=== PATIENT | female | born 1930 | race Two or more races ===

== ENCOUNTER 2018-04-18 01:31 | Inpatient (IN) | payer MEDICARE ==
[~2018-04-18] VITALS: Ht 152.4 cm; Wt 52.6 kg
[2018-04-18] VITALS (8 sets, daily range): BP systolic 113–204; BP diastolic 40–80
[2018-04-18] MEDS ORDERED: LEVETIRACE100 MG/1 M GT (01:45)
[2018-04-18] MEDS ORDERED: Ampicillin/Sulbactam Sod 3 GM in NS 110 ML IV SCH (01:45)
[2018-04-18] MEDS ORDERED: LEVAQUIN500 MG ORAL (01:45)
[2018-04-18] MEDS ORDERED: CATAPRES0.1 MG ORAL (01:45)
[2018-04-18] MEDS ORDERED: GABAPENTIN300 MG ORAL (01:45)
[2018-04-18] MEDS ORDERED: ASPIRIN81 MG ORAL (01:45)
[2018-04-18] MEDS ORDERED: METOPROLOL TART25 MG ORAL (01:45)
[2018-04-18 02:44] LABS: HEMATOCRIT 48.5 % (37.0-47.0); HEMOGLOBIN 14.7 G/DL (12.0-16.0); MEAN CORPUSCULAR VOLUME 87 FL (80-99); PLATELET COUNT 606 K/UL (150-450); RED BLOOD COUNT 5.58 M/UL (4.20-5.40); RED CELL DISTRIBUTION WIDTH 19.3 % (11.6-14.8); WHITE BLOOD COUNT 20.1 K/UL (4.8-10.8)
[2018-04-18 02:54] LABS: APPEARANCE,URINE CLEAR; BILIRUBIN, URINE NEGATIVE (NEGATIVE); COLOR,URINE PALE YELLOW; GLUCOSE, URINE (UA) NEGATIVE (NEGATIVE); KETONES,URINE NEGATIVE (NEGATIVE); LEUKOCYTE ESTERASE ,URINE NEGATIVE (NEGATIVE); NITRITE,URINE NEGATIVE (NEGATIVE); PH,URINE 6 (4.5-8.0); PROTEIN,URINE 3+ (NEGATIVE); UROBILINOGEN,URINE NORMAL MG/DL (0.0-1.0)
[2018-04-18 02:55] LABS: ANION GAP 8 mmol/L (5-15); BLOOD UREA NITROGEN 39 mg/dL (7-18); CALCIUM 9.2 MG/DL (8.5-10.1); CARBON DIOXIDE 27 MMOL/L (21-32); CHLORIDE 106 MMOL/L (98-107); CREATININE 1.3 MG/DL (0.55-1.30); POTASSIUM 4.4 MMOL/L (3.5-5.1); SODIUM 141 MMOL/L (136-145)
[2018-04-18 03:08] LABS: ALANINE AMINOTRANSFERASE 37 U/L (12-78); ALBUMIN 3.6 G/DL (3.4-5.0); ALBUMIN/GLOBULIN RATIO 0.8 (1.0-2.7); ALKALINE PHOSPHATASE 155 U/L (46-116); ASPARTATE AMINO TRANSFERASE 26 U/L (15-37); BILIRUBIN,TOTAL 0.2 MG/DL (0.2-1.0); CKMB 0.8 NG/ML (0.0-3.6); CREATINE KINASE 25 U/L (26-308); PHOSPHORUS 4.2 MG/DL (2.5-4.9)
--- NOTE | 2018-04-18 03:36 | Emergency Room Report ---
History of Present Illness General Chief Complaint: Abnormal Labs Source: Medical Record Present Illness HPI Patient is a 87-year-old female brought in by EMS for increased shortness of breath. Patient was noted to have a abnormal white blood count was noted to have increasing white blood cell counts on repeat testing. Patient noted have recent chest x-ray which showed evidence of pneumonia. She had some complaints of generalized shaking and chills. Patient had been sent in from alf. Patient was noted to be full code. Patient is followed by Dr. Johansen. Allergies: Coded Allergies: No Known Allergies (Unverified , 04/18/18) Patient History Past Medical History: see triage record Now: No Reviewed Nursing Documentation: PMH: Agreed; PSxH: Agreed Nursing Documentation-PMH Past Medical History: No History, Except For Hx Hypertension: Yes Hx Gastrointestinal Problems: Yes - Dysphagia Hx Seizures: Yes Review of Systems All Other Systems: limited - by mental status Physical Exam Vital Signs Date Time Temp Pulse Resp B/P (MAP) Pulse Ox O2 Delivery O2 Flow Rate FiO2 04/18/18 01:24 97.8 64 15 204/80 98 Room Air 97.9 Sp02 EP Interpretation: reviewed, normal General Appearance: normal inspection, well appearing, no apparent distress, alert, GCS 15, Chronically Ill Head: atraumatic ENT: normal ENT inspection, hearing grossly normal, normal voice Neck: normal inspection, full range of motion, supple, no bony tend Respiratory: normal inspection, no respiratory distress, no retraction, no wheezing, rhonchi Cardiovascular #1: regular rate, rhythm, no edema Gastrointestinal: normal inspection, normal bowel sounds, non tender, soft, no guarding, no hernia Genitourinary: no CVA tenderness Musculoskeletal: normal inspection, back normal, normal range of motion Neurologic: normal inspection, alert, responsive, speech normal Psychiatric: normal inspection, mood/affect normal, anxious Skin: normal inspection, normal color, no rash Medical Decision Making Diagnostic Impression: Primary Impression: Pneumonia Additional Impression: Leukocytosis ER Course The patient presented for elevate white blood count. Differential diagnosis included was not limited to pneumonia, pulmonary embolism, UTI, leukemia among others.Because of complexity of patient's case laboratory testing and imaging studies were ordered. I EKG interpreted by me showed normal sinus rhythm with a rate of 63 with right bundle branch block. The patient given IV antibiotics. Dr. Andrew Woodard was contacted for inpatient management due to covering physician. EKG Diagnostic Results Rate: normal Rhythm: NSR ST Segments: no acute changes Rhythm Strip Diag. Results EP Interpretation: yes Rhythm: NSR, no PVC's, no ectopy Last Vital Signs Date Time Temp Pulse Resp B/P (MAP) Pulse Ox O2 Delivery O2 Flow Rate FiO2 04/18/18 02:17 198/61 04/18/18 01:50 97.9 64 15 98 Room Air 97.9 Status: unchanged Disposition: ADMITTED INPATIENT Condition: Serious Referrals: Honorio Johansen MD (PCP) Vamshi Grissom MD Apr 18, 2018 03:36
[2018-04-18] MEDS ORDERED: Albuterol/Ipratropium 3ml neb HHN PRN (05:45)
[2018-04-18] MEDS ORDERED: Vancomycin 1gm in D5W 275ml IVPB SCH (08:00)
[2018-04-18] MEDS: Metoprolol 25mg tab ORAL SCH ×2 (08:37→22:08)
[2018-04-18] MEDS: Heparin 5000 units/ml inj SUBQ SCH ×2 (08:39→21:53)
[2018-04-18] MEDS: Aspirin Baby 81mg ORAL SCH (08:39)
[2018-04-18] MEDS: Zoysn 3.37gm in NS 100ML IVPB SCH ×2 (10:27→18:17)
--- NOTE | 2018-04-18 12:20 | Diagnostic Imaging Report ---
Indication: Shortness of breath Technique: One view of the chest Comparison: none Findings: Suboptimal inspiration. There is central bronchial wall thickening. Lungs pleural spaces are clear. The heart is enlarged. Aorta is calcified Impression: No acute process
--- NOTE | 2018-04-18 12:28 | Consultation ---
History of Present Illness General Date patient seen: Apr 18, 2018 Chief Complaint: Abnormal Labs Reason for Consultation: right clavicle trauma / abrasion Present Illness HPI 87 year old female was sent to ED for evaluation of SOB. Was doing well but has recently had some breathing difficulty. From report prior CXR demonstrated possible pneumonia. In ED found to have leukocytosis. Admitted for care and management. During admission noted to have right mid clavicle wound. Surgery called to evaluate given location of wound and appearance of wound. Patient states she has had it for a a few weeks now. Believes she had trauma to the area when she was getting out of a taxi. States she fell over as she was coming out of the taxi and hit her right mid clavicle and obtained wound that has since been slow to heal. patient seen, chart reviewed, patient examined. Allergies: Coded Allergies: No Known Allergies (Unverified , 04/18/18) Medication History Scheduled Aspirin* (Aspirin*), 81 MG ORAL DAILY, (Reported) Clonidine Hcl* (Catapres*), 0.1 MG ORAL EVERY 6 HOURS, (Reported) Gabapentin* (Gabapentin*), 300 MG ORAL BEDTIME, (Reported) Levetiracetam* (Levetiracetam*), 500 MG GT BID, (Reported) Levofloxacin* (Levaquin*), 500 MG ORAL DAILY, (Reported) Metoprolol Tartrate* (Metoprolol Tartrate*), 25 MG ORAL EVERY 12 HOURS, ( Reported) Patient History History Provided By: Patient, Medical Record, PMD Healthcare decision maker Resuscitation status Full Code Advanced Directive on File No Past Medical/Surgical History Past Medical/Surgical History: (1) Contusion of right clavicle (2) Leukocytosis (3) Pneumonia Review of Systems All Other Systems: negative except mentioned in HPI Physical Exam General Appearance: no apparent distress Lines, tubes and drains: peripheral HEENT: normocephalic, atraumatic Neck: normal inspection Respiratory/Chest: normal breath sounds, no respiratory distress, no accessory muscle use Cardiovascular/Chest: normal rate Abdomen: normal bowel sounds, non tender, soft, no organomegaly, no mass Extremities: non-tender, normal inspection Skin Exam: normal pigmentation, other - 3cm by 3cm right clavicle wound slow healing wound with fibrinous debris. stage II. clavicle tender on right Neurologic: alert, responsive Last 24 Hour Vital Signs Date Time Temp Pulse Resp B/P (MAP) Pulse Ox O2 Delivery O2 Flow Rate FiO2 04/18/18 11:30 64 20 Room Air 21 04/18/18 08:37 62 125/48 04/18/18 08:00 97.9 61 19 125/48 99 Room Air 97.9 04/18/18 08:00 61 04/18/18 05:30 57 04/18/18 04:45 97.2 53 20 141/57 96 Room Air 97.2 04/18/18 04:45 98.2 58 17 113/40 98 Room Air 98.2 04/18/18 04:37 98.2 58 17 113/40 98 Room Air 98.2 04/18/18 03:51 97.9 59 17 121/56 97 Room Air 97.9 04/18/18 02:17 198/61 04/18/18 01:50 97.9 64 15 204/80 98 Room Air 97.9 04/18/18 01:24 97.8 64 15 204/80 98 Room Air 97.9 Intake and Output 04/17/18 04/18/18 19:00 07:00 Intake Total 0 ml Balance 0 ml Intake Oral 0 ml # Voids 1 # Bowel Movements 1 Laboratory Tests Test 04/18/18 02:05 04/18/18 02:35 White Blood Count 20.1 K/UL (4.8-10.8) H Red Blood Count 5.58 M/UL (4.20-5.40) H Hemoglobin 14.7 G/DL (12.0-16.0) Hematocrit 48.5 % (37.0-47.0) H Mean Corpuscular Volume 87 FL (80-99) Mean Corpuscular Hemoglobin 26.3 PG (27.0-31.0) L Mean Corpuscular Hemoglobin Concent 30.3 G/DL (32.0-36.0) L Red Cell Distribution Width 19.3 % (11.6-14.8) H Platelet Count 606 K/UL (150-450) H Mean Platelet Volume 6.7 FL (6.5-10.1) Neutrophils (%) (Auto) % (45.0-75.0) Lymphocytes (%) (Auto) % (20.0-45.0) Monocytes (%) (Auto) % (1.0-10.0) Eosinophils (%) (Auto) % (0.0-3.0) Basophils (%) (Auto) % (0.0-2.0) Differential Total Cells Counted 100 Neutrophils % (Manual) 78 % (45-75) H Lymphocytes % (Manual) 13 % (20-45) L Monocytes % (Manual) 2 % (1-10) Eosinophils % (Manual) 5 % (0-3) H Basophils % (Manual) 0 % (0-2) Band Neutrophils 2 % (0-8) Platelet Estimate Increased H Platelet Morphology Normal Red Blood Cell Morphology Poikilocytosis 1+ Anisocytosis 1+ Sodium Level 141 MMOL/L (136-145) Potassium Level 4.4 MMOL/L (3.5-5.1) Chloride Level 106 MMOL/L (98-107) Carbon Dioxide Level 27 MMOL/L (21-32) Anion Gap 8 mmol/L (5-15) Blood Urea Nitrogen 39 mg/dL (7-18) H Creatinine 1.3 MG/DL (0.55-1.30) Estimat Glomerular Filtration Rate mL/min (>60) Glucose Level 101 MG/DL (74-106) Lactic Acid Level 1.80 mmol/L (0.4-2.0) Calcium Level 9.2 MG/DL (8.5-10.1) Phosphorus Level 4.2 MG/DL (2.5-4.9) Magnesium Level 2.3 MG/DL (1.8-2.4) Total Bilirubin 0.2 MG/DL (0.2-1.0) Aspartate Amino Transf (AST/SGOT) 26 U/L (15-37) Alanine Aminotransferase (ALT/SGPT) 37 U/L (12-78) Alkaline Phosphatase 155 U/L (46-116) H Total Creatine Kinase 25 U/L (26-308) L Creatine Kinase MB 0.8 NG/ML (0.0-3.6) Creatine Kinase MB Relative Index 3.2 Troponin I 0.000 ng/mL (0.000-0.056) Pro-B-Type Natriuretic Peptide 859 pg/mL (0-125) H Total Protein 8.3 G/DL (6.4-8.2) H Albumin 3.6 G/DL (3.4-5.0) Globulin 4.7 g/dL Albumin/Globulin Ratio 0.8 (1.0-2.7) L Urine Color Pale yellow Urine Appearance Clear Urine pH 6 (4.5-8.0) Urine Specific [place] 1.010 (1.005-1.035) Urine Protein 3+ (NEGATIVE) H Urine Glucose (UA) Negative (NEGATIVE) Urine Ketones Negative (NEGATIVE) Urine Occult Blood Negative (NEGATIVE) Urine Nitrite Negative (NEGATIVE) Urine Bilirubin Negative (NEGATIVE) Urine Urobilinogen Normal MG/DL (0.0-1.0) Urine Leukocyte Esterase Negative (NEGATIVE) Urine RBC 0-2 /HPF (0 - 2) Urine WBC 0-2 /HPF (0 - 2) Urine Squamous Epithelial Cells None /LPF (NONE/OCC) Urine Bacteria None /HPF (NONE) Height (Feet): 5 Height (Inches): 0.00 Weight (Pounds): 110 Medications Current Medications Medications (Trade) Dose Ordered Sig/Franco Route PRN Reason Start Time Stop Time Status Last Admin Dose Admin Albuterol/ Ipratropium (Albuterol/ Ipratropium) 3 ml Q4H PRN HHN Shortness of Breath 04/18/18 05:45 04/23/18 05:44 Aspirin (ASA) 81 mg DAILY ORAL 04/18/18 09:00 05/18/18 08:59 04/18/18 08:39 Clonidine HCl (Catapres Tab) 0.1 mg Q6H PRN ORAL For High Blood Pressure 04/18/18 06:00 05/18/18 05:59 Gabapentin (Neurontin) 300 mg BEDTIME ORAL 04/18/18 21:00 05/18/18 20:59 Heparin Sodium (Porcine) (Heparin 5000 units/ml) 5,000 units EVERY 12 HOURS SUBQ 04/18/18 09:00 05/18/18 08:59 04/18/18 08:39 Levetiracetam (Keppra) 500 mg BID ORAL 04/18/18 09:00 05/18/18 08:59 04/18/18 08:37 Levofloxacin (Levaquin) 250 mg DAILY ORAL 04/18/18 09:00 04/25/18 08:59 04/18/18 08:38 Metoprolol Tartrate (Lopressor) 25 mg EVERY 12 HOURS ORAL 04/18/18 09:00 05/18/18 08:59 04/18/18 08:37 Non-Formulary Medication (Non-Formulary Med) 1 ea DAILY ORAL 04/18/18 09:00 05/18/18 08:59 UNV Piperacillin Sod/ Tazobactam Sod 3.375 gm/Sodium Chloride 110 ml @ 27.5 mls/hr Q8H IVPB 04/18/18 10:00 04/25/18 09:59 04/18/18 10:27 Vancomycin HCl (Vanco rx to dose) 1 ea DAILY PRN MISC Per rx protocol 04/18/18 08:00 05/18/18 07:59 Assessment/Plan Problem List: (1) Contusion of right clavicle Assessment & Plan: right clavicle 3cm by 2cm wound slow healing. from report traumatic etiology after fall. no other wounds noted. wound not infected and shallow ulceration without penetration into subcutaneous tissues. no drainage. no odor CXR reviewed and no clavicle fracture noted. exam as above. -honey gel and foam dressing BID -will monitor while in hospital thank you for this consultation. will follow with recs. ICD Codes: S40.011A - Contusion of right shoulder, initial encounter SNOMED: 13069401 (2) Leukocytosis ICD Codes: D72.829 - Elevated white blood cell count, unspecified SNOMED: 378744118, [id number] Eder Rutherford Apr 18, 2018 12:28
--- NOTE | 2018-04-18 13:02 | Cardiology Report ---
APPROVED REPORT EKG Measurement Heart [id number] Normal sinus rhythm Right bundle branch block Abnormal ECG
--- NOTE | 2018-04-18 13:46 | Consultation ---
History of Present Illness General Date patient seen: Apr 18, 2018 Chief Complaint: Abnormal Labs Reason for Consultation: right clavicle trauma / abrasion Present Illness HPI 87 year old female was sent to ED for evaluation of SOB and breathing difficulty. The pt started yelling and getting agitated when then nurse tried to fix her IV line. the pt is anxious and has difficulty sleeping the pt was having panic like sxs. Allergies: Coded Allergies: No Known Allergies (Unverified , 04/18/18) Medication History Scheduled Aspirin* (Aspirin*), 81 MG ORAL DAILY, (Reported) Clonidine Hcl* (Catapres*), 0.1 MG ORAL EVERY 6 HOURS, (Reported) Gabapentin* (Gabapentin*), 300 MG ORAL BEDTIME, (Reported) Levetiracetam* (Levetiracetam*), 500 MG GT BID, (Reported) Levofloxacin* (Levaquin*), 500 MG ORAL DAILY, (Reported) Metoprolol Tartrate* (Metoprolol Tartrate*), 25 MG ORAL EVERY 12 HOURS, ( Reported) Patient History Limited by: medical condition History Provided By: Patient, Medical Record, PMD Healthcare decision maker Resuscitation status Full Code Advanced Directive on File No Past Medical/Surgical History Past Medical/Surgical History: (1) Leukocytosis (2) Pneumonia (3) Contusion of right clavicle Review of Systems Psychiatric: Reports: prior hx, anxiety, depressed feelings Physical Exam General Appearance: no apparent distress, alert Neurologic: oriented x 3, responsive, depressed affect Last 24 Hour Vital Signs Date Time Temp Pulse Resp B/P (MAP) Pulse Ox O2 Delivery O2 Flow Rate FiO2 04/18/18 11:30 64 20 Room Air 21 04/18/18 08:37 62 125/48 04/18/18 08:00 97.9 61 19 125/48 99 Room Air 97.9 04/18/18 08:00 61 04/18/18 05:30 57 04/18/18 04:45 97.2 53 20 141/57 96 Room Air 97.2 04/18/18 04:45 98.2 58 17 113/40 98 Room Air 98.2 04/18/18 04:37 98.2 58 17 113/40 98 Room Air 98.2 04/18/18 03:51 97.9 59 17 121/56 97 Room Air 97.9 04/18/18 02:17 198/61 04/18/18 01:50 97.9 64 15 80 98 Room Air 97.9 04/18/18 01:24 97.8 64 15 98 Room Air 97.9 Intake and Output 04/17/18 04/18/18 19:00 07:00 Intake Total 0 ml Balance 0 ml Intake Oral 0 ml # Voids 1 # Bowel Movements 1 Laboratory Tests Test 04/18/18 02:05 04/18/18 02:35 White Blood Count 20.1 K/UL (4.8-10.8) H Red Blood Count 5.58 M/UL (4.20-5.40) H Hemoglobin 14.7 G/DL (12.0-16.0) Hematocrit 48.5 % (37.0-47.0) H Mean Corpuscular Volume 87 FL (80-99) Mean Corpuscular Hemoglobin 26.3 PG (27.0-31.0) L Mean Corpuscular Hemoglobin Concent 30.3 G/DL (32.0-36.0) L Red Cell Distribution Width 19.3 % (11.6-14.8) H Platelet Count 606 K/UL (150-450) H Mean Platelet Volume 6.7 FL (6.5-10.1) Neutrophils (%) (Auto) % (45.0-75.0) Lymphocytes (%) (Auto) % (20.0-45.0) Monocytes (%) (Auto) % (1.0-10.0) Eosinophils (%) (Auto) % (0.0-3.0) Basophils (%) (Auto) % (0.0-2.0) Differential Total Cells Counted 100 Neutrophils % (Manual) 78 % (45-75) H Lymphocytes % (Manual) 13 % (20-45) L Monocytes % (Manual) 2 % (1-10) Eosinophils % (Manual) 5 % (0-3) H Basophils % (Manual) 0 % (0-2) Band Neutrophils 2 % (0-8) Platelet Estimate Increased H Platelet Morphology Normal Red Blood Cell Morphology Poikilocytosis 1+ Anisocytosis 1+ Sodium Level 141 MMOL/L (136-145) Potassium Level 4.4 MMOL/L (3.5-5.1) Chloride Level 106 MMOL/L (98-107) Carbon Dioxide Level 27 MMOL/L (21-32) Anion Gap 8 mmol/L (5-15) Blood Urea Nitrogen 39 mg/dL (7-18) H Creatinine 1.3 MG/DL (0.55-1.30) Estimat Glomerular Filtration Rate mL/min (>60) Glucose Level 101 MG/DL (74-106) Lactic Acid Level 1.80 mmol/L (0.4-2.0) Calcium Level 9.2 MG/DL (8.5-10.1) Phosphorus Level 4.2 MG/DL (2.5-4.9) Magnesium Level 2.3 MG/DL (1.8-2.4) Total Bilirubin 0.2 MG/DL (0.2-1.0) Aspartate Amino Transf (AST/SGOT) 26 U/L (15-37) Alanine Aminotransferase (ALT/SGPT) 37 U/L (12-78) Alkaline Phosphatase 155 U/L (46-116) H Total Creatine Kinase 25 U/L (26-308) L Creatine Kinase MB 0.8 NG/ML (0.0-3.6) Creatine Kinase MB Relative Index 3.2 Troponin I 0.000 ng/mL (0.000-0.056) Pro-B-Type Natriuretic Peptide 859 pg/mL (0-125) H Total Protein 8.3 G/DL (6.4-8.2) H Albumin 3.6 G/DL (3.4-5.0) Globulin 4.7 g/dL Albumin/Globulin Ratio 0.8 (1.0-2.7) L Urine Color Pale yellow Urine Appearance Clear Urine pH 6 (4.5-8.0) Urine Specific [place] 1.010 (1.005-1.035) Urine Protein 3+ (NEGATIVE) H Urine Glucose (UA) Negative (NEGATIVE) Urine Ketones Negative (NEGATIVE) Urine Occult Blood Negative (NEGATIVE) Urine Nitrite Negative (NEGATIVE) Urine Bilirubin Negative (NEGATIVE) Urine Urobilinogen Normal MG/DL (0.0-1.0) Urine Leukocyte Esterase Negative (NEGATIVE) Urine RBC 0-2 /HPF (0 - 2) Urine WBC 0-2 /HPF (0 - 2) Urine Squamous Epithelial Cells None /LPF (NONE/OCC) Urine Bacteria None /HPF (NONE) Height (Feet): 5 Height (Inches): 0.00 Weight (Pounds): 110 Medications Current Medications Medications (Trade) Dose Ordered Sig/Franco Route PRN Reason Start Time Stop Time Status Last Admin Dose Admin Albuterol/ Ipratropium (Albuterol/ Ipratropium) 3 ml Q4H PRN HHN Shortness of Breath 04/18/18 05:45 04/23/18 05:44 Aspirin (ASA) 81 mg DAILY ORAL 04/18/18 09:00 05/18/18 08:59 04/18/18 08:39 Clonidine HCl (Catapres Tab) 0.1 mg Q6H PRN ORAL For High Blood Pressure 04/18/18 06:00 05/18/18 05:59 Gabapentin (Neurontin) 300 mg BEDTIME ORAL 04/18/18 21:00 05/18/18 20:59 Heparin Sodium (Porcine) (Heparin 5000 units/ml) 5,000 units EVERY 12 HOURS SUBQ 04/18/18 09:00 05/18/18 08:59 04/18/18 08:39 Levetiracetam (Keppra) 500 mg BID ORAL 04/18/18 09:00 05/18/18 08:59 04/18/18 08:37 Levofloxacin (Levaquin) 250 mg DAILY ORAL 04/18/18 09:00 04/25/18 08:59 04/18/18 08:38 Metoprolol Tartrate (Lopressor) 25 mg EVERY 12 HOURS ORAL 04/18/18 09:00 05/18/18 08:59 04/18/18 08:37 Non-Formulary Medication (Non-Formulary Med) 1 ea DAILY ORAL 04/18/18 09:00 05/18/18 08:59 UNV Piperacillin Sod/ Tazobactam Sod 3.375 gm/Sodium Chloride 110 ml @ 27.5 mls/hr Q8H IVPB 04/18/18 10:00 04/25/18 09:59 04/18/18 10:27 Vancomycin HCl (Vanco rx to dose) 1 ea DAILY PRN MISC Per rx protocol 04/18/18 08:00 05/18/18 07:59 Vancomycin/Sodium Chloride 250 ml @ 166.667 mls/hr Q36H IVPB 04/19/18 20:00 04/24/18 19:59 Assessment/Plan Status: stable, progressing Assessment/Plan Anxiety d/o Cognitive impairment -Ativan 1mg q6hr/prn -Lexapro 10mg qam -Provided pamela/Severino Lopez M.D. Apr 18, 2018 13:46
--- NOTE | 2018-04-18 18:31 | History and Physical Report ---
DATE OF ADMISSION: 04/18/2018 CHIEF COMPLAINT: Pneumonia. HISTORY OF PRESENT ILLNESS: The patient is an 87-year-old female. She has a history of hypertension, seizure disorder, peripheral neuropathy, and gait instability. She was transferred from a retirement facility with complaints of cough, congestion, and fevers. On evaluation at the retirement facility, she apparently had an x-ray that showed bilateral pneumonia. Here in the emergency room, she had x-ray evidence of pneumonia on x-ray here. She had a white count of 20,000. The patient has been pancultured. Broad-spectrum antibiotics have been instituted and the patient is now admitted for further evaluation and care. She currently is without complaints. PAST MEDICAL HISTORY: As above. PAST SURGICAL HISTORY: Includes a history of hip replacement. CURRENT MEDICATIONS: Reconciled and reviewed. FAMILY HISTORY: None. SOCIAL HISTORY: Negative for tobacco, ethanol, or drugs. REVIEW OF SYSTEMS: GENERAL: Positive for fevers and chills. No night sweats. HEENT: No headaches. CARDIOPULMONARY: No chest pain. Positive shortness of breath, cough, and congestion. GASTROINTESTINAL: No nausea or vomiting. GENITOURINARY: No urgency or frequency. MUSCULOSKELETAL: No joint pain or swelling. NEUROLOGIC: No evidence of seizures. PHYSICAL EXAMINATION: VITAL SIGNS: Temperature 98.2, pulse 58, respirations 17, and blood pressure 125/48. GENERAL: The patient is a well-developed female, in no apparent distress. HEART: Regular rate and rhythm. LUNGS: Clear anteriorly. ABDOMEN: Soft, nontender, and nondistended. EXTREMITIES: Without clubbing, cyanosis, or edema. LABORATORY AND DIAGNOSTIC DATA: Chest x-ray showed bilateral infiltrates. White count was 20,000, hemoglobin 14, hematocrit 48, and platelets of 606,000. UA was clear. EKG showed left bundle-branch block. ASSESSMENT: This is a pleasant female, admitted with healthcare-associated pneumonia. 1. Pneumonia. 2. Hypertension. 3. Seizure disorder. 4. Toxic metabolic encephalopathy. PLAN: 1. IV antibiotics. 2. Continue seizure medications. 3. ID, Pulmonary, and Cardiology consultations to be obtained. 4. We will follow up pending cultures. 5. Check swallow evaluation. Andrew Woodard M.D. DR: TRUPTI JOB#: [id number] CC:
[2018-04-19] VITALS: BP 157/61
[2018-04-19] MEDS: Zoysn 3.37gm in NS 100ML IVPB SCH ×3 (01:31→18:32)
[2018-04-19 04:00] VITALS: BP 163/69
[2018-04-19 08:00] VITALS: BP 138/55
[2018-04-19 08:06] LABS: BASOPHILS % (AUTO) 2.1 % (0.0-2.0); EOSINOPHILS % (AUTO) 8.3 % (0.0-3.0); HEMATOCRIT 45.1 % (37.0-47.0); HEMOGLOBIN 14.5 G/DL (12.0-16.0); LYMPHOCYTES % (AUTO) 10.1 % (20.0-45.0); MEAN CORPUSCULAR VOLUME 87 FL (80-99); MONOCYTES % (AUTO) 3.8 % (1.0-10.0); NEUTROPHILS % (AUTO) 75.7 % (45.0-75.0); PLATELET COUNT 484 K/UL (150-450); RED BLOOD COUNT 5.19 M/UL (4.20-5.40); RED CELL DISTRIBUTION WIDTH 19.5 % (11.6-14.8); WHITE BLOOD COUNT 17.3 K/UL (4.8-10.8)
[2018-04-19 08:52] LABS: ALANINE AMINOTRANSFERASE 52 U/L (12-78); ALBUMIN 3.2 G/DL (3.4-5.0); ALBUMIN/GLOBULIN RATIO 0.7 (1.0-2.7); ALKALINE PHOSPHATASE 132 U/L (46-116); ANION GAP 9 mmol/L (5-15); ASPARTATE AMINO TRANSFERASE 38 U/L (15-37); BILIRUBIN,TOTAL 0.4 MG/DL (0.2-1.0); BLOOD UREA NITROGEN 27 mg/dL (7-18); CALCIUM 9.2 MG/DL (8.5-10.1); CARBON DIOXIDE 23 MMOL/L (21-32); CHLORIDE 109 MMOL/L (98-107); CREATININE 1.2 MG/DL (0.55-1.30); POTASSIUM 4.4 MMOL/L (3.5-5.1); SODIUM 141 MMOL/L (136-145)
[2018-04-19] MEDS: Aspirin Baby 81mg ORAL SCH (09:10)
[2018-04-19] MEDS: Metoprolol 25mg tab ORAL SCH ×2 (09:11→21:23)
[2018-04-19] MEDS: LORazepam 1mg tab ORAL PRN ×2 (09:11→21:23)
[2018-04-19] MEDS: Heparin 5000 units/ml inj SUBQ SCH ×2 (09:13→21:00)
[2018-04-19 12:00] VITALS: BP 141/72
--- NOTE | 2018-04-19 15:30 | General Surgery Progress Note ---
General Surgery-Progress Note Subjective Additional Comments no acute events. doing well. labs improving. no n/v/f/c. Objective Last 24 Hour Vital Signs Date Time Temp Pulse Resp B/P (MAP) Pulse Ox O2 Delivery O2 Flow Rate FiO2 04/19/18 12:00 59 04/19/18 12:00 97.3 61 20 141/72 99 Room Air 97.3 04/19/18 09:11 69 138/55 04/19/18 08:00 55 04/19/18 08:00 98.2 69 20 138/55 97 Room Air 98.2 04/19/18 07:46 78 18 Room Air 21 04/19/18 04:00 98.0 55 20 163/69 98 Room Air 98.0 04/19/18 04:00 64 04/19/18 00:00 60 04/19/18 00:00 97.8 58 20 157/61 98 Room Air 97.8 04/18/18 22:08 63 173/73 04/18/18 20:00 62 04/18/18 20:00 97.5 63 20 173/73 100 Room Air 97.5 04/18/18 19:30 60 20 Room Air 21 04/18/18 16:00 97.2 64 20 138/64 99 Room Air 97.2 04/18/18 16:00 63 I&O Intake and Output 04/18/18 04/19/18 19:00 07:00 Intake Total 619.7 ml 300.30 ml Balance 619.7 ml 300.30 ml Intake Oral 600 ml 100 ml IV Total 19.7 ml 200.30 ml # Voids 4 Wound: clean Drains: none Cardiovascular: RSR Respiratory: clear Abdomen: soft, flat Extremities: edema, tenderness Laboratory Tests Test 04/19/18 06:35 White Blood Count 17.3 K/UL (4.8-10.8) H Red Blood Count 5.19 M/UL (4.20-5.40) Hemoglobin 14.5 G/DL (12.0-16.0) Hematocrit 45.1 % (37.0-47.0) Mean Corpuscular Volume 87 FL (80-99) Mean Corpuscular Hemoglobin 27.9 PG (27.0-31.0) Mean Corpuscular Hemoglobin Concent 32.1 G/DL (32.0-36.0) Red Cell Distribution Width 19.5 % (11.6-14.8) H Platelet Count 484 K/UL (150-450) H Mean Platelet Volume 6.8 FL (6.5-10.1) Neutrophils (%) (Auto) 75.7 % (45.0-75.0) H Lymphocytes (%) (Auto) 10.1 % (20.0-45.0) L Monocytes (%) (Auto) 3.8 % (1.0-10.0) Eosinophils (%) (Auto) 8.3 % (0.0-3.0) H Basophils (%) (Auto) 2.1 % (0.0-2.0) H Sodium Level 141 MMOL/L (136-145) Potassium Level 4.4 MMOL/L (3.5-5.1) Chloride Level 109 MMOL/L (98-107) H Carbon Dioxide Level 23 MMOL/L (21-32) Anion Gap 9 mmol/L (5-15) Blood Urea Nitrogen 27 mg/dL (7-18) H Creatinine 1.2 MG/DL (0.55-1.30) Estimat Glomerular Filtration Rate mL/min (>60) Glucose Level 69 MG/DL (74-106) L Calcium Level 9.2 MG/DL (8.5-10.1) Total Bilirubin 0.4 MG/DL (0.2-1.0) Aspartate Amino Transf (AST/SGOT) 38 U/L (15-37) H Alanine Aminotransferase (ALT/SGPT) 52 U/L (12-78) Alkaline Phosphatase 132 U/L (46-116) H Total Protein 7.7 G/DL (6.4-8.2) Albumin 3.2 G/DL (3.4-5.0) L Globulin 4.5 g/dL Albumin/Globulin Ratio 0.7 (1.0-2.7) L Plan Problems: (1) Contusion of right clavicle Assessment & Plan: right clavicle 3cm by 2cm wound slow healing. from report traumatic etiology after fall. no other wounds noted. wound not infected and shallow ulceration without penetration into subcutaneous tissues. no drainage. no odor CXR reviewed and no clavicle fracture noted. exam as above. -honey gel and foam dressing BID -will monitor while in hospital thank you for this consultation. will follow with recs. (2) Leukocytosis Eder Rutherford Apr 19, 2018 15:30
[2018-04-19 16:00] VITALS: BP 151/62
[2018-04-19] MEDS ORDERED: Tubing IV Secondary IV ONE (17:56)
[2018-04-19] MEDS ORDERED: NS 275ml ONE (17:56)
--- NOTE | 2018-04-19 18:35 | General Progress Note ---
Assessment/Plan Problem List: (1) Leukocytosis ICD Codes: D72.829 - Elevated white blood cell count, unspecified SNOMED: 979594951, 006315945 (2) Pneumonia ICD Codes: J18.9 - Pneumonia, unspecified organism SNOMED: 075232033, 675774561 (3) Contusion of right clavicle ICD Codes: S40.011A - Contusion of right shoulder, initial encounter SNOMED: 27837655 Status: stable, progressing Assessment/Plan iv abx resp care o2 monitor cxr psych rx/anxiolytics wound care swallow eval Subjective ROS Limited/Unobtainable: No Constitutional: Reports: malaise, weakness HEENT: Reports: no symptoms Cardiovascular: Reports: no symptoms Respiratory: Reports: cough, shortness of breath Gastrointestinal/Abdominal: Reports: no symptoms Genitourinary: Reports: no symptoms Neurologic/Psychiatric: Reports: pre-existing deficit Endocrine: Reports: no symptoms Hematologic/Lymphatic: Reports: anemia Allergies: Coded Allergies: No Known Allergies (Unverified , 04/18/18) All Systems: reviewed and negative except above Subjective intermittently agitated. on o2. on iv abx. no sob. Objective Last 24 Hour Vital Signs Date Time Temp Pulse Resp B/P (MAP) Pulse Ox O2 Delivery O2 Flow Rate FiO2 04/19/18 16:00 62 04/19/18 16:00 98.8 65 21 151/62 98 Room Air 98.8 04/19/18 12:00 59 04/19/18 12:00 97.3 61 20 141/72 99 Room Air 97.3 04/19/18 09:11 69 138/55 04/19/18 08:00 55 04/19/18 08:00 98.2 69 20 138/55 97 Room Air 98.2 04/19/18 07:46 78 18 Room Air 21 04/19/18 04:00 98.0 55 20 163/69 98 Room Air 98.0 04/19/18 04:00 64 04/19/18 00:00 60 04/19/18 00:00 97.8 58 20 157/61 98 Room Air 97.8 04/18/18 22:08 63 173/73 04/18/18 20:00 62 04/18/18 20:00 97.5 63 20 173/73 100 Room Air 97.5 04/18/18 19:30 60 20 Room Air 21 Intake and Output 04/18/18 04/19/18 19:00 07:00 Intake Total 619.7 ml 300.30 ml Balance 619.7 ml 300.30 ml Intake Oral 600 ml 100 ml IV Total 19.7 ml 200.30 ml # Voids 4 Laboratory Tests 04/19/18 06:35: White Blood Count 17.3H, Red Blood Count 5.19, Hemoglobin 14.5, Hematocrit 45.1 , Mean Corpuscular Volume 87, Mean Corpuscular Hemoglobin 27.9, Mean Corpuscular Hemoglobin Concent 32.1, Red Cell Distribution Width 19.5H, Platelet Count 484H, Mean Platelet Volume 6.8, Neutrophils (%) (Auto) 75.7H, Lymphocytes (%) (Auto) 10.1L, Monocytes (%) (Auto) 3.8, Eosinophils (%) (Auto) 8.3H, Basophils (%) (Auto) 2.1H, Sodium Level 141, Potassium Level 4.4, Chloride Level 109H, Carbon Dioxide Level 23, Anion Gap 9, Blood Urea Nitrogen 27H, Creatinine 1.2, Estimat Glomerular Filtration Rate , Glucose Level 69L, Calcium Level 9.2, Total Bilirubin 0.4, Aspartate Amino Transf (AST/SGOT) 38H, Alanine Aminotransferase (ALT/SGPT) 52, Alkaline Phosphatase 132H, Total Protein 7.7, Albumin 3.2L, Globulin 4.5, Albumin/Globulin Ratio 0.7L Height (Feet): 5 Height (Inches): 0.00 Weight (Pounds): 110 General Appearance: WD/WN, confused Neck: supple Cardiovascular: regular rhythm Respiratory/Chest: rhonchi - bilaterally Abdomen: normal bowel sounds, non tender, soft, no organomegaly Edema: no edema noted Arm (L), no edema noted Arm (R), no edema noted Leg (L), no edema noted Leg (R), no edema noted Pedal (L), no edema noted Pedal (R), no edema noted Generalized Neurologic: alert, disoriented Andrew Woodard MD Apr 19, 2018 18:35
[2018-04-19] MEDS ORDERED: Vancomycin 750mg/NS 250ml IVPB SCH (20:00)
[2018-04-19] MEDS ORDERED: Haloperidol Decanoate 50mg Inj IM PRN (22:45)
[2018-04-19] MEDS ORDERED: Haloperidol 5mg/ml Inj IM PRN (23:15)
[2018-04-19] MEDS ORDERED: Lidocaine 1% MPF 10mg/ml 5ml INJ ONE (23:30)
[2018-04-20] MEDS: Zoysn 3.37gm in NS 100ML IVPB SCH ×3 (01:46→17:43)
[2018-04-20 04:00] VITALS: BP 182/62
[2018-04-20 07:34] LABS: BASOPHILS % (AUTO) 1.6 % (0.0-2.0); EOSINOPHILS % (AUTO) 7.5 % (0.0-3.0); HEMATOCRIT 40.6 % (37.0-47.0); HEMOGLOBIN 12.6 G/DL (12.0-16.0); LYMPHOCYTES % (AUTO) 8.2 % (20.0-45.0); MEAN CORPUSCULAR VOLUME 87 FL (80-99); MONOCYTES % (AUTO) 3.7 % (1.0-10.0); PLATELET COUNT 389 K/UL (150-450); RED BLOOD COUNT 4.66 M/UL (4.20-5.40); RED CELL DISTRIBUTION WIDTH 19.2 % (11.6-14.8); WHITE BLOOD COUNT 16.8 K/UL (4.8-10.8)
[2018-04-20 07:53] LABS: ALANINE AMINOTRANSFERASE 68 U/L (12-78); ALBUMIN 2.7 G/DL (3.4-5.0); ALBUMIN/GLOBULIN RATIO 0.7 (1.0-2.7); ALKALINE PHOSPHATASE 121 U/L (46-116); ANION GAP 8 mmol/L (5-15); ASPARTATE AMINO TRANSFERASE 45 U/L (15-37); BILIRUBIN,TOTAL 0.3 MG/DL (0.2-1.0); BLOOD UREA NITROGEN 24 mg/dL (7-18); CALCIUM 8.5 MG/DL (8.5-10.1); CARBON DIOXIDE 24 MMOL/L (21-32); CHLORIDE 109 MMOL/L (98-107); CREATININE 1.2 MG/DL (0.55-1.30); POTASSIUM 3.9 MMOL/L (3.5-5.1); SODIUM 140 MMOL/L (136-145)
[2018-04-20 08:00] VITALS: BP 135/60
[2018-04-20] MEDS ORDERED: Vancomycin 750mg/NS 250ml IVPB SCH (08:30)
[2018-04-20] MEDS: Aspirin Baby 81mg ORAL SCH (08:59)
[2018-04-20] MEDS: Metoprolol 25mg tab ORAL SCH ×2 (08:59→20:20)
[2018-04-20] MEDS: LORazepam 1mg tab ORAL PRN ×2 (08:59→15:38)
[2018-04-20] MEDS: Heparin 5000 units/ml inj SUBQ SCH ×2 (09:01→20:21)
--- NOTE | 2018-04-20 10:35 | General Progress Note ---
Assessment/Plan Problem List: (1) Leukocytosis ICD Codes: D72.829 - Elevated white blood cell count, unspecified SNOMED: 496092753, 890929982 (2) Pneumonia ICD Codes: J18.9 - Pneumonia, unspecified organism SNOMED: 096897367, 447539813 (3) Contusion of right clavicle ICD Codes: S40.011A - Contusion of right shoulder, initial encounter SNOMED: 79721451 Status: stable, progressing Assessment/Plan iv abx monitor labs resp care o2 monitor cxr psych rx/anxiolytics wound care swallow eval compliance stressed Subjective ROS Limited/Unobtainable: Yes Constitutional: Reports: malaise, weakness HEENT: Reports: no symptoms Cardiovascular: Reports: no symptoms Respiratory: Reports: cough Gastrointestinal/Abdominal: Reports: no symptoms Genitourinary: Reports: no symptoms Neurologic/Psychiatric: Reports: anxiety, pre-existing deficit Endocrine: Reports: no symptoms Hematologic/Lymphatic: Reports: anemia Allergies: Coded Allergies: No Known Allergies (Unverified , 04/18/18) All Systems: reviewed and negative except above Subjective intermittently agitated. on o2. on iv abx. no sob. noncompliant with rx. pulling out iv. refusing re-insertion Objective Last 24 Hour Vital Signs Date Time Temp Pulse Resp B/P (MAP) Pulse Ox O2 Delivery O2 Flow Rate FiO2 04/20/18 08:59 63 135/60 04/20/18 08:26 77 18 Room Air 21 04/20/18 04:28 182/68 04/20/18 04:00 97.3 55 20 182/62 98 Room Air 97.3 04/20/18 03:45 57 04/19/18 23:39 59 04/19/18 21:23 64 151/81 04/19/18 19:50 64 04/19/18 19:30 70 18 Room Air 21 04/19/18 16:00 62 04/19/18 16:00 98.8 65 21 151/62 98 Room Air 98.8 04/19/18 12:00 59 04/19/18 12:00 97.3 61 20 141/72 99 Room Air 97.3 Intake and Output 04/19/18 04/20/18 19:00 07:00 Intake Total 830.0 ml 50 ml Balance 830.0 ml 50 ml Intake Oral 720 ml 50 ml IV Total 110.0 ml # Voids 3 # Bowel Movements 1 Laboratory Tests 04/20/18 05:55: White Blood Count 16.8H, Red Blood Count 4.66, Hemoglobin 12.6, Hematocrit 40.6 , Mean Corpuscular Volume 87, Mean Corpuscular Hemoglobin 27.0, Mean Corpuscular Hemoglobin Concent 31.0L, Red Cell Distribution Width 19.2H, Platelet Count 389, Mean Platelet Volume 7.5, Neutrophils (%) (Auto) 79.0H, Lymphocytes (%) (Auto) 8.2L, Monocytes (%) (Auto) 3.7, Eosinophils (%) (Auto) 7.5H, Basophils (%) (Auto) 1.6, Sodium Level 140, Potassium Level 3.9, Chloride Level 109H, Carbon Dioxide Level 24, Anion Gap 8, Blood Urea Nitrogen 24H, Creatinine 1.2, Estimat Glomerular Filtration Rate , Glucose Level 80, Calcium Level 8.5, Total Bilirubin 0.3, Aspartate Amino Transf (AST/SGOT) 45H, Alanine Aminotransferase (ALT/SGPT) 68, Alkaline Phosphatase 121H, Total Protein 6.6, Albumin 2.7L, Globulin 3.9, Albumin/Globulin Ratio 0.7L Height (Feet): 5 Height (Inches): 0.00 Weight (Pounds): 110 General Appearance: WD/WN, confused, agitated EENT: PERRL/EOMI Neck: supple Cardiovascular: normal rate, regular rhythm Respiratory/Chest: chest wall non-tender, lungs clear, normal breath sounds Abdomen: normal bowel sounds, non tender, soft, no organomegaly Edema: no edema noted Arm (L), no edema noted Arm (R), no edema noted Leg (L), no edema noted Leg (R), no edema noted Pedal (L), no edema noted Pedal (R), no edema noted Generalized Andrew Woodard MD Apr 20, 2018 10:35
--- NOTE | 2018-04-20 10:41 | Diagnostic Imaging Report ---
EXAM: XR Chest, 1 View CLINICAL HISTORY: BACT TECHNIQUE: Frontal view of the chest. COMPARISON: No relevant prior studies available. FINDINGS: Lungs: Senescent changes with accentuation of pulmonary markings. No confluent consolidation. Pleural space: Unremarkable. No pneumothorax. Heart: Mild cardiomegaly. Mediastinum: Unremarkable. Bones/joints: No acute fracture. IMPRESSION: Senescent changes with accentuation of pulmonary markings. No confluent consolidation.
[2018-04-20 12:00] VITALS: BP 118/50
[2018-04-20] MEDS ORDERED: NS 500ML ONE (13:39)
[2018-04-20] MEDS ORDERED: Tubing IV Secondary IV ONE (13:39)
[2018-04-20 16:00] VITALS: BP 126/62
[2018-04-20 20:00] VITALS: BP 120/52
[2018-04-21] VITALS: BP 141/57
[2018-04-21] MEDS: Zoysn 3.37gm in NS 100ML IVPB SCH ×2 (01:39→10:25)
[2018-04-21] MEDS ORDERED: HydrALAZINE 25mg tab ORAL PRN (02:00)
--- NOTE | 2018-04-21 03:45 | Consultation ---
DATE OF CONSULTATION: 04/18/2018 CARDIOLOGY CONSULTATION CONSULTING PHYSICIAN: Enrique Cooper M.D. REQUESTING PHYSICIAN: Andrew Woodard M.D. REASON FOR CONSULTATION: Abnormal EKG and elevated natriuretic peptide essay in the setting of shortness of breath. HISTORY OF PRESENT ILLNESS: This is an 87-year-old female, who resides at a intermediate facility. She was sent to the emergency room for evaluation of respiratory distress. She was reported as having difficulty with breathing and in the emergency department, was noted to have an elevated natriuretic peptide essay with abnormal EKG, abnormal chest x-ray, and laboratory studies. I have been asked to assist with cardiovascular care. The patient also complains of pain over her right clavicle. She apparently has a wound that has developed there and she reports trauma to the area when getting out of a taxi in the past. PAST MEDICAL HISTORY: 1. Hypertension with hypertensive heart disease. 2. Seizure disorder. 3. Peripheral neuropathy. 4. Unsteady gait. 5. Osteoarthritis. 6. History of left hip replacement. 7. Anxiety disorder. MEDICATIONS: Prior to admission, reviewed and reconciled. ALLERGIES: The patient has no known drug allergies. SOCIAL HISTORY: Negative for smoking, alcohol, or substance abuse. REVIEW OF SYSTEMS: The patient denies any known history of heart attack or irregular heartbeats. No known history of rheumatic fever or endocarditis. PHYSICAL EXAMINATION: VITAL SIGNS: Blood pressure 138/64, pulse 64, respirations 20, and afebrile. HEENT: Conjunctivae pink. Oropharynx clear. NECK: Supple. No bruits. No jugular venous distention. LUNGS: Clear. CARDIAC: Regular rhythm and rate. Normal S1, S2. A 1/6 systolic murmur at the lower left sternal border. ABDOMEN: Soft and nontender. EXTREMITIES: No edema. There is a 3 x 2 cm wound over the right clavicle that appears clean and dry and have dressing in place. DIAGNOSTIC DATA: Chest x-ray, with no acute process. Sodium 141, potassium 4.4, bicarbonate 27, BUN 39, and creatinine 1.3. Pro-natriuretic peptide 859. Troponin 0. Albumin 3.6. Glucose 101. EKG, sinus rhythm, right bundle-branch block. Lactic acid 1.8. IMPRESSION: 1. Probable pneumonia. 2. Hypertensive heart disease. 3. Chronic diastolic congestive heart failure. No signs of acute congestive heart failure. 4. Seizure disorder. 5. Toxic and metabolic encephalopathies. 6. Right clavicular wound. 7. Right bundle-branch block of no hemodynamic significance. PLAN: 1. Antimicrobials. 2. Respiratory hygiene. 3. Bronchodilators as needed. 4. Continue antiseizure therapy. 5. Trend natriuretic peptide assay. 6. Supplemental oxygen as needed. 7. Follow up chest x-ray once hydrated. 8. Aspiration precautions. 9. Check echocardiogram. Enrique Cooper M.D. DR: DEAN JOB#: [id number] CC:
[2018-04-21 04:00] VITALS: BP 148/65
--- NOTE | 2018-04-21 04:00 | Progress Note ---
DATE: 04/20/2018 CARDIOLOGY PROGRESS NOTE SUBJECTIVE: The patient has intermittent episodes of agitation. She remains on angiolytics. She has been pulling off oxygen and IV access. OBJECTIVE: VITAL SIGNS: Blood pressure up to 182/62 at times, heart rate 55, and respiratory rate 20. Monitored sinus rhythm and sinus bradycardia. Oxygen saturation on room air is 98%. LUNGS: Coarse rhonchi. HEART: Regular rhythm and rate. Normal S1, S2 with a fourth heart sound. ABDOMEN: Soft and nontender. EXTREMITIES: With no edema. LABORATORY DATA: White count 16.8 and hemoglobin 12.6. Urinalysis with 0 to 2 white cells and 0 to 2 red cells. Sodium 140, potassium 3.9, bicarbonate 24, BUN 24, and creatinine 1.2. Albumin 2.7. IMPRESSION: 1. Pneumonia. 2. Aspiration risk. 3. Moderate protein-calorie malnutrition. 4. Hypertensive heart disease. 5. Accelerated hypertension likely due to mood and agitation. 6. Chronic diastolic congestive heart failure. 7. Conduction system disease with right bundle-branch block of no clinical significance. 8. Metabolic and toxic encephalopathy. 9. Sepsis likely due to acute pulmonary infection. PLAN: 1. Recheck chest x-ray today. 2. Continue antimicrobials. 3. Intravenous access as able. 4. Maintain beta-martinez. 5. Await echocardiogram. 6. DVT prophylaxis. 7. P.r.n. antihypertensives for blood pressure spikes. Enrique Cooper M.D. DR: DEAN JOB#: [id number] CC:
--- NOTE | 2018-04-21 04:00 | Progress Note ---
DATE: 04/20/2018 SUBJECTIVE: The patient has episodes of agitation and anxiety. Psychiatric consultation noted. Oxygen saturation now on room air is 98%. OBJECTIVE: VITAL SIGNS: Blood pressure 141/72 to 163/69, heart rate 55 to 78, respiratory rate 18 to 20, and afebrile. HEENT: Normocephalic and atraumatic. Conjunctivae pink. Oropharynx clear. NECK: Supple. No accessory muscle use. LUNGS: With few rhonchi. CARDIAC: Regular rhythm and rate. Normal S1, S2. No new murmur. ABDOMEN: Soft and nontender. EXTREMITIES: No edema. Good distal pulses. LABORATORY DATA: Sodium 141, potassium 4.4, BUN 27, and creatinine 1.2. Albumin 3.2. White count 17.3 and hemoglobin 14.5. IMPRESSION: 1. Sepsis with probable pneumonia. 2. Hypertensive heart disease with labile blood pressure due to mood. 3. Chronic diastolic congestive heart failure. PLAN: 1. Respiratory hygiene. 2. Aspiration precautions. 3. Empiric antibiotics. 4. Monitor volume status and cardiorenal parameters. 5. Trend natriuretic peptide assay. 6. Obtain echocardiogram. 7. DVT prophylaxis. Enrique Cooper M.D. DR: DEAN JOB#: [id number] CC:
[2018-04-21 08:00] VITALS: BP 193/73
[2018-04-21] MEDS: Aspirin Baby 81mg ORAL SCH (08:47)
[2018-04-21] MEDS: Metoprolol 25mg tab ORAL SCH ×2 (08:48→21:26)
[2018-04-21] MEDS: Heparin 5000 units/ml inj SUBQ SCH ×2 (08:51→21:00)
[2018-04-21 09:45] LABS: BASOPHILS % (AUTO) 1.8 % (0.0-2.0); EOSINOPHILS % (AUTO) 8.6 % (0.0-3.0); HEMATOCRIT 43.9 % (37.0-47.0); HEMOGLOBIN 13.4 G/DL (12.0-16.0); MEAN CORPUSCULAR VOLUME 86 FL (80-99); MONOCYTES % (AUTO) 3.1 % (1.0-10.0); NEUTROPHILS % (AUTO) 77.5 % (45.0-75.0); PLATELET COUNT 431 K/UL (150-450); RED BLOOD COUNT 5.08 M/UL (4.20-5.40); WHITE BLOOD COUNT 15.9 K/UL (4.8-10.8)
[2018-04-21 10:07] LABS: ALANINE AMINOTRANSFERASE 87 U/L (12-78); ALBUMIN/GLOBULIN RATIO 0.7 (1.0-2.7); ALKALINE PHOSPHATASE 139 U/L (46-116); ANION GAP 11 mmol/L (5-15); ASPARTATE AMINO TRANSFERASE 57 U/L (15-37); BILIRUBIN,TOTAL 0.4 MG/DL (0.2-1.0); BLOOD UREA NITROGEN 26 mg/dL (7-18); CALCIUM 8.6 MG/DL (8.5-10.1); CARBON DIOXIDE 23 MMOL/L (21-32); CHLORIDE 107 MMOL/L (98-107); CREATININE 1.4 MG/DL (0.55-1.30); SODIUM 140 MMOL/L (136-145)
[2018-04-21] MEDS ORDERED: Loperamide 2mg cap ORAL PRN (11:15)
--- NOTE | 2018-04-21 11:48 | General Surgery Progress Note ---
General Surgery-Progress Note Subjective Additional Comments no acute events. leukocytosis resolving. wound stable. Objective Last 24 Hour Vital Signs Date Time Temp Pulse Resp B/P (MAP) Pulse Ox O2 Delivery O2 Flow Rate FiO2 04/21/18 08:48 69 193/73 04/21/18 08:25 67 18 Room Air 21 04/21/18 08:00 65 04/21/18 08:00 97.4 69 19 193/73 98 Room Air 97.4 04/21/18 04:00 97.0 55 20 148/65 98 Room Air 97.0 04/21/18 04:00 55 04/21/18 00:00 60 04/21/18 00:00 97.4 64 21 141/57 98 Room Air 97.4 04/20/18 20:20 72 126/62 04/20/18 20:00 97.7 61 21 120/52 99 Room Air 97.7 04/20/18 20:00 69 04/20/18 19:39 72 18 Room Air 21 04/20/18 16:00 97.7 60 18 126/62 96 Room Air 97.7 04/20/18 16:00 58 04/20/18 12:00 56 04/20/18 12:00 97.7 58 18 118/50 96 Room Air 97.7 I&O Intake and Output 04/20/18 04/21/18 19:00 07:00 Intake Total 823.334 ml 60 ml Balance 823.334 ml 60 ml Intake Oral 380 ml 60 ml IV Total 443.334 ml # Voids 2 7 Wound: clean Drains: none Cardiovascular: RSR Respiratory: clear Abdomen: soft, non-tender, present bowel sounds Extremities: no cyanosis Laboratory Tests Test 04/21/18 08:35 White Blood Count 15.9 K/UL (4.8-10.8) H Red Blood Count 5.08 M/UL (4.20-5.40) Hemoglobin 13.4 G/DL (12.0-16.0) Hematocrit 43.9 % (37.0-47.0) Mean Corpuscular Volume 86 FL (80-99) Mean Corpuscular Hemoglobin 26.4 PG (27.0-31.0) L Mean Corpuscular Hemoglobin Concent 30.6 G/DL (32.0-36.0) L Red Cell Distribution Width 19.0 % (11.6-14.8) H Platelet Count 431 K/UL (150-450) Mean Platelet Volume 7.3 FL (6.5-10.1) Neutrophils (%) (Auto) 77.5 % (45.0-75.0) H Lymphocytes (%) (Auto) 9.0 % (20.0-45.0) L Monocytes (%) (Auto) 3.1 % (1.0-10.0) Eosinophils (%) (Auto) 8.6 % (0.0-3.0) H Basophils (%) (Auto) 1.8 % (0.0-2.0) Sodium Level 140 MMOL/L (136-145) Potassium Level 4.0 MMOL/L (3.5-5.1) Chloride Level 107 MMOL/L (98-107) Carbon Dioxide Level 23 MMOL/L (21-32) Anion Gap 11 mmol/L (5-15) Blood Urea Nitrogen 26 mg/dL (7-18) H Creatinine 1.4 MG/DL (0.55-1.30) H Estimat Glomerular Filtration Rate mL/min (>60) Glucose Level 91 MG/DL (74-106) Calcium Level 8.6 MG/DL (8.5-10.1) Magnesium Level 2.0 MG/DL (1.8-2.4) Total Bilirubin 0.4 MG/DL (0.2-1.0) Aspartate Amino Transf (AST/SGOT) 57 U/L (15-37) H Alanine Aminotransferase (ALT/SGPT) 87 U/L (12-78) H Alkaline Phosphatase 139 U/L (46-116) H Pro-B-Type Natriuretic Peptide 1002 pg/mL (0-125) H Total Protein 7.3 G/DL (6.4-8.2) Albumin 3.0 G/DL (3.4-5.0) L Globulin 4.3 g/dL Albumin/Globulin Ratio 0.7 (1.0-2.7) L Plan Problems: (1) Contusion of right clavicle Assessment & Plan: right clavicle 3cm by 2cm wound slow healing. from report traumatic etiology after fall. no other wounds noted. wound not infected and shallow ulceration without penetration into subcutaneous tissues. no drainage. no odor CXR reviewed and no clavicle fracture noted. exam as above. -honey gel and foam dressing BID -will monitor while in hospital thank you for this consultation. will follow with recs. (2) Leukocytosis Eder Rutherford Apr 21, 2018 11:48
[2018-04-21 12:00] VITALS: BP 118/64
[2018-04-21] MEDS: Loperamide 2mg cap ORAL PRN (15:58)
[2018-04-21 16:00] VITALS: BP 126/53
[2018-04-21] MEDS ORDERED: Haloperidol 5mg/ml Inj IM PRN (17:00)
[2018-04-21] MEDS: Piperacillin/Tazobactam 3.375 GM in NS 110 ML IVPB SCH (17:19)
--- NOTE | 2018-04-21 17:43 | General Progress Note ---
Assessment/Plan Status: stable Assessment/Plan Anxiety d/o Cognitive impairment -Ativan 1mg q6hr/prn -Lexapro 10mg qam -Provided ro/st Subjective Date patient seen: Apr 21, 2018 Neurologic/Psychiatric: Reports: anxiety, depressed, emotional problems Allergies: Coded Allergies: No Known Allergies (Unverified , 04/18/18) Subjective she refused her heparin and was agitated this am Objective Last 24 Hour Vital Signs Date Time Temp Pulse Resp B/P (MAP) Pulse Ox O2 Delivery O2 Flow Rate FiO2 04/21/18 16:00 98.1 58 20 126/53 98 98.1 04/21/18 12:00 98.0 70 20 118/64 98 Room Air 98.0 04/21/18 08:48 69 193/73 04/21/18 08:25 67 18 Room Air 21 04/21/18 08:00 65 04/21/18 08:00 97.4 69 19 193/73 98 Room Air 97.4 04/21/18 04:00 97.0 55 20 148/65 98 Room Air 97.0 04/21/18 04:00 55 04/21/18 00:00 60 04/21/18 00:00 97.4 64 21 141/57 98 Room Air 97.4 04/20/18 20:20 72 126/62 04/20/18 20:00 97.7 61 21 120/52 99 Room Air 97.7 04/20/18 20:00 69 04/20/18 19:39 72 18 Room Air 21 Intake and Output 04/20/18 04/21/18 19:00 07:00 Intake Total 823.334 ml 60 ml Balance 823.334 ml 60 ml Intake Oral 380 ml 60 ml IV Total 443.334 ml # Voids 2 7 Laboratory Tests 04/21/18 08:35: White Blood Count 15.9H, Red Blood Count 5.08, Hemoglobin 13.4, Hematocrit 43.9 , Mean Corpuscular Volume 86, Mean Corpuscular Hemoglobin 26.4L, Mean Corpuscular Hemoglobin Concent 30.6L, Red Cell Distribution Width 19.0H, Platelet Count 431, Mean Platelet Volume 7.3, Neutrophils (%) (Auto) 77.5H, Lymphocytes (%) (Auto) 9.0L, Monocytes (%) (Auto) 3.1, Eosinophils (%) (Auto) 8.6H, Basophils (%) (Auto) 1.8, Sodium Level 140, Potassium Level 4.0, Chloride Level 107, Carbon Dioxide Level 23, Anion Gap 11, Blood Urea Nitrogen 26H, Creatinine 1.4H, Estimat Glomerular Filtration Rate , Glucose Level 91, Calcium Level 8.6, Magnesium Level 2.0, Total Bilirubin 0.4, Aspartate Amino Transf (AST /SGOT) 57H, Alanine Aminotransferase (ALT/SGPT) 87H, Alkaline Phosphatase 139H, Pro-B-Type Natriuretic Peptide 1002H, Total Protein 7.3, Albumin 3.0L, Globulin 4.3, Albumin/Globulin Ratio 0.7L Height (Feet): 5 Height (Inches): 0.00 Weight (Pounds): 110 General Appearance: no apparent distress, alert Neurologic: oriented x 3, responsive, depressed affect Severino Vences MD Apr 21, 2018 17:43
[2018-04-21] MEDS ORDERED: Albuterol/Ipratropium 3ml neb HHN PRN (17:45)
--- NOTE | 2018-04-21 18:05 | General Progress Note ---
Assessment/Plan Problem List: (1) Leukocytosis ICD Codes: D72.829 - Elevated white blood cell count, unspecified SNOMED: 086925595, 299827519 (2) Pneumonia ICD Codes: J18.9 - Pneumonia, unspecified organism SNOMED: 258151616, 620174281 (3) Contusion of right clavicle ICD Codes: S40.011A - Contusion of right shoulder, initial encounter SNOMED: 06784561 Status: stable, progressing Assessment/Plan iv abx id eval pending ct neck ordered monitor labs resp care o2 monitor cxr psych rx/anxiolytics wound care swallow eval compliance stressed Subjective ROS Limited/Unobtainable: No Constitutional: Reports: malaise, weakness HEENT: Reports: no symptoms Cardiovascular: Reports: no symptoms Respiratory: Reports: no symptoms Gastrointestinal/Abdominal: Reports: no symptoms Genitourinary: Reports: no symptoms Neurologic/Psychiatric: Reports: anxiety, emotional problems Endocrine: Reports: no symptoms Hematologic/Lymphatic: Reports: no symptoms Allergies: Coded Allergies: No Known Allergies (Unverified , 04/18/18) All Systems: reviewed and negative except above Subjective intermittently agitated. on o2. on iv abx. no sob. wbc remains elevated. trending down, cxr and urine clear. Objective Last 24 Hour Vital Signs Date Time Temp Pulse Resp B/P (MAP) Pulse Ox O2 Delivery O2 Flow Rate FiO2 04/21/18 16:00 98.1 58 20 126/53 98 98.1 04/21/18 12:00 98.0 70 20 118/64 98 Room Air 98.0 04/21/18 08:48 69 193/73 04/21/18 08:25 67 18 Room Air 21 04/21/18 08:00 65 04/21/18 08:00 97.4 69 19 193/73 98 Room Air 97.4 04/21/18 04:00 97.0 55 20 148/65 98 Room Air 97.0 04/21/18 04:00 55 04/21/18 00:00 60 04/21/18 00:00 97.4 64 21 141/57 98 Room Air 97.4 04/20/18 20:20 72 126/62 04/20/18 20:00 97.7 61 21 120/52 99 Room Air 97.7 04/20/18 20:00 69 04/20/18 19:39 72 18 Room Air 21 Intake and Output 04/20/18 04/21/18 19:00 07:00 Intake Total 823.334 ml 60 ml Balance 823.334 ml 60 ml Intake Oral 380 ml 60 ml IV Total 443.334 ml # Voids 2 7 Laboratory Tests 04/21/18 08:35: White Blood Count 15.9H, Red Blood Count 5.08, Hemoglobin 13.4, Hematocrit 43.9 , Mean Corpuscular Volume 86, Mean Corpuscular Hemoglobin 26.4L, Mean Corpuscular Hemoglobin Concent 30.6L, Red Cell Distribution Width 19.0H, Platelet Count 431, Mean Platelet Volume 7.3, Neutrophils (%) (Auto) 77.5H, Lymphocytes (%) (Auto) 9.0L, Monocytes (%) (Auto) 3.1, Eosinophils (%) (Auto) 8.6H, Basophils (%) (Auto) 1.8, Sodium Level 140, Potassium Level 4.0, Chloride Level 107, Carbon Dioxide Level 23, Anion Gap 11, Blood Urea Nitrogen 26H, Creatinine 1.4H, Estimat Glomerular Filtration Rate , Glucose Level 91, Calcium Level 8.6, Magnesium Level 2.0, Total Bilirubin 0.4, Aspartate Amino Transf (AST /SGOT) 57H, Alanine Aminotransferase (ALT/SGPT) 87H, Alkaline Phosphatase 139H, Pro-B-Type Natriuretic Peptide 1002H, Total Protein 7.3, Albumin 3.0L, Globulin 4.3, Albumin/Globulin Ratio 0.7L Height (Feet): 5 Height (Inches): 0.00 Weight (Pounds): 110 Objective General Appearance: WD/WN, confused, agitated EENT: PERRL/EOMI Neck: supple Cardiovascular: normal rate, regular rhythm Respiratory/Chest: chest wall non-tender, lungs clear, normal breath sounds Abdomen: normal bowel sounds, non tender, soft, no organomegaly Edema: no edema noted Arm (L), no edema noted Arm (R), no edema noted Leg (L), no edema noted Leg (R), no edema noted Pedal (L), no edema noted Pedal (R), no edema noted Generalized Andrew Woodard MD Apr 21, 2018 18:05
[2018-04-21 20:00] VITALS: BP 180/75
[2018-04-21] MEDS: Vancomycin 750mg/NS 250ml 250 ML IVPB SCH (21:22)
[2018-04-21] MEDS: LORazepam 1mg tab ORAL PRN (21:26)
--- NOTE | 2018-04-21 23:15 | Progress Note ---
DATE: 04/21/2018 CARDIOLOGY PROGRESS NOTE SUBJECTIVE: The patient has intermittent agitation. Blood pressure is labile. OBJECTIVE: VITAL SIGNS: Blood pressure 126/53 to 193/73, heart rate 58 to 70, respiratory rate 18 to 20, and afebrile. LUNGS: Coarse breath sounds. Scattered rhonchi. HEART: Regular rhythm and rate. Normal S1, S2. ABDOMEN: Soft. EXTREMITIES: No edema. LABORATORY AND DIAGNOSTIC DATA: Noted. Chest x-ray yesterday revealed accentuating pulmonary markings. IMPRESSION: 1. Aspiration pneumonia. 2. Protein-calorie malnutrition. 3. Hypertensive heart disease. 4. Accelerated hypertension due to mood and agitation. 5. Chronic diastolic congestive heart failure. 6. Conduction system disease of no hemodynamic or clinical significance with right bundle-branch block. 7. Sepsis due to acute pulmonary infection. 8. Metabolic and toxic encephalopathy. PLAN: 1. Antimicrobials. 2. Respiratory hygiene. 3. Continue current cardiovascular regimen. 4. P.r.n. hydralazine for blood pressure spikes. 5. Trend natriuretic peptide assay. Enrique Cooper M.D. DR: DEAN JOB#: [id number] CC:
[2018-04-22] VITALS: BP 131/53
[2018-04-22] MEDS: Piperacillin/Tazobactam 3.375 GM in NS 110 ML IVPB SCH ×3 (02:08→17:30)
[2018-04-22 04:00] VITALS: BP 149/80
[2018-04-22 07:49] LABS: BASOPHILS % (AUTO) 1.5 % (0.0-2.0); EOSINOPHILS % (AUTO) 7.6 % (0.0-3.0); HEMATOCRIT 40.8 % (37.0-47.0); HEMOGLOBIN 13.2 G/DL (12.0-16.0); LYMPHOCYTES % (AUTO) 8.6 % (20.0-45.0); MEAN CORPUSCULAR VOLUME 87 FL (80-99); MONOCYTES % (AUTO) 3.1 % (1.0-10.0); NEUTROPHILS % (AUTO) 79.3 % (45.0-75.0); PLATELET COUNT 332 K/UL (150-450); RED BLOOD COUNT 4.71 M/UL (4.20-5.40); RED CELL DISTRIBUTION WIDTH 19.2 % (11.6-14.8); WHITE BLOOD COUNT 14.3 K/UL (4.8-10.8)
[2018-04-22 08:00] VITALS: BP 134/56
[2018-04-22 08:07] LABS: ALANINE AMINOTRANSFERASE 80 U/L (12-78); ALBUMIN 2.8 G/DL (3.4-5.0); ALBUMIN/GLOBULIN RATIO 0.7 (1.0-2.7); ALKALINE PHOSPHATASE 139 U/L (46-116); ANION GAP 8 mmol/L (5-15); ASPARTATE AMINO TRANSFERASE 49 U/L (15-37); BILIRUBIN,TOTAL 0.5 MG/DL (0.2-1.0); BLOOD UREA NITROGEN 22 mg/dL (7-18); CALCIUM 8.9 MG/DL (8.5-10.1); CARBON DIOXIDE 23 MMOL/L (21-32); CHLORIDE 111 MMOL/L (98-107); CREATININE 1.2 MG/DL (0.55-1.30); POTASSIUM 3.9 MMOL/L (3.5-5.1); SODIUM 142 MMOL/L (136-145)
--- NOTE | 2018-04-22 08:20 | General Progress Note ---
Assessment/Plan Problem List: (1) Leukocytosis ICD Codes: D72.829 - Elevated white blood cell count, unspecified SNOMED: 457825563, 676446708 (2) Pneumonia ICD Codes: J18.9 - Pneumonia, unspecified organism SNOMED: 074110039, 626839583 (3) Contusion of right clavicle ICD Codes: S40.011A - Contusion of right shoulder, initial encounter SNOMED: 24729827 Status: stable, progressing Assessment/Plan iv abx id eval pending ct neck ordered monitor labs resp care o2 sz meds switched to iv monitor cxr psych rx/anxiolytics wound care swallow eval compliance stressed Subjective ROS Limited/Unobtainable: Yes Constitutional: Reports: malaise, weakness HEENT: Reports: no symptoms Cardiovascular: Reports: no symptoms Respiratory: Reports: no symptoms Gastrointestinal/Abdominal: Reports: no symptoms Genitourinary: Reports: no symptoms Neurologic/Psychiatric: Reports: pre-existing deficit, seizure Endocrine: Reports: no symptoms Hematologic/Lymphatic: Reports: no symptoms Allergies: Coded Allergies: No Known Allergies (Unverified , 04/18/18) All Systems: reviewed and negative except above Subjective no events. refusing oral sz meds. wbc still still. ct neck ordered to r/o abscess/osteo Objective Last 24 Hour Vital Signs Date Time Temp Pulse Resp B/P (MAP) Pulse Ox O2 Delivery O2 Flow Rate FiO2 04/22/18 04:00 97.6 62 18 149/80 100 97.6 04/22/18 00:00 97.2 56 18 131/53 100 97.2 04/21/18 21:26 64 180/84 04/21/18 21:26 180/84 04/21/18 20:25 66 18 Room Air 21 04/21/18 20:00 97.2 64 19 180/75 100 97.2 04/21/18 16:00 98.1 58 20 126/53 98 98.1 04/21/18 12:00 98.0 70 20 118/64 98 Room Air 98.0 04/21/18 08:48 69 193/73 04/21/18 08:25 67 18 Room Air 21 Intake and Output 04/21/18 04/22/18 19:00 07:00 Intake Total 263.5 ml 485.0 ml Balance 263.5 ml 485.0 ml Intake Oral 236 ml IV Total 27.5 ml 485.0 ml # Voids 2 2 Laboratory Tests 04/21/18 08:35: White Blood Count 15.9H, Red Blood Count 5.08, Hemoglobin 13.4, Hematocrit 43.9 , Mean Corpuscular Volume 86, Mean Corpuscular Hemoglobin 26.4L, Mean Corpuscular Hemoglobin Concent 30.6L, Red Cell Distribution Width 19.0H, Platelet Count 431, Mean Platelet Volume 7.3, Neutrophils (%) (Auto) 77.5H, Lymphocytes (%) (Auto) 9.0L, Monocytes (%) (Auto) 3.1, Eosinophils (%) (Auto) 8.6H, Basophils (%) (Auto) 1.8, Sodium Level 140, Potassium Level 4.0, Chloride Level 107, Carbon Dioxide Level 23, Anion Gap 11, Blood Urea Nitrogen 26H, Creatinine 1.4H, Estimat Glomerular Filtration Rate , Glucose Level 91, Calcium Level 8.6, Magnesium Level 2.0, Total Bilirubin 0.4, Aspartate Amino Transf (AST /SGOT) 57H, Alanine Aminotransferase (ALT/SGPT) 87H, Alkaline Phosphatase 139H, Pro-B-Type Natriuretic Peptide 1002H, Total Protein 7.3, Albumin 3.0L, Globulin 4.3, Albumin/Globulin Ratio 0.7L 04/22/18 06:40: White Blood Count 14.3H, Red Blood Count 4.71, Hemoglobin 13.2, Hematocrit 40.8 , Mean Corpuscular Volume 87, Mean Corpuscular Hemoglobin 28.0, Mean Corpuscular Hemoglobin Concent 32.3, Red Cell Distribution Width 19.2H, Platelet Count 332, Mean Platelet Volume 7.0, Neutrophils (%) (Auto) 79.3H, Lymphocytes (%) (Auto) 8.6L, Monocytes (%) (Auto) 3.1, Eosinophils (%) (Auto) 7.6H, Basophils (%) (Auto) 1.5, Sodium Level 142, Potassium Level 3.9, Chloride Level 111H, Carbon Dioxide Level 23, Anion Gap 8, Blood Urea Nitrogen 22H, Creatinine 1.2, Estimat Glomerular Filtration Rate , Glucose Level 71L, Calcium Level 8.9, Magnesium Level [Pending], Total Bilirubin 0.5, Aspartate Amino Transf (AST/SGOT) 49H, Alanine Aminotransferase (ALT/SGPT) 80H, Alkaline Phosphatase 139H, Pro-B-Type Natriuretic Peptide [Pending], Total Protein 6.9, Albumin 2.8L, Globulin 4.1, Albumin/Globulin Ratio 0.7L Height (Feet): 5 Height (Inches): 0.00 Weight (Pounds): 110 Objective General Appearance: WD/WN, confused, agitated EENT: PERRL/EOMI Neck: supple Cardiovascular: normal rate, regular rhythm Respiratory/Chest: chest wall non-tender, lungs clear, normal breath sounds Abdomen: normal bowel sounds, non tender, soft, no organomegaly Edema: no edema noted Arm (L), no edema noted Arm (R), no edema noted Leg (L), no edema noted Leg (R), no edema noted Pedal (L), no edema noted Pedal (R), no edema noted Generalized Andrew Woodard MD Apr 22, 2018 08:20
[2018-04-22] MEDS: Heparin 5000 units/ml inj SUBQ SCH ×2 (08:43→20:32)
[2018-04-22] MEDS ORDERED: levETIRAcetam 500mg/NS100ml 100 ML IVPB ONE (09:00)
[2018-04-22] MEDS: Metoprolol 25mg tab ORAL SCH ×2 (09:27→20:31)
[2018-04-22] MEDS: Aspirin Baby 81mg ORAL SCH (09:27)
[2018-04-22] MEDS: Loperamide 2mg cap ORAL PRN (09:27)
--- NOTE | 2018-04-22 10:19 | Diagnostic Imaging Report ---
Indication: Neck pain. Technique: Continuous helical imaging of the neck was obtained transaxially from the skull base to the upper thoracic spine. 2-D coronal and sagittal reformatted images were obtained. Total Dose length Product (DLP): 304.[address] Dose Index Volume (CTDIvol): 14.71 mGy Comparison: None Findings: There is no mass identified or adenopathy. Arterial calcifications are present. The epiglottis and aryepiglottic folds, larynx and subglottic airway appear clear. The glands are grossly unremarkable. Skull base is normal. Degenerative changes of the cervical spine noted. The lung apices are clear. IMPRESSION: No abscess identified. Negative noncontrast CT of the neck. Incidental findings as discussed above The CT scanner at [facility] is accredited by the [employer] and the scans are performed using dose optimization techniques as appropriate to a performed exam including Automatic Exposure control.
[2018-04-22 12:00] VITALS: BP 152/61
--- NOTE | 2018-04-22 15:08 | General Surgery Progress Note ---
General Surgery-Progress Note Subjective Additional Comments no acute events. wound stable. labs improving. Objective Last 24 Hour Vital Signs Date Time Temp Pulse Resp B/P (MAP) Pulse Ox O2 Delivery O2 Flow Rate FiO2 04/22/18 12:00 97.6 93 20 152/61 97 Room Air 97.6 04/22/18 09:27 60 134/56 04/22/18 08:00 97.4 60 18 134/56 99 Room Air 97.4 04/22/18 07:49 62 18 Room Air 21 04/22/18 04:00 97.6 62 18 149/80 100 97.6 04/22/18 00:00 97.2 56 18 131/53 100 97.2 04/21/18 21:26 64 180/84 04/21/18 21:26 180/84 04/21/18 20:25 66 18 Room Air 21 04/21/18 20:00 97.2 64 19 180/75 100 97.2 04/21/18 16:00 98.1 58 20 126/53 98 98.1 I&O Intake and Output 04/21/18 04/22/18 19:00 07:00 Intake Total 263.5 ml 485.0 ml Balance 263.5 ml 485.0 ml Intake Oral 236 ml IV Total 27.5 ml 485.0 ml # Voids 2 2 Wound: clean Drains: none Cardiovascular: RSR Respiratory: clear Abdomen: soft, flat, non-tender, present bowel sounds Extremities: no cyanosis Laboratory Tests Test 04/22/18 06:40 White Blood Count 14.3 K/UL (4.8-10.8) H Red Blood Count 4.71 M/UL (4.20-5.40) Hemoglobin 13.2 G/DL (12.0-16.0) Hematocrit 40.8 % (37.0-47.0) Mean Corpuscular Volume 87 FL (80-99) Mean Corpuscular Hemoglobin 28.0 PG (27.0-31.0) Mean Corpuscular Hemoglobin Concent 32.3 G/DL (32.0-36.0) Red Cell Distribution Width 19.2 % (11.6-14.8) H Platelet Count 332 K/UL (150-450) Mean Platelet Volume 7.0 FL (6.5-10.1) Neutrophils (%) (Auto) 79.3 % (45.0-75.0) H Lymphocytes (%) (Auto) 8.6 % (20.0-45.0) L Monocytes (%) (Auto) 3.1 % (1.0-10.0) Eosinophils (%) (Auto) 7.6 % (0.0-3.0) H Basophils (%) (Auto) 1.5 % (0.0-2.0) Sodium Level 142 MMOL/L (136-145) Potassium Level 3.9 MMOL/L (3.5-5.1) Chloride Level 111 MMOL/L (98-107) H Carbon Dioxide Level 23 MMOL/L (21-32) Anion Gap 8 mmol/L (5-15) Blood Urea Nitrogen 22 mg/dL (7-18) H Creatinine 1.2 MG/DL (0.55-1.30) Estimat Glomerular Filtration Rate mL/min (>60) Glucose Level 71 MG/DL (74-106) L Calcium Level 8.9 MG/DL (8.5-10.1) Magnesium Level 2.0 MG/DL (1.8-2.4) Total Bilirubin 0.5 MG/DL (0.2-1.0) Aspartate Amino Transf (AST/SGOT) 49 U/L (15-37) H Alanine Aminotransferase (ALT/SGPT) 80 U/L (12-78) H Alkaline Phosphatase 139 U/L (46-116) H Pro-B-Type Natriuretic Peptide 1629 pg/mL (0-125) H Total Protein 6.9 G/DL (6.4-8.2) Albumin 2.8 G/DL (3.4-5.0) L Globulin 4.1 g/dL Albumin/Globulin Ratio 0.7 (1.0-2.7) L Plan Problems: (1) Contusion of right clavicle Assessment & Plan: right clavicle 3cm by 2cm wound slow healing. from report traumatic etiology after fall. no other wounds noted. wound not infected and shallow ulceration without penetration into subcutaneous tissues. no drainage. no odor CXR reviewed and no clavicle fracture noted. exam as above. -honey gel and foam dressing BID -will monitor while in hospital thank you for this consultation. will follow with recs. (2) Leukocytosis Eder Rutherford Apr 22, 2018 15:08
--- NOTE | 2018-04-22 15:50 | General Progress Note ---
Assessment/Plan Status: stable, progressing Assessment/Plan Anxiety d/o Cognitive impairment -Ativan 1mg q6hr/prn -Lexapro 10mg qam -Provided ro/st Subjective Date patient seen: Apr 22, 2018 Neurologic/Psychiatric: Reports: anxiety, depressed, emotional problems Allergies: Coded Allergies: No Known Allergies (Unverified , 04/18/18) Subjective the pt is doing better today calmer pleasant Objective Last 24 Hour Vital Signs Date Time Temp Pulse Resp B/P (MAP) Pulse Ox O2 Delivery O2 Flow Rate FiO2 04/22/18 12:00 97.6 93 20 152/61 97 Room Air 97.6 04/22/18 09:27 60 134/56 04/22/18 08:00 97.4 60 18 134/56 99 Room Air 97.4 04/22/18 07:49 62 18 Room Air 21 04/22/18 04:00 97.6 62 18 149/80 100 97.6 04/22/18 00:00 97.2 56 18 131/53 100 97.2 04/21/18 21:26 64 180/84 04/21/18 21:26 180/84 04/21/18 20:25 66 18 Room Air 21 04/21/18 20:00 97.2 64 19 180/75 100 97.2 04/21/18 16:00 98.1 58 20 126/53 98 98.1 Intake and Output 04/21/18 04/22/18 19:00 07:00 Intake Total 263.5 ml 485.0 ml Balance 263.5 ml 485.0 ml Intake Oral 236 ml IV Total 27.5 ml 485.0 ml # Voids 2 2 Laboratory Tests 04/22/18 06:40: White Blood Count 14.3H, Red Blood Count 4.71, Hemoglobin 13.2, Hematocrit 40.8 , Mean Corpuscular Volume 87, Mean Corpuscular Hemoglobin 28.0, Mean Corpuscular Hemoglobin Concent 32.3, Red Cell Distribution Width 19.2H, Platelet Count 332, Mean Platelet Volume 7.0, Neutrophils (%) (Auto) 79.3H, Lymphocytes (%) (Auto) 8.6L, Monocytes (%) (Auto) 3.1, Eosinophils (%) (Auto) 7.6H, Basophils (%) (Auto) 1.5, Sodium Level 142, Potassium Level 3.9, Chloride Level 111H, Carbon Dioxide Level 23, Anion Gap 8, Blood Urea Nitrogen 22H, Creatinine 1.2, Estimat Glomerular Filtration Rate , Glucose Level 71L, Calcium Level 8.9, Magnesium Level 2.0, Total Bilirubin 0.5, Aspartate Amino Transf (AST /SGOT) 49H, Alanine Aminotransferase (ALT/SGPT) 80H, Alkaline Phosphatase 139H, Pro-B-Type Natriuretic Peptide 1629H, Total Protein 6.9, Albumin 2.8L, Globulin 4.1, Albumin/Globulin Ratio 0.7L Height (Feet): 5 Height (Inches): 0.00 Weight (Pounds): 110 General Appearance: no apparent distress, alert Neurologic: oriented x 3, responsive, depressed affect Severino Vences MD Apr 22, 2018 15:50
[2018-04-22 16:00] VITALS: BP 184/70
--- NOTE | 2018-04-22 16:15 | Consultation ---
DATE OF CONSULTATION: 04/22/2018 PULMONARY CONSULTATION CONSULTING PHYSICIAN: Honorio Johansen M.D. REFERRING PHYSICIAN: Andrew Woodard M.D. REASON FOR CONSULTATION: Pneumonia. HISTORY OF PRESENT ILLNESS: This is an 87-year-old female who is fairly frail, who presents with increasing congestion, consolidation, and shortness of breath. The patient was seen, evaluated, and appears to be overall improved. I was called to assist to evaluate and assist with discharge planning. The patient is a poor historian. She was [facility] from a correction facility with complaints of cough, congestion, and fevers. The patient's white count was elevated. Broad-spectrum antibiotics have been given. The patient appears to have improved. White count has improved as well. The patient's care discussed. The patient's findings discussed. The patient does have protein-calorie malnutrition as well. Appetite has been reduced. Findings overall reviewed. I was asked to evaluate and assist with discharge planning. PAST MEDICAL HISTORY: Notable for hypertension, seizure disorder, peripheral neuropathy, unstable gait, dementia, history of hip replacement. MEDICATIONS: Reviewed. ALLERGIES: Reviewed. SOCIAL HISTORY: Nonsmoker and nondrinker. The patient is a long term patient. REVIEW OF SYSTEMS: Somewhat difficult to obtain. The patient is a poor historian. PHYSICAL EXAMINATION: GENERAL: A well-developed female, comfortable at present, appears her stated age. VITAL SIGNS: Blood pressure 149/80, temperature 97 degrees, pulse 62, respiratory rate 18, and saturations are 100% currently on room air. Temperature is normal. HEENT: Negative. Extraocular movements are grossly intact. NECK: Supple. No jugular venous distention. LUNGS: Moderate breath sounds. Minimal rhonchi present, appears to be improved. CARDIAC: Normal S1 and S2. Regular rate and rhythm. Positive S4. No murmurs or rubs. ABDOMEN: Soft, nontender. No distention. EXTREMITIES: No cyanosis or clubbing. No significant edema. NEUROLOGICAL: Overall confused. Baseline dementia appears to be without change. LABORATORY DATA: Reviewed. Liver enzymes are elevated. BUN 22, creatinine 1.2. White cell count 14.3, hematocrit 40, platelets of 332,000. Chest x-ray noted and reviewed, appears to be overall clear. IMPRESSION: 1. Likely upper respiratory tract infection, doubt acute pneumonia at present. 2. Mild leukocytosis of unclear etiology. Cultures are negative to date. 3. Transaminitis. 4. Dementia. 5. Confusion. 6. Advanced age. 7. Contusion to right clavicle. RECOMMENDATIONS: Supportive care. Antibiotics noted and reviewed. Respiratory care, not of any significance. Nebulized therapy as needed. For now, oxygen therapy as needed. DVT prophylaxis. Monitor white cell count and monitor imaging as needed, but for now, the patient appears to be overall improving clinically and we will follow for further changes. Honorio Johansen M.D. DR: Unique JOB#: [id number] CC: MAI
[2018-04-22 20:01] VITALS: BP 179/77
[2018-04-22] MEDS: LORazepam 1mg tab ORAL PRN (20:29)
[2018-04-23 00:35] VITALS: BP 150/65
[2018-04-23] MEDS: Piperacillin/Tazobactam 3.375 GM in NS 110 ML IVPB SCH ×3 (01:40→18:11)
--- NOTE | 2018-04-23 03:30 | Progress Note ---
DATE: 04/22/2018 CARDIOLOGY PROGRESS NOTE SUBJECTIVE: The patient is refusing all seizure therapy. IV therapy has been reinstituted. OBJECTIVE: VITAL SIGNS: Afebrile. Blood pressure 149/80, pulse 62, and respiratory rate 18. NECK: Supple. LUNGS: Clear. CARDIAC: Regular. Normal S1, S2. ABDOMEN: Soft. EXTREMITIES: Trace edema. LABORATORY DATA: White count 14.3, hemoglobin 13.2. Potassium 3.9, magnesium 2. BUN 22, creatinine 1.2. Pro-natriuretic peptide increased to 1600. Albumin 2.8. IMPRESSION: 1. Aspiration pneumonia. 2. Seizure disorder. 3. Acute on chronic diastolic congestive heart failure. 4. Hypertensive heart disease with episodes of accelerated blood pressure. 5. 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 6. Metabolic and toxic encephalopathy. PLAN: 1. Antimicrobials. 2. Respiratory hygiene. 3. Discontinue IV fluids. 4. DVT prophylaxis. 5. Continue beta-martinez. 6. Add angiotensin-converting enzyme inhibitor. Enrique Cooper M.D. DR: KAVITA JOB#: [id number] CC:
[2018-04-23 04:11] VITALS: BP 178/65
[2018-04-23 08:00] VITALS: BP 118/53
[2018-04-23] MEDS: Heparin 5000 units/ml inj SUBQ SCH ×3 (09:00→20:29)
[2018-04-23] MEDS: Aspirin Baby 81mg ORAL SCH (09:16)
[2018-04-23] MEDS: Metoprolol 25mg tab ORAL SCH ×2 (09:17→20:33)
[2018-04-23] MEDS: Vancomycin 750mg/NS 250ml 250 ML IVPB SCH (09:17)
[2018-04-23] MEDS: Lisinopril 20mg tab ORAL SCH (09:17)
--- NOTE | 2018-04-23 11:12 | Pulmonology Progress Note ---
Assessment/Plan Assessment/Plan IMPRESSION: 1. upper respiratory tract infection, doubt acute pneumonia at present. 2. Mild leukocytosis of unclear etiology. Cultures are negative to date. 3. Transaminitis. 4. Dementia. 5. Confusion. 6. Advanced age. 7. Contusion to right clavicle. PLAN care as is respiratory care monitor for change cultures and labs reviewed orders as is impression, plan, and exam edited and reviewed in detail care discussed with RN Subjective Allergies: Coded Allergies: No Known Allergies (Unverified , 04/18/18) Subjective stable no cp or sob Objective Last 24 Hour Vital Signs Date Time Temp Pulse Resp B/P (MAP) Pulse Ox O2 Delivery O2 Flow Rate FiO2 04/23/18 09:17 118/53 04/23/18 09:17 56 118/53 04/23/18 08:00 97.5 56 20 118/53 97 Room Air 97.5 04/23/18 04:17 178/65 04/23/18 04:11 97.3 63 20 178/65 97 Room Air 97.3 04/23/18 00:35 97.3 56 20 150/65 98 Room Air 97.3 04/22/18 20:31 58 179/77 04/22/18 20:23 76 16 Room Air 21 04/22/18 20:01 96.8 58 20 179/77 95 Room Air 96.8 04/22/18 17:30 184/70 04/22/18 16:00 97.4 62 21 184/70 97 Room Air 97.4 04/22/18 12:00 97.6 93 20 152/61 97 Room Air 97.6 Intake and Output 04/22/18 04/23/18 19:00 07:00 Intake Total 960 ml 400 ml Balance 960 ml 400 ml Intake Oral 960 ml 400 ml # Voids 3 5 # Bowel Movements 1 Objective GENERAL: A well-developed female, comfortable at present, NAD HEENT: Negative. Extraocular movements are grossly intact. NECK: Supple. No jugular venous distention. LUNGS: Moderate breath sounds. Minimal rhonchi present, appears to be improved. CARDIAC: Normal S1 and S2. Regular rate and rhythm. Positive S4. No murmurs or rubs. ABDOMEN: Soft, nontender. No distention. EXTREMITIES: No cyanosis or clubbing. No significant edema. NEUROLOGICAL: Overall confused. Baseline dementia appears to be without change. Current Medications Medications (Trade) Dose Ordered Sig/Franco Route PRN Reason Start Time Stop Time Status Last Admin Dose Admin Aspirin (ASA) 81 mg DAILY ORAL 04/22/18 09:00 05/18/18 08:59 04/23/18 09:16 Clonidine HCl (Catapres Tab) 0.1 mg Q6H PRN ORAL For High Blood Pressure>160 04/21/18 18:00 05/18/18 05:59 04/23/18 04:17 Fluoxetine HCl (PROzac) 20 mg DAILY ORAL 04/22/18 09:00 05/19/18 08:59 04/23/18 09:16 Gabapentin (Neurontin) 300 mg BEDTIME ORAL 04/21/18 21:00 05/18/18 20:59 04/22/18 20:29 Haloperidol Lactate (Haldol) 1 mg Q4HR PRN IM Agitation 04/21/18 17:00 05/19/18 23:14 Heparin Sodium (Porcine) (Heparin 5000 units/ml) 5,000 units EVERY 12 HOURS SUBQ 04/21/18 21:00 05/18/18 08:59 Hydralazine HCl (Apresoline) 25 mg Q6HR PRN ORAL SBP above 160 04/21/18 18:00 05/21/18 01:59 Lisinopril (Prinivil) 20 mg DAILY ORAL 04/23/18 09:00 05/23/18 08:59 04/23/18 09:17 Loperamide HCl (Imodium) 2 mg Q4H PRN ORAL Diarrhea 04/21/18 15:15 05/21/18 11:14 04/22/18 09:27 Lorazepam (Ativan) 1 mg Q6H PRN ORAL ANXIETY 04/21/18 15:30 04/25/18 15:29 04/22/18 20:29 Metoprolol Tartrate (Lopressor) 25 mg EVERY 12 HOURS ORAL 04/21/18 21:00 05/18/18 08:59 04/23/18 09:17 Piperacillin Sod/ Tazobactam Sod 3.375 gm/Sodium Chloride 110 ml @ 27.5 mls/hr Q8H IVPB 04/21/18 18:00 04/25/18 09:59 04/23/18 09:17 Vancomycin HCl (Vanco rx to dose) 1 ea DAILY PRN MISC Per rx protocol 04/22/18 09:00 05/18/18 07:59 Vancomycin/Sodium Chloride 250 ml @ 166.667 mls/hr Q36H IVPB 04/21/18 20:30 04/25/18 08:29 04/23/18 09:17 Honorio Johansen MD Apr 23, 2018 11:12
[2018-04-23 12:00] VITALS: BP 152/65
--- NOTE | 2018-04-23 12:06 | General Progress Note ---
Assessment/Plan Problem List: (1) Leukocytosis ICD Codes: D72.829 - Elevated white blood cell count, unspecified SNOMED: 717627839, 684959677 (2) Pneumonia ICD Codes: J18.9 - Pneumonia, unspecified organism SNOMED: 235108879, 076387126 (3) Contusion of right clavicle ICD Codes: S40.011A - Contusion of right shoulder, initial encounter SNOMED: 70593607 Status: stable Assessment/Plan iv abx id eval pending wound care monitor labs resp care o2 sz meds switched to iv monitor cxr psych rx/anxiolytics wound care swallow eval compliance stressed Subjective ROS Limited/Unobtainable: No Constitutional: Reports: malaise, weakness HEENT: Reports: no symptoms Cardiovascular: Reports: no symptoms Respiratory: Reports: no symptoms Gastrointestinal/Abdominal: Reports: no symptoms Genitourinary: Reports: no symptoms Neurologic/Psychiatric: Reports: anxiety, emotional problems, pre-existing deficit Endocrine: Reports: no symptoms Hematologic/Lymphatic: Reports: no symptoms Allergies: Coded Allergies: No Known Allergies (Unverified , 04/18/18) All Systems: reviewed and negative except above Subjective no events. refusing oral sz meds. wbc still still. ct neck negative. wound culture not back, refusing labs. Objective Last 24 Hour Vital Signs Date Time Temp Pulse Resp B/P (MAP) Pulse Ox O2 Delivery O2 Flow Rate FiO2 04/23/18 09:17 118/53 04/23/18 09:17 56 118/53 04/23/18 08:00 97.5 56 20 118/53 97 Room Air 97.5 04/23/18 07:04 59 16 Room Air 21 04/23/18 04:17 178/65 04/23/18 04:11 97.3 63 20 178/65 97 Room Air 97.3 04/23/18 00:35 97.3 56 20 150/65 98 Room Air 97.3 04/22/18 20:31 58 179/77 04/22/18 20:23 76 16 Room Air 21 04/22/18 20:01 96.8 58 20 179/77 95 Room Air 96.8 04/22/18 17:30 184/70 04/22/18 16:00 97.4 62 21 184/70 97 Room Air 97.4 Intake and Output 04/22/18 04/23/18 19:00 07:00 Intake Total 960 ml 400 ml Balance 960 ml 400 ml Intake Oral 960 ml 400 ml # Voids 3 5 # Bowel Movements 1 Height (Feet): 5 Height (Inches): 0.00 Weight (Pounds): 123 Objective General Appearance: WD/WN, confused, agitated EENT: PERRL/EOMI Neck: supple Cardiovascular: normal rate, regular rhythm Respiratory/Chest: chest wall non-tender, lungs clear, normal breath sounds Abdomen: normal bowel sounds, non tender, soft, no organomegaly Edema: no edema noted Arm (L), no edema noted Arm (R), no edema noted Leg (L), no edema noted Leg (R), no edema noted Pedal (L), no edema noted Pedal (R), no edema noted Generalized Andrew Woodard MD Apr 23, 2018 12:06
--- NOTE | 2018-04-23 12:52 | General Surgery Progress Note ---
General Surgery-Progress Note Subjective Additional Comments doing well. pending labs. overall improved. Objective Last 24 Hour Vital Signs Date Time Temp Pulse Resp B/P (MAP) Pulse Ox O2 Delivery O2 Flow Rate FiO2 04/23/18 12:00 96.8 60 20 152/65 97 Room Air 96.8 04/23/18 09:17 118/53 04/23/18 09:17 56 118/53 04/23/18 08:00 97.5 56 20 118/53 97 Room Air 97.5 04/23/18 07:04 59 16 Room Air 21 04/23/18 04:17 178/65 04/23/18 04:11 97.3 63 20 178/65 97 Room Air 97.3 04/23/18 00:35 97.3 56 20 150/65 98 Room Air 97.3 04/22/18 20:31 58 179/77 04/22/18 20:23 76 16 Room Air 21 04/22/18 20:01 96.8 58 20 179/77 95 Room Air 96.8 04/22/18 17:30 184/70 04/22/18 16:00 97.4 62 21 184/70 97 Room Air 97.4 I&O Intake and Output 04/22/18 04/23/18 19:00 07:00 Intake Total 960 ml 400 ml Balance 960 ml 400 ml Intake Oral 960 ml 400 ml # Voids 3 5 # Bowel Movements 1 Dressing: dry Wound: clean Drains: none Cardiovascular: RSR Respiratory: clear Abdomen: soft, non-tender, present bowel sounds Extremities: no cyanosis Plan Problems: (1) Contusion of right clavicle Assessment & Plan: right clavicle 3cm by 2cm wound slow healing. from report traumatic etiology after fall. no other wounds noted. wound not infected and shallow ulceration without penetration into subcutaneous tissues. no drainage. no odor CXR reviewed and no clavicle fracture noted. exam as above. -honey gel and foam dressing BID -will monitor while in hospital thank you for this consultation. will follow with recs. (2) Leukocytosis Eder Rutherford Apr 23, 2018 12:52
[2018-04-23 16:00] VITALS: BP 177/79
--- NOTE | 2018-04-23 16:00 | Consultation ---
DATE OF CONSULTATION: 04/23/2018 INFECTIOUS DISEASES CONSULTATION CONSULTING PHYSICIAN: Maci Bae M.D. REFERRING PHYSICIAN: Andrew Woodard M.D. REASON FOR CONSULTATION: Right neck wound infection. HISTORY OF PRESENTING ILLNESS: This is an 87-year-old lady with history of hypertension, seizure disorder, peripheral neuropathy, who came in from a [facility] facility with fevers, cough, and congestion. Chest x-ray showed pneumonia. She was also found to have a leukocytosis and an neck wound infection. An Infectious Diseases consultation has been obtained for antibiotics. PAST MEDICAL HISTORY: 1. History of hypertension. 2. Seizure disorder. 3. Peripheral neuropathy. 4. Hip placement. MEDICATIONS: As an inpatient, she is on lisinopril, aspirin, Prozac, Levaquin, vancomycin, gabapentin, subcutaneous heparin, metoprolol, Zosyn, hydralazine, haloperidol, Ativan, and Imodium. ALLERGIES: No known drug allergies. SOCIAL HISTORY: No history of smoking, alcohol, or drug use. FAMILY HISTORY: Unknown. REVIEW OF SYSTEMS: Unable to obtain currently. PHYSICAL EXAMINATION: VITAL SIGNS: Temperature of 97.5, T-max of 97.6, pulse of 56, respiratory rate 20, blood pressure 118/53, O2 saturation of 97%. HEENT: Pupils equally reactive to light and accommodation. Mouth appears clean without thrush. NECK: Wound noted with some drainage. No adenopathy. No JVD. CARDIOVASCULAR: Regular rate and rhythm. No murmurs. LUNGS: Clear to auscultation bilaterally. No crackles. No wheezes. ABDOMEN: Soft and nontender. No organomegaly. EXTREMITIES: No cyanosis, no clubbing, no edema. LABORATORY AND DIAGNOSTIC DATA: White count was 20 on 04/18/2019 now it is down to 14.3, hemoglobin 13.2, hematocrit 40.8, MCV 87, platelet count of 332, with neutrophils of 79%. Sodium 142, potassium 3.9, chloride 111, bicarb 23, BUN 22, creatinine 1.2, glucose 71, calcium 8.9. Total bilirubin 0.5, AST 49, ALT alkaline phosphatase 139, total protein 6.9, albumin 2.8. UA is showing 0 to 2 white cells. Blood cultures are negative from 04/18/2018. CT of the neck on 04/22/2018 showing no abscess. Chest x-ray on 04/20/2018 showed old no consolidation. ASSESSMENT: 1. This is an 87-year-old lady with history of hypertension and seizure disorder who comes in with a leukocytosis and is found to have a neck wound infection. There is no abscess on CT. 2. Leukocytosis is improving. 3. Hypertension. 4. Seizure disorder. PLAN: 1. Continue IV vancomycin and Zosyn. 2. We will follow up on neck wound cultures. 3. Discontinue Levaquin. I would like to thank, Dr. Woodard for this consultation. Maci Bae M.D. DR: Aneesh JOB#: [id number] CC: Andrew Woodard M.D.
[2018-04-23] MEDS: LORazepam 1mg tab ORAL PRN (18:25)
[2018-04-23 20:00] VITALS: BP 173/71
--- NOTE | 2018-04-23 23:50 | General Progress Note ---
Assessment/Plan Assessment/Plan Anxiety d/o Cognitive impairment -Ativan 1mg q6hr/prn -Lexapro 10mg qam -Provided ro/st Subjective Neurologic/Psychiatric: Reports: anxiety, depressed, emotional problems Allergies: Coded Allergies: No Known Allergies (Unverified , 04/18/18) Subjective the pt is doing better today calmer pleasant Objective Last 24 Hour Vital Signs Date Time Temp Pulse Resp B/P (MAP) Pulse Ox O2 Delivery O2 Flow Rate FiO2 04/23/18 20:33 58 173/71 04/23/18 20:20 78 18 Room Air 21 04/23/18 20:00 98.2 58 18 173/71 99 Room Air 98.2 04/23/18 16:24 177/79 04/23/18 16:00 97.2 66 20 177/79 99 Room Air 97.2 04/23/18 12:00 96.8 60 20 152/65 97 Room Air 96.8 04/23/18 09:17 118/53 04/23/18 09:17 56 118/53 04/23/18 08:00 97.5 56 20 118/53 97 Room Air 97.5 04/23/18 07:04 59 16 Room Air 21 04/23/18 04:17 178/65 04/23/18 04:11 97.3 63 20 178/65 97 Room Air 97.3 04/23/18 00:35 97.3 56 20 150/65 98 Room Air 97.3 Intake and Output 04/22/18 04/23/18 19:00 07:00 Intake Total 960 ml 400 ml Balance 960 ml 400 ml Intake Oral 960 ml 400 ml # Voids 3 5 # Bowel Movements 1 Height (Feet): 5 Height (Inches): 0.00 Weight (Pounds): 123 General Appearance: no apparent distress, alert Neurologic: oriented x 3, responsive, depressed affect Severino Vences MD Apr 23, 2018 23:50
[2018-04-24] VITALS: BP 170/71
[2018-04-24] MEDS: Piperacillin/Tazobactam 3.375 GM in NS 110 ML IVPB SCH ×3 (01:59→17:29)
[2018-04-24 04:37] LABS: HEMATOCRIT 40.1 % (37.0-47.0); MEAN CORPUSCULAR VOLUME 86 FL (80-99); PLATELET COUNT 363 K/UL (150-450); RED BLOOD COUNT 4.67 M/UL (4.20-5.40); RED CELL DISTRIBUTION WIDTH 18.8 % (11.6-14.8); WHITE BLOOD COUNT 19.5 K/UL (4.8-10.8)
[2018-04-24 04:58] LABS: ALANINE AMINOTRANSFERASE 85 U/L (12-78); ALBUMIN 2.9 G/DL (3.4-5.0); ALBUMIN/GLOBULIN RATIO 0.6 (1.0-2.7); ALKALINE PHOSPHATASE 180 U/L (46-116); ANION GAP 14 mmol/L (5-15); ASPARTATE AMINO TRANSFERASE 44 U/L (15-37); BILIRUBIN,TOTAL 0.6 MG/DL (0.2-1.0); BLOOD UREA NITROGEN 16 mg/dL (7-18); CALCIUM 8.3 MG/DL (8.5-10.1); CARBON DIOXIDE 21 MMOL/L (21-32); CHLORIDE 107 MMOL/L (98-107); CREATININE 1.1 MG/DL (0.55-1.30); POTASSIUM 3.4 MMOL/L (3.5-5.1); SODIUM 142 MMOL/L (136-145)
--- NOTE | 2018-04-24 05:15 | Progress Note ---
DATE: 04/23/2018 CARDIOLOGY PROGRESS NOTE SUBJECTIVE: The patient has refused blood work drawn. She has agitation and episodes of combativeness, shaking. She refuses medications. OBJECTIVE: VITAL SIGNS: Blood pressure 118/53, pulse 56, respiratory rate 20. Monitored rhythm, sinus bradycardia and sinus rhythm. HEENT: Oropharynx clear. LUNGS: Good breath sounds. No wheezing. NECK: Supple. CARDIAC: Regular rhythm and rate. Normal S1, S2. Episodes of slow heart rate. ABDOMEN: Soft. EXTREMITIES: No edema. IMPRESSION: 1. Pneumonia. 2. Contusion of the clavicle on the right with no signs of fracture. 3. Dementia with agitation. 4. Sinus bradycardia, asymptomatic. 5. Seizure disorder. 6. Acute on chronic diastolic congestive heart failure. 7. Toxic and metabolic encephalopathy. PLAN: 1. Antimicrobials. 2. Respiratory hygiene. 3. Encourage compliant. 4. Nutritional support. 5. DVT prophylaxis. 6. Titrate beta-martinez and angiotensin-converting enzyme inhibitor for optimal hemodynamic parameters and blood pressure control. Enrique Cooper M.D. DR: MARIANO JOB#: [id number] CC:
[2018-04-24] MEDS ORDERED: Vancomycin 500mg in D5W 275ml IVPB SCH ×2 (06:00→08:00)
[2018-04-24] MEDS: HydrALAZINE 25mg tab ORAL PRN (06:22)
[2018-04-24 08:00] VITALS: BP 173/72
[2018-04-24] MEDS: Heparin 5000 units/ml inj SUBQ SCH ×2 (08:00→21:12)
[2018-04-24] MEDS: Lisinopril 20mg tab ORAL SCH (08:14)
[2018-04-24] MEDS: Aspirin Baby 81mg ORAL SCH (08:14)
[2018-04-24] MEDS: Metoprolol 25mg tab ORAL SCH ×2 (08:15→21:06)
--- NOTE | 2018-04-24 08:34 | Pulmonology Progress Note ---
Assessment/Plan Assessment/Plan IMPRESSION: 1. upper respiratory tract infection, doubt acute pneumonia at present. 2. Mild leukocytosis of unclear etiology. Cultures are negative to date. 3. Transaminitis. 4. Dementia. 5. Confusion. 6. Advanced age. 7. Contusion to right clavicle. PLAN care as is from pulm standpoint infectious clearance wbc elevated; no clear etiology respiratory care without change no steroids needed monitor for change cultures and labs reviewed orders as is impression, plan, and exam edited and reviewed in detail care discussed with RN Subjective Allergies: Coded Allergies: No Known Allergies (Unverified , 04/18/18) Subjective stable no cp or sob wbc elevated Objective Last 24 Hour Vital Signs Date Time Temp Pulse Resp B/P (MAP) Pulse Ox O2 Delivery O2 Flow Rate FiO2 04/24/18 08:15 107 173/72 04/24/18 08:14 173/72 04/24/18 08:00 97.3 98 20 173/72 94 Room Air 97.3 04/24/18 06:22 181/76 04/24/18 04:00 98.0 63 18 99 Room Air 98.0 04/24/18 00:35 170/71 04/24/18 00:00 97.2 69 20 170/71 94 Room Air 97.2 04/23/18 20:33 58 173/71 04/23/18 20:20 78 18 Room Air 21 04/23/18 20:00 98.2 58 18 173/71 99 Room Air 98.2 04/23/18 16:24 177/79 04/23/18 16:00 97.2 66 20 177/79 99 Room Air 97.2 04/23/18 12:00 96.8 60 20 152/65 97 Room Air 96.8 04/23/18 09:17 118/53 04/23/18 09:17 56 118/53 Intake and Output 04/23/18 04/24/18 19:00 07:00 Intake Total 300 ml 322.5 ml Balance 300 ml 322.5 ml Intake Oral 300 ml 240 ml IV Total 82.5 ml # Voids 3 6 # Bowel Movements 1 Objective GENERAL: A well-developed female, comfortable at present, NAD HEENT: Negative. Extraocular movements are grossly intact. NECK: Supple. No jugular venous distention. LUNGS: Moderate breath sounds. no significant rhonchi present, appears stable CARDIAC: Normal S1 and S2. Regular rate and rhythm. Positive S4. No murmurs or rubs. ABDOMEN: Soft, nontender. No distention. EXTREMITIES: No cyanosis or clubbing. No significant edema. NEUROLOGICAL: Overall confused. Baseline dementia appears to be without change. Laboratory Tests 04/24/18 03:54: White Blood Count 19.5H, Red Blood Count 4.67, Hemoglobin 13.0, Hematocrit 40.1 , Mean Corpuscular Volume 86, Mean Corpuscular Hemoglobin 27.9, Mean Corpuscular Hemoglobin Concent 32.4, Red Cell Distribution Width 18.8H, Platelet Count 363, Mean Platelet Volume 7.0, Neutrophils (%) (Auto) , Lymphocytes (%) (Auto) , Monocytes (%) (Auto) , Eosinophils (%) (Auto) , Basophils (%) (Auto) , Differential Total Cells Counted 100, Neutrophils % ( Manual) 82H, Lymphocytes % (Manual) 9L, Monocytes % (Manual) 1, Eosinophils % ( Manual) 4H, Basophils % (Manual) 4H, Band Neutrophils 0, Platelet Estimate Adequate, Platelet Morphology Normal, Anisocytosis 2+, Sodium Level 142, Potassium Level 3.4L, Chloride Level 107, Carbon Dioxide Level 21, Anion Gap 14 , Blood Urea Nitrogen 16, Creatinine 1.1, Estimat Glomerular Filtration Rate , Glucose Level 83, Calcium Level 8.3L, Total Bilirubin 0.6, Aspartate Amino Transf (AST/SGOT) 44H, Alanine Aminotransferase (ALT/SGPT) 85H, Alkaline Phosphatase 180H, Total Protein 7.4, Albumin 2.9L, Globulin 4.5, Albumin/ Globulin Ratio 0.6L, Random Vancomycin Level 11.3 Current Medications Medications (Trade) Dose Ordered Sig/Franco Route PRN Reason Start Time Stop Time Status Last Admin Dose Admin Aspirin (ASA) 81 mg DAILY ORAL 04/22/18 09:00 05/18/18 08:59 04/24/18 08:14 Clonidine HCl (Catapres Tab) 0.1 mg Q6H PRN ORAL For High Blood Pressure>160 04/21/18 18:00 05/18/18 05:59 04/24/18 00:35 Fluoxetine HCl (PROzac) 20 mg DAILY ORAL 04/22/18 09:00 05/19/18 08:59 04/24/18 08:14 Gabapentin (Neurontin) 300 mg BEDTIME ORAL 04/21/18 21:00 05/18/18 20:59 04/23/18 20:33 Haloperidol Lactate (Haldol) 1 mg Q4HR PRN IM Agitation 04/21/18 17:00 05/19/18 23:14 Heparin Sodium (Porcine) (Heparin 5000 units/ml) 5,000 units EVERY 12 HOURS SUBQ 04/21/18 21:00 05/18/18 08:59 Hydralazine HCl (Apresoline) 25 mg Q6HR PRN ORAL SBP above 160 04/21/18 18:00 05/21/18 01:59 04/24/18 06:22 Lisinopril (Prinivil) 20 mg DAILY ORAL 04/23/18 09:00 05/23/18 08:59 04/24/18 08:14 Loperamide HCl (Imodium) 2 mg Q4H PRN ORAL Diarrhea 04/21/18 15:15 05/21/18 11:14 04/22/18 09:27 Lorazepam (Ativan) 1 mg Q6H PRN ORAL ANXIETY 04/21/18 15:30 04/25/18 15:29 04/23/18 18:25 Metoprolol Tartrate (Lopressor) 25 mg EVERY 12 HOURS ORAL 04/21/18 21:00 05/18/18 08:59 04/24/18 08:15 Piperacillin Sod/ Tazobactam Sod 3.375 gm/Sodium Chloride 110 ml @ 27.5 mls/hr Q8H IVPB 04/21/18 18:00 04/25/18 09:59 04/24/18 01:59 Vancomycin HCl (Vanco rx to dose) 1 ea DAILY PRN MISC Per rx protocol 04/22/18 09:00 05/18/18 07:59 Vancomycin HCl 500 mg/Dextrose 275 ml @ 275 mls/hr Q12H IVPB 04/24/18 08:00 04/29/18 07:59 04/24/18 08:14 Honorio Johansen MD Apr 24, 2018 08:34
--- NOTE | 2018-04-24 09:05 | General Progress Note ---
Assessment/Plan Problem List: (1) Leukocytosis ICD Codes: D72.829 - Elevated white blood cell count, unspecified SNOMED: 270583755, 293953353 (2) Pneumonia ICD Codes: J18.9 - Pneumonia, unspecified organism SNOMED: 225900540, 216296421 (3) Contusion of right clavicle ICD Codes: S40.011A - Contusion of right shoulder, initial encounter SNOMED: 31853853 Status: stable Assessment/Plan iv abx wound care monitor labs follow up cultures resp care o2 sz meds psych rx/anxiolytics compliance stressed replace k not stable for dc with worsening leukocytosis Subjective ROS Limited/Unobtainable: No Constitutional: Reports: malaise, weakness HEENT: Reports: no symptoms Cardiovascular: Reports: no symptoms Respiratory: Reports: no symptoms Gastrointestinal/Abdominal: Reports: no symptoms Genitourinary: Reports: no symptoms Neurologic/Psychiatric: Reports: no symptoms Endocrine: Reports: no symptoms Hematologic/Lymphatic: Reports: no symptoms Allergies: Coded Allergies: No Known Allergies (Unverified , 04/18/18) All Systems: reviewed and negative except above Subjective no events. wbc higher today. no complaints. no fever or chills. ID noted. Objective Last 24 Hour Vital Signs Date Time Temp Pulse Resp B/P (MAP) Pulse Ox O2 Delivery O2 Flow Rate FiO2 04/24/18 08:15 107 173/72 04/24/18 08:14 173/72 04/24/18 08:00 97.3 98 20 173/72 94 Room Air 97.3 04/24/18 06:22 181/76 04/24/18 04:00 98.0 63 18 99 Room Air 98.0 04/24/18 00:35 170/71 04/24/18 00:00 97.2 69 20 170/71 94 Room Air 97.2 04/23/18 20:33 58 173/71 04/23/18 20:20 78 18 Room Air 21 04/23/18 20:00 98.2 58 18 173/71 99 Room Air 98.2 04/23/18 16:24 177/79 04/23/18 16:00 97.2 66 20 177/79 99 Room Air 97.2 04/23/18 12:00 96.8 60 20 152/65 97 Room Air 96.8 04/23/18 09:17 118/53 04/23/18 09:17 56 118/53 Intake and Output 04/23/18 04/24/18 19:00 07:00 Intake Total 300 ml 322.5 ml Balance 300 ml 322.5 ml Intake Oral 300 ml 240 ml IV Total 82.5 ml # Voids 3 6 # Bowel Movements 1 Laboratory Tests 04/24/18 03:54: White Blood Count 19.5H, Red Blood Count 4.67, Hemoglobin 13.0, Hematocrit 40.1 , Mean Corpuscular Volume 86, Mean Corpuscular Hemoglobin 27.9, Mean Corpuscular Hemoglobin Concent 32.4, Red Cell Distribution Width 18.8H, Platelet Count 363, Mean Platelet Volume 7.0, Neutrophils (%) (Auto) , Lymphocytes (%) (Auto) , Monocytes (%) (Auto) , Eosinophils (%) (Auto) , Basophils (%) (Auto) , Differential Total Cells Counted 100, Neutrophils % ( Manual) 82H, Lymphocytes % (Manual) 9L, Monocytes % (Manual) 1, Eosinophils % ( Manual) 4H, Basophils % (Manual) 4H, Band Neutrophils 0, Platelet Estimate Adequate, Platelet Morphology Normal, Anisocytosis 2+, Sodium Level 142, Potassium Level 3.4L, Chloride Level 107, Carbon Dioxide Level 21, Anion Gap 14 , Blood Urea Nitrogen 16, Creatinine 1.1, Estimat Glomerular Filtration Rate , Glucose Level 83, Calcium Level 8.3L, Total Bilirubin 0.6, Aspartate Amino Transf (AST/SGOT) 44H, Alanine Aminotransferase (ALT/SGPT) 85H, Alkaline Phosphatase 180H, Total Protein 7.4, Albumin 2.9L, Globulin 4.5, Albumin/ Globulin Ratio 0.6L, Random Vancomycin Level 11.3 Height (Feet): 5 Height (Inches): 0.00 Weight (Pounds): 123 Objective General Appearance: WD/WN, confused, agitated EENT: PERRL/EOMI Neck: supple Cardiovascular: normal rate, regular rhythm Respiratory/Chest: chest wall non-tender, lungs clear, normal breath sounds Abdomen: normal bowel sounds, non tender, soft, no organomegaly Edema: no edema noted Arm (L), no edema noted Arm (R), no edema noted Leg (L), no edema noted Leg (R), no edema noted Pedal (L), no edema noted Pedal (R), no edema noted Generalized Andrew Woodard MD Apr 24, 2018 09:05
[2018-04-24 12:00] VITALS: BP 160/69
--- NOTE | 2018-04-24 12:36 | Infectious Diseases Prog Note ---
Assessment/Plan Assessment/Plan A; R shoulder cellulitis Contusion of R shoulder Leukocytosis HPN P; Continue Vancomycin & Zosyn Subjective Respiratory: Reports: no symptoms Cardiovascular: Reports: no symptoms Gastrointestinal/Abdominal: Reports: no symptoms Genitourinary: Reports: no symptoms Musculoskeletal: Reports: no symptoms Allergies: Coded Allergies: No Known Allergies (Unverified , 04/18/18) Objective Vital Signs Last 24 Hour Vital Signs Date Time Temp Pulse Resp B/P (MAP) Pulse Ox O2 Delivery O2 Flow Rate FiO2 04/24/18 08:15 107 173/72 04/24/18 08:14 173/72 04/24/18 08:00 97.3 98 20 173/72 94 Room Air 97.3 04/24/18 07:50 68 17 Room Air 21 04/24/18 06:22 181/76 04/24/18 04:00 98.0 63 18 99 Room Air 98.0 04/24/18 00:35 170/71 04/24/18 00:00 97.2 69 20 170/71 94 Room Air 97.2 04/23/18 20:33 58 173/71 04/23/18 20:20 78 18 Room Air 21 04/23/18 20:00 98.2 58 18 173/71 99 Room Air 98.2 04/23/18 16:24 177/79 04/23/18 16:00 97.2 66 20 177/79 99 Room Air 97.2 Height (Feet): 5 Height (Inches): 0.00 Weight (Pounds): 123 HEENT: mucous membranes moist Respiratory/Chest: lungs clear Cardiovascular: normal rate Abdomen: soft, non tender Extremities: no edema Skin: other - R clavicular laceration & erythema Neurologic/Psychiatric: alert, responsive Laboratory Tests Test 04/24/18 03:54 White Blood Count 19.5 K/UL (4.8-10.8) H Red Blood Count 4.67 M/UL (4.20-5.40) Hemoglobin 13.0 G/DL (12.0-16.0) Hematocrit 40.1 % (37.0-47.0) Mean Corpuscular Volume 86 FL (80-99) Mean Corpuscular Hemoglobin 27.9 PG (27.0-31.0) Mean Corpuscular Hemoglobin Concent 32.4 G/DL (32.0-36.0) Red Cell Distribution Width 18.8 % (11.6-14.8) H Platelet Count 363 K/UL (150-450) Mean Platelet Volume 7.0 FL (6.5-10.1) Neutrophils (%) (Auto) % (45.0-75.0) Lymphocytes (%) (Auto) % (20.0-45.0) Monocytes (%) (Auto) % (1.0-10.0) Eosinophils (%) (Auto) % (0.0-3.0) Basophils (%) (Auto) % (0.0-2.0) Differential Total Cells Counted 100 Neutrophils % (Manual) 82 % (45-75) H Lymphocytes % (Manual) 9 % (20-45) L Monocytes % (Manual) 1 % (1-10) Eosinophils % (Manual) 4 % (0-3) H Basophils % (Manual) 4 % (0-2) H Band Neutrophils 0 % (0-8) Platelet Estimate Adequate Platelet Morphology Normal Anisocytosis 2+ Sodium Level 142 MMOL/L (136-145) Potassium Level 3.4 MMOL/L (3.5-5.1) L Chloride Level 107 MMOL/L (98-107) Carbon Dioxide Level 21 MMOL/L (21-32) Anion Gap 14 mmol/L (5-15) Blood Urea Nitrogen 16 mg/dL (7-18) Creatinine 1.1 MG/DL (0.55-1.30) Estimat Glomerular Filtration Rate mL/min (>60) Glucose Level 83 MG/DL (74-106) Calcium Level 8.3 MG/DL (8.5-10.1) L Total Bilirubin 0.6 MG/DL (0.2-1.0) Aspartate Amino Transf (AST/SGOT) 44 U/L (15-37) H Alanine Aminotransferase (ALT/SGPT) 85 U/L (12-78) H Alkaline Phosphatase 180 U/L (46-116) H Total Protein 7.4 G/DL (6.4-8.2) Albumin 2.9 G/DL (3.4-5.0) L Globulin 4.5 g/dL Albumin/Globulin Ratio 0.6 (1.0-2.7) L Random Vancomycin Level 11.3 ug/mL Current Medications Medications (Trade) Dose Ordered Sig/Franco Route PRN Reason Start Time Stop Time Status Last Admin Dose Admin Aspirin (ASA) 81 mg DAILY ORAL 04/22/18 09:00 05/18/18 08:59 04/24/18 08:14 Clonidine HCl (Catapres Tab) 0.1 mg Q6H PRN ORAL For High Blood Pressure>160 04/21/18 18:00 05/18/18 05:59 04/24/18 00:35 Fluoxetine HCl (PROzac) 20 mg DAILY ORAL 04/22/18 09:00 05/19/18 08:59 04/24/18 08:14 Gabapentin (Neurontin) 300 mg BEDTIME ORAL 04/21/18 21:00 05/18/18 20:59 04/23/18 20:33 Haloperidol Lactate (Haldol) 1 mg Q4HR PRN IM Agitation 04/21/18 17:00 05/19/18 23:14 Heparin Sodium (Porcine) (Heparin 5000 units/ml) 5,000 units EVERY 12 HOURS SUBQ 04/21/18 21:00 05/18/18 08:59 Hydralazine HCl (Apresoline) 25 mg Q6HR PRN ORAL SBP above 160 04/21/18 18:00 05/21/18 01:59 04/24/18 06:22 Lisinopril (Prinivil) 20 mg DAILY ORAL 04/23/18 09:00 05/23/18 08:59 04/24/18 08:14 Loperamide HCl (Imodium) 2 mg Q4H PRN ORAL Diarrhea 04/21/18 15:15 05/21/18 11:14 04/22/18 09:27 Lorazepam (Ativan) 1 mg Q6H PRN ORAL ANXIETY 04/21/18 15:30 04/25/18 15:29 04/23/18 18:25 Metoprolol Tartrate (Lopressor) 25 mg EVERY 12 HOURS ORAL 04/21/18 21:00 05/18/18 08:59 04/24/18 08:15 Piperacillin Sod/ Tazobactam Sod 3.375 gm/Sodium Chloride 110 ml @ 27.5 mls/hr Q8H IVPB 04/21/18 18:00 04/25/18 09:59 04/24/18 09:45 Vancomycin HCl (Vanco rx to dose) 1 ea DAILY PRN MISC Per rx protocol 04/22/18 09:00 05/18/18 07:59 Vancomycin HCl 500 mg/Dextrose 275 ml @ 275 mls/hr Q12H IVPB 04/24/18 08:00 04/29/18 07:59 04/24/18 08:14 Александр Adams MD Apr 24, 2018 12:36
--- NOTE | 2018-04-24 12:46 | General Surgery Progress Note ---
General Surgery-Progress Note Subjective Additional Comments worsening leukocytosis. patient looks very well and is talkative. wounds healing without signs of active infection. improved clinically. Objective Last 24 Hour Vital Signs Date Time Temp Pulse Resp B/P (MAP) Pulse Ox O2 Delivery O2 Flow Rate FiO2 04/24/18 08:15 107 173/72 04/24/18 08:14 173/72 04/24/18 08:00 97.3 98 20 173/72 94 Room Air 97.3 04/24/18 07:50 68 17 Room Air 21 04/24/18 06:22 181/76 04/24/18 04:00 98.0 63 18 99 Room Air 98.0 04/24/18 00:35 170/71 04/24/18 00:00 97.2 69 20 170/71 94 Room Air 97.2 04/23/18 20:33 58 173/71 04/23/18 20:20 78 18 Room Air 21 04/23/18 20:00 98.2 58 18 173/71 99 Room Air 98.2 04/23/18 16:24 177/79 04/23/18 16:00 97.2 66 20 177/79 99 Room Air 97.2 I&O Intake and Output 04/23/18 04/24/18 19:00 07:00 Intake Total 300 ml 322.5 ml Balance 300 ml 322.5 ml Intake Oral 300 ml 240 ml IV Total 82.5 ml # Voids 3 6 # Bowel Movements 1 Dressing: dry Wound: clean Drains: none Cardiovascular: RSR Respiratory: clear Abdomen: soft, flat, non-tender, present bowel sounds Extremities: no cyanosis Laboratory Tests Test 04/24/18 03:54 White Blood Count 19.5 K/UL (4.8-10.8) H Red Blood Count 4.67 M/UL (4.20-5.40) Hemoglobin 13.0 G/DL (12.0-16.0) Hematocrit 40.1 % (37.0-47.0) Mean Corpuscular Volume 86 FL (80-99) Mean Corpuscular Hemoglobin 27.9 PG (27.0-31.0) Mean Corpuscular Hemoglobin Concent 32.4 G/DL (32.0-36.0) Red Cell Distribution Width 18.8 % (11.6-14.8) H Platelet Count 363 K/UL (150-450) Mean Platelet Volume 7.0 FL (6.5-10.1) Neutrophils (%) (Auto) % (45.0-75.0) Lymphocytes (%) (Auto) % (20.0-45.0) Monocytes (%) (Auto) % (1.0-10.0) Eosinophils (%) (Auto) % (0.0-3.0) Basophils (%) (Auto) % (0.0-2.0) Differential Total Cells Counted 100 Neutrophils % (Manual) 82 % (45-75) H Lymphocytes % (Manual) 9 % (20-45) L Monocytes % (Manual) 1 % (1-10) Eosinophils % (Manual) 4 % (0-3) H Basophils % (Manual) 4 % (0-2) H Band Neutrophils 0 % (0-8) Platelet Estimate Adequate Platelet Morphology Normal Anisocytosis 2+ Sodium Level 142 MMOL/L (136-145) Potassium Level 3.4 MMOL/L (3.5-5.1) L Chloride Level 107 MMOL/L (98-107) Carbon Dioxide Level 21 MMOL/L (21-32) Anion Gap 14 mmol/L (5-15) Blood Urea Nitrogen 16 mg/dL (7-18) Creatinine 1.1 MG/DL (0.55-1.30) Estimat Glomerular Filtration Rate mL/min (>60) Glucose Level 83 MG/DL (74-106) Calcium Level 8.3 MG/DL (8.5-10.1) L Total Bilirubin 0.6 MG/DL (0.2-1.0) Aspartate Amino Transf (AST/SGOT) 44 U/L (15-37) H Alanine Aminotransferase (ALT/SGPT) 85 U/L (12-78) H Alkaline Phosphatase 180 U/L (46-116) H Total Protein 7.4 G/DL (6.4-8.2) Albumin 2.9 G/DL (3.4-5.0) L Globulin 4.5 g/dL Albumin/Globulin Ratio 0.6 (1.0-2.7) L Random Vancomycin Level 11.3 ug/mL Plan Problems: (1) Contusion of right clavicle Assessment & Plan: right clavicle 3cm by 2cm wound slow healing. from report traumatic etiology after fall. no other wounds noted. wound not infected and shallow ulceration without penetration into subcutaneous tissues. no drainage. no odor CXR reviewed and no clavicle fracture noted. exam as above. leukocytosis. exam benign. otherwise improving. -honey gel and foam dressing BID -will monitor while in hospital thank you for this consultation. will follow with recs. (2) Leukocytosis Eder Rutherford Apr 24, 2018 12:46
[2018-04-24 16:00] VITALS: BP 117/59
--- NOTE | 2018-04-24 16:24 | Diagnostic Imaging Report ---
Indication: Trauma pain. Abnormal LFTs Technique: US ABD Complete Comparison: None Findings: Imaged portion of the pancreatic head is unremarkable. The body and tail are not well seen. Imaged portions of the abdominal aorta are normal in caliber. Liver is normal in size and contour. Echogenicity is homogeneous. No focal hepatic mass lesion is appreciated sonographically. Main portal vein is patent. Gallbladder measures 8 mm in diameter, within normal limits for patient's age. No intrahepatic biliary ductal dilatation. Calcified gallstones are noted in the gallbladder neck. There is no associated gallbladder wall thickening or pericholecystic fluid. Kidneys are symmetric in size and demonstrate normal echogenicity. No definite hydronephrosis or sonographically appreciable renal stones. Spleen is normal in size. A 4 mm calcification is noted within the spleen. No ascites. IMPRESSION: Cholelithiasis. No sonographic evidence to suggest acute cholecystitis. No evidence of choledocholithiasis. CBD 8 mm, within normal limits for patient's age. No intrahepatic biliary ductal dilatation. Punctate calcification noted within the spleen.
[2018-04-24] MEDS: LORazepam 1mg tab ORAL PRN (19:50)
[2018-04-24 20:00] VITALS: BP 168/70
[2018-04-25] VITALS: BP 151/63
--- NOTE | 2018-04-25 01:45 | Progress Note ---
DATE: 04/24/2018 CARDIOLOGY PROGRESS NOTE SUBJECTIVE: The patient has worsening leukocytosis. No fever or chills. No nausea or vomiting. No chest pain or shortness of breath. OBJECTIVE: VITAL SIGNS: Blood pressure is labile up to 173/72, heart rate 107, respiratory rate 20, and afebrile. Room air oxygen saturation is 94% to 99%. LUNGS: Clear. CARDIAC: Regular rhythm and rate. Normal S1, S2. There is a fourth heart sound. ABDOMEN: Soft and nontender. EXTREMITIES: Without edema. There is redness over the right shoulder area and this laceration site is red. IMPRESSION: 1. Cellulitis. 2. Leukocytosis. 3. Hypertensive heart disease with labile blood pressure. 4. Dementia with agitation. 5. Secondary sinus tachycardia. PLAN: 1. Antimicrobials. 2. Skin care. 3. Pain control as needed. 4. Additional antihypertensives p.r.n. 5. Advance maintenance blood pressure regimen for tighter control. Enrique Cooper M.D. DR: DEAN JOB#: [id number] CC:
[2018-04-25 04:00] VITALS: BP 155/79
[2018-04-25 07:31] LABS: BASOPHILS % (AUTO) 1.6 % (0.0-2.0); EOSINOPHILS % (AUTO) 2.7 % (0.0-3.0); HEMOGLOBIN 12.2 G/DL (12.0-16.0); LYMPHOCYTES % (AUTO) 7.5 % (20.0-45.0); MEAN CORPUSCULAR VOLUME 86 FL (80-99); MONOCYTES % (AUTO) 5.4 % (1.0-10.0); NEUTROPHILS % (AUTO) 82.8 % (45.0-75.0); PLATELET COUNT 308 K/UL (150-450); RED BLOOD COUNT 4.42 M/UL (4.20-5.40); RED CELL DISTRIBUTION WIDTH 18.8 % (11.6-14.8); WHITE BLOOD COUNT 17.6 K/UL (4.8-10.8)
[2018-04-25 07:40] LABS: ALANINE AMINOTRANSFERASE 88 U/L (12-78); ALBUMIN 2.7 G/DL (3.4-5.0); ALBUMIN/GLOBULIN RATIO 0.6 (1.0-2.7); ALKALINE PHOSPHATASE 219 U/L (46-116); ANION GAP 5 mmol/L (5-15); ASPARTATE AMINO TRANSFERASE 47 U/L (15-37); BILIRUBIN,TOTAL 0.7 MG/DL (0.2-1.0); BLOOD UREA NITROGEN 17 mg/dL (7-18); CALCIUM 8.7 MG/DL (8.5-10.1); CARBON DIOXIDE 23 MMOL/L (21-32); CHLORIDE 109 MMOL/L (98-107); POTASSIUM 4.1 MMOL/L (3.5-5.1); SODIUM 137 MMOL/L (136-145)
[2018-04-25] MEDS: Aspirin Baby 81mg ORAL SCH (07:59)
[2018-04-25 08:00] VITALS: BP 116/57
[2018-04-25] MEDS: Heparin 5000 units/ml inj SUBQ SCH ×2 (08:04→20:50)
--- NOTE | 2018-04-25 08:34 | Pulmonology Progress Note ---
Assessment/Plan Assessment/Plan IMPRESSION: 1. upper respiratory tract infection, doubt acute pneumonia at present. 2. Mild leukocytosis of unclear etiology. Cultures are negative to date. 3. Transaminitis. 4. Dementia. 5. Confusion. 6. Advanced age. 7. Contusion to right clavicle. PLAN care as is from pulm standpoint infectious clearance wbc elevated; no clear etiology respiratory care without change no steroids needed monitor for change cultures and labs reviewed orders as is for now no clear change for now impression, plan, and exam edited and reviewed in detail care discussed with RN Subjective Allergies: Coded Allergies: No Known Allergies (Unverified , 04/18/18) Subjective stable no cp or sob wbc still elevated Objective Last 24 Hour Vital Signs Date Time Temp Pulse Resp B/P (MAP) Pulse Ox O2 Delivery O2 Flow Rate FiO2 04/25/18 04:00 99.8 65 20 155/79 94 Room Air 99.8 04/25/18 00:00 98.0 70 18 151/63 98 Room Air 98.0 04/24/18 21:06 79 168/70 04/24/18 20:00 98.4 79 19 168/70 97 Room Air 98.4 04/24/18 19:50 173/104 04/24/18 16:00 98.0 81 20 117/59 94 Room Air 98.0 04/24/18 12:00 97.7 69 20 160/69 94 Room Air 97.7 Intake and Output 04/24/18 04/25/18 19:00 07:00 Intake Total 240 ml Balance 240 ml Intake Oral 240 ml # Voids 6 3 Objective GENERAL: A well-developed female, comfortable at present, NAD HEENT: Negative. Extraocular movements are grossly intact. NECK: Supple. No jugular venous distention. LUNGS: Moderate breath sounds. no significant rhonchi present, appears stable CARDIAC: Normal S1 and S2. Regular rate and rhythm. Positive S4. No murmurs or rubs. ABDOMEN: Soft, nontender. No distention. EXTREMITIES: No cyanosis or clubbing. No significant edema. NEUROLOGICAL: Overall confused. Baseline dementia appears to be without change. Microbiology Date/Time Source Procedure Growth Status 04/23/18 09:30 Wound Gram Stain - Final Resulted 04/23/18 09:30 Wound Wound Culture - Preliminary NO GROWTH AFTER 48 HOURS Resulted Laboratory Tests 04/25/18 06:00: White Blood Count 17.6H, Red Blood Count 4.42, Hemoglobin 12.2, Hematocrit 38.0 , Mean Corpuscular Volume 86, Mean Corpuscular Hemoglobin 27.5, Mean Corpuscular Hemoglobin Concent 32.0, Red Cell Distribution Width 18.8H, Platelet Count 308, Mean Platelet Volume 7.8, Neutrophils (%) (Auto) 82.8H, Lymphocytes (%) (Auto) 7.5L, Monocytes (%) (Auto) 5.4, Eosinophils (%) (Auto) 2.7, Basophils (%) (Auto) 1.6, Sodium Level 137, Potassium Level 4.1, Chloride Level 109H, Carbon Dioxide Level 23, Anion Gap 5, Blood Urea Nitrogen 17, Creatinine 1.0, Estimat Glomerular Filtration Rate , Glucose Level 81, Calcium Level 8.7, Magnesium Level 1.7L, Total Bilirubin 0.7, Aspartate Amino Transf ( AST/SGOT) 47H, Alanine Aminotransferase (ALT/SGPT) 88H, Alkaline Phosphatase 219H, Pro-B-Type Natriuretic Peptide 5997H, Total Protein 7.0, Albumin 2.7L, Globulin 4.3, Albumin/Globulin Ratio 0.6L Current Medications Medications (Trade) Dose Ordered Sig/Franco Route PRN Reason Start Time Stop Time Status Last Admin Dose Admin Aspirin (ASA) 81 mg DAILY ORAL 04/22/18 09:00 05/18/18 08:59 04/25/18 07:59 Doxycycline Monohydrate (Vibramycin) 100 mg EVERY 12 HOURS ORAL 04/24/18 21:00 05/01/18 20:59 04/25/18 07:59 Fluoxetine HCl (PROzac) 20 mg DAILY ORAL 04/22/18 09:00 05/19/18 08:59 04/25/18 07:59 Gabapentin (Neurontin) 300 mg BEDTIME ORAL 04/21/18 21:00 05/18/18 20:59 04/24/18 21:07 Haloperidol Lactate (Haldol) 1 mg Q4HR PRN IM Agitation 04/21/18 17:00 05/19/18 23:14 Heparin Sodium (Porcine) (Heparin 5000 units/ml) 5,000 units EVERY 12 HOURS SUBQ 04/21/18 21:00 05/18/18 08:59 04/24/18 21:12 Hydralazine HCl (Apresoline) 25 mg Q6HR PRN ORAL SBP above 160 04/21/18 18:00 05/21/18 01:59 04/24/18 06:22 Lisinopril (Prinivil) 40 mg DAILY ORAL 04/25/18 09:00 05/25/18 08:59 Loperamide HCl (Imodium) 2 mg Q4H PRN ORAL Diarrhea 04/21/18 15:15 05/21/18 11:14 04/22/18 09:27 Lorazepam (Ativan) 1 mg Q6H PRN ORAL ANXIETY 04/21/18 15:30 04/25/18 15:29 04/24/18 19:50 Metoprolol Tartrate (Lopressor) 50 mg Q12HR ORAL 04/25/18 09:00 05/25/18 08:59 Honorio Johansen MD Apr 25, 2018 08:34
[2018-04-25] MEDS: Metoprolol Tartrate 50mg tab ORAL SCH ×2 (09:00→20:50)
[2018-04-25] MEDS: LORazepam 1mg tab ORAL PRN (10:01)
[2018-04-25] MEDS: Lisinopril 20mg tab ORAL SCH (10:01)
--- NOTE | 2018-04-25 10:44 | Infectious Diseases Prog Note ---
Assessment/Plan Assessment/Plan antibiotics : doxycycline A 1. right neck wound infection 2. leucocytosis improving 3. hypertension 4. seizures P 1. continue po doxycycline 6 more days, patient is refusing iv antibiotics 2. will follow up cultures Subjective Constitutional: Denies: fever, chills Respiratory: Denies: shortness of breath, dry cough Gastrointestinal/Abdominal: Denies: nausea, vomiting, diarrhea Musculoskeletal: Denies: pain Allergies: Coded Allergies: No Known Allergies (Unverified , 04/18/18) Objective Vital Signs Last 24 Hour Vital Signs Date Time Temp Pulse Resp B/P (MAP) Pulse Ox O2 Delivery O2 Flow Rate FiO2 04/25/18 10:01 128/57 04/25/18 09:00 65 116/57 04/25/18 08:00 97.7 65 19 116/57 94 Room Air 97.7 04/25/18 04:00 99.8 65 20 155/79 94 Room Air 99.8 04/25/18 00:00 98.0 70 18 151/63 98 Room Air 98.0 04/24/18 21:06 79 168/70 04/24/18 20:00 98.4 79 19 168/70 97 Room Air 98.4 04/24/18 19:50 173/104 04/24/18 16:00 98.0 81 20 117/59 94 Room Air 98.0 04/24/18 12:00 97.7 69 20 160/69 94 Room Air 97.7 Height (Feet): 5 Height (Inches): 0.00 Weight (Pounds): 123 HEENT: other - neck wound on right Respiratory/Chest: lungs clear Cardiovascular: normal rate, regular rhythm, no gallop/murmur Abdomen: soft, non tender Extremities: no edema Microbiology Date/Time Source Procedure Growth Status 04/23/18 09:30 Wound Gram Stain - Final Resulted 04/23/18 09:30 Wound Wound Culture - Preliminary NO GROWTH AFTER 48 HOURS Resulted Laboratory Tests Test 04/25/18 06:00 White Blood Count 17.6 K/UL (4.8-10.8) H Red Blood Count 4.42 M/UL (4.20-5.40) Hemoglobin 12.2 G/DL (12.0-16.0) Hematocrit 38.0 % (37.0-47.0) Mean Corpuscular Volume 86 FL (80-99) Mean Corpuscular Hemoglobin 27.5 PG (27.0-31.0) Mean Corpuscular Hemoglobin Concent 32.0 G/DL (32.0-36.0) Red Cell Distribution Width 18.8 % (11.6-14.8) H Platelet Count 308 K/UL (150-450) Mean Platelet Volume 7.8 FL (6.5-10.1) Neutrophils (%) (Auto) 82.8 % (45.0-75.0) H Lymphocytes (%) (Auto) 7.5 % (20.0-45.0) L Monocytes (%) (Auto) 5.4 % (1.0-10.0) Eosinophils (%) (Auto) 2.7 % (0.0-3.0) Basophils (%) (Auto) 1.6 % (0.0-2.0) Sodium Level 137 MMOL/L (136-145) Potassium Level 4.1 MMOL/L (3.5-5.1) Chloride Level 109 MMOL/L (98-107) H Carbon Dioxide Level 23 MMOL/L (21-32) Anion Gap 5 mmol/L (5-15) Blood Urea Nitrogen 17 mg/dL (7-18) Creatinine 1.0 MG/DL (0.55-1.30) Estimat Glomerular Filtration Rate mL/min (>60) Glucose Level 81 MG/DL (74-106) Calcium Level 8.7 MG/DL (8.5-10.1) Magnesium Level 1.7 MG/DL (1.8-2.4) L Total Bilirubin 0.7 MG/DL (0.2-1.0) Aspartate Amino Transf (AST/SGOT) 47 U/L (15-37) H Alanine Aminotransferase (ALT/SGPT) 88 U/L (12-78) H Alkaline Phosphatase 219 U/L (46-116) H Pro-B-Type Natriuretic Peptide 5997 pg/mL (0-125) H Total Protein 7.0 G/DL (6.4-8.2) Albumin 2.7 G/DL (3.4-5.0) L Globulin 4.3 g/dL Albumin/Globulin Ratio 0.6 (1.0-2.7) L Current Medications Medications (Trade) Dose Ordered Sig/Franco Route PRN Reason Start Time Stop Time Status Last Admin Dose Admin Aspirin (ASA) 81 mg DAILY ORAL 04/22/18 09:00 05/18/18 08:59 04/25/18 07:59 Doxycycline Monohydrate (Vibramycin) 100 mg EVERY 12 HOURS ORAL 04/24/18 21:00 05/01/18 20:59 04/25/18 07:59 Fluoxetine HCl (PROzac) 20 mg DAILY ORAL 04/22/18 09:00 05/19/18 08:59 04/25/18 07:59 Gabapentin (Neurontin) 300 mg BEDTIME ORAL 04/21/18 21:00 05/18/18 20:59 04/24/18 21:07 Haloperidol Lactate (Haldol) 1 mg Q4HR PRN IM Agitation 04/21/18 17:00 05/19/18 23:14 Heparin Sodium (Porcine) (Heparin 5000 units/ml) 5,000 units EVERY 12 HOURS SUBQ 04/21/18 21:00 05/18/18 08:59 04/24/18 21:12 Hydralazine HCl (Apresoline) 25 mg Q6HR PRN ORAL SBP above 160 04/21/18 18:00 05/21/18 01:59 04/24/18 06:22 Lisinopril (Prinivil) 40 mg DAILY ORAL 04/25/18 09:00 05/25/18 08:59 04/25/18 10:01 Loperamide HCl (Imodium) 2 mg Q4H PRN ORAL Diarrhea 04/21/18 15:15 05/21/18 11:14 04/22/18 09:27 Lorazepam (Ativan) 1 mg Q6H PRN ORAL ANXIETY 04/21/18 15:30 04/25/18 15:29 04/25/18 10:01 Metoprolol Tartrate (Lopressor) 50 mg Q12HR ORAL 04/25/18 09:00 05/25/18 08:59 KORY FIGUEROA Apr 25, 2018 10:44
[2018-04-25 12:00] VITALS: BP 132/62
--- NOTE | 2018-04-25 13:23 | General Progress Note ---
Assessment/Plan Assessment/Plan Anxiety d/o Cognitive impairment -Ativan 1mg q6hr/prn -Lexapro 10mg qam -Provided ro/st Subjective Date patient seen: Apr 25, 2018 Neurologic/Psychiatric: Reports: anxiety, depressed, emotional problems Allergies: Coded Allergies: No Known Allergies (Unverified , 04/18/18) Subjective the pt has episodes of anxiety and is forgetful Objective Last 24 Hour Vital Signs Date Time Temp Pulse Resp B/P (MAP) Pulse Ox O2 Delivery O2 Flow Rate FiO2 04/25/18 10:01 128/57 04/25/18 09:00 65 116/57 04/25/18 08:00 97.7 65 19 116/57 94 Room Air 97.7 04/25/18 04:00 99.8 65 20 155/79 94 Room Air 99.8 04/25/18 00:00 98.0 70 18 151/63 98 Room Air 98.0 04/24/18 21:06 79 168/70 04/24/18 20:00 98.4 79 19 168/70 97 Room Air 98.4 04/24/18 19:50 173/104 04/24/18 16:00 98.0 81 20 117/59 94 Room Air 98.0 Intake and Output 04/24/18 04/25/18 19:00 07:00 Intake Total 240 ml Balance 240 ml Intake Oral 240 ml # Voids 6 3 Laboratory Tests 04/25/18 06:00: White Blood Count 17.6H, Red Blood Count 4.42, Hemoglobin 12.2, Hematocrit 38.0 , Mean Corpuscular Volume 86, Mean Corpuscular Hemoglobin 27.5, Mean Corpuscular Hemoglobin Concent 32.0, Red Cell Distribution Width 18.8H, Platelet Count 308, Mean Platelet Volume 7.8, Neutrophils (%) (Auto) 82.8H, Lymphocytes (%) (Auto) 7.5L, Monocytes (%) (Auto) 5.4, Eosinophils (%) (Auto) 2.7, Basophils (%) (Auto) 1.6, Sodium Level 137, Potassium Level 4.1, Chloride Level 109H, Carbon Dioxide Level 23, Anion Gap 5, Blood Urea Nitrogen 17, Creatinine 1.0, Estimat Glomerular Filtration Rate , Glucose Level 81, Calcium Level 8.7, Magnesium Level 1.7L, Total Bilirubin 0.7, Aspartate Amino Transf ( AST/SGOT) 47H, Alanine Aminotransferase (ALT/SGPT) 88H, Alkaline Phosphatase 219H, Pro-B-Type Natriuretic Peptide 5997H, Total Protein 7.0, Albumin 2.7L, Globulin 4.3, Albumin/Globulin Ratio 0.6L Height (Feet): 5 Height (Inches): 0.00 Weight (Pounds): 123 General Appearance: no apparent distress, alert Neurologic: oriented x 3, responsive, depressed affect Severino Vences MD Apr 25, 2018 13:23
--- NOTE | 2018-04-25 13:49 | General Surgery Progress Note ---
General Surgery-Progress Note Subjective Symptoms: improved Additional Comments no acute events. leukocytosis trending down. ultrasound reviewed. alk phos up. Objective Last 24 Hour Vital Signs Date Time Temp Pulse Resp B/P (MAP) Pulse Ox O2 Delivery O2 Flow Rate FiO2 04/25/18 10:01 128/57 04/25/18 09:00 65 116/57 04/25/18 08:00 97.7 65 19 116/57 94 Room Air 97.7 04/25/18 04:00 99.8 65 20 155/79 94 Room Air 99.8 04/25/18 00:00 98.0 70 18 151/63 98 Room Air 98.0 04/24/18 21:06 79 168/70 04/24/18 20:00 98.4 79 19 168/70 97 Room Air 98.4 04/24/18 19:50 173/104 04/24/18 16:00 98.0 81 20 117/59 94 Room Air 98.0 I&O Intake and Output 04/24/18 04/25/18 19:00 07:00 Intake Total 240 ml Balance 240 ml Intake Oral 240 ml # Voids 6 3 Dressing: dry Wound: clean Drains: none Cardiovascular: RSR Respiratory: clear Abdomen: soft, non-tender, present bowel sounds Extremities: no tenderness, no cyanosis Laboratory Tests Test 04/25/18 06:00 White Blood Count 17.6 K/UL (4.8-10.8) H Red Blood Count 4.42 M/UL (4.20-5.40) Hemoglobin 12.2 G/DL (12.0-16.0) Hematocrit 38.0 % (37.0-47.0) Mean Corpuscular Volume 86 FL (80-99) Mean Corpuscular Hemoglobin 27.5 PG (27.0-31.0) Mean Corpuscular Hemoglobin Concent 32.0 G/DL (32.0-36.0) Red Cell Distribution Width 18.8 % (11.6-14.8) H Platelet Count 308 K/UL (150-450) Mean Platelet Volume 7.8 FL (6.5-10.1) Neutrophils (%) (Auto) 82.8 % (45.0-75.0) H Lymphocytes (%) (Auto) 7.5 % (20.0-45.0) L Monocytes (%) (Auto) 5.4 % (1.0-10.0) Eosinophils (%) (Auto) 2.7 % (0.0-3.0) Basophils (%) (Auto) 1.6 % (0.0-2.0) Sodium Level 137 MMOL/L (136-145) Potassium Level 4.1 MMOL/L (3.5-5.1) Chloride Level 109 MMOL/L (98-107) H Carbon Dioxide Level 23 MMOL/L (21-32) Anion Gap 5 mmol/L (5-15) Blood Urea Nitrogen 17 mg/dL (7-18) Creatinine 1.0 MG/DL (0.55-1.30) Estimat Glomerular Filtration Rate mL/min (>60) Glucose Level 81 MG/DL (74-106) Calcium Level 8.7 MG/DL (8.5-10.1) Magnesium Level 1.7 MG/DL (1.8-2.4) L Total Bilirubin 0.7 MG/DL (0.2-1.0) Aspartate Amino Transf (AST/SGOT) 47 U/L (15-37) H Alanine Aminotransferase (ALT/SGPT) 88 U/L (12-78) H Alkaline Phosphatase 219 U/L (46-116) H Pro-B-Type Natriuretic Peptide 5997 pg/mL (0-125) H Total Protein 7.0 G/DL (6.4-8.2) Albumin 2.7 G/DL (3.4-5.0) L Globulin 4.3 g/dL Albumin/Globulin Ratio 0.6 (1.0-2.7) L Plan Problems: (1) Contusion of right clavicle Assessment & Plan: right clavicle 3cm by 2cm wound slow healing. from report traumatic etiology after fall. no other wounds noted. wound not infected and shallow ulceration without penetration into subcutaneous tissues. no drainage. no odor CXR reviewed and no clavicle fracture noted. exam as above. leukocytosis. exam benign. otherwise improving. ultrasound reviewed and okay. -hepatitis panel -honey gel and foam dressing BID -will monitor while in hospital thank you for this consultation. will follow with recs. (2) Leukocytosis Eder Rutherford Apr 25, 2018 13:49
[2018-04-25 16:00] VITALS: BP 144/58
--- NOTE | 2018-04-25 16:55 | General Progress Note ---
Assessment/Plan Problem List: (1) Leukocytosis ICD Codes: D72.829 - Elevated white blood cell count, unspecified SNOMED: 885555802, 760388828 (2) Pneumonia ICD Codes: J18.9 - Pneumonia, unspecified organism SNOMED: 011567961, 026893941 (3) Contusion of right clavicle ICD Codes: S40.011A - Contusion of right shoulder, initial encounter SNOMED: 43458946 Status: stable, progressing Assessment/Plan iv abx wound care monitor labs follow up cultures resp care o2 sz meds psych rx/anxiolytics compliance stressed gi eval not stable for dc with worsening leukocytosis Subjective Allergies: Coded Allergies: No Known Allergies (Unverified , 04/18/18) Subjective no events. wbc remains elevated. no complaints. no fever or chills. ID noted. d/w surgery.will call GI. Objective Last 24 Hour Vital Signs Date Time Temp Pulse Resp B/P (MAP) Pulse Ox O2 Delivery O2 Flow Rate FiO2 04/25/18 16:00 98.2 71 18 144/58 (86) 98 98.2 04/25/18 12:00 98.2 68 18 132/62 (85) 98 98.2 04/25/18 10:01 128/57 04/25/18 09:00 65 116/57 04/25/18 08:00 97.7 65 19 116/57 94 Room Air 97.7 04/25/18 04:00 99.8 65 20 155/79 94 Room Air 99.8 04/25/18 00:00 98.0 70 18 151/63 98 Room Air 98.0 04/24/18 21:06 79 168/70 04/24/18 20:00 98.4 79 19 168/70 97 Room Air 98.4 04/24/18 19:50 173/104 Intake and Output 04/24/18 04/25/18 19:00 07:00 Intake Total 240 ml Balance 240 ml Intake Oral 240 ml # Voids 6 3 Laboratory Tests 04/25/18 06:00: White Blood Count 17.6H, Red Blood Count 4.42, Hemoglobin 12.2, Hematocrit 38.0 , Mean Corpuscular Volume 86, Mean Corpuscular Hemoglobin 27.5, Mean Corpuscular Hemoglobin Concent 32.0, Red Cell Distribution Width 18.8H, Platelet Count 308, Mean Platelet Volume 7.8, Neutrophils (%) (Auto) 82.8H, Lymphocytes (%) (Auto) 7.5L, Monocytes (%) (Auto) 5.4, Eosinophils (%) (Auto) 2.7, Basophils (%) (Auto) 1.6, Sodium Level 137, Potassium Level 4.1, Chloride Level 109H, Carbon Dioxide Level 23, Anion Gap 5, Blood Urea Nitrogen 17, Creatinine 1.0, Estimat Glomerular Filtration Rate , Glucose Level 81, Calcium Level 8.7, Magnesium Level 1.7L, Total Bilirubin 0.7, Aspartate Amino Transf ( AST/SGOT) 47H, Alanine Aminotransferase (ALT/SGPT) 88H, Alkaline Phosphatase 219H, Pro-B-Type Natriuretic Peptide 5997H, Total Protein 7.0, Albumin 2.7L, Globulin 4.3, Albumin/Globulin Ratio 0.6L 04/25/18 07:30: Hepatitis A IgM Antibody [Pending], Hepatitis B Surface Antigen [Pending], Hepatitis B Core IgM Antibody [Pending], Hepatitis C Antibody [Pending] Height (Feet): 5 Height (Inches): 0.00 Weight (Pounds): 123 Objective General Appearance: WD/WN, confused, agitated EENT: PERRL/EOMI Neck: supple Cardiovascular: normal rate, regular rhythm Respiratory/Chest: chest wall non-tender, lungs clear, normal breath sounds Abdomen: normal bowel sounds, non tender, soft, no organomegaly Edema: no edema noted Arm (L), no edema noted Arm (R), no edema noted Leg (L), no edema noted Leg (R), no edema noted Pedal (L), no edema noted Pedal (R), no edema noted Generalized Andrew Woodard MD Apr 25, 2018 16:55
[2018-04-25 20:00] VITALS: BP 149/75
[2018-04-26] VITALS (7 sets, daily range): BP systolic 141–190; BP diastolic 59–90
[2018-04-26 08:50] LABS: BASOPHILS % (AUTO) 2.2 % (0.0-2.0); HEMATOCRIT 41.1 % (37.0-47.0); LYMPHOCYTES % (AUTO) 10.8 % (20.0-45.0); MEAN CORPUSCULAR VOLUME 86 FL (80-99); MONOCYTES % (AUTO) 4.8 % (1.0-10.0); NEUTROPHILS % (AUTO) 77.3 % (45.0-75.0); PLATELET COUNT 411 K/UL (150-450); RED CELL DISTRIBUTION WIDTH 19.2 % (11.6-14.8)
[2018-04-26] MEDS: Lisinopril 20mg tab ORAL SCH (08:55)
[2018-04-26] MEDS: Aspirin Baby 81mg ORAL SCH (08:55)
[2018-04-26] MEDS: Metoprolol Tartrate 50mg tab ORAL SCH ×2 (08:55→23:06)
[2018-04-26] MEDS: Heparin 5000 units/ml inj SUBQ SCH ×2 (08:57→20:44)
[2018-04-26 09:22] LABS: ALANINE AMINOTRANSFERASE 92 U/L (12-78); ALBUMIN 3.2 G/DL (3.4-5.0); ALBUMIN/GLOBULIN RATIO 0.7 (1.0-2.7); ALKALINE PHOSPHATASE 266 U/L (46-116); ANION GAP 13 mmol/L (5-15); ASPARTATE AMINO TRANSFERASE 44 U/L (15-37); BILIRUBIN,TOTAL 0.6 MG/DL (0.2-1.0); BLOOD UREA NITROGEN 27 mg/dL (7-18); CALCIUM 9.6 MG/DL (8.5-10.1); CARBON DIOXIDE 20 MMOL/L (21-32); CHLORIDE 107 MMOL/L (98-107); CREATININE 1.1 MG/DL (0.55-1.30); POTASSIUM 4.1 MMOL/L (3.5-5.1); SODIUM 140 MMOL/L (136-145)
--- NOTE | 2018-04-26 11:14 | General Progress Note ---
Assessment/Plan Problem List: (1) Leukocytosis ICD Codes: D72.829 - Elevated white blood cell count, unspecified SNOMED: 054834586, 971932221 (2) Pneumonia ICD Codes: J18.9 - Pneumonia, unspecified organism SNOMED: 826208940, 176163016 (3) Contusion of right clavicle ICD Codes: S40.011A - Contusion of right shoulder, initial encounter SNOMED: 72129049 Status: stable, progressing Assessment/Plan iv abx wound care monitor labs follow up cultures resp care o2 sz meds psych rx/anxiolytics compliance stressed gi eval called ct abd not stable for dc with worsening leukocytosis Subjective ROS Limited/Unobtainable: No Constitutional: Reports: malaise, weakness HEENT: Reports: no symptoms Cardiovascular: Reports: no symptoms Respiratory: Reports: no symptoms Gastrointestinal/Abdominal: Reports: no symptoms Genitourinary: Reports: no symptoms Neurologic/Psychiatric: Reports: no symptoms Endocrine: Reports: no symptoms Hematologic/Lymphatic: Reports: no symptoms Allergies: Coded Allergies: No Known Allergies (Unverified , 04/18/18) All Systems: reviewed and negative except above Subjective no events. wbc remains elevated. no complaints. no fever or chills. ID noted. d/w surgery.will call GI. monitor lfts and wbc Objective Last 24 Hour Vital Signs Date Time Temp Pulse Resp B/P (MAP) Pulse Ox O2 Delivery O2 Flow Rate FiO2 04/26/18 08:55 76 141/82 04/26/18 08:55 141/82 04/26/18 08:45 Room Air 04/26/18 08:00 98.1 76 20 141/82 (101) 97 98.1 04/26/18 04:00 97.9 66 18 152/65 (94) 97 97.9 04/26/18 00:00 98.4 64 18 156/85 (108) 99 98.4 04/25/18 21:00 Room Air 04/25/18 20:50 73 149/75 04/25/18 20:00 98.5 73 19 149/75 (99) 98 98.5 04/25/18 16:00 98.2 71 18 144/58 (86) 98 98.2 04/25/18 12:00 98.2 68 18 132/62 (85) 98 98.2 Intake and Output 04/25/18 04/26/18 19:00 07:00 Intake Total 480 ml 120 ml Balance 480 ml 120 ml Intake Oral 480 ml 120 ml # Voids 4 4 # Bowel Movements 1 Laboratory Tests 04/26/18 05:55: White Blood Count 17.0H, Red Blood Count 4.80, Hemoglobin 13.0, Hematocrit 41.1 , Mean Corpuscular Volume 86, Mean Corpuscular Hemoglobin 27.0, Mean Corpuscular Hemoglobin Concent 31.5L, Red Cell Distribution Width 19.2H, Platelet Count 411, Mean Platelet Volume 7.2, Neutrophils (%) (Auto) 77.3H, Lymphocytes (%) (Auto) 10.8L, Monocytes (%) (Auto) 4.8, Eosinophils (%) (Auto) 5.0H, Basophils (%) (Auto) 2.2H, Sodium Level 140, Potassium Level 4.1, Chloride Level 107, Carbon Dioxide Level 20L, Anion Gap 13, Blood Urea Nitrogen 27H, Creatinine 1.1, Estimat Glomerular Filtration Rate , Glucose Level 55L, Calcium Level 9.6, Total Bilirubin 0.6, Aspartate Amino Transf (AST/SGOT) 44H, Alanine Aminotransferase (ALT/SGPT) 92H, Alkaline Phosphatase 266H, Total Protein 8.1, Albumin 3.2L, Globulin 4.9, Albumin/Globulin Ratio 0.7L Height (Feet): 5 Height (Inches): 0.00 Weight (Pounds): 123 Objective General Appearance: WD/WN, confused, agitated EENT: PERRL/EOMI Neck: supple Cardiovascular: normal rate, regular rhythm Respiratory/Chest: chest wall non-tender, lungs clear, normal breath sounds Abdomen: normal bowel sounds, non tender, soft, no organomegaly Edema: no edema noted Arm (L), no edema noted Arm (R), no edema noted Leg (L), no edema noted Leg (R), no edema noted Pedal (L), no edema noted Pedal (R), no edema noted Generalized Andrew Woodard MD Apr 26, 2018 11:14
[2018-04-26] MEDS ORDERED: Gastrograffin 30ml ORAL PRN (11:15)
[2018-04-26] MEDS ORDERED: Gastrograffin 30ml RECTAL PRN (11:15)
--- NOTE | 2018-04-26 11:15 | Pulmonology Progress Note ---
Assessment/Plan Assessment/Plan IMPRESSION: 1. upper respiratory tract infection, doubt acute pneumonia at present. 2. Mild leukocytosis of unclear etiology. Cultures are negative to date. 3. Transaminitis. 4. Dementia. 5. Confusion. 6. Advanced age. 7. Contusion to right clavicle. PLAN care as is from pulm standpoint wbc elevated; no clear etiology respiratory care without change no change noted monitor for change cultures and labs reviewed orders as is for now impression, plan, and exam edited and reviewed in detail care discussed with RN Subjective Allergies: Coded Allergies: No Known Allergies (Unverified , 04/18/18) Subjective stable no cp or sob wbc still elevated Objective Last 24 Hour Vital Signs Date Time Temp Pulse Resp B/P (MAP) Pulse Ox O2 Delivery O2 Flow Rate FiO2 04/26/18 08:55 76 141/82 04/26/18 08:55 141/82 04/26/18 08:45 Room Air 04/26/18 08:00 98.1 76 20 141/82 (101) 97 98.1 04/26/18 04:00 97.9 66 18 152/65 (94) 97 97.9 04/26/18 00:00 98.4 64 18 156/85 (108) 99 98.4 04/25/18 21:00 Room Air 04/25/18 20:50 73 149/75 04/25/18 20:00 98.5 73 19 149/75 (99) 98 98.5 04/25/18 16:00 98.2 71 18 144/58 (86) 98 98.2 04/25/18 12:00 98.2 68 18 132/62 (85) 98 98.2 Intake and Output 04/25/18 04/26/18 19:00 07:00 Intake Total 480 ml 120 ml Balance 480 ml 120 ml Intake Oral 480 ml 120 ml # Voids 4 4 # Bowel Movements 1 Objective GENERAL: A well-developed female, comfortable at present, NAD HEENT: Negative. Extraocular movements are grossly intact. NECK: Supple. No jugular venous distention. LUNGS: Moderate breath sounds. no significant rhonchi present, appears stable CARDIAC: Normal S1 and S2. Regular rate and rhythm. Positive S4. No murmurs or rubs. ABDOMEN: Soft, nontender. No distention. EXTREMITIES: No cyanosis or clubbing. No significant edema. NEUROLOGICAL: Overall confused. Baseline dementia appears to be without change. Laboratory Tests 04/26/18 05:55: White Blood Count 17.0H, Red Blood Count 4.80, Hemoglobin 13.0, Hematocrit 41.1 , Mean Corpuscular Volume 86, Mean Corpuscular Hemoglobin 27.0, Mean Corpuscular Hemoglobin Concent 31.5L, Red Cell Distribution Width 19.2H, Platelet Count 411, Mean Platelet Volume 7.2, Neutrophils (%) (Auto) 77.3H, Lymphocytes (%) (Auto) 10.8L, Monocytes (%) (Auto) 4.8, Eosinophils (%) (Auto) 5.0H, Basophils (%) (Auto) 2.2H, Sodium Level 140, Potassium Level 4.1, Chloride Level 107, Carbon Dioxide Level 20L, Anion Gap 13, Blood Urea Nitrogen 27H, Creatinine 1.1, Estimat Glomerular Filtration Rate , Glucose Level 55L, Calcium Level 9.6, Total Bilirubin 0.6, Aspartate Amino Transf (AST/SGOT) 44H, Alanine Aminotransferase (ALT/SGPT) 92H, Alkaline Phosphatase 266H, Total Protein 8.1, Albumin 3.2L, Globulin 4.9, Albumin/Globulin Ratio 0.7L Current Medications Medications (Trade) Dose Ordered Sig/Franco Route PRN Reason Start Time Stop Time Status Last Admin Dose Admin Aspirin (ASA) 81 mg DAILY ORAL 04/22/18 09:00 05/18/18 08:59 04/26/18 08:55 Barium Sulfate (Readi-Cat 2) 450 ea NOW PRN ORAL Radiology Procedure 04/26/18 11:15 04/28/18 11:09 UNV Diatrizoate Meglum/ Diatrizoate Sod (Gastrografin) 30 ml NOW PRN ORAL Radiology Procedure 04/26/18 11:15 04/28/18 11:09 UNV Diatrizoate Meglum/ Diatrizoate Sod (Gastrografin) 60 ml NOW PRN RECTAL Radiology Procedure 04/26/18 11:15 04/28/18 11:09 UNV Doxycycline Monohydrate (Vibramycin) 100 mg EVERY 12 HOURS ORAL 04/24/18 21:00 05/01/18 20:59 04/26/18 08:55 Fluoxetine HCl (PROzac) 20 mg DAILY ORAL 04/22/18 09:00 05/19/18 08:59 04/26/18 08:55 Gabapentin (Neurontin) 300 mg BEDTIME ORAL 04/21/18 21:00 05/18/18 20:59 04/25/18 20:49 Haloperidol Lactate (Haldol) 1 mg Q4HR PRN IM Agitation 04/21/18 17:00 05/19/18 23:14 Heparin Sodium (Porcine) (Heparin 5000 units/ml) 5,000 units EVERY 12 HOURS SUBQ 04/21/18 21:00 05/18/18 08:59 04/26/18 08:57 Hydralazine HCl (Apresoline) 25 mg Q6HR PRN ORAL SBP above 160 04/21/18 18:00 05/21/18 01:59 04/24/18 06:22 Lisinopril (Prinivil) 40 mg DAILY ORAL 04/25/18 09:00 05/25/18 08:59 04/26/18 08:55 Loperamide HCl (Imodium) 2 mg Q4H PRN ORAL Diarrhea 04/21/18 15:15 05/21/18 11:14 04/22/18 09:27 Metoprolol Tartrate (Lopressor) 50 mg Q12HR ORAL 04/25/18 09:00 05/25/18 08:59 04/26/18 08:55 Honorio Johansen MD Apr 26, 2018 11:14
[2018-04-26] MEDS: HydrALAZINE 25mg tab ORAL PRN (15:53)
--- NOTE | 2018-04-26 17:15 | Consultation ---
DATE OF CONSULTATION: 04/26/2018 CONSULTING PHYSICIAN: Francisco J Kamara M.D. CHIEF COMPLAINT: Abnormal liver function tests. HISTORY OF PRESENT ILLNESS: This is a very pleasant 87-year-old female admitted to the hospital with shortness of breath, abnormal EKG, elevated liver function tests and GI consult is requested for further evaluation. At this time, the patient denies any abdominal pain. No nausea. No vomiting. No dysphagia. No odynophagia. No melena. No hematochezia. PAST MEDICAL HISTORY: 1. Hypertension. 2. Seizure disorder. 3. Peripheral neuropathy. 4. Osteoarthritis. 5. History of left hip replacement. 6. Anxiety. 7. Gallstones. PAST SURGICAL HISTORY: As above. ALLERGIES: No known allergies. MEDICATIONS: Please see medication reconciliation list. SOCIAL HISTORY: The patient has no history of tobacco, alcohol, or illicit drug abuse. REVIEW OF SYSTEMS: A 10-point review of systems was performed and pertinent positives are as in HPI. PHYSICAL EXAMINATION: VITAL SIGNS: Temperature 98.8, pulse 60, respirations 21, blood pressure is 167/77. HEENT: Normocephalic and atraumatic. Sclerae anicteric. NECK: Supple. No evidence of obvious lymphadenopathy. CARDIOVASCULAR: Regular rate and rhythm. Plus S1, S2. No obvious murmur. LUNGS: Decreased breath sounds bilaterally based on the supine exam. ABDOMEN: Soft and nontender. No rebound. No guarding. No peritoneal sign. EXTREMITIES: No cyanosis, no clubbing, no edema. LABORATORY DATA: Sodium 140, potassium 4.1, BUN is 27, creatinine 1.1, bilirubin 0.6, AST of 44, ALT of 92, alkaline phosphatase 266. ASSESSMENT AND PLAN: This is an 87-year-old female admitted to the hospital with shortness of breath, abnormal EKG, abnormal liver function tests. Liver enzymes are relatively stable. At this time, there is no obvious cause for abnormal liver function tests. Possibility would be medication related versus common bile duct stone although the patient has no evidence of any dilated common bile duct based on ultrasound. Our plan will be to follow hepatitis panel and follow liver function tests. If the alkaline phosphatase continues to rise, we will consider doing an MRCP to rule out common bile duct stones. Meanwhile, we will follow her laboratories on daily basis and make further recommendation. Francisco J Kamara M.D. DR: Sha JOB#: [id number] CC:
--- NOTE | 2018-04-26 18:41 | General Surgery Progress Note ---
General Surgery-Progress Note Subjective Additional Comments no acute events. doing well. stable Objective Last 24 Hour Vital Signs Date Time Temp Pulse Resp B/P (MAP) Pulse Ox O2 Delivery O2 Flow Rate FiO2 04/26/18 18:10 184/78 (113) 04/26/18 16:00 98.1 77 18 190/90 (123) 97 98.1 04/26/18 15:53 190/90 04/26/18 12:00 98.8 60 21 167/77 (107) 99 98.8 04/26/18 08:55 76 141/82 04/26/18 08:55 141/82 04/26/18 08:45 Room Air 04/26/18 08:00 98.1 76 20 141/82 (101) 97 98.1 04/26/18 04:00 97.9 66 18 152/65 (94) 97 97.9 04/26/18 00:00 98.4 64 18 156/85 (108) 99 98.4 04/25/18 21:00 Room Air 04/25/18 20:50 73 149/75 04/25/18 20:00 98.5 73 19 149/75 (99) 98 98.5 I&O Intake and Output 04/25/18 04/26/18 19:00 07:00 Intake Total 480 ml 120 ml Balance 480 ml 120 ml Intake Oral 480 ml 120 ml # Voids 4 4 # Bowel Movements 1 Wound: clean, dry Drains: none Cardiovascular: RSR Respiratory: clear Abdomen: soft, flat, non-tender, present bowel sounds Extremities: no cyanosis Laboratory Tests Test 04/26/18 05:55 White Blood Count 17.0 K/UL (4.8-10.8) H Red Blood Count 4.80 M/UL (4.20-5.40) Hemoglobin 13.0 G/DL (12.0-16.0) Hematocrit 41.1 % (37.0-47.0) Mean Corpuscular Volume 86 FL (80-99) Mean Corpuscular Hemoglobin 27.0 PG (27.0-31.0) Mean Corpuscular Hemoglobin Concent 31.5 G/DL (32.0-36.0) L Red Cell Distribution Width 19.2 % (11.6-14.8) H Platelet Count 411 K/UL (150-450) Mean Platelet Volume 7.2 FL (6.5-10.1) Neutrophils (%) (Auto) 77.3 % (45.0-75.0) H Lymphocytes (%) (Auto) 10.8 % (20.0-45.0) L Monocytes (%) (Auto) 4.8 % (1.0-10.0) Eosinophils (%) (Auto) 5.0 % (0.0-3.0) H Basophils (%) (Auto) 2.2 % (0.0-2.0) H Sodium Level 140 MMOL/L (136-145) Potassium Level 4.1 MMOL/L (3.5-5.1) Chloride Level 107 MMOL/L (98-107) Carbon Dioxide Level 20 MMOL/L (21-32) L Anion Gap 13 mmol/L (5-15) Blood Urea Nitrogen 27 mg/dL (7-18) H Creatinine 1.1 MG/DL (0.55-1.30) Estimat Glomerular Filtration Rate mL/min (>60) Glucose Level 55 MG/DL (74-106) L Calcium Level 9.6 MG/DL (8.5-10.1) Total Bilirubin 0.6 MG/DL (0.2-1.0) Aspartate Amino Transf (AST/SGOT) 44 U/L (15-37) H Alanine Aminotransferase (ALT/SGPT) 92 U/L (12-78) H Alkaline Phosphatase 266 U/L (46-116) H Total Protein 8.1 G/DL (6.4-8.2) Albumin 3.2 G/DL (3.4-5.0) L Globulin 4.9 g/dL Albumin/Globulin Ratio 0.7 (1.0-2.7) L Plan Problems: (1) Contusion of right clavicle Assessment & Plan: right clavicle 3cm by 2cm wound slow healing. from report traumatic etiology after fall. no other wounds noted. wound not infected and shallow ulceration without penetration into subcutaneous tissues. no drainage. no odor CXR reviewed and no clavicle fracture noted. exam as above. leukocytosis improving. exam benign. otherwise improving. ultrasound reviewed and okay. appreciate GI input -hepatitis panel -honey gel and foam dressing BID -will monitor while in hospital thank you for this consultation. will follow with recs. (2) Leukocytosis Eder Rutherford Apr 26, 2018 18:41
[2018-04-26] MEDS ORDERED: cloNIDine 0.2mg Tab ORAL SCH (19:00)
--- NOTE | 2018-04-26 23:15 | General Progress Note ---
Assessment/Plan Assessment/Plan Anxiety d/o Cognitive impairment -Ativan 1mg q6hr/prn -Lexapro 10mg qam -Provided ro/st Subjective Allergies: Coded Allergies: No Known Allergies (Unverified , 04/18/18) Subjective the pt has episodes of anxiety and is forgetful Objective Last 24 Hour Vital Signs Date Time Temp Pulse Resp B/P (MAP) Pulse Ox O2 Delivery O2 Flow Rate FiO2 04/26/18 23:06 67 144/56 04/26/18 21:00 Room Air 04/26/18 20:00 98.0 68 141/59 (86) 98.0 04/26/18 19:00 183/77 04/26/18 18:10 184/78 (113) 04/26/18 16:00 98.1 77 18 190/90 (123) 97 98.1 04/26/18 15:53 190/90 04/26/18 12:00 98.8 60 21 167/77 (107) 99 98.8 04/26/18 08:55 76 141/82 04/26/18 08:55 141/82 04/26/18 08:45 Room Air 04/26/18 08:00 98.1 76 20 141/82 (101) 97 98.1 04/26/18 04:00 97.9 66 18 152/65 (94) 97 97.9 04/26/18 00:00 98.4 64 18 156/85 (108) 99 98.4 Intake and Output 04/25/18 04/26/18 19:00 07:00 Intake Total 480 ml 120 ml Balance 480 ml 120 ml Intake Oral 480 ml 120 ml # Voids 4 4 # Bowel Movements 1 Laboratory Tests 04/26/18 05:55: White Blood Count 17.0H, Red Blood Count 4.80, Hemoglobin 13.0, Hematocrit 41.1 , Mean Corpuscular Volume 86, Mean Corpuscular Hemoglobin 27.0, Mean Corpuscular Hemoglobin Concent 31.5L, Red Cell Distribution Width 19.2H, Platelet Count 411, Mean Platelet Volume 7.2, Neutrophils (%) (Auto) 77.3H, Lymphocytes (%) (Auto) 10.8L, Monocytes (%) (Auto) 4.8, Eosinophils (%) (Auto) 5.0H, Basophils (%) (Auto) 2.2H, Sodium Level 140, Potassium Level 4.1, Chloride Level 107, Carbon Dioxide Level 20L, Anion Gap 13, Blood Urea Nitrogen 27H, Creatinine 1.1, Estimat Glomerular Filtration Rate , Glucose Level 55L, Calcium Level 9.6, Total Bilirubin 0.6, Aspartate Amino Transf (AST/SGOT) 44H, Alanine Aminotransferase (ALT/SGPT) 92H, Alkaline Phosphatase 266H, Total Protein 8.1, Albumin 3.2L, Globulin 4.9, Albumin/Globulin Ratio 0.7L Height (Feet): 5 Height (Inches): 0.00 Weight (Pounds): 123 Severino Vences MD Apr 26, 2018 23:15
[2018-04-27] VITALS: BP 144/56
[2018-04-27 04:00] VITALS: BP 144/55
--- NOTE | 2018-04-27 06:21 | General Progress Note ---
Assessment/Plan Problem List: (1) Elevated LFTs ICD Codes: R94.5 - Abnormal results of liver function studies SNOMED: 378936867, 390425478 (2) Cholelithiasis ICD Codes: K80.20 - Calculus of gallbladder without cholecystitis without obstruction SNOMED: 920192503 (3) Contusion of right clavicle ICD Codes: S40.011A - Contusion of right shoulder, initial encounter SNOMED: 23115878 (4) Leukocytosis ICD Codes: D72.829 - Elevated white blood cell count, unspecified SNOMED: 012147667, 985419115 Assessment/Plan fu MRCP FU lfts fu hepatitis panel Subjective ROS Limited/Unobtainable: Yes Allergies: Coded Allergies: No Known Allergies (Unverified , 04/18/18) Objective Last 24 Hour Vital Signs Date Time Temp Pulse Resp B/P (MAP) Pulse Ox O2 Delivery O2 Flow Rate FiO2 04/27/18 04:00 98.2 57 144/55 (84) 98.2 04/27/18 00:00 98.5 67 144/56 (85) 98.5 04/26/18 23:06 67 144/56 04/26/18 21:00 Room Air 04/26/18 20:00 98.0 68 141/59 (86) 98.0 04/26/18 19:00 183/77 04/26/18 18:10 184/78 (113) 04/26/18 16:00 98.1 77 18 190/90 (123) 97 98.1 04/26/18 15:53 190/90 04/26/18 12:00 98.8 60 21 167/77 (107) 99 98.8 04/26/18 08:55 76 141/82 04/26/18 08:55 141/82 04/26/18 08:45 Room Air 04/26/18 08:00 98.1 76 20 141/82 (101) 97 98.1 Intake and Output 04/26/18 04/27/18 19:00 07:00 Intake Total 650 ml Balance 650 ml Other 650 ml # Voids 3 Height (Feet): 5 Height (Inches): 0.00 Weight (Pounds): 123 General Appearance: alert EENT: normal ENT inspection Neck: normal alignment Cardiovascular: normal rate Respiratory/Chest: decreased breath sounds Abdomen: normal bowel sounds, non tender, soft Extremities: non-tender Francisco J Kamara MD Apr 27, 2018 06:21
[2018-04-27 08:00] VITALS: BP 133/73
--- NOTE | 2018-04-27 09:57 | General Progress Note ---
Assessment/Plan Problem List: (1) Leukocytosis ICD Codes: D72.829 - Elevated white blood cell count, unspecified SNOMED: 707102629, 446098492 (2) Pneumonia ICD Codes: J18.9 - Pneumonia, unspecified organism SNOMED: 595697125, 371685390 (3) Contusion of right clavicle ICD Codes: S40.011A - Contusion of right shoulder, initial encounter SNOMED: 58064062 Status: stable, progressing Assessment/Plan wound care abx per id follow am labs- still pending MRCP per GI hope to dc tomorrow if stable Subjective ROS Limited/Unobtainable: No Constitutional: Reports: malaise, weakness HEENT: Reports: no symptoms Cardiovascular: Reports: no symptoms Respiratory: Reports: cough Gastrointestinal/Abdominal: Reports: no symptoms Genitourinary: Reports: no symptoms Neurologic/Psychiatric: Reports: no symptoms Endocrine: Reports: no symptoms Hematologic/Lymphatic: Reports: no symptoms Allergies: Coded Allergies: No Known Allergies (Unverified , 04/18/18) All Systems: reviewed and negative except above Subjective no events. wbc remains elevated. no complaints. no fever or chills. ID noted. d/w surgery. gi appreciated Objective Last 24 Hour Vital Signs Date Time Temp Pulse Resp B/P (MAP) Pulse Ox O2 Delivery O2 Flow Rate FiO2 04/27/18 08:00 97.7 57 22 133/73 (93) 97 97.7 04/27/18 04:00 98.2 57 144/55 (84) 98.2 04/27/18 00:00 98.5 67 144/56 (85) 98.5 04/26/18 23:06 67 144/56 04/26/18 21:00 Room Air 04/26/18 20:00 98.0 68 141/59 (86) 98.0 04/26/18 19:00 183/77 04/26/18 18:10 184/78 (113) 04/26/18 16:00 98.1 77 18 190/90 (123) 97 98.1 04/26/18 15:53 190/90 04/26/18 12:00 98.8 60 21 167/77 (107) 99 98.8 Intake and Output 04/26/18 04/27/18 19:00 07:00 Intake Total 650 ml 250 ml Balance 650 ml 250 ml Intake Oral 250 ml Other 650 ml # Voids 3 4 Laboratory Tests 04/27/18 09:00: Sodium Level [Pending], Potassium Level [Pending], Chloride Level [Pending], Carbon Dioxide Level [Pending], Blood Urea Nitrogen [Pending], Creatinine [ Pending], Estimat Glomerular Filtration Rate [Pending], Glucose Level [Pending] , Calcium Level [Pending], Total Bilirubin [Pending], Aspartate Amino Transf ( AST/SGOT) [Pending], Alanine Aminotransferase (ALT/SGPT) [Pending], Alkaline Phosphatase [Pending], Total Protein [Pending], Albumin [Pending], Globulin [ Pending] Height (Feet): 5 Height (Inches): 0.00 Weight (Pounds): 123 Objective General Appearance: WD/WN, confused, agitated EENT: PERRL/EOMI Neck: supple Cardiovascular: normal rate, regular rhythm Respiratory/Chest: chest wall non-tender, lungs clear, normal breath sounds Abdomen: normal bowel sounds, non tender, soft, no organomegaly Edema: no edema noted Arm (L), no edema noted Arm (R), no edema noted Leg (L), no edema noted Leg (R), no edema noted Pedal (L), no edema noted Pedal (R), no edema noted Generalized Andrew Woodard MD Apr 27, 2018 09:57
[2018-04-27 10:22] LABS: ALANINE AMINOTRANSFERASE 77 U/L (12-78); ALBUMIN 3.3 G/DL (3.4-5.0); ALBUMIN/GLOBULIN RATIO 0.7 (1.0-2.7); ALKALINE PHOSPHATASE 252 U/L (46-116); ANION GAP 8 mmol/L (5-15); ASPARTATE AMINO TRANSFERASE 28 U/L (15-37); BILIRUBIN,TOTAL 0.5 MG/DL (0.2-1.0); BLOOD UREA NITROGEN 26 mg/dL (7-18); CALCIUM 9.9 MG/DL (8.5-10.1); CARBON DIOXIDE 22 MMOL/L (21-32); CHLORIDE 107 MMOL/L (98-107); CREATININE 1.1 MG/DL (0.55-1.30); POTASSIUM 4.2 MMOL/L (3.5-5.1); SODIUM 137 MMOL/L (136-145)
--- NOTE | 2018-04-27 11:09 | Pulmonology Progress Note ---
Assessment/Plan Assessment/Plan IMPRESSION: 1. upper respiratory tract infection, doubt acute pneumonia at present. 2. Mild leukocytosis 3. Transaminitis. 4. Dementia. 5. Confusion. 6. Advanced age. 7. Contusion to right clavicle. PLAN care as is from pulm standpoint dc planning respiratory care without change no change noted monitor for change and recommend cultures and labs reviewed orders as is for now impression, plan, and exam edited and reviewed in detail care discussed with RN Subjective Allergies: Coded Allergies: No Known Allergies (Unverified , 04/18/18) Subjective stable no cp or sob Objective Last 24 Hour Vital Signs Date Time Temp Pulse Resp B/P (MAP) Pulse Ox O2 Delivery O2 Flow Rate FiO2 04/27/18 08:00 97.7 57 22 133/73 (93) 97 97.7 04/27/18 04:00 98.2 57 144/55 (84) 98.2 04/27/18 00:00 98.5 67 144/56 (85) 98.5 04/26/18 23:06 67 144/56 04/26/18 21:00 Room Air 04/26/18 20:00 98.0 68 141/59 (86) 98.0 04/26/18 19:00 183/77 04/26/18 18:10 184/78 (113) 04/26/18 16:00 98.1 77 18 190/90 (123) 97 98.1 04/26/18 15:53 190/90 04/26/18 12:00 98.8 60 21 167/77 (107) 99 98.8 Intake and Output 04/26/18 04/27/18 19:00 07:00 Intake Total 650 ml 250 ml Balance 650 ml 250 ml Intake Oral 250 ml Other 650 ml # Voids 3 4 Objective GENERAL: A well-developed female, comfortable at present, NAD HEENT: Negative. Extraocular movements are grossly intact. NECK: Supple. No jugular venous distention. LUNGS: Moderate breath sounds. no significant rhonchi present, appears stable CARDIAC: Normal S1 and S2. Regular rate and rhythm. Positive S4. No murmurs or rubs. ABDOMEN: Soft, nontender. No distention. EXTREMITIES: No cyanosis or clubbing. No significant edema. NEUROLOGICAL: Overall confused. Baseline dementia appears to be without change. Laboratory Tests 04/27/18 09:00: Sodium Level 137, Potassium Level 4.2, Chloride Level 107, Carbon Dioxide Level 22, Anion Gap 8, Blood Urea Nitrogen 26H, Creatinine 1.1, Estimat Glomerular Filtration Rate , Glucose Level 93, Calcium Level 9.9, Total Bilirubin 0.5, Aspartate Amino Transf (AST/SGOT) 28, Alanine Aminotransferase (ALT/SGPT) 77, Alkaline Phosphatase 252H, Total Protein 8.2, Albumin 3.3L, Globulin 4.9, Albumin/Globulin Ratio 0.7L Current Medications Medications (Trade) Dose Ordered Sig/Franco Route PRN Reason Start Time Stop Time Status Last Admin Dose Admin Aspirin (ASA) 81 mg DAILY ORAL 04/22/18 09:00 05/18/18 08:59 04/26/18 08:55 Barium Sulfate (Readi-Cat 2) 450 ea NOW PRN ORAL Radiology Procedure 04/26/18 11:15 04/28/18 11:09 Diatrizoate Meglum/ Diatrizoate Sod (Gastrografin) 30 ml NOW PRN ORAL Radiology Procedure 04/26/18 11:15 04/28/18 11:09 Diatrizoate Meglum/ Diatrizoate Sod (Gastrografin) 60 ml NOW PRN RECTAL Radiology Procedure 04/26/18 11:15 04/28/18 11:09 Doxycycline Monohydrate (Vibramycin) 100 mg EVERY 12 HOURS ORAL 04/24/18 21:00 05/01/18 20:59 04/26/18 20:38 Fluoxetine HCl (PROzac) 20 mg DAILY ORAL 04/22/18 09:00 05/19/18 08:59 04/26/18 08:55 Gabapentin (Neurontin) 300 mg BEDTIME ORAL 04/21/18 21:00 05/18/18 20:59 04/26/18 20:38 Haloperidol Lactate (Haldol) 1 mg Q4HR PRN IM Agitation 04/21/18 17:00 05/19/18 23:14 Heparin Sodium (Porcine) (Heparin 5000 units/ml) 5,000 units EVERY 12 HOURS SUBQ 04/21/18 21:00 05/18/18 08:59 04/26/18 20:44 Hydralazine HCl (Apresoline) 25 mg Q6HR PRN ORAL SBP above 160 04/21/18 18:00 05/21/18 01:59 04/26/18 15:53 Lisinopril (Prinivil) 40 mg DAILY ORAL 04/25/18 09:00 05/25/18 08:59 04/26/18 08:55 Loperamide HCl (Imodium) 2 mg Q4H PRN ORAL Diarrhea 04/21/18 15:15 05/21/18 11:14 04/22/18 09:27 Metoprolol Tartrate (Lopressor) 50 mg Q12HR ORAL 04/25/18 09:00 05/25/18 08:59 04/26/18 23:06 Honorio Johansen MD Apr 27, 2018 11:09
[2018-04-27 12:00] VITALS: BP 142/66
[2018-04-27] MEDS: Aspirin Baby 81mg ORAL SCH (12:32)
[2018-04-27] MEDS: Metoprolol Tartrate 50mg tab ORAL SCH ×2 (12:32→20:59)
[2018-04-27] MEDS: Lisinopril 20mg tab ORAL SCH (12:32)
[2018-04-27] MEDS: Heparin 5000 units/ml inj SUBQ SCH ×2 (12:34→21:00)
--- NOTE | 2018-04-27 12:46 | General Surgery Progress Note ---
General Surgery-Progress Note Subjective Symptoms: improved, pain absent, tolerating diet, passing flatus, BM Additional Comments no acute events. labs improving Objective Last 24 Hour Vital Signs Date Time Temp Pulse Resp B/P (MAP) Pulse Ox O2 Delivery O2 Flow Rate FiO2 04/27/18 12:32 57 133/73 04/27/18 12:32 133/73 04/27/18 09:00 Room Air 04/27/18 08:00 97.7 57 22 133/73 (93) 97 97.7 04/27/18 04:00 98.2 57 144/55 (84) 98.2 04/27/18 00:00 98.5 67 144/56 (85) 98.5 04/26/18 23:06 67 144/56 04/26/18 21:00 Room Air 04/26/18 20:00 98.0 68 141/59 (86) 98.0 04/26/18 19:00 183/77 04/26/18 18:10 184/78 (113) 04/26/18 16:00 98.1 77 18 190/90 (123) 97 98.1 04/26/18 15:53 190/90 I&O Intake and Output 04/26/18 04/27/18 19:00 07:00 Intake Total 650 ml 250 ml Balance 650 ml 250 ml Intake Oral 250 ml Other 650 ml # Voids 3 4 Wound: clean Drains: none Cardiovascular: RSR Respiratory: clear Abdomen: soft, flat, non-tender, present bowel sounds Extremities: no cyanosis Laboratory Tests Test 04/27/18 09:00 Sodium Level 137 MMOL/L (136-145) Potassium Level 4.2 MMOL/L (3.5-5.1) Chloride Level 107 MMOL/L (98-107) Carbon Dioxide Level 22 MMOL/L (21-32) Anion Gap 8 mmol/L (5-15) Blood Urea Nitrogen 26 mg/dL (7-18) H Creatinine 1.1 MG/DL (0.55-1.30) Estimat Glomerular Filtration Rate mL/min (>60) Glucose Level 93 MG/DL (74-106) Calcium Level 9.9 MG/DL (8.5-10.1) Total Bilirubin 0.5 MG/DL (0.2-1.0) Aspartate Amino Transf (AST/SGOT) 28 U/L (15-37) Alanine Aminotransferase (ALT/SGPT) 77 U/L (12-78) Alkaline Phosphatase 252 U/L (46-116) H Total Protein 8.2 G/DL (6.4-8.2) Albumin 3.3 G/DL (3.4-5.0) L Globulin 4.9 g/dL Albumin/Globulin Ratio 0.7 (1.0-2.7) L Plan Problems: (1) Contusion of right clavicle Assessment & Plan: right clavicle 3cm by 2cm wound slow healing. from report traumatic etiology after fall. no other wounds noted. wound not infected and shallow ulceration without penetration into subcutaneous tissues. no drainage. no odor CXR reviewed and no clavicle fracture noted. exam as above. leukocytosis improving. exam benign. otherwise improving. ultrasound reviewed and okay. labs improving. LFT's trending down. okay to d/c from surgical standpoint appreciate GI input -hepatitis panel -honey gel and foam dressing BID -will monitor while in hospital thank you for this consultation. will follow with recs. (2) Leukocytosis Eder Rutherford Apr 27, 2018 12:46
--- NOTE | 2018-04-27 13:42 | Infectious Diseases Prog Note ---
Assessment/Plan Assessment/Plan A; R shoulder cellulitis Contusion of R shoulder Leukocytosis HPN Cholelithiasis P; Continue Doxycycline X 4 days will f/u MRCP Subjective ROS Limited/Unobtainable: Yes Respiratory: Reports: no symptoms Cardiovascular: Reports: no symptoms Gastrointestinal/Abdominal: Reports: no symptoms Genitourinary: Reports: no symptoms Allergies: Coded Allergies: No Known Allergies (Unverified , 04/18/18) Objective Vital Signs Last 24 Hour Vital Signs Date Time Temp Pulse Resp B/P (MAP) Pulse Ox O2 Delivery O2 Flow Rate FiO2 04/27/18 12:32 57 133/73 04/27/18 12:32 133/73 04/27/18 09:00 Room Air 04/27/18 08:00 97.7 57 22 133/73 (93) 97 97.7 04/27/18 04:00 98.2 57 144/55 (84) 98.2 04/27/18 00:00 98.5 67 144/56 (85) 98.5 04/26/18 23:06 67 144/56 04/26/18 21:00 Room Air 04/26/18 20:00 98.0 68 141/59 (86) 98.0 04/26/18 19:00 183/77 04/26/18 18:10 184/78 (113) 04/26/18 16:00 98.1 77 18 190/90 (123) 97 98.1 04/26/18 15:53 190/90 Height (Feet): 5 Height (Inches): 0.00 Weight (Pounds): 123 General Appearance: no acute distress HEENT: mucous membranes moist Respiratory/Chest: lungs clear Cardiovascular: normal rate Abdomen: soft, non tender Extremities: no edema Skin: other - ulcer over right clavicle healing Laboratory Tests Test 04/27/18 09:00 Sodium Level 137 MMOL/L (136-145) Potassium Level 4.2 MMOL/L (3.5-5.1) Chloride Level 107 MMOL/L (98-107) Carbon Dioxide Level 22 MMOL/L (21-32) Anion Gap 8 mmol/L (5-15) Blood Urea Nitrogen 26 mg/dL (7-18) H Creatinine 1.1 MG/DL (0.55-1.30) Estimat Glomerular Filtration Rate mL/min (>60) Glucose Level 93 MG/DL (74-106) Calcium Level 9.9 MG/DL (8.5-10.1) Total Bilirubin 0.5 MG/DL (0.2-1.0) Aspartate Amino Transf (AST/SGOT) 28 U/L (15-37) Alanine Aminotransferase (ALT/SGPT) 77 U/L (12-78) Alkaline Phosphatase 252 U/L (46-116) H Total Protein 8.2 G/DL (6.4-8.2) Albumin 3.3 G/DL (3.4-5.0) L Globulin 4.9 g/dL Albumin/Globulin Ratio 0.7 (1.0-2.7) L Current Medications Medications (Trade) Dose Ordered Sig/Franco Route PRN Reason Start Time Stop Time Status Last Admin Dose Admin Aspirin (ASA) 81 mg DAILY ORAL 04/22/18 09:00 05/18/18 08:59 04/27/18 12:32 Barium Sulfate (Readi-Cat 2) 450 ea NOW PRN ORAL Radiology Procedure 04/26/18 11:15 04/28/18 11:09 Diatrizoate Meglum/ Diatrizoate Sod (Gastrografin) 30 ml NOW PRN ORAL Radiology Procedure 04/26/18 11:15 04/28/18 11:09 Diatrizoate Meglum/ Diatrizoate Sod (Gastrografin) 60 ml NOW PRN RECTAL Radiology Procedure 04/26/18 11:15 04/28/18 11:09 Doxycycline Monohydrate (Vibramycin) 100 mg EVERY 12 HOURS ORAL 04/24/18 21:00 05/01/18 20:59 04/27/18 12:32 Fluoxetine HCl (PROzac) 20 mg DAILY ORAL 04/22/18 09:00 05/19/18 08:59 04/27/18 12:32 Gabapentin (Neurontin) 300 mg BEDTIME ORAL 04/21/18 21:00 05/18/18 20:59 04/26/18 20:38 Haloperidol Lactate (Haldol) 1 mg Q4HR PRN IM Agitation 04/21/18 17:00 05/19/18 23:14 Heparin Sodium (Porcine) (Heparin 5000 units/ml) 5,000 units EVERY 12 HOURS SUBQ 04/21/18 21:00 05/18/18 08:59 04/26/18 20:44 Hydralazine HCl (Apresoline) 25 mg Q6HR PRN ORAL SBP above 160 04/21/18 18:00 05/21/18 01:59 04/26/18 15:53 Lisinopril (Prinivil) 40 mg DAILY ORAL 04/25/18 09:00 05/25/18 08:59 04/27/18 12:32 Loperamide HCl (Imodium) 2 mg Q4H PRN ORAL Diarrhea 04/21/18 15:15 05/21/18 11:14 04/22/18 09:27 Metoprolol Tartrate (Lopressor) 50 mg Q12HR ORAL 04/25/18 09:00 05/25/18 08:59 04/27/18 12:32 Александр Adams MD Apr 27, 2018 13:42
--- NOTE | 2018-04-27 14:45 | Diagnostic Imaging Report ---
EXAM: CT Abdomen and Pelvis Without Intravenous Contrast CLINICAL HISTORY: ABSCESS TECHNIQUE: Axial computed tomography images of the abdomen and pelvis without intravenous contrast. CTDI is 10.93 mGy and DLP is 479 mGy-cm. One or more of the following dose reduction techniques were used: automated exposure control, adjustment of the mA and/or kV according to patient size, use of iterative reconstruction technique. COMPARISON: Abdominal ultrasound dated 04/24/18 FINDINGS: Lung bases: There are atelectasis in the right middle lobe. Pleural space: Trace right pleural effusion. ABDOMEN: Liver: Unremarkable. Gallbladder and bile ducts: Contracted gallbladder with cholelithiasis. No renny-cholecystic fluid. No ductal dilatation. Pancreas: Unremarkable. No ductal dilation. Spleen: Unremarkable. No splenomegaly. Adrenals: Unremarkable. No mass. Kidneys and ureters: Unremarkable. No obstructing stones. No hydronephrosis. Stomach and bowel: Mild wall thickening of the descending and sigmoid colon is most likely related to underdistended loops. No abnormally distended loops of small bowel. GE junction and stomach appear unremarkable. PELVIS: Appendix: The appendix appears normal. Bladder: Unremarkable. No stones. Reproductive: Unremarkable as visualized. ABDOMEN and PELVIS: Intraperitoneal space: Unremarkable. No free air. No significant fluid collection. Bones/joints: Status post left hip replacement with intact appearance of the hardware. Multilevel degenerative changes throughout the visualized spine with disc space loss and endplate osteophytes. No acute fracture. No dislocation. Soft tissues: Unremarkable. Vasculature: Atherosclerotic calcifications throughout the abdominal aorta and its proximal branches. No aneurysmal dilatation. Lymph nodes: Unremarkable. No enlarged lymph nodes. IMPRESSION: 1. Contracted gallbladder with cholelithiasis. No renny-cholecystic fluid. No ductal dilatation. 2. Mild wall thickening of the descending and sigmoid colon is most likely related to underdistended loops. Cannot exclude a mild infectious or inflammatory colitis. No adjacent inflammatory changes, free air, or fluid collections. 3. Trace right pleural effusion.
[2018-04-27 16:00] VITALS: BP 166/88
[2018-04-27] MEDS: HydrALAZINE 25mg tab ORAL PRN (17:05)
[2018-04-27 20:00] VITALS: BP 136/68
[2018-04-28] VITALS: BP 114/61
[2018-04-28 04:00] VITALS: BP 150/62
[2018-04-28 08:00] VITALS: BP 153/79
--- NOTE | 2018-04-28 08:36 | Pulmonology Progress Note ---
Assessment/Plan Assessment/Plan IMPRESSION: 1. upper respiratory tract infection, doubt acute pneumonia at present. 2. Mild leukocytosis 3. Transaminitis. 4. Dementia. 5. Confusion. 6. Advanced age. 7. Contusion to right clavicle. PLAN care as is from pulm standpoint dc planning once cleared by GI respiratory care as is orders as is for now impression, plan, and exam edited and reviewed in detail care discussed with RN Subjective Allergies: Coded Allergies: No Known Allergies (Unverified , 04/18/18) Subjective stable no cp or sob MRCP today Objective Last 24 Hour Vital Signs Date Time Temp Pulse Resp B/P (MAP) Pulse Ox O2 Delivery O2 Flow Rate FiO2 04/28/18 04:00 98.2 53 19 150/62 (91) 98 98.2 04/28/18 00:00 98.2 59 18 114/61 (78) 98 98.2 04/27/18 21:00 Room Air 04/27/18 20:59 60 136/68 04/27/18 20:00 98.0 60 18 136/68 (90) 97 98.0 04/27/18 17:05 166/88 04/27/18 16:00 97.9 63 20 166/88 (114) 99 97.9 04/27/18 12:32 57 133/73 04/27/18 12:32 133/73 04/27/18 12:00 97.7 75 21 142/66 (91) 99 97.7 04/27/18 09:00 Room Air Intake and Output 04/27/18 04/28/18 19:00 07:00 Intake Total 720 ml Balance 720 ml Intake Oral 720 ml # Voids 5 2 # Bowel Movements 3 Objective GENERAL: A well-developed female, comfortable at present, NAD HEENT: Negative. Extraocular movements are grossly intact. NECK: Supple. No jugular venous distention. LUNGS: Moderate breath sounds. no significant rhonchi present, appears stable CARDIAC: Normal S1 and S2. Regular rate and rhythm. Positive S4. No murmurs or rubs. ABDOMEN: Soft, nontender. No distention. EXTREMITIES: No cyanosis or clubbing. No significant edema. NEUROLOGICAL: Overall confused. Baseline dementia appears to be without change. Laboratory Tests 04/27/18 09:00: Sodium Level 137, Potassium Level 4.2, Chloride Level 107, Carbon Dioxide Level 22, Anion Gap 8, Blood Urea Nitrogen 26H, Creatinine 1.1, Estimat Glomerular Filtration Rate , Glucose Level 93, Calcium Level 9.9, Total Bilirubin 0.5, Aspartate Amino Transf (AST/SGOT) 28, Alanine Aminotransferase (ALT/SGPT) 77, Alkaline Phosphatase 252H, Total Protein 8.2, Albumin 3.3L, Globulin 4.9, Albumin/Globulin Ratio 0.7L Current Medications Medications (Trade) Dose Ordered Sig/Franco Route PRN Reason Start Time Stop Time Status Last Admin Dose Admin Aspirin (ASA) 81 mg DAILY ORAL 04/22/18 09:00 05/18/18 08:59 04/27/18 12:32 Barium Sulfate (Readi-Cat 2) 450 ea NOW PRN ORAL Radiology Procedure 04/26/18 11:15 04/28/18 11:09 Diatrizoate Meglum/ Diatrizoate Sod (Gastrografin) 30 ml NOW PRN ORAL Radiology Procedure 04/26/18 11:15 04/28/18 11:09 Diatrizoate Meglum/ Diatrizoate Sod (Gastrografin) 60 ml NOW PRN RECTAL Radiology Procedure 04/26/18 11:15 04/28/18 11:09 Doxycycline Monohydrate (Vibramycin) 100 mg EVERY 12 HOURS ORAL 04/24/18 21:00 05/01/18 20:59 04/27/18 20:59 Fluoxetine HCl (PROzac) 20 mg DAILY ORAL 04/22/18 09:00 05/19/18 08:59 04/27/18 12:32 Gabapentin (Neurontin) 300 mg BEDTIME ORAL 04/21/18 21:00 05/18/18 20:59 04/27/18 20:59 Haloperidol Lactate (Haldol) 1 mg Q4HR PRN IM Agitation 04/21/18 17:00 05/19/18 23:14 Heparin Sodium (Porcine) (Heparin 5000 units/ml) 5,000 units EVERY 12 HOURS SUBQ 04/21/18 21:00 05/18/18 08:59 04/26/18 20:44 Hydralazine HCl (Apresoline) 25 mg Q6HR PRN ORAL SBP above 160 04/21/18 18:00 05/21/18 01:59 04/27/18 17:05 Lisinopril (Prinivil) 40 mg DAILY ORAL 04/25/18 09:00 05/25/18 08:59 04/27/18 12:32 Loperamide HCl (Imodium) 2 mg Q4H PRN ORAL Diarrhea 04/21/18 15:15 05/21/18 11:14 04/22/18 09:27 Metoprolol Tartrate (Lopressor) 50 mg Q12HR ORAL 04/25/18 09:00 05/25/18 08:59 04/27/18 20:59 Honorio Johansen MD Apr 28, 2018 08:36
--- NOTE | 2018-04-28 08:43 | General Progress Note ---
Assessment/Plan Problem List: (1) Leukocytosis ICD Codes: D72.829 - Elevated white blood cell count, unspecified SNOMED: 614986602, 347703852 (2) Pneumonia ICD Codes: J18.9 - Pneumonia, unspecified organism SNOMED: 952949374, 179471149 (3) Contusion of right clavicle ICD Codes: S40.011A - Contusion of right shoulder, initial encounter SNOMED: 24010772 Status: stable, progressing Assessment/Plan wound care abx per id follow am labs- still pending MRCP per GI hope to dc today if mri and labs ok Subjective ROS Limited/Unobtainable: No Constitutional: Reports: malaise, weakness HEENT: Reports: no symptoms Cardiovascular: Reports: no symptoms Respiratory: Reports: no symptoms Gastrointestinal/Abdominal: Reports: no symptoms Genitourinary: Reports: no symptoms Neurologic/Psychiatric: Reports: no symptoms Endocrine: Reports: no symptoms Hematologic/Lymphatic: Reports: no symptoms Allergies: Coded Allergies: No Known Allergies (Unverified , 04/18/18) All Systems: reviewed and negative except above Subjective no events. wbc remains elevated. no complaints. no fever or chills. ID noted. d/w surgery. gi appreciated Objective Last 24 Hour Vital Signs Date Time Temp Pulse Resp B/P (MAP) Pulse Ox O2 Delivery O2 Flow Rate FiO2 04/28/18 08:00 97.3 67 20 153/79 (103) 98 97.3 04/28/18 04:00 98.2 53 19 150/62 (91) 98 98.2 04/28/18 00:00 98.2 59 18 114/61 (78) 98 98.2 04/27/18 21:00 Room Air 04/27/18 20:59 60 136/68 04/27/18 20:00 98.0 60 18 136/68 (90) 97 98.0 04/27/18 17:05 166/88 04/27/18 16:00 97.9 63 20 166/88 (114) 99 97.9 04/27/18 12:32 57 133/73 04/27/18 12:32 133/73 04/27/18 12:00 97.7 75 21 142/66 (91) 99 97.7 04/27/18 09:00 Room Air Intake and Output 04/27/18 04/28/18 19:00 07:00 Intake Total 720 ml Balance 720 ml Intake Oral 720 ml # Voids 5 2 # Bowel Movements 3 Laboratory Tests 04/27/18 09:00: Sodium Level 137, Potassium Level 4.2, Chloride Level 107, Carbon Dioxide Level 22, Anion Gap 8, Blood Urea Nitrogen 26H, Creatinine 1.1, Estimat Glomerular Filtration Rate , Glucose Level 93, Calcium Level 9.9, Total Bilirubin 0.5, Aspartate Amino Transf (AST/SGOT) 28, Alanine Aminotransferase (ALT/SGPT) 77, Alkaline Phosphatase 252H, Total Protein 8.2, Albumin 3.3L, Globulin 4.9, Albumin/Globulin Ratio 0.7L Height (Feet): 5 Height (Inches): 0.00 Weight (Pounds): 123 Objective General Appearance: WD/WN, confused, agitated EENT: PERRL/EOMI Neck: supple Cardiovascular: normal rate, regular rhythm Respiratory/Chest: chest wall non-tender, lungs clear, normal breath sounds Abdomen: normal bowel sounds, non tender, soft, no organomegaly Edema: no edema noted Arm (L), no edema noted Arm (R), no edema noted Leg (L), no edema noted Leg (R), no edema noted Pedal (L), no edema noted Pedal (R), no edema noted Generalized Andrew Woodard MD Apr 28, 2018 08:43
[2018-04-28] MEDS: Lisinopril 20mg tab ORAL SCH (09:12)
[2018-04-28] MEDS: Metoprolol Tartrate 50mg tab ORAL SCH ×2 (09:12→20:21)
[2018-04-28 09:24] LABS: HEMOGLOBIN 12.7 G/DL (12.0-16.0); MEAN CORPUSCULAR VOLUME 85 FL (80-99); PLATELET COUNT 553 K/UL (150-450); RED CELL DISTRIBUTION WIDTH 18.8 % (11.6-14.8); WHITE BLOOD COUNT 19.3 K/UL (4.8-10.8)
[2018-04-28 09:53] LABS: ALANINE AMINOTRANSFERASE 58 U/L (12-78); ALBUMIN 3.2 G/DL (3.4-5.0); ALBUMIN/GLOBULIN RATIO 0.7 (1.0-2.7); ALKALINE PHOSPHATASE 218 U/L (46-116); ANION GAP 9 mmol/L (5-15); ASPARTATE AMINO TRANSFERASE 19 U/L (15-37); BILIRUBIN,TOTAL 0.5 MG/DL (0.2-1.0); BLOOD UREA NITROGEN 27 mg/dL (7-18); CALCIUM 9.7 MG/DL (8.5-10.1); CARBON DIOXIDE 21 MMOL/L (21-32); CHLORIDE 108 MMOL/L (98-107); CREATININE 1.2 MG/DL (0.55-1.30); POTASSIUM 4.1 MMOL/L (3.5-5.1); SODIUM 138 MMOL/L (136-145)
[2018-04-28] MEDS: Aspirin Baby 81mg ORAL SCH (11:37)
[2018-04-28] MEDS: Heparin 5000 units/ml inj SUBQ SCH ×2 (11:40→20:21)
[2018-04-28 12:00] VITALS: BP 144/64
--- NOTE | 2018-04-28 14:03 | General Surgery Progress Note ---
General Surgery-Progress Note Subjective Additional Comments worsening leukocytosis. exam benign and stable. Refused MRI. CT reviewed. Objective Last 24 Hour Vital Signs Date Time Temp Pulse Resp B/P (MAP) Pulse Ox O2 Delivery O2 Flow Rate FiO2 04/28/18 09:12 67 153/79 04/28/18 09:12 153/79 04/28/18 09:00 Room Air 04/28/18 08:00 97.3 67 20 153/79 (103) 98 97.3 04/28/18 04:00 98.2 53 19 150/62 (91) 98 98.2 04/28/18 00:00 98.2 59 18 114/61 (78) 98 98.2 04/27/18 21:00 Room Air 04/27/18 20:59 60 136/68 04/27/18 20:00 98.0 60 18 136/68 (90) 97 98.0 04/27/18 17:05 166/88 04/27/18 16:00 97.9 63 20 166/88 (114) 99 97.9 I&O Intake and Output 04/27/18 04/28/18 19:00 07:00 Intake Total 720 ml Balance 720 ml Intake Oral 720 ml # Voids 5 2 # Bowel Movements 3 Wound: clean Cardiovascular: RSR Respiratory: clear Abdomen: soft, non-tender, present bowel sounds Extremities: no cyanosis Laboratory Tests Test 04/28/18 09:00 White Blood Count 19.3 K/UL (4.8-10.8) H Red Blood Count 4.80 M/UL (4.20-5.40) Hemoglobin 12.7 G/DL (12.0-16.0) Hematocrit 41.0 % (37.0-47.0) Mean Corpuscular Volume 85 FL (80-99) Mean Corpuscular Hemoglobin 26.5 PG (27.0-31.0) L Mean Corpuscular Hemoglobin Concent 31.1 G/DL (32.0-36.0) L Red Cell Distribution Width 18.8 % (11.6-14.8) H Platelet Count 553 K/UL (150-450) H Mean Platelet Volume 7.2 FL (6.5-10.1) Neutrophils (%) (Auto) % (45.0-75.0) Lymphocytes (%) (Auto) % (20.0-45.0) Monocytes (%) (Auto) % (1.0-10.0) Eosinophils (%) (Auto) % (0.0-3.0) Basophils (%) (Auto) % (0.0-2.0) Differential Total Cells Counted 100 Neutrophils % (Manual) 82 % (45-75) H Lymphocytes % (Manual) 9 % (20-45) L Monocytes % (Manual) 3 % (1-10) Eosinophils % (Manual) 4 % (0-3) H Basophils % (Manual) 2 % (0-2) Band Neutrophils 0 % (0-8) Platelet Estimate Increased H Platelet Morphology Normal Anisocytosis 1+ Ovalocytes 1+ Schistocytes 1+ Sodium Level 138 MMOL/L (136-145) Potassium Level 4.1 MMOL/L (3.5-5.1) Chloride Level 108 MMOL/L (98-107) H Carbon Dioxide Level 21 MMOL/L (21-32) Anion Gap 9 mmol/L (5-15) Blood Urea Nitrogen 27 mg/dL (7-18) H Creatinine 1.2 MG/DL (0.55-1.30) Estimat Glomerular Filtration Rate mL/min (>60) Glucose Level 98 MG/DL (74-106) Calcium Level 9.7 MG/DL (8.5-10.1) Total Bilirubin 0.5 MG/DL (0.2-1.0) Aspartate Amino Transf (AST/SGOT) 19 U/L (15-37) Alanine Aminotransferase (ALT/SGPT) 58 U/L (12-78) Alkaline Phosphatase 218 U/L (46-116) H Total Protein 7.9 G/DL (6.4-8.2) Albumin 3.2 G/DL (3.4-5.0) L Globulin 4.7 g/dL Albumin/Globulin Ratio 0.7 (1.0-2.7) L Plan Problems: (1) Contusion of right clavicle Assessment & Plan: right clavicle 3cm by 2cm wound slow healing. from report traumatic etiology after fall. no other wounds noted. wound not infected and shallow ulceration without penetration into subcutaneous tissues. no drainage. no odor CXR reviewed and no clavicle fracture noted. exam as above. leukocytosis improving. exam benign. otherwise improving. ultrasound reviewed and okay. leukocytosis. LFT's trending down. appreciate GI input unfortunately cannot obtain MRI because patient refused. CT without significant finding. Will order HIDA -honey gel and foam dressing BID -will monitor while in hospital thank you for this consultation. will follow with recs. (2) Leukocytosis Eder Rutherford Apr 28, 2018 14:03
[2018-04-28 16:23] VITALS: BP 167/78
[2018-04-28] MEDS: HydrALAZINE 25mg tab ORAL PRN (16:24)
[2018-04-28 20:00] VITALS: BP 176/70
--- NOTE | 2018-04-28 23:17 | General Progress Note ---
Assessment/Plan Assessment/Plan Assessment - Resolving LFT changes - cholelithiasis - OBS - Clavicle contusion - thickened colon on CT - suspect under distention Recommendations - follow LFT - po diet OK - If recurrent LFT elevation -> ERCP - OOB Subjective Allergies: Coded Allergies: No Known Allergies (Unverified , 04/18/18) Subjective Feels OK anxious about test results refused MRI CT --> gallstones, o/w normal GB, thickened decending colon Alk phos lower today Objective Last 24 Hour Vital Signs Date Time Temp Pulse Resp B/P (MAP) Pulse Ox O2 Delivery O2 Flow Rate FiO2 04/28/18 21:00 Room Air 04/28/18 20:21 69 176/70 04/28/18 20:00 96.3 69 19 176/70 (105) 97 96.3 04/28/18 16:24 167/78 04/28/18 16:23 75 167/78 (107) 04/28/18 12:00 97.3 61 20 144/64 (90) 96 97.3 04/28/18 09:12 67 153/79 04/28/18 09:12 153/79 04/28/18 09:00 Room Air 04/28/18 08:00 97.3 67 20 153/79 (103) 98 97.3 04/28/18 04:00 98.2 53 19 150/62 (91) 98 98.2 04/28/18 00:00 98.2 59 18 114/61 (78) 98 98.2 Intake and Output 04/27/18 04/28/18 19:00 07:00 Intake Total 720 ml Balance 720 ml Intake Oral 720 ml # Voids 5 2 # Bowel Movements 3 Laboratory Tests 04/28/18 09:00: White Blood Count 19.3H, Red Blood Count 4.80, Hemoglobin 12.7, Hematocrit 41.0 , Mean Corpuscular Volume 85, Mean Corpuscular Hemoglobin 26.5L, Mean Corpuscular Hemoglobin Concent 31.1L, Red Cell Distribution Width 18.8H, Platelet Count 553H, Mean Platelet Volume 7.2, Neutrophils (%) (Auto) , Lymphocytes (%) (Auto) , Monocytes (%) (Auto) , Eosinophils (%) (Auto) , Basophils (%) (Auto) , Differential Total Cells Counted 100, Neutrophils % ( Manual) 82H, Lymphocytes % (Manual) 9L, Monocytes % (Manual) 3, Eosinophils % ( Manual) 4H, Basophils % (Manual) 2, Band Neutrophils 0, Platelet Estimate IncreasedH, Platelet Morphology Normal, Anisocytosis 1+, Ovalocytes 1+, Schistocytes 1+, Sodium Level 138, Potassium Level 4.1, Chloride Level 108H, Carbon Dioxide Level 21, Anion Gap 9, Blood Urea Nitrogen 27H, Creatinine 1.2, Estimat Glomerular Filtration Rate , Glucose Level 98, Calcium Level 9.7, Total Bilirubin 0.5, Aspartate Amino Transf (AST/SGOT) 19, Alanine Aminotransferase ( ALT/SGPT) 58, Alkaline Phosphatase 218H, Total Protein 7.9, Albumin 3.2L, Globulin 4.7, Albumin/Globulin Ratio 0.7L Height (Feet): 5 Height (Inches): 0.00 Weight (Pounds): 123 Objective Thin elderly woman NCAT supple CTA RRR soft ND NT no edema Lyle De MD Apr 28, 2018 23:17
[2018-04-29] VITALS: BP 155/62
[2018-04-29 04:00] VITALS: BP 172/82
[2018-04-29] MEDS: HydrALAZINE 25mg tab ORAL PRN ×2 (05:01→20:10)
[2018-04-29 06:03] LABS: ALANINE AMINOTRANSFERASE 41 U/L (12-78); ALBUMIN 3.2 G/DL (3.4-5.0); ALBUMIN/GLOBULIN RATIO 0.7 (1.0-2.7); ALKALINE PHOSPHATASE 190 U/L (46-116); ANION GAP 13 mmol/L (5-15); ASPARTATE AMINO TRANSFERASE 16 U/L (15-37); BILIRUBIN,TOTAL 0.6 MG/DL (0.2-1.0); BLOOD UREA NITROGEN 28 mg/dL (7-18); CALCIUM 9.1 MG/DL (8.5-10.1); CARBON DIOXIDE 21 MMOL/L (21-32); CHLORIDE 104 MMOL/L (98-107); CREATININE 1.1 MG/DL (0.55-1.30); POTASSIUM 4.1 MMOL/L (3.5-5.1); SODIUM 138 MMOL/L (136-145)
[2018-04-29] MEDS ORDERED: Morphine Sulfate 2mg/ml Inj IVP PRN (07:00)
[2018-04-29 08:00] VITALS: BP 152/55
--- NOTE | 2018-04-29 08:35 | Pulmonology Progress Note ---
Assessment/Plan Assessment/Plan IMPRESSION: 1. upper respiratory tract infection, doubt acute pneumonia at present. 2. Mild leukocytosis 3. Transaminitis. 4. Dementia. 5. Confusion. 6. Advanced age. 7. Contusion to right clavicle. PLAN maintain same care for now meds and orders noted respiratory care as is orders as is for now impression, plan, and exam edited and reviewed in detail care discussed with RN Subjective Allergies: Coded Allergies: No Known Allergies (Unverified , 04/18/18) Subjective stable no cp or sob Objective Last 24 Hour Vital Signs Date Time Temp Pulse Resp B/P (MAP) Pulse Ox O2 Delivery O2 Flow Rate FiO2 04/29/18 08:00 97.7 67 20 152/55 (87) 97 97.7 04/29/18 05:01 172/82 04/29/18 04:00 96.3 68 19 172/82 (112) 97 96.3 04/29/18 00:00 97.9 62 18 155/62 (93) 97 97.9 04/28/18 21:00 Room Air 04/28/18 20:21 69 176/70 04/28/18 20:00 96.3 69 19 176/70 (105) 97 96.3 04/28/18 16:24 167/78 04/28/18 16:23 75 167/78 (107) 04/28/18 12:00 97.3 61 20 144/64 (90) 96 97.3 04/28/18 09:12 67 153/79 04/28/18 09:12 153/79 04/28/18 09:00 Room Air Intake and Output 04/28/18 04/29/18 19:00 07:00 Intake Total 220 ml 240 ml Output Total 4 ml Balance 220 ml 236 ml Intake Oral 220 ml 240 ml Output Urine Total 4 ml # Voids 4 Objective GENERAL: A well-developed female, comfortable at present, NAD HEENT: Negative. Extraocular movements are grossly intact. NECK: Supple. No jugular venous distention. LUNGS: Moderate breath sounds. no significant rhonchi present, appears stable CARDIAC: Normal S1 and S2. Regular rate and rhythm. Positive S4. No murmurs or rubs. ABDOMEN: Soft, nontender. No distention. EXTREMITIES: No cyanosis or clubbing. No significant edema. NEUROLOGICAL: Overall confused. Baseline dementia appears to be without change. Laboratory Tests 04/28/18 09:00: White Blood Count 19.3H, Red Blood Count 4.80, Hemoglobin 12.7, Hematocrit 41.0 , Mean Corpuscular Volume 85, Mean Corpuscular Hemoglobin 26.5L, Mean Corpuscular Hemoglobin Concent 31.1L, Red Cell Distribution Width 18.8H, Platelet Count 553H, Mean Platelet Volume 7.2, Neutrophils (%) (Auto) , Lymphocytes (%) (Auto) , Monocytes (%) (Auto) , Eosinophils (%) (Auto) , Basophils (%) (Auto) , Differential Total Cells Counted 100, Neutrophils % ( Manual) 82H, Lymphocytes % (Manual) 9L, Monocytes % (Manual) 3, Eosinophils % ( Manual) 4H, Basophils % (Manual) 2, Band Neutrophils 0, Platelet Estimate IncreasedH, Platelet Morphology Normal, Anisocytosis 1+, Ovalocytes 1+, Schistocytes 1+, Sodium Level 138, Potassium Level 4.1, Chloride Level 108H, Carbon Dioxide Level 21, Anion Gap 9, Blood Urea Nitrogen 27H, Creatinine 1.2, Estimat Glomerular Filtration Rate , Glucose Level 98, Calcium Level 9.7, Total Bilirubin 0.5, Aspartate Amino Transf (AST/SGOT) 19, Alanine Aminotransferase ( ALT/SGPT) 58, Alkaline Phosphatase 218H, Total Protein 7.9, Albumin 3.2L, Globulin 4.7, Albumin/Globulin Ratio 0.7L 04/29/18 05:12: Sodium Level 138, Potassium Level 4.1, Chloride Level 104, Carbon Dioxide Level 21, Anion Gap 13, Blood Urea Nitrogen 28H, Creatinine 1.1, Estimat Glomerular Filtration Rate , Glucose Level 89, Calcium Level 9.1, Total Bilirubin 0.6, Aspartate Amino Transf (AST/SGOT) 16, Alanine Aminotransferase (ALT/SGPT) 41, Alkaline Phosphatase 190H, Total Protein 7.6, Albumin 3.2L, Globulin 4.4, Albumin/Globulin Ratio 0.7L Current Medications Medications (Trade) Dose Ordered Sig/Franco Route PRN Reason Start Time Stop Time Status Last Admin Dose Admin Aspirin (ASA) 81 mg DAILY ORAL 04/22/18 09:00 05/18/18 08:59 04/28/18 11:37 Doxycycline Monohydrate (Vibramycin) 100 mg EVERY 12 HOURS ORAL 04/24/18 21:00 05/01/18 20:59 04/28/18 20:20 Fluoxetine HCl (PROzac) 20 mg DAILY ORAL 04/22/18 09:00 05/19/18 08:59 04/28/18 11:38 Gabapentin (Neurontin) 300 mg BEDTIME ORAL 04/21/18 21:00 05/18/18 20:59 04/28/18 20:20 Haloperidol Lactate (Haldol) 1 mg Q4HR PRN IM Agitation 04/21/18 17:00 05/19/18 23:14 Heparin Sodium (Porcine) (Heparin 5000 units/ml) 5,000 units EVERY 12 HOURS SUBQ 04/21/18 21:00 05/18/18 08:59 04/28/18 11:40 Hydralazine HCl (Apresoline) 25 mg Q6HR PRN ORAL SBP above 160 04/21/18 18:00 05/21/18 01:59 04/29/18 05:01 Lisinopril (Prinivil) 40 mg DAILY ORAL 04/25/18 09:00 05/25/18 08:59 04/28/18 09:12 Loperamide HCl (Imodium) 2 mg Q4H PRN ORAL Diarrhea 04/21/18 15:15 05/21/18 11:14 04/22/18 09:27 Metoprolol Tartrate (Lopressor) 50 mg Q12HR ORAL 04/25/18 09:00 05/25/18 08:59 04/28/18 20:21 Morphine Sulfate (Morphine Sulfate) 2 mg ONCE PRN IVP HIDA SCAN 04/29/18 07:00 04/29/18 18:00 Honorio Johansen MD Apr 29, 2018 08:35
--- NOTE | 2018-04-29 08:59 | General Progress Note ---
Assessment/Plan Problem List: (1) Leukocytosis ICD Codes: D72.829 - Elevated white blood cell count, unspecified SNOMED: 529978630, 558298307 (2) Pneumonia ICD Codes: J18.9 - Pneumonia, unspecified organism SNOMED: 314374221, 761828036 (3) Contusion of right clavicle ICD Codes: S40.011A - Contusion of right shoulder, initial encounter SNOMED: 20177795 Status: stable Assessment/Plan wound care abx per id follow am labs- still pending HIDA scan trend labs- cbc lfts Subjective ROS Limited/Unobtainable: No Constitutional: Reports: malaise, weakness HEENT: Reports: no symptoms Cardiovascular: Reports: no symptoms Respiratory: Reports: no symptoms Gastrointestinal/Abdominal: Reports: no symptoms Genitourinary: Reports: no symptoms Neurologic/Psychiatric: Reports: no symptoms Endocrine: Reports: no symptoms Hematologic/Lymphatic: Reports: no symptoms Allergies: Coded Allergies: No Known Allergies (Unverified , 04/18/18) All Systems: reviewed and negative except above Subjective no events. wbc remains elevated. no complaints. no fever or chills. ID noted. d/w surgery. gi appreciated. HIDa scan ordered by [facility] Objective Last 24 Hour Vital Signs Date Time Temp Pulse Resp B/P (MAP) Pulse Ox O2 Delivery O2 Flow Rate FiO2 04/29/18 08:00 97.7 67 20 152/55 (87) 97 97.7 04/29/18 05:01 172/82 04/29/18 04:00 96.3 68 19 172/82 (112) 97 96.3 04/29/18 00:00 97.9 62 18 155/62 (93) 97 97.9 04/28/18 21:00 Room Air 04/28/18 20:21 69 176/70 04/28/18 20:00 96.3 69 19 176/70 (105) 97 96.3 04/28/18 16:24 167/78 04/28/18 16:23 75 167/78 (107) 04/28/18 12:00 97.3 61 20 144/64 (90) 96 97.3 04/28/18 09:12 67 153/79 04/28/18 09:12 153/79 04/28/18 09:00 Room Air Intake and Output 04/28/18 04/29/18 19:00 07:00 Intake Total 220 ml 240 ml Output Total 4 ml Balance 220 ml 236 ml Intake Oral 220 ml 240 ml Output Urine Total 4 ml # Voids 4 Laboratory Tests 04/28/18 09:00: White Blood Count 19.3H, Red Blood Count 4.80, Hemoglobin 12.7, Hematocrit 41.0 , Mean Corpuscular Volume 85, Mean Corpuscular Hemoglobin 26.5L, Mean Corpuscular Hemoglobin Concent 31.1L, Red Cell Distribution Width 18.8H, Platelet Count 553H, Mean Platelet Volume 7.2, Neutrophils (%) (Auto) , Lymphocytes (%) (Auto) , Monocytes (%) (Auto) , Eosinophils (%) (Auto) , Basophils (%) (Auto) , Differential Total Cells Counted 100, Neutrophils % ( Manual) 82H, Lymphocytes % (Manual) 9L, Monocytes % (Manual) 3, Eosinophils % ( Manual) 4H, Basophils % (Manual) 2, Band Neutrophils 0, Platelet Estimate IncreasedH, Platelet Morphology Normal, Anisocytosis 1+, Ovalocytes 1+, Schistocytes 1+, Sodium Level 138, Potassium Level 4.1, Chloride Level 108H, Carbon Dioxide Level 21, Anion Gap 9, Blood Urea Nitrogen 27H, Creatinine 1.2, Estimat Glomerular Filtration Rate , Glucose Level 98, Calcium Level 9.7, Total Bilirubin 0.5, Aspartate Amino Transf (AST/SGOT) 19, Alanine Aminotransferase ( ALT/SGPT) 58, Alkaline Phosphatase 218H, Total Protein 7.9, Albumin 3.2L, Globulin 4.7, Albumin/Globulin Ratio 0.7L 04/29/18 05:12: Sodium Level 138, Potassium Level 4.1, Chloride Level 104, Carbon Dioxide Level 21, Anion Gap 13, Blood Urea Nitrogen 28H, Creatinine 1.1, Estimat Glomerular Filtration Rate , Glucose Level 89, Calcium Level 9.1, Total Bilirubin 0.6, Aspartate Amino Transf (AST/SGOT) 16, Alanine Aminotransferase (ALT/SGPT) 41, Alkaline Phosphatase 190H, Total Protein 7.6, Albumin 3.2L, Globulin 4.4, Albumin/Globulin Ratio 0.7L Height (Feet): 5 Height (Inches): 0.00 Weight (Pounds): 123 Objective General Appearance: WD/WN, confused, agitated EENT: PERRL/EOMI Neck: supple Cardiovascular: normal rate, regular rhythm Respiratory/Chest: chest wall non-tender, lungs clear, normal breath sounds Abdomen: normal bowel sounds, non tender, soft, no organomegaly Edema: no edema noted Arm (L), no edema noted Arm (R), no edema noted Leg (L), no edema noted Leg (R), no edema noted Pedal (L), no edema noted Pedal (R), no edema noted Generalized Andrew Woodard MD Apr 29, 2018 08:59
[2018-04-29] MEDS: Heparin 5000 units/ml inj SUBQ SCH ×2 (09:00→20:11)
[2018-04-29] MEDS: Lisinopril 20mg tab ORAL SCH (10:09)
[2018-04-29] MEDS: Aspirin Baby 81mg ORAL SCH (10:09)
[2018-04-29] MEDS: Metoprolol Tartrate 50mg tab ORAL SCH ×2 (10:09→20:08)
[2018-04-29 10:25] LABS: HEMATOCRIT 40.6 % (37.0-47.0); MEAN CORPUSCULAR VOLUME 85 FL (80-99); PLATELET COUNT 545 K/UL (150-450); RED BLOOD COUNT 4.78 M/UL (4.20-5.40)
--- NOTE | 2018-04-29 10:40 | Infectious Diseases Prog Note ---
Assessment/Plan Assessment/Plan antibiotics : doxycycline A 1. right neck wound infection 2. leucocytosis 3. hypertension 4. seizures P 1. continue po doxycycline 2 more days, patient is refusing iv antibiotics 2. will follow up cultures 3. will follow up HIDA scan Subjective Constitutional: Denies: fever, chills Respiratory: Denies: shortness of breath, dry cough Gastrointestinal/Abdominal: Denies: nausea, vomiting, diarrhea Musculoskeletal: Denies: pain Allergies: Coded Allergies: No Known Allergies (Unverified , 04/18/18) Objective Vital Signs Last 24 Hour Vital Signs Date Time Temp Pulse Resp B/P (MAP) Pulse Ox O2 Delivery O2 Flow Rate FiO2 04/29/18 10:09 79 153/69 04/29/18 10:09 153/69 04/29/18 08:20 Room Air 04/29/18 08:00 97.7 67 20 152/55 (87) 97 97.7 04/29/18 05:01 172/82 04/29/18 04:00 96.3 68 19 172/82 (112) 97 96.3 04/29/18 00:00 97.9 62 18 155/62 (93) 97 97.9 04/28/18 21:00 Room Air 04/28/18 20:21 69 176/70 04/28/18 20:00 96.3 69 19 176/70 (105) 97 96.3 04/28/18 16:24 167/78 04/28/18 16:23 75 167/78 (107) 04/28/18 12:00 97.3 61 20 144/64 (90) 96 97.3 Height (Feet): 5 Height (Inches): 0.00 Weight (Pounds): 123 Respiratory/Chest: lungs clear Cardiovascular: normal rate, regular rhythm, no gallop/murmur Abdomen: soft, non tender Extremities: no edema Laboratory Tests Test 04/29/18 05:12 04/29/18 09:50 Sodium Level 138 MMOL/L (136-145) Pending Potassium Level 4.1 MMOL/L (3.5-5.1) Pending Chloride Level 104 MMOL/L (98-107) Pending Carbon Dioxide Level 21 MMOL/L (21-32) Pending Anion Gap 13 mmol/L (5-15) Blood Urea Nitrogen 28 mg/dL (7-18) H Pending Creatinine 1.1 MG/DL (0.55-1.30) Pending Estimat Glomerular Filtration Rate mL/min (>60) Pending Glucose Level 89 MG/DL (74-106) Pending Calcium Level 9.1 MG/DL (8.5-10.1) Pending Total Bilirubin 0.6 MG/DL (0.2-1.0) Pending Aspartate Amino Transf (AST/SGOT) 16 U/L (15-37) Pending Alanine Aminotransferase (ALT/SGPT) 41 U/L (12-78) Pending Alkaline Phosphatase 190 U/L (46-116) H Pending Total Protein 7.6 G/DL (6.4-8.2) Pending Albumin 3.2 G/DL (3.4-5.0) L Pending Globulin 4.4 g/dL Pending Albumin/Globulin Ratio 0.7 (1.0-2.7) L White Blood Count 20.0 K/UL (4.8-10.8) H Red Blood Count 4.78 M/UL (4.20-5.40) Hemoglobin 13.0 G/DL (12.0-16.0) Hematocrit 40.6 % (37.0-47.0) Mean Corpuscular Volume 85 FL (80-99) Mean Corpuscular Hemoglobin 27.1 PG (27.0-31.0) Mean Corpuscular Hemoglobin Concent 32.0 G/DL (32.0-36.0) Red Cell Distribution Width 19.0 % (11.6-14.8) H Platelet Count 545 K/UL (150-450) H Mean Platelet Volume 6.9 FL (6.5-10.1) Neutrophils (%) (Auto) % (45.0-75.0) Lymphocytes (%) (Auto) % (20.0-45.0) Monocytes (%) (Auto) % (1.0-10.0) Eosinophils (%) (Auto) % (0.0-3.0) Basophils (%) (Auto) % (0.0-2.0) Neutrophils % (Manual) Pending Lymphocytes % (Manual) Pending Platelet Estimate Pending Platelet Morphology Pending Current Medications Medications (Trade) Dose Ordered Sig/Franco Route PRN Reason Start Time Stop Time Status Last Admin Dose Admin Aspirin (ASA) 81 mg DAILY ORAL 04/22/18 09:00 05/18/18 08:59 04/29/18 10:09 Doxycycline Monohydrate (Vibramycin) 100 mg EVERY 12 HOURS ORAL 04/24/18 21:00 05/01/18 20:59 04/29/18 10:09 Fluoxetine HCl (PROzac) 20 mg DAILY ORAL 04/22/18 09:00 05/19/18 08:59 04/29/18 10:09 Gabapentin (Neurontin) 300 mg BEDTIME ORAL 04/21/18 21:00 05/18/18 20:59 04/28/18 20:20 Haloperidol Lactate (Haldol) 1 mg Q4HR PRN IM Agitation 04/21/18 17:00 05/19/18 23:14 Heparin Sodium (Porcine) (Heparin 5000 units/ml) 5,000 units EVERY 12 HOURS SUBQ 04/21/18 21:00 05/18/18 08:59 04/28/18 11:40 Hydralazine HCl (Apresoline) 25 mg Q6HR PRN ORAL SBP above 160 04/21/18 18:00 05/21/18 01:59 04/29/18 05:01 Lisinopril (Prinivil) 40 mg DAILY ORAL 04/25/18 09:00 05/25/18 08:59 04/29/18 10:09 Loperamide HCl (Imodium) 2 mg Q4H PRN ORAL Diarrhea 04/21/18 15:15 05/21/18 11:14 04/22/18 09:27 Metoprolol Tartrate (Lopressor) 50 mg Q12HR ORAL 04/25/18 09:00 05/25/18 08:59 04/29/18 10:09 Morphine Sulfate (Morphine Sulfate) 2 mg ONCE PRN IVP HIDA SCAN 04/29/18 07:00 04/29/18 18:00 KORY FIGUEROA Apr 29, 2018 10:40
[2018-04-29 10:43] LABS: ALANINE AMINOTRANSFERASE 41 U/L (12-78); ALBUMIN 3.3 G/DL (3.4-5.0); ALBUMIN/GLOBULIN RATIO 0.7 (1.0-2.7); ALKALINE PHOSPHATASE 201 U/L (46-116); ANION GAP 11 mmol/L (5-15); ASPARTATE AMINO TRANSFERASE 15 U/L (15-37); BILIRUBIN,TOTAL 0.5 MG/DL (0.2-1.0); BLOOD UREA NITROGEN 28 mg/dL (7-18); CALCIUM 9.6 MG/DL (8.5-10.1); CARBON DIOXIDE 21 MMOL/L (21-32); CHLORIDE 106 MMOL/L (98-107); CREATININE 1.1 MG/DL (0.55-1.30); POTASSIUM 4.1 MMOL/L (3.5-5.1); SODIUM 137 MMOL/L (136-145)
--- NOTE | 2018-04-29 10:47 | General Surgery Progress Note ---
General Surgery-Progress Note Subjective Additional Comments doing well. pending HIDA scan Objective Last 24 Hour Vital Signs Date Time Temp Pulse Resp B/P (MAP) Pulse Ox O2 Delivery O2 Flow Rate FiO2 04/29/18 10:09 79 153/69 04/29/18 10:09 153/69 04/29/18 08:20 Room Air 04/29/18 08:00 97.7 67 20 152/55 (87) 97 97.7 04/29/18 05:01 172/82 04/29/18 04:00 96.3 68 19 172/82 (112) 97 96.3 04/29/18 00:00 97.9 62 18 155/62 (93) 97 97.9 04/28/18 21:00 Room Air 04/28/18 20:21 69 176/70 04/28/18 20:00 96.3 69 19 176/70 (105) 97 96.3 04/28/18 16:24 167/78 04/28/18 16:23 75 167/78 (107) 04/28/18 12:00 97.3 61 20 144/64 (90) 96 97.3 I&O Intake and Output 04/28/18 04/29/18 19:00 07:00 Intake Total 220 ml 240 ml Output Total 4 ml Balance 220 ml 236 ml Intake Oral 220 ml 240 ml Output Urine Total 4 ml # Voids 4 Wound: clean, dry Drains: none Cardiovascular: RSR Respiratory: clear Abdomen: soft, flat, present bowel sounds Extremities: no cyanosis Laboratory Tests Test 04/29/18 05:12 04/29/18 09:50 Sodium Level 138 MMOL/L (136-145) Pending Potassium Level 4.1 MMOL/L (3.5-5.1) Pending Chloride Level 104 MMOL/L (98-107) Pending Carbon Dioxide Level 21 MMOL/L (21-32) Pending Anion Gap 13 mmol/L (5-15) Blood Urea Nitrogen 28 mg/dL (7-18) H Pending Creatinine 1.1 MG/DL (0.55-1.30) Pending Estimat Glomerular Filtration Rate mL/min (>60) Pending Glucose Level 89 MG/DL (74-106) Pending Calcium Level 9.1 MG/DL (8.5-10.1) Pending Total Bilirubin 0.6 MG/DL (0.2-1.0) Pending Aspartate Amino Transf (AST/SGOT) 16 U/L (15-37) Pending Alanine Aminotransferase (ALT/SGPT) 41 U/L (12-78) Pending Alkaline Phosphatase 190 U/L (46-116) H Pending Total Protein 7.6 G/DL (6.4-8.2) Pending Albumin 3.2 G/DL (3.4-5.0) L Pending Globulin 4.4 g/dL Pending Albumin/Globulin Ratio 0.7 (1.0-2.7) L White Blood Count 20.0 K/UL (4.8-10.8) H Red Blood Count 4.78 M/UL (4.20-5.40) Hemoglobin 13.0 G/DL (12.0-16.0) Hematocrit 40.6 % (37.0-47.0) Mean Corpuscular Volume 85 FL (80-99) Mean Corpuscular Hemoglobin 27.1 PG (27.0-31.0) Mean Corpuscular Hemoglobin Concent 32.0 G/DL (32.0-36.0) Red Cell Distribution Width 19.0 % (11.6-14.8) H Platelet Count 545 K/UL (150-450) H Mean Platelet Volume 6.9 FL (6.5-10.1) Neutrophils (%) (Auto) % (45.0-75.0) Lymphocytes (%) (Auto) % (20.0-45.0) Monocytes (%) (Auto) % (1.0-10.0) Eosinophils (%) (Auto) % (0.0-3.0) Basophils (%) (Auto) % (0.0-2.0) Neutrophils % (Manual) Pending Lymphocytes % (Manual) Pending Platelet Estimate Pending Platelet Morphology Pending Plan Problems: (1) Contusion of right clavicle Assessment & Plan: right clavicle 3cm by 2cm wound slow healing. from report traumatic etiology after fall. no other wounds noted. wound not infected and shallow ulceration without penetration into subcutaneous tissues. no drainage. no odor CXR reviewed and no clavicle fracture noted. exam as above. leukocytosis improving. exam benign. otherwise improving. ultrasound reviewed and okay. leukocytosis. LFT's trending down. appreciate GI input unfortunately cannot obtain MRI because patient refused. CT without significant finding. PENDING HIDA -honey gel and foam dressing BID -will monitor while in hospital thank you for this consultation. will follow with recs. (2) Leukocytosis Eder Rutherford Apr 29, 2018 10:47
--- NOTE | 2018-04-29 11:21 | Diagnostic Imaging Report ---
Indication: Abdominal Pain Technique: 5.5 mCi of technetium 99 m-Choletec was injected intravenously. Planar imaging of the abdomen was then performed. Oblique views were also obtained. Findings: There is uptake within the liver with expected washout of radiotracer from the liver on subsequent imaging. There is excretion into the biliary ducts. Gallbladder activity is present indicating patency of the cystic duct. Radiotracer is noted to pass into the small bowel, indicating patency of the common bile duct. IMPRESSION: No evidence of acute cholecystitis. Gallbladder activity is identified indicating patency of the cystic duct. Radiotracer activity noted within the small bowel indicating patency of the common bile duct.
--- NOTE | 2018-04-29 12:22 | General Progress Note ---
Assessment/Plan Assessment/Plan Anxiety d/o Cognitive impairment -Ativan 1mg q6hr/prn -Lexapro 10mg qam -Provided ro/st Subjective Date patient seen: Apr 29, 2018 Neurologic/Psychiatric: Reports: anxiety, depressed, emotional problems Allergies: Coded Allergies: No Known Allergies (Unverified , 04/18/18) Subjective the pt has episodes of anxiety and is forgetful. calmer today Objective Last 24 Hour Vital Signs Date Time Temp Pulse Resp B/P (MAP) Pulse Ox O2 Delivery O2 Flow Rate FiO2 04/29/18 10:09 79 153/69 04/29/18 10:09 153/69 04/29/18 08:20 Room Air 04/29/18 08:00 97.7 67 20 152/55 (87) 97 97.7 04/29/18 05:01 172/82 04/29/18 04:00 96.3 68 19 172/82 (112) 97 96.3 04/29/18 00:00 97.9 62 18 155/62 (93) 97 97.9 04/28/18 21:00 Room Air 04/28/18 20:21 69 176/70 04/28/18 20:00 96.3 69 19 176/70 (105) 97 96.3 04/28/18 16:24 167/78 04/28/18 16:23 75 167/78 (107) Intake and Output 04/28/18 04/29/18 19:00 07:00 Intake Total 220 ml 240 ml Output Total 4 ml Balance 220 ml 236 ml Intake Oral 220 ml 240 ml Output Urine Total 4 ml # Voids 4 Laboratory Tests 04/29/18 05:12: Sodium Level 138, Potassium Level 4.1, Chloride Level 104, Carbon Dioxide Level 21, Anion Gap 13, Blood Urea Nitrogen 28H, Creatinine 1.1, Estimat Glomerular Filtration Rate , Glucose Level 89, Calcium Level 9.1, Total Bilirubin 0.6, Aspartate Amino Transf (AST/SGOT) 16, Alanine Aminotransferase (ALT/SGPT) 41, Alkaline Phosphatase 190H, Total Protein 7.6, Albumin 3.2L, Globulin 4.4, Albumin/Globulin Ratio 0.7L 04/29/18 09:50: Sodium Level 137, Potassium Level 4.1, Chloride Level 106, Carbon Dioxide Level 21, Anion Gap 11, Blood Urea Nitrogen 28H, Creatinine 1.1, Estimat Glomerular Filtration Rate , Glucose Level 88, Calcium Level 9.6, Total Bilirubin 0.5, Aspartate Amino Transf (AST/SGOT) 15, Alanine Aminotransferase (ALT/SGPT) 41, Alkaline Phosphatase 201H, Total Protein 8.0, Albumin 3.3L, Globulin 4.7, Albumin/Globulin Ratio 0.7L, White Blood Count 20.0H, Red Blood Count 4.78, Hemoglobin 13.0, Hematocrit 40.6, Mean Corpuscular Volume 85, Mean Corpuscular Hemoglobin 27.1, Mean Corpuscular Hemoglobin Concent 32.0, Red Cell Distribution Width 19.0H, Platelet Count 545H, Mean Platelet Volume 6.9, Neutrophils (%) (Auto) , Lymphocytes (%) (Auto) , Monocytes (%) (Auto) , Eosinophils (%) (Auto) , Basophils (%) (Auto) , Differential Total Cells Counted 100, Neutrophils % (Manual) 83H, Lymphocytes % (Manual) 9L, Monocytes % (Manual) 6, Eosinophils % (Manual) 1, Basophils % (Manual) 1, Band Neutrophils 0 , Platelet Estimate Adequate, Platelet Morphology Normal, Red Blood Cell Morphology , Anisocytosis 2+ Height (Feet): 5 Height (Inches): 0.00 Weight (Pounds): 123 Severino Vences MD Apr 29, 2018 12:22
[2018-04-29 12:57] VITALS: BP 136/60
[2018-04-29 16:00] VITALS: BP 148/59
--- NOTE | 2018-04-29 19:32 | General Progress Note ---
Assessment/Plan Assessment/Plan Assessment - Resolving LFT changes - cholelithiasis - negative HIDA - OBS - Clavicle contusion - thickened colon on CT - suspect under distention Recommendations - follow LFT - po diet OK - If recurrent LFT elevation -> ERCP - OOB Subjective Allergies: Coded Allergies: No Known Allergies (Unverified , 04/18/18) Subjective Feels OK No new complaints HIDA negative Objective Last 24 Hour Vital Signs Date Time Temp Pulse Resp B/P (MAP) Pulse Ox O2 Delivery O2 Flow Rate FiO2 04/29/18 16:00 97.7 65 19 148/59 (88) 96 97.7 04/29/18 12:57 98.0 62 20 136/60 (85) 97 98.0 04/29/18 10:09 79 153/69 04/29/18 10:09 153/69 04/29/18 08:20 Room Air 04/29/18 08:00 97.7 67 20 152/55 (87) 97 97.7 04/29/18 05:01 172/82 04/29/18 04:00 96.3 68 19 172/82 (112) 97 96.3 04/29/18 00:00 97.9 62 18 155/62 (93) 97 97.9 04/28/18 21:00 Room Air 04/28/18 20:21 69 176/70 04/28/18 20:00 96.3 69 19 176/70 (105) 97 96.3 Intake and Output 04/28/18 04/29/18 19:00 07:00 Intake Total 220 ml 240 ml Output Total 4 ml Balance 220 ml 236 ml Intake Oral 220 ml 240 ml Output Urine Total 4 ml # Voids 4 Laboratory Tests 04/29/18 05:12: Sodium Level 138, Potassium Level 4.1, Chloride Level 104, Carbon Dioxide Level 21, Anion Gap 13, Blood Urea Nitrogen 28H, Creatinine 1.1, Estimat Glomerular Filtration Rate , Glucose Level 89, Calcium Level 9.1, Total Bilirubin 0.6, Aspartate Amino Transf (AST/SGOT) 16, Alanine Aminotransferase (ALT/SGPT) 41, Alkaline Phosphatase 190H, Total Protein 7.6, Albumin 3.2L, Globulin 4.4, Albumin/Globulin Ratio 0.7L 04/29/18 09:50: Sodium Level 137, Potassium Level 4.1, Chloride Level 106, Carbon Dioxide Level 21, Anion Gap 11, Blood Urea Nitrogen 28H, Creatinine 1.1, Estimat Glomerular Filtration Rate , Glucose Level 88, Calcium Level 9.6, Total Bilirubin 0.5, Aspartate Amino Transf (AST/SGOT) 15, Alanine Aminotransferase (ALT/SGPT) 41, Alkaline Phosphatase 201H, Total Protein 8.0, Albumin 3.3L, Globulin 4.7, Albumin/Globulin Ratio 0.7L, White Blood Count 20.0H, Red Blood Count 4.78, Hemoglobin 13.0, Hematocrit 40.6, Mean Corpuscular Volume 85, Mean Corpuscular Hemoglobin 27.1, Mean Corpuscular Hemoglobin Concent 32.0, Red Cell Distribution Width 19.0H, Platelet Count 545H, Mean Platelet Volume 6.9, Neutrophils (%) (Auto) , Lymphocytes (%) (Auto) , Monocytes (%) (Auto) , Eosinophils (%) (Auto) , Basophils (%) (Auto) , Differential Total Cells Counted 100, Neutrophils % (Manual) 83H, Lymphocytes % (Manual) 9L, Monocytes % (Manual) 6, Eosinophils % (Manual) 1, Basophils % (Manual) 1, Band Neutrophils 0 , Platelet Estimate Adequate, Platelet Morphology Normal, Red Blood Cell Morphology , Anisocytosis 2+ Height (Feet): 5 Height (Inches): 0.00 Weight (Pounds): 123 Objective Thin elderly woman NCAT supple CTA RRR soft ND NT no edema Lyle De MD Apr 29, 2018 19:32
[2018-04-29 20:00] VITALS: BP 179/74
[2018-04-30] VITALS: BP 152/81
[2018-04-30 04:00] VITALS: BP 188/84
[2018-04-30] MEDS: HydrALAZINE 25mg tab ORAL PRN ×3 (04:56→19:11)
[2018-04-30 08:00] VITALS: BP 141/94
[2018-04-30] MEDS: Metoprolol Tartrate 50mg tab ORAL SCH ×3 (08:33→20:45)
[2018-04-30] MEDS: Aspirin Baby 81mg ORAL SCH (08:33)
[2018-04-30] MEDS: Heparin 5000 units/ml inj SUBQ SCH ×2 (08:36→20:46)
[2018-04-30] MEDS: Lisinopril 20mg tab ORAL SCH ×2 (08:57→13:56)
[2018-04-30] MEDS ORDERED: LISINOPRIL20 MG ORAL (09:35)
--- NOTE | 2018-04-30 10:01 | Cardiology Report ---
APPROVED REPORT EXAM: Two-dimensional and M-mode echocardiogram with Doppler and color Doppler. INDICATION Bundle branch block M-Mode DIMENSIONS IVSd1.1 (0.7-1.1cm)Left Atrium (MM)4.0 (1.6-4.0cm) LVDd4.7 (3.5-5.6cm)Aortic Root2.6 (2.0-3.7cm) PWd1.0 (0.7-1.1cm)Aortic Cusp Exc.1.5 (1.5-2.0cm) LVDs2.5 (2.5-4.0cm) PWs1.7 cm Normal left ventricular chamber size, systolic function and wall motion. Left ventricular ejection fraction estimated to be 65 %. Borderline left ventricular hypertrophy. Possible large pleural effusion. All other cardiac chamber sizes are within normal limits. Mild focal aortic valve sclerosis with adequate cusp excursion. Mildly thickened mitral valve leaflets with normal excursion. Mild mitral annulus and aortic root calcification. Normal pulmonic valve structure. Normal tricuspid valve structure. IVC is normal in size with physiological collapse. A color flow and spectral Doppler study was performed and revealed: No aortic insufficiency. Mild to moderate mitral regurgitation. Mitral diastolic velocities suggest mild left ventricular diastolic dysfunction (Grade I). Trace tricuspid regurgitation. Tricuspid systolic velocities suggests peak right ventricular systolic pressure of 24 mmHg. Mild pulmonic regurgitation present.
--- NOTE | 2018-04-30 11:04 | Pulmonology Progress Note ---
Assessment/Plan Assessment/Plan IMPRESSION: 1. upper respiratory tract infection, doubt acute pneumonia at present. 2. persistent leukocytosis 3. Transaminitis. 4. Dementia. 5. Confusion. 6. Advanced age. 7. Contusion to right clavicle. PLAN negative work up dc to snf monitor wbc after dc respiratory care as is orders as is for now impression, plan, and exam edited and reviewed in detail care discussed with RN Subjective Allergies: Coded Allergies: No Known Allergies (Unverified , 04/18/18) Subjective stable no cp or sob wbc elevated Objective Last 24 Hour Vital Signs Date Time Temp Pulse Resp B/P (MAP) Pulse Ox O2 Delivery O2 Flow Rate FiO2 04/30/18 08:57 141/94 04/30/18 08:33 69 141/94 04/30/18 08:00 98.2 69 19 141/94 (110) 94 98.2 04/30/18 04:56 188/84 04/30/18 04:00 98.4 70 18 188/84 (118) 97 98.4 04/30/18 00:00 97.7 71 18 152/81 (104) 96 97.7 04/29/18 21:00 Room Air 04/29/18 20:10 179/74 04/29/18 20:08 70 179/74 04/29/18 20:00 98.5 70 18 179/74 (109) 98 98.5 04/29/18 16:00 97.7 65 19 148/59 (88) 96 97.7 04/29/18 12:57 98.0 62 20 136/60 (85) 97 98.0 Intake and Output 04/29/18 04/30/18 19:00 07:00 Intake Total 700 ml Balance 700 ml Intake Oral 700 ml # Voids 9 3 Objective GENERAL: A well-developed female, comfortable at present, NAD HEENT: Negative. Extraocular movements are grossly intact. NECK: Supple. No jugular venous distention. LUNGS: Moderate breath sounds. no significant rhonchi present, appears stable CARDIAC: Normal S1 and S2. Regular rate and rhythm. Positive S4. No murmurs or rubs. ABDOMEN: Soft, nontender. No distention. EXTREMITIES: No cyanosis or clubbing. No significant edema. NEUROLOGICAL: Overall confused. Baseline dementia appears to be without change. Current Medications Medications (Trade) Dose Ordered Sig/Franco Route PRN Reason Start Time Stop Time Status Last Admin Dose Admin Aspirin (ASA) 81 mg DAILY ORAL 04/22/18 09:00 05/18/18 08:59 04/30/18 08:33 Doxycycline Monohydrate (Vibramycin) 100 mg EVERY 12 HOURS ORAL 04/24/18 21:00 05/01/18 20:59 04/30/18 08:33 Fluoxetine HCl (PROzac) 20 mg DAILY ORAL 04/22/18 09:00 05/19/18 08:59 04/30/18 08:33 Gabapentin (Neurontin) 300 mg BEDTIME ORAL 04/21/18 21:00 05/18/18 20:59 04/29/18 20:08 Haloperidol Lactate (Haldol) 1 mg Q4HR PRN IM Agitation 04/21/18 17:00 05/19/18 23:14 Heparin Sodium (Porcine) (Heparin 5000 units/ml) 5,000 units EVERY 12 HOURS SUBQ 04/21/18 21:00 05/18/18 08:59 04/29/18 20:11 Hydralazine HCl (Apresoline) 25 mg Q6HR PRN ORAL SBP above 160 04/21/18 18:00 05/21/18 01:59 04/30/18 04:56 Lisinopril (Prinivil) 40 mg DAILY ORAL 04/25/18 09:00 05/25/18 08:59 04/29/18 10:09 Loperamide HCl (Imodium) 2 mg Q4H PRN ORAL Diarrhea 04/21/18 15:15 05/21/18 11:14 04/22/18 09:27 Metoprolol Tartrate (Lopressor) 50 mg Q12HR ORAL 04/25/18 09:00 05/25/18 08:59 04/30/18 08:33 Honorio Johansen MD Apr 30, 2018 11:04
[2018-04-30 12:00] VITALS: BP 168/72
[2018-04-30] MEDS: LORazepam 1mg tab ORAL PRN (15:04)
[2018-04-30 16:10] VITALS: BP 151/75
[2018-04-30] MEDS ORDERED: cloNIDine 0.2mg Tab ORAL SCH (17:30)
--- NOTE | 2018-04-30 17:40 | General Surgery Progress Note ---
General Surgery-Progress Note Subjective Additional Comments leucocytosis. no acute events Objective Last 24 Hour Vital Signs Date Time Temp Pulse Resp B/P (MAP) Pulse Ox O2 Delivery O2 Flow Rate FiO2 04/30/18 16:10 97.9 18 151/75 (100) 97 97.9 04/30/18 13:56 170/72 04/30/18 12:00 98.0 73 19 168/72 (104) 94 98.0 04/30/18 11:34 168/72 04/30/18 09:00 Room Air 04/30/18 08:57 141/94 04/30/18 08:00 98.2 69 19 141/94 (110) 94 98.2 04/30/18 04:56 188/84 04/30/18 04:00 98.4 70 18 188/84 (118) 97 98.4 04/30/18 00:00 97.7 71 18 152/81 (104) 96 97.7 04/29/18 21:00 Room Air 04/29/18 20:10 179/74 04/29/18 20:08 70 179/74 04/29/18 20:00 98.5 70 18 179/74 (109) 98 98.5 I&O Intake and Output 04/29/18 04/30/18 19:00 07:00 Intake Total 700 ml Balance 700 ml Intake Oral 700 ml # Voids 9 3 Wound: clean Drains: none Cardiovascular: RSR Respiratory: clear Abdomen: soft, non-tender, present bowel sounds Extremities: no cyanosis Plan Problems: (1) Contusion of right clavicle Assessment & Plan: right clavicle 3cm by 2cm wound slow healing. from report traumatic etiology after fall. no other wounds noted. wound not infected and shallow ulceration without penetration into subcutaneous tissues. no drainage. no odor CXR reviewed and no clavicle fracture noted. exam as above. leukocytosis improving. exam benign. otherwise improving. ultrasound reviewed and okay. leukocytosis. HIDA negative. -no acute surgical intervention planned. -honey gel and foam dressing BID -abx as per ID -will monitor while in hospital thank you for this consultation. will follow with recs. (2) Leukocytosis Eder Rutherford Apr 30, 2018 17:40
[2018-04-30 20:00] VITALS: BP 126/42
--- NOTE | 2018-04-30 22:24 | General Progress Note ---
Assessment/Plan Assessment/Plan Assessment - acute hepatitis A - Peak LFT 04/26 - cholelithiasis - negative HIDA - OBS - Clavicle contusion - thickened colon on CT - suspect under distention Recommendations - follow LFT - po diet OK - contact isolation - OOB Subjective Allergies: Coded Allergies: No Known Allergies (Unverified , 04/18/18) Subjective Feels OK no new symptoms alerted by RN today re HAV IgM (+) Objective Last 24 Hour Vital Signs Date Time Temp Pulse Resp B/P (MAP) Pulse Ox O2 Delivery O2 Flow Rate FiO2 04/30/18 20:45 81 126/42 04/30/18 20:00 98.6 81 20 126/42 (70) 96 98.6 04/30/18 19:11 175/82 04/30/18 17:30 175/82 04/30/18 16:10 97.9 18 151/75 (100) 97 97.9 04/30/18 13:56 170/72 04/30/18 12:00 98.0 73 19 168/72 (104) 94 98.0 04/30/18 11:34 168/72 04/30/18 09:00 Room Air 04/30/18 08:57 141/94 04/30/18 08:00 98.2 69 19 141/94 (110) 94 98.2 04/30/18 04:56 188/84 04/30/18 04:00 98.4 70 18 188/84 (118) 97 98.4 04/30/18 00:00 97.7 71 18 152/81 (104) 96 97.7 Intake and Output 04/29/18 04/30/18 19:00 07:00 Intake Total 700 ml Balance 700 ml Intake Oral 700 ml # Voids 9 3 Height (Feet): 5 Height (Inches): 0.00 Weight (Pounds): 121 Objective Thin elderly woman NCAT supple CTA RRR soft ND NT no edema Lyle De MD Apr 30, 2018 22:24
[2018-05-01] VITALS (7 sets, daily range): BP systolic 127–191; BP diastolic 52–85
--- NOTE | 2018-05-01 | Discharge Summary ---
DATE OF ADMISSION: 04/18/2018 DATE OF DISCHARGE: 04/30/2018 CHIEF COMPLAINT: Possible pneumonia. HOSPITAL COURSE: The patient is a pleasant 87-year-old female with a history of hypertension, seizure disorder, neuropathy, gait instability, and dementia. She was transferred with concern for pneumonia. She was initially treated with broad-spectrum IV antibiotics. ID consultation was obtained. Her x-ray improved. She continued to have persistent leukocytosis. She had an extensive workup including multiple cultures and x-rays. She had a CT scan of the abdomen, HIDA scan, and neck CT all which were unremarkable. The patient had a persistent leukocytosis, but appeared nontoxic. She was awake and alert. She is ambulatory about the trent, smiling, and laughing. She completed a full course of antibiotic therapy. She is noted to have a chronic wound over the right clavicle area possibly this may be the source for the elevated white count. That was very stable could be monitored at the [facility] facility. We will discuss with [facility] Monitor the patient's white count and LFTs. Consider Heme/Onc evaluation as an outpatient. DISCHARGE MEDICATIONS: Please see discharge medication list for discharge medications. DIET: Cardiac diet. ACTIVITIES: Ad-sandra. FOLLOWUP: The patient will be followed up by her PMD at the [facility]. Andrew Woodard M.D. DR: GREG JOB#: [id number] CC:
[2018-05-01] MEDS: HydrALAZINE 25mg tab ORAL PRN (04:43)
--- NOTE | 2018-05-01 08:10 | General Progress Note ---
Assessment/Plan Problem List: (1) Leukocytosis ICD Codes: D72.829 - Elevated white blood cell count, unspecified SNOMED: 279755118, 048827421 (2) Pneumonia ICD Codes: J18.9 - Pneumonia, unspecified organism SNOMED: 729103433, 708062915 (3) Contusion of right clavicle ICD Codes: S40.011A - Contusion of right shoulder, initial encounter SNOMED: 63374951 Status: stable, progressing Assessment/Plan check labs same rx case management assisting with dc Subjective ROS Limited/Unobtainable: No Constitutional: Reports: no symptoms HEENT: Reports: no symptoms Cardiovascular: Reports: no symptoms Respiratory: Reports: no symptoms Gastrointestinal/Abdominal: Reports: no symptoms Genitourinary: Reports: no symptoms Neurologic/Psychiatric: Reports: no symptoms Endocrine: Reports: no symptoms Hematologic/Lymphatic: Reports: no symptoms Allergies: Coded Allergies: No Known Allergies (Unverified , 04/18/18) All Systems: reviewed and negative except above Subjective no events. was not discharged yesterday, snf refused to take pt back according to RN Objective Last 24 Hour Vital Signs Date Time Temp Pulse Resp B/P (MAP) Pulse Ox O2 Delivery O2 Flow Rate FiO2 05/01/18 05:13 179/73 (108) 05/01/18 04:43 191/85 05/01/18 04:00 98.4 73 20 191/85 (120) 95 98.4 05/01/18 00:00 98.2 60 20 127/52 (77) 95 98.2 04/30/18 21:00 Room Air 04/30/18 20:45 81 126/42 04/30/18 20:00 98.6 81 20 126/42 (70) 96 98.6 04/30/18 19:11 175/82 04/30/18 17:30 175/82 04/30/18 16:10 97.9 18 151/75 (100) 97 97.9 04/30/18 13:56 170/72 04/30/18 12:00 98.0 73 19 168/72 (104) 94 98.0 04/30/18 11:34 168/72 04/30/18 09:00 Room Air 04/30/18 08:57 141/94 Intake and Output 04/30/18 05/01/18 19:00 07:00 Intake Total 450 ml 120 ml Balance 450 ml 120 ml Intake Oral 450 ml 120 ml # Voids 3 3 Height (Feet): 5 Height (Inches): 0.00 Weight (Pounds): 121 Objective General Appearance: WD/WN, confused, agitated EENT: PERRL/EOMI Neck: supple Cardiovascular: normal rate, regular rhythm Respiratory/Chest: chest wall non-tender, lungs clear, normal breath sounds Abdomen: normal bowel sounds, non tender, soft, no organomegaly Edema: no edema noted Arm (L), no edema noted Arm (R), no edema noted Leg (L), no edema noted Leg (R), no edema noted Pedal (L), no edema noted Pedal (R), no edema noted Generalized Andrew Woodard MD May 01, 2018 08:10
--- NOTE | 2018-05-01 08:41 | Pulmonology Progress Note ---
Assessment/Plan Assessment/Plan IMPRESSION: 1. upper respiratory tract infection, doubt acute pneumonia at present. 2. persistent leukocytosis 3. Transaminitis. 4. Dementia. 5. Confusion. 6. Advanced age. 7. Contusion to right clavicle. PLAN negative work up dc to snf monitor wbc after dc respiratory care as is orders as is for now impression, plan, and exam edited and reviewed in detail care discussed with RN Subjective Allergies: Coded Allergies: No Known Allergies (Unverified , 04/18/18) Subjective stable no cp or sob wbc elevated Objective Last 24 Hour Vital Signs Date Time Temp Pulse Resp B/P (MAP) Pulse Ox O2 Delivery O2 Flow Rate FiO2 05/01/18 05:13 179/73 (108) 05/01/18 04:43 191/85 05/01/18 04:00 98.4 73 20 191/85 (120) 95 98.4 05/01/18 00:00 98.2 60 20 127/52 (77) 95 98.2 04/30/18 21:00 Room Air 04/30/18 20:45 81 126/42 04/30/18 20:00 98.6 81 20 126/42 (70) 96 98.6 04/30/18 19:11 175/82 04/30/18 17:30 175/82 04/30/18 16:10 97.9 18 151/75 (100) 97 97.9 04/30/18 13:56 170/72 04/30/18 12:00 98.0 73 19 168/72 (104) 94 98.0 04/30/18 11:34 168/72 04/30/18 09:00 Room Air 04/30/18 08:57 141/94 Intake and Output 04/30/18 05/01/18 19:00 07:00 Intake Total 450 ml 120 ml Balance 450 ml 120 ml Intake Oral 450 ml 120 ml # Voids 3 3 Objective GENERAL: A well-developed female, comfortable at present, NAD HEENT: Negative. Extraocular movements are grossly intact. NECK: Supple. No jugular venous distention. LUNGS: Moderate breath sounds. no significant rhonchi present, appears stable CARDIAC: Normal S1 and S2. Regular rate and rhythm. Positive S4. No murmurs or rubs. ABDOMEN: Soft, nontender. No distention. EXTREMITIES: No cyanosis or clubbing. No significant edema. NEUROLOGICAL: Overall confused. Baseline dementia appears to be without change. Current Medications Medications (Trade) Dose Ordered Sig/Franco Route PRN Reason Start Time Stop Time Status Last Admin Dose Admin Aspirin (ASA) 81 mg DAILY ORAL 04/22/18 09:00 05/18/18 08:59 04/30/18 08:33 Doxycycline Monohydrate (Vibramycin) 100 mg EVERY 12 HOURS ORAL 04/24/18 21:00 05/01/18 20:59 04/30/18 20:45 Fluoxetine HCl (PROzac) 20 mg DAILY ORAL 04/22/18 09:00 05/19/18 08:59 04/30/18 08:33 Gabapentin (Neurontin) 300 mg BEDTIME ORAL 04/21/18 21:00 05/18/18 20:59 04/30/18 20:45 Haloperidol Lactate (Haldol) 1 mg Q4HR PRN IM Agitation 04/21/18 17:00 05/19/18 23:14 Heparin Sodium (Porcine) (Heparin 5000 units/ml) 5,000 units EVERY 12 HOURS SUBQ 04/21/18 21:00 05/18/18 08:59 04/29/18 20:11 Hydralazine HCl (Apresoline) 25 mg Q6HR PRN ORAL SBP above 160 04/21/18 18:00 05/21/18 01:59 05/01/18 04:43 Lisinopril (Prinivil) 40 mg DAILY ORAL 04/25/18 09:00 05/25/18 08:59 04/30/18 13:56 Loperamide HCl (Imodium) 2 mg Q4H PRN ORAL Diarrhea 04/21/18 15:15 05/21/18 11:14 04/22/18 09:27 Lorazepam (Ativan) 1 mg Q6H PRN ORAL For Anxiety 04/30/18 14:00 05/07/18 13:59 04/30/18 15:04 Metoprolol Tartrate (Lopressor) 50 mg Q12HR ORAL 04/25/18 09:00 05/25/18 08:59 04/30/18 20:45 Honorio Johansen MD May 01, 2018 08:41
[2018-05-01 09:32] LABS: HEMATOCRIT 40.7 % (37.0-47.0); HEMOGLOBIN 13.1 G/DL (12.0-16.0); MEAN CORPUSCULAR VOLUME 84 FL (80-99); PLATELET COUNT 639 K/UL (150-450); RED BLOOD COUNT 4.82 M/UL (4.20-5.40); RED CELL DISTRIBUTION WIDTH 18.7 % (11.6-14.8)
[2018-05-01 09:44] LABS: ALANINE AMINOTRANSFERASE 33 U/L (12-78); ALBUMIN 3.2 G/DL (3.4-5.0); ALBUMIN/GLOBULIN RATIO 0.7 (1.0-2.7); ALKALINE PHOSPHATASE 175 U/L (46-116); ANION GAP 11 mmol/L (5-15); ASPARTATE AMINO TRANSFERASE 15 U/L (15-37); BILIRUBIN,TOTAL 0.5 MG/DL (0.2-1.0); BLOOD UREA NITROGEN 25 mg/dL (7-18); CALCIUM 9.3 MG/DL (8.5-10.1); CARBON DIOXIDE 22 MMOL/L (21-32); CHLORIDE 104 MMOL/L (98-107); CREATININE 1.2 MG/DL (0.55-1.30); POTASSIUM 3.9 MMOL/L (3.5-5.1); SODIUM 137 MMOL/L (136-145)
[2018-05-01] MEDS: Aspirin Baby 81mg ORAL SCH (09:47)
[2018-05-01] MEDS: Metoprolol Tartrate 50mg tab ORAL SCH ×2 (09:47→21:13)
[2018-05-01 09:48] LABS: WHITE BLOOD COUNT 25.5 K/UL (4.8-10.8)
[2018-05-01] MEDS: Lisinopril 20mg tab ORAL SCH (09:48)
[2018-05-01] MEDS: Heparin 5000 units/ml inj SUBQ SCH ×2 (09:56→21:15)
--- NOTE | 2018-05-01 11:47 | Infectious Diseases Prog Note ---
Assessment/Plan Assessment/Plan antibiotics : doxycycline A 1. right neck wound infection 2. leucocytosis increased 3. hypertension 4. seizures P 1. d/c po doxycycline 2. stool for c.diff 3. start po vancomycin 4. will follow up cultures Subjective Constitutional: Denies: fever, chills Respiratory: Denies: shortness of breath, dry cough Gastrointestinal/Abdominal: Denies: nausea, vomiting, diarrhea Musculoskeletal: Denies: pain Allergies: Coded Allergies: No Known Allergies (Unverified , 04/18/18) Objective Vital Signs Last 24 Hour Vital Signs Date Time Temp Pulse Resp B/P (MAP) Pulse Ox O2 Delivery O2 Flow Rate FiO2 05/01/18 09:48 136/69 05/01/18 09:47 78 136/69 05/01/18 09:00 Room Air 05/01/18 08:15 98.1 78 18 136/69 (91) 96 98.1 05/01/18 05:13 179/73 (108) 05/01/18 04:43 191/85 05/01/18 04:00 98.4 73 20 191/85 (120) 95 98.4 05/01/18 00:00 98.2 60 20 127/52 (77) 95 98.2 04/30/18 21:00 Room Air 04/30/18 20:45 81 126/42 04/30/18 20:00 98.6 81 20 126/42 (70) 96 98.6 04/30/18 19:11 175/82 04/30/18 17:30 175/82 04/30/18 16:10 97.9 18 151/75 (100) 97 97.9 04/30/18 13:56 170/72 04/30/18 12:00 98.0 73 19 168/72 (104) 94 98.0 Height (Feet): 5 Height (Inches): 0.00 Weight (Pounds): 121 HEENT: other - neck wound on right Respiratory/Chest: lungs clear Cardiovascular: normal rate, regular rhythm, no gallop/murmur Abdomen: soft, non tender Extremities: no edema Laboratory Tests Test 05/01/18 09:10 White Blood Count 25.5 K/UL (4.8-10.8) *H Red Blood Count 4.82 M/UL (4.20-5.40) Hemoglobin 13.1 G/DL (12.0-16.0) Hematocrit 40.7 % (37.0-47.0) Mean Corpuscular Volume 84 FL (80-99) Mean Corpuscular Hemoglobin 27.1 PG (27.0-31.0) Mean Corpuscular Hemoglobin Concent 32.1 G/DL (32.0-36.0) Red Cell Distribution Width 18.7 % (11.6-14.8) H Platelet Count 639 K/UL (150-450) H Mean Platelet Volume 8.0 FL (6.5-10.1) Neutrophils (%) (Auto) % (45.0-75.0) Lymphocytes (%) (Auto) % (20.0-45.0) Monocytes (%) (Auto) % (1.0-10.0) Eosinophils (%) (Auto) % (0.0-3.0) Basophils (%) (Auto) % (0.0-2.0) Differential Total Cells Counted 100 Neutrophils % (Manual) 91 % (45-75) H Lymphocytes % (Manual) 2 % (20-45) L Monocytes % (Manual) 2 % (1-10) Eosinophils % (Manual) 3 % (0-3) Basophils % (Manual) 2 % (0-2) Band Neutrophils 0 % (0-8) Platelet Estimate Increased H Platelet Morphology Normal Hypochromasia 1+ Anisocytosis 2+ Sodium Level 137 MMOL/L (136-145) Potassium Level 3.9 MMOL/L (3.5-5.1) Chloride Level 104 MMOL/L (98-107) Carbon Dioxide Level 22 MMOL/L (21-32) Anion Gap 11 mmol/L (5-15) Blood Urea Nitrogen 25 mg/dL (7-18) H Creatinine 1.2 MG/DL (0.55-1.30) Estimat Glomerular Filtration Rate mL/min (>60) Glucose Level 149 MG/DL (74-106) H Calcium Level 9.3 MG/DL (8.5-10.1) Total Bilirubin 0.5 MG/DL (0.2-1.0) Aspartate Amino Transf (AST/SGOT) 15 U/L (15-37) Alanine Aminotransferase (ALT/SGPT) 33 U/L (12-78) Alkaline Phosphatase 175 U/L (46-116) H Total Protein 7.8 G/DL (6.4-8.2) Albumin 3.2 G/DL (3.4-5.0) L Globulin 4.6 g/dL Albumin/Globulin Ratio 0.7 (1.0-2.7) L Current Medications Medications (Trade) Dose Ordered Sig/Franco Route PRN Reason Start Time Stop Time Status Last Admin Dose Admin Aspirin (ASA) 81 mg DAILY ORAL 04/22/18 09:00 05/18/18 08:59 05/01/18 09:47 Doxycycline Monohydrate (Vibramycin) 100 mg EVERY 12 HOURS ORAL 04/24/18 21:00 05/01/18 20:59 05/01/18 09:48 Fluoxetine HCl (PROzac) 20 mg DAILY ORAL 04/22/18 09:00 05/19/18 08:59 05/01/18 09:48 Gabapentin (Neurontin) 300 mg BEDTIME ORAL 04/21/18 21:00 05/18/18 20:59 04/30/18 20:45 Haloperidol Lactate (Haldol) 1 mg Q4HR PRN IM Agitation 04/21/18 17:00 05/19/18 23:14 Heparin Sodium (Porcine) (Heparin 5000 units/ml) 5,000 units EVERY 12 HOURS SUBQ 04/21/18 21:00 05/18/18 08:59 05/01/18 09:56 Hydralazine HCl (Apresoline) 25 mg Q6HR PRN ORAL SBP above 160 04/21/18 18:00 05/21/18 01:59 05/01/18 04:43 Lisinopril (Prinivil) 40 mg DAILY ORAL 04/25/18 09:00 05/25/18 08:59 05/01/18 09:48 Loperamide HCl (Imodium) 2 mg Q4H PRN ORAL Diarrhea 04/21/18 15:15 05/21/18 11:14 04/22/18 09:27 Lorazepam (Ativan) 1 mg Q6H PRN ORAL For Anxiety 04/30/18 14:00 05/07/18 13:59 04/30/18 15:04 Metoprolol Tartrate (Lopressor) 50 mg Q12HR ORAL 04/25/18 09:00 05/25/18 08:59 05/01/18 09:47 KORY FIGUEROA May 01, 2018 11:47
--- NOTE | 2018-05-01 12:57 | Psych Consult Progress Note ---
Psych Consult Progress Note Consult 04/30/18 Anxiety d/o Cognitive impairment -Ativan 1mg q6hr/prn -Lexapro 10mg qam -Provided ro/st Vital Signs Last 24 Hour Vital Signs Date Time Temp Pulse Resp B/P (MAP) Pulse Ox O2 Delivery O2 Flow Rate FiO2 05/01/18 09:48 136/69 05/01/18 09:47 78 136/69 05/01/18 09:00 Room Air 05/01/18 08:15 98.1 78 18 136/69 (91) 96 98.1 05/01/18 05:13 179/73 (108) 05/01/18 04:43 191/85 05/01/18 04:00 98.4 73 20 191/85 (120) 95 98.4 05/01/18 00:00 98.2 60 20 127/52 (77) 95 98.2 04/30/18 21:00 Room Air 04/30/18 20:45 81 126/42 04/30/18 20:00 98.6 81 20 126/42 (70) 96 98.6 04/30/18 19:11 175/82 04/30/18 17:30 175/82 04/30/18 16:10 97.9 18 151/75 (100) 97 97.9 04/30/18 13:56 170/72 Labs Laboratory Tests Test 05/01/18 09:10 White Blood Count 25.5 K/UL (4.8-10.8) *H Red Blood Count 4.82 M/UL (4.20-5.40) Hemoglobin 13.1 G/DL (12.0-16.0) Hematocrit 40.7 % (37.0-47.0) Mean Corpuscular Volume 84 FL (80-99) Mean Corpuscular Hemoglobin 27.1 PG (27.0-31.0) Mean Corpuscular Hemoglobin Concent 32.1 G/DL (32.0-36.0) Red Cell Distribution Width 18.7 % (11.6-14.8) H Platelet Count 639 K/UL (150-450) H Mean Platelet Volume 8.0 FL (6.5-10.1) Neutrophils (%) (Auto) % (45.0-75.0) Lymphocytes (%) (Auto) % (20.0-45.0) Monocytes (%) (Auto) % (1.0-10.0) Eosinophils (%) (Auto) % (0.0-3.0) Basophils (%) (Auto) % (0.0-2.0) Differential Total Cells Counted 100 Neutrophils % (Manual) 91 % (45-75) H Lymphocytes % (Manual) 2 % (20-45) L Monocytes % (Manual) 2 % (1-10) Eosinophils % (Manual) 3 % (0-3) Basophils % (Manual) 2 % (0-2) Band Neutrophils 0 % (0-8) Platelet Estimate Increased H Platelet Morphology Normal Hypochromasia 1+ Anisocytosis 2+ Sodium Level 137 MMOL/L (136-145) Potassium Level 3.9 MMOL/L (3.5-5.1) Chloride Level 104 MMOL/L (98-107) Carbon Dioxide Level 22 MMOL/L (21-32) Anion Gap 11 mmol/L (5-15) Blood Urea Nitrogen 25 mg/dL (7-18) H Creatinine 1.2 MG/DL (0.55-1.30) Estimat Glomerular Filtration Rate mL/min (>60) Glucose Level 149 MG/DL (74-106) H Calcium Level 9.3 MG/DL (8.5-10.1) Total Bilirubin 0.5 MG/DL (0.2-1.0) Aspartate Amino Transf (AST/SGOT) 15 U/L (15-37) Alanine Aminotransferase (ALT/SGPT) 33 U/L (12-78) Alkaline Phosphatase 175 U/L (46-116) H Total Protein 7.8 G/DL (6.4-8.2) Albumin 3.2 G/DL (3.4-5.0) L Globulin 4.6 g/dL Albumin/Globulin Ratio 0.7 (1.0-2.7) L Medications Current Medications Medications (Trade) Dose Ordered Sig/Franco Route PRN Reason Start Time Stop Time Status Last Admin Dose Admin Aspirin (ASA) 81 mg DAILY ORAL 04/22/18 09:00 05/18/18 08:59 05/01/18 09:47 Fluoxetine HCl (PROzac) 20 mg DAILY ORAL 04/22/18 09:00 05/19/18 08:59 05/01/18 09:48 Gabapentin (Neurontin) 300 mg BEDTIME ORAL 04/21/18 21:00 05/18/18 20:59 04/30/18 20:45 Haloperidol Lactate (Haldol) 1 mg Q4HR PRN IM Agitation 04/21/18 17:00 05/19/18 23:14 Heparin Sodium (Porcine) (Heparin 5000 units/ml) 5,000 units EVERY 12 HOURS SUBQ 04/21/18 21:00 05/18/18 08:59 05/01/18 09:56 Hydralazine HCl (Apresoline) 25 mg Q6HR PRN ORAL SBP above 160 04/21/18 18:00 05/21/18 01:59 05/01/18 04:43 Lisinopril (Prinivil) 40 mg DAILY ORAL 04/25/18 09:00 05/25/18 08:59 05/01/18 09:48 Loperamide HCl (Imodium) 2 mg Q4H PRN ORAL Diarrhea 04/21/18 15:15 05/21/18 11:14 04/22/18 09:27 Lorazepam (Ativan) 1 mg Q6H PRN ORAL For Anxiety 04/30/18 14:00 05/07/18 13:59 04/30/18 15:04 Metoprolol Tartrate (Lopressor) 50 mg Q12HR ORAL 04/25/18 09:00 05/25/18 08:59 05/01/18 09:47 Vancomycin HCl (Vancomycin) 250 mg FOUR TIMES A DAY ORAL 05/01/18 14:00 05/08/18 13:59 Severino Vences MD May 01, 2018 12:57
--- NOTE | 2018-05-01 12:57 | General Progress Note ---
Assessment/Plan Status: stable Assessment/Plan Anxiety d/o Cognitive impairment -Ativan 1mg q6hr/prn -Lexapro 10mg qam -Provided ro/st Subjective Date patient seen: May 01, 2018 Neurologic/Psychiatric: Reports: anxiety, depressed Allergies: Coded Allergies: No Known Allergies (Unverified , 04/18/18) Subjective the pt is the same Objective Last 24 Hour Vital Signs Date Time Temp Pulse Resp B/P (MAP) Pulse Ox O2 Delivery O2 Flow Rate FiO2 05/01/18 09:48 136/69 05/01/18 09:47 78 136/69 05/01/18 09:00 Room Air 05/01/18 08:15 98.1 78 18 136/69 (91) 96 98.1 05/01/18 05:13 179/73 (108) 05/01/18 04:43 191/85 05/01/18 04:00 98.4 73 20 191/85 (120) 95 98.4 05/01/18 00:00 98.2 60 20 127/52 (77) 95 98.2 04/30/18 21:00 Room Air 04/30/18 20:45 81 126/42 04/30/18 20:00 98.6 81 20 126/42 (70) 96 98.6 04/30/18 19:11 175/82 04/30/18 17:30 175/82 04/30/18 16:10 97.9 18 151/75 (100) 97 97.9 04/30/18 13:56 170/72 Intake and Output 04/30/18 05/01/18 19:00 07:00 Intake Total 450 ml 120 ml Balance 450 ml 120 ml Intake Oral 450 ml 120 ml # Voids 3 3 Laboratory Tests 05/01/18 09:10: White Blood Count 25.5*H, Red Blood Count 4.82, Hemoglobin 13.1, Hematocrit 40.7 , Mean Corpuscular Volume 84, Mean Corpuscular Hemoglobin 27.1, Mean Corpuscular Hemoglobin Concent 32.1, Red Cell Distribution Width 18.7H, Platelet Count 639H, Mean Platelet Volume 8.0, Neutrophils (%) (Auto) , Lymphocytes (%) (Auto) , Monocytes (%) (Auto) , Eosinophils (%) (Auto) , Basophils (%) (Auto) , Differential Total Cells Counted 100, Neutrophils % ( Manual) 91H, Lymphocytes % (Manual) 2L, Monocytes % (Manual) 2, Eosinophils % ( Manual) 3, Basophils % (Manual) 2, Band Neutrophils 0, Platelet Estimate IncreasedH, Platelet Morphology Normal, Hypochromasia 1+, Anisocytosis 2+, Sodium Level 137, Potassium Level 3.9, Chloride Level 104, Carbon Dioxide Level 22, Anion Gap 11, Blood Urea Nitrogen 25H, Creatinine 1.2, Estimat Glomerular Filtration Rate , Glucose Level 149H, Calcium Level 9.3, Total Bilirubin 0.5, Aspartate Amino Transf (AST/SGOT) 15, Alanine Aminotransferase (ALT/SGPT) 33, Alkaline Phosphatase 175H, Total Protein 7.8, Albumin 3.2L, Globulin 4.6, Albumin/Globulin Ratio 0.7L Height (Feet): 5 Height (Inches): 0.00 Weight (Pounds): 121 General Appearance: no apparent distress, alert Neurologic: oriented x 3, responsive, depressed affect Severino Vences MD May 01, 2018 12:56
[2018-05-01] MEDS: LORazepam 1mg tab ORAL PRN (13:24)
[2018-05-01] MEDS: Vancomycin oral 125mg/2.5ml ORAL SCH ×3 (14:55→21:13)
--- NOTE | 2018-05-01 15:11 | General Surgery Progress Note ---
General Surgery-Progress Note Subjective Additional Comments no acute events. patient looks great despite worsening leukocytosis Objective Last 24 Hour Vital Signs Date Time Temp Pulse Resp B/P (MAP) Pulse Ox O2 Delivery O2 Flow Rate FiO2 05/01/18 12:00 98.0 61 17 177/79 (111) 98.0 05/01/18 09:48 136/69 05/01/18 09:47 78 136/69 05/01/18 09:00 Room Air 05/01/18 08:15 98.1 78 18 136/69 (91) 96 98.1 05/01/18 05:13 179/73 (108) 05/01/18 04:43 191/85 05/01/18 04:00 98.4 73 20 191/85 (120) 95 98.4 05/01/18 00:00 98.2 60 20 127/52 (77) 95 98.2 04/30/18 21:00 Room Air 04/30/18 20:45 81 126/42 04/30/18 20:00 98.6 81 20 126/42 (70) 96 98.6 04/30/18 19:11 175/82 04/30/18 17:30 175/82 04/30/18 16:10 97.9 18 151/75 (100) 97 97.9 I&O Intake and Output 04/30/18 05/01/18 19:00 07:00 Intake Total 450 ml 120 ml Balance 450 ml 120 ml Intake Oral 450 ml 120 ml # Voids 3 3 Dressing: dry Wound: clean, dry Drains: none Cardiovascular: RSR Respiratory: clear Abdomen: soft, non-tender Extremities: no edema Laboratory Tests Test 05/01/18 09:10 White Blood Count 25.5 K/UL (4.8-10.8) *H Red Blood Count 4.82 M/UL (4.20-5.40) Hemoglobin 13.1 G/DL (12.0-16.0) Hematocrit 40.7 % (37.0-47.0) Mean Corpuscular Volume 84 FL (80-99) Mean Corpuscular Hemoglobin 27.1 PG (27.0-31.0) Mean Corpuscular Hemoglobin Concent 32.1 G/DL (32.0-36.0) Red Cell Distribution Width 18.7 % (11.6-14.8) H Platelet Count 639 K/UL (150-450) H Mean Platelet Volume 8.0 FL (6.5-10.1) Neutrophils (%) (Auto) % (45.0-75.0) Lymphocytes (%) (Auto) % (20.0-45.0) Monocytes (%) (Auto) % (1.0-10.0) Eosinophils (%) (Auto) % (0.0-3.0) Basophils (%) (Auto) % (0.0-2.0) Differential Total Cells Counted 100 Neutrophils % (Manual) 91 % (45-75) H Lymphocytes % (Manual) 2 % (20-45) L Monocytes % (Manual) 2 % (1-10) Eosinophils % (Manual) 3 % (0-3) Basophils % (Manual) 2 % (0-2) Band Neutrophils 0 % (0-8) Platelet Estimate Increased H Platelet Morphology Normal Hypochromasia 1+ Anisocytosis 2+ Sodium Level 137 MMOL/L (136-145) Potassium Level 3.9 MMOL/L (3.5-5.1) Chloride Level 104 MMOL/L (98-107) Carbon Dioxide Level 22 MMOL/L (21-32) Anion Gap 11 mmol/L (5-15) Blood Urea Nitrogen 25 mg/dL (7-18) H Creatinine 1.2 MG/DL (0.55-1.30) Estimat Glomerular Filtration Rate mL/min (>60) Glucose Level 149 MG/DL (74-106) H Calcium Level 9.3 MG/DL (8.5-10.1) Total Bilirubin 0.5 MG/DL (0.2-1.0) Aspartate Amino Transf (AST/SGOT) 15 U/L (15-37) Alanine Aminotransferase (ALT/SGPT) 33 U/L (12-78) Alkaline Phosphatase 175 U/L (46-116) H Total Protein 7.8 G/DL (6.4-8.2) Albumin 3.2 G/DL (3.4-5.0) L Globulin 4.6 g/dL Albumin/Globulin Ratio 0.7 (1.0-2.7) L Plan Problems: (1) Contusion of right clavicle Assessment & Plan: right clavicle 3cm by 2cm wound slow healing. from report traumatic etiology after fall. no other wounds noted. wound not infected and shallow ulceration without penetration into subcutaneous tissues. no drainage. no odor CXR reviewed and no clavicle fracture noted. exam as above. leukocytosis improving. exam benign. otherwise improving. ultrasound reviewed and okay. leukocytosis. HIDA negative. -no acute surgical intervention planned. -honey gel and foam dressing BID -abx as per ID -will monitor while in hospital -appreciate ID input. check c diff as possible etiology of leukocytosis given recent oral abx use thank you for this consultation. will follow with recs. (2) Leukocytosis Eder Rutherford May 01, 2018 15:11
--- NOTE | 2018-05-01 23:46 | General Progress Note ---
Assessment/Plan Assessment/Plan Assessment - acute hepatitis A - [facility] LFT 04/26 - cholelithiasis - negative HIDA - OBS - Clavicle contusion - thickened colon on CT Recommendations - follow LFT - po diet OK - contact isolation - OOB Subjective Allergies: Coded Allergies: No Known Allergies (Unverified , 04/18/18) Subjective Feels OK no new symptoms discussed with nurse Sunita at patient's prior SNF re Acute Hep A diagnosed and potential exposures at the SNF Objective Last 24 Hour Vital Signs Date Time Temp Pulse Resp B/P (MAP) Pulse Ox O2 Delivery O2 Flow Rate FiO2 05/01/18 21:13 72 164/68 05/01/18 16:00 98.3 69 18 153/74 (100) 96 98.3 05/01/18 16:00 05/01/18 12:00 98.0 61 17 177/79 (111) 98.0 05/01/18 09:48 136/69 05/01/18 09:47 78 136/69 05/01/18 09:00 Room Air 05/01/18 08:15 98.1 78 18 136/69 (91) 96 98.1 05/01/18 05:13 179/73 (108) 05/01/18 04:43 191/85 05/01/18 04:00 98.4 73 20 191/85 (120) 95 98.4 05/01/18 00:00 98.2 60 20 127/52 (77) 95 98.2 Intake and Output 04/30/18 05/01/18 19:00 07:00 Intake Total 450 ml 120 ml Balance 450 ml 120 ml Intake Oral 450 ml 120 ml # Voids 3 3 Laboratory Tests 05/01/18 09:10: White Blood Count 25.5*H, Red Blood Count 4.82, Hemoglobin 13.1, Hematocrit 40.7 , Mean Corpuscular Volume 84, Mean Corpuscular Hemoglobin 27.1, Mean Corpuscular Hemoglobin Concent 32.1, Red Cell Distribution Width 18.7H, Platelet Count 639H, Mean Platelet Volume 8.0, Neutrophils (%) (Auto) , Lymphocytes (%) (Auto) , Monocytes (%) (Auto) , Eosinophils (%) (Auto) , Basophils (%) (Auto) , Differential Total Cells Counted 100, Neutrophils % ( Manual) 91H, Lymphocytes % (Manual) 2L, Monocytes % (Manual) 2, Eosinophils % ( Manual) 3, Basophils % (Manual) 2, Band Neutrophils 0, Platelet Estimate IncreasedH, Platelet Morphology Normal, Hypochromasia 1+, Anisocytosis 2+, Sodium Level 137, Potassium Level 3.9, Chloride Level 104, Carbon Dioxide Level 22, Anion Gap 11, Blood Urea Nitrogen 25H, Creatinine 1.2, Estimat Glomerular Filtration Rate , Glucose Level 149H, Calcium Level 9.3, Total Bilirubin 0.5, Aspartate Amino Transf (AST/SGOT) 15, Alanine Aminotransferase (ALT/SGPT) 33, Alkaline Phosphatase 175H, Total Protein 7.8, Albumin 3.2L, Globulin 4.6, Albumin/Globulin Ratio 0.7L Height (Feet): 5 Height (Inches): 0.00 Weight (Pounds): 121 Objective Thin elderly woman NCAT supple CTA RRR soft ND NT no edema Lyle De MD May 01, 2018 23:46
[2018-05-02] VITALS: BP 152/60
[2018-05-02 04:00] VITALS: BP 168/62
[2018-05-02] MEDS: HydrALAZINE 25mg tab ORAL PRN ×2 (05:55→15:42)
[2018-05-02 08:00] VITALS: BP 164/69
--- NOTE | 2018-05-02 08:10 | General Progress Note ---
Assessment/Plan Problem List: (1) Leukocytosis ICD Codes: D72.829 - Elevated white blood cell count, unspecified SNOMED: 605437437, 456690033 (2) Pneumonia ICD Codes: J18.9 - Pneumonia, unspecified organism SNOMED: 830402452, 180245638 (3) Contusion of right clavicle ICD Codes: S40.011A - Contusion of right shoulder, initial encounter SNOMED: 12968697 Status: stable, not improved Assessment/Plan check labs tomorrow check cdiff same rx hold dc due to high wbc case management assisting with dc Subjective ROS Limited/Unobtainable: No Constitutional: Reports: malaise, weakness HEENT: Reports: no symptoms Cardiovascular: Reports: no symptoms Respiratory: Reports: no symptoms Gastrointestinal/Abdominal: Reports: no symptoms Genitourinary: Reports: no symptoms Neurologic/Psychiatric: Reports: no symptoms Endocrine: Reports: no symptoms Hematologic/Lymphatic: Reports: no symptoms Allergies: Coded Allergies: No Known Allergies (Unverified , 04/18/18) All Systems: reviewed and negative except above Subjective no events. w/o complaints. no fever or chills. wbx on hold due to worsening leukocytosis. Objective Last 24 Hour Vital Signs Date Time Temp Pulse Resp B/P (MAP) Pulse Ox O2 Delivery O2 Flow Rate FiO2 05/02/18 05:55 168/62 05/02/18 04:00 98.0 67 20 168/62 (97) 97 98.0 05/02/18 00:00 98.3 60 20 152/60 (90) 96 98.3 05/01/18 21:13 72 164/68 05/01/18 21:00 Room Air 05/01/18 20:00 97.7 72 20 164/68 (100) 95 97.7 05/01/18 16:00 98.3 69 18 153/74 (100) 96 98.3 05/01/18 16:00 05/01/18 12:00 98.0 61 17 177/79 (111) 98.0 05/01/18 09:48 136/69 05/01/18 09:47 78 136/69 05/01/18 09:00 Room Air 05/01/18 08:15 98.1 78 18 136/69 (91) 96 98.1 Intake and Output 05/01/18 05/02/18 19:00 07:00 Intake Total 400 ml 120 ml Balance 400 ml 120 ml Intake Oral 120 ml Other 400 ml # Voids 3 2 # Bowel Movements 1 Laboratory Tests 05/01/18 09:10: White Blood Count 25.5*H, Red Blood Count 4.82, Hemoglobin 13.1, Hematocrit 40.7 , Mean Corpuscular Volume 84, Mean Corpuscular Hemoglobin 27.1, Mean Corpuscular Hemoglobin Concent 32.1, Red Cell Distribution Width 18.7H, Platelet Count 639H, Mean Platelet Volume 8.0, Neutrophils (%) (Auto) , Lymphocytes (%) (Auto) , Monocytes (%) (Auto) , Eosinophils (%) (Auto) , Basophils (%) (Auto) , Differential Total Cells Counted 100, Neutrophils % ( Manual) 91H, Lymphocytes % (Manual) 2L, Monocytes % (Manual) 2, Eosinophils % ( Manual) 3, Basophils % (Manual) 2, Band Neutrophils 0, Platelet Estimate IncreasedH, Platelet Morphology Normal, Hypochromasia 1+, Anisocytosis 2+, Sodium Level 137, Potassium Level 3.9, Chloride Level 104, Carbon Dioxide Level 22, Anion Gap 11, Blood Urea Nitrogen 25H, Creatinine 1.2, Estimat Glomerular Filtration Rate , Glucose Level 149H, Calcium Level 9.3, Total Bilirubin 0.5, Aspartate Amino Transf (AST/SGOT) 15, Alanine Aminotransferase (ALT/SGPT) 33, Alkaline Phosphatase 175H, Total Protein 7.8, Albumin 3.2L, Globulin 4.6, Albumin/Globulin Ratio 0.7L Height (Feet): 5 Height (Inches): 0.00 Weight (Pounds): 121 Objective General Appearance: WD/WN, confused, agitated EENT: PERRL/EOMI Neck: supple Cardiovascular: normal rate, regular rhythm Respiratory/Chest: chest wall non-tender, lungs clear, normal breath sounds Abdomen: normal bowel sounds, non tender, soft, no organomegaly Edema: no edema noted Arm (L), no edema noted Arm (R), no edema noted Leg (L), no edema noted Leg (R), no edema noted Pedal (L), no edema noted Pedal (R), no edema noted Generalized Andrew Woodard MD May 02, 2018 08:10
[2018-05-02] MEDS: Aspirin Baby 81mg ORAL SCH (08:45)
[2018-05-02] MEDS: Metoprolol Tartrate 50mg tab ORAL SCH ×2 (08:47→21:12)
[2018-05-02] MEDS: Heparin 5000 units/ml inj SUBQ SCH ×2 (08:51→21:13)
[2018-05-02] MEDS: Vancomycin oral 125mg/2.5ml ORAL SCH ×4 (08:53→21:11)
--- NOTE | 2018-05-02 10:26 | General Progress Note ---
Assessment/Plan Status: stable, progressing Assessment/Plan Anxiety d/o Cognitive impairment -Ativan 1mg q6hr/prn -Lexapro 10mg qam -Provided ro/st Subjective Date patient seen: May 02, 2018 Neurologic/Psychiatric: Reports: anxiety, depressed, emotional problems Allergies: Coded Allergies: No Known Allergies (Unverified , 04/18/18) Subjective the pt was calm today focus on discharge Objective Last 24 Hour Vital Signs Date Time Temp Pulse Resp B/P (MAP) Pulse Ox O2 Delivery O2 Flow Rate FiO2 05/02/18 09:03 73 164/69 05/02/18 08:47 73 164/69 05/02/18 08:00 97.8 73 20 164/69 (100) 97 97.8 05/02/18 05:55 168/62 05/02/18 04:00 98.0 67 20 168/62 (97) 97 98.0 05/02/18 00:00 98.3 60 20 152/60 (90) 96 98.3 05/01/18 21:13 72 164/68 05/01/18 21:00 Room Air 05/01/18 20:00 97.7 72 20 164/68 (100) 95 97.7 05/01/18 16:00 98.3 69 18 153/74 (100) 96 98.3 05/01/18 16:00 05/01/18 12:00 98.0 61 17 177/79 (111) 98.0 Intake and Output 05/01/18 05/02/18 19:00 07:00 Intake Total 400 ml 120 ml Balance 400 ml 120 ml Intake Oral 120 ml Other 400 ml # Voids 3 2 # Bowel Movements 1 Height (Feet): 5 Height (Inches): 0.00 Weight (Pounds): 121 General Appearance: no apparent distress, alert Neurologic: oriented x 3, responsive, depressed affect Severino Vences MD May 02, 2018 10:26
[2018-05-02 12:00] VITALS: BP 150/77
--- NOTE | 2018-05-02 12:35 | Pulmonology Progress Note ---
Assessment/Plan Assessment/Plan IMPRESSION: 1. upper respiratory tract infection, doubt acute pneumonia at present. 2. persistent leukocytosis 3. Transaminitis. 4. Dementia. 5. Confusion. 6. Advanced age. 7. Contusion to right clavicle. 8. hep A positive PLAN negative work up thus far check cdif psych noted dc to snf monitor wbc after dc respiratory care as is orders as is for now impression, plan, and exam edited and reviewed in detail care discussed with RN Subjective Allergies: Coded Allergies: No Known Allergies (Unverified , 04/18/18) Subjective stable no cp or sob wbc elevated Objective Last 24 Hour Vital Signs Date Time Temp Pulse Resp B/P (MAP) Pulse Ox O2 Delivery O2 Flow Rate FiO2 05/02/18 12:00 97.6 71 20 150/77 (101) 98 97.6 05/02/18 09:03 73 164/69 05/02/18 09:00 Room Air 05/02/18 08:47 73 164/69 05/02/18 08:00 97.8 73 20 164/69 (100) 97 97.8 05/02/18 05:55 168/62 05/02/18 04:00 98.0 67 20 168/62 (97) 97 98.0 05/02/18 00:00 98.3 60 20 152/60 (90) 96 98.3 05/01/18 21:13 72 164/68 05/01/18 21:00 Room Air 05/01/18 20:00 97.7 72 20 164/68 (100) 95 97.7 05/01/18 16:00 98.3 69 18 153/74 (100) 96 98.3 05/01/18 16:00 Intake and Output 05/01/18 05/02/18 19:00 07:00 Intake Total 400 ml 120 ml Balance 400 ml 120 ml Intake Oral 120 ml Other 400 ml # Voids 3 2 # Bowel Movements 1 Objective GENERAL: A well-developed female, comfortable at present, NAD HEENT: Negative. Extraocular movements are grossly intact. NECK: Supple. No jugular venous distention. LUNGS: Moderate breath sounds. no significant rhonchi present, appears stable CARDIAC: Normal S1 and S2. Regular rate and rhythm. Positive S4. No murmurs or rubs. ABDOMEN: Soft, nontender. No distention. EXTREMITIES: No cyanosis or clubbing. No significant edema. NEUROLOGICAL: Overall confused. Baseline dementia appears to be without change. Current Medications Medications (Trade) Dose Ordered Sig/Franco Route PRN Reason Start Time Stop Time Status Last Admin Dose Admin Amlodipine Besylate (Norvasc) 5 mg DAILY ORAL 05/02/18 09:00 06/01/18 08:59 05/02/18 09:03 Aspirin (ASA) 81 mg DAILY ORAL 04/22/18 09:00 05/18/18 08:59 05/02/18 08:45 Fluoxetine HCl (PROzac) 20 mg DAILY ORAL 04/22/18 09:00 05/19/18 08:59 05/02/18 08:47 Gabapentin (Neurontin) 300 mg BEDTIME ORAL 04/21/18 21:00 05/18/18 20:59 05/01/18 21:12 Haloperidol Lactate (Haldol) 1 mg Q4HR PRN IM Agitation 04/21/18 17:00 05/19/18 23:14 Heparin Sodium (Porcine) (Heparin 5000 units/ml) 5,000 units EVERY 12 HOURS SUBQ 04/21/18 21:00 05/18/18 08:59 05/02/18 08:51 Hydralazine HCl (Apresoline) 25 mg Q6HR PRN ORAL SBP above 160 04/21/18 18:00 05/21/18 01:59 05/02/18 05:55 Lisinopril (Prinivil) 40 mg DAILY ORAL 04/25/18 09:00 05/25/18 08:59 05/01/18 09:48 Loperamide HCl (Imodium) 2 mg Q4H PRN ORAL Diarrhea 04/21/18 15:15 05/21/18 11:14 04/22/18 09:27 Lorazepam (Ativan) 1 mg Q6H PRN ORAL For Anxiety 04/30/18 14:00 05/07/18 13:59 05/01/18 13:24 Metoprolol Tartrate (Lopressor) 50 mg Q12HR ORAL 04/25/18 09:00 05/25/18 08:59 05/02/18 08:47 Vancomycin HCl (Vancomycin) 250 mg FOUR TIMES A DAY ORAL 05/01/18 14:00 05/08/18 13:59 05/02/18 12:29 Honorio Johansen MD May 02, 2018 12:35
--- NOTE | 2018-05-02 14:34 | General Surgery Progress Note ---
General Surgery-Progress Note Subjective Additional Comments no acute events Objective Last 24 Hour Vital Signs Date Time Temp Pulse Resp B/P (MAP) Pulse Ox O2 Delivery O2 Flow Rate FiO2 05/02/18 12:00 97.6 71 20 150/77 (101) 98 97.6 05/02/18 09:03 73 164/69 05/02/18 09:00 Room Air 05/02/18 08:47 73 164/69 05/02/18 08:00 97.8 73 20 164/69 (100) 97 97.8 05/02/18 05:55 168/62 05/02/18 04:00 98.0 67 20 168/62 (97) 97 98.0 05/02/18 00:00 98.3 60 20 152/60 (90) 96 98.3 05/01/18 21:13 72 164/68 05/01/18 21:00 Room Air 05/01/18 20:00 97.7 72 20 164/68 (100) 95 97.7 05/01/18 16:00 98.3 69 18 153/74 (100) 96 98.3 05/01/18 16:00 I&O Intake and Output 05/01/18 05/02/18 19:00 07:00 Intake Total 400 ml 120 ml Balance 400 ml 120 ml Intake Oral 120 ml Other 400 ml # Voids 3 2 # Bowel Movements 1 Wound: clean Drains: none Cardiovascular: RSR Respiratory: clear Abdomen: soft, flat, non-tender Extremities: no cyanosis Plan Problems: (1) Contusion of right clavicle Assessment & Plan: right clavicle 3cm by 2cm wound slow healing. from report traumatic etiology after fall. no other wounds noted. wound not infected and shallow ulceration without penetration into subcutaneous tissues. no drainage. no odor CXR reviewed and no clavicle fracture noted. exam as above. leukocytosis improving. exam benign. otherwise improving. ultrasound reviewed and okay. leukocytosis. HIDA negative. -no acute surgical intervention planned. -honey gel and foam dressing BID -abx as per ID -will monitor while in hospital -appreciate ID input. check c diff as possible etiology of leukocytosis given recent oral abx use thank you for this consultation. will follow with recs. (2) Leukocytosis Eder Rutherford May 02, 2018 14:34
[2018-05-02 16:00] VITALS: BP 186/70
--- NOTE | 2018-05-02 16:35 | Infectious Diseases Prog Note ---
Assessment/Plan Assessment/Plan A; R shoulder cellulitis Contusion of R shoulder Leukocytosis HPN Cholelithiasis P; Continue PO Vancomycin will f/u C. difficile test Subjective ROS Limited/Unobtainable: Yes Constitutional: Reports: no symptoms Respiratory: Reports: no symptoms Gastrointestinal/Abdominal: Reports: no symptoms Genitourinary: Reports: no symptoms Allergies: Coded Allergies: No Known Allergies (Unverified , 04/18/18) Objective Vital Signs Last 24 Hour Vital Signs Date Time Temp Pulse Resp B/P (MAP) Pulse Ox O2 Delivery O2 Flow Rate FiO2 05/02/18 16:00 98.1 66 20 186/70 (108) 96 98.1 05/02/18 15:42 150/77 05/02/18 12:00 97.6 71 20 150/77 (101) 98 97.6 05/02/18 09:03 73 164/69 05/02/18 09:00 Room Air 05/02/18 08:47 73 164/69 05/02/18 08:00 97.8 73 20 164/69 (100) 97 97.8 05/02/18 05:55 168/62 05/02/18 04:00 98.0 67 20 168/62 (97) 97 98.0 05/02/18 00:00 98.3 60 20 152/60 (90) 96 98.3 05/01/18 21:13 72 164/68 05/01/18 21:00 Room Air 05/01/18 20:00 97.7 72 20 164/68 (100) 95 97.7 Height (Feet): 5 Height (Inches): 0.00 Weight (Pounds): 121 General Appearance: no acute distress HEENT: mucous membranes moist Respiratory/Chest: lungs clear Cardiovascular: normal rate Abdomen: soft, non tender Extremities: no edema Skin: other - right clavicle laceration healing Neurologic/Psychiatric: alert, responsive Current Medications Medications (Trade) Dose Ordered Sig/Franco Route PRN Reason Start Time Stop Time Status Last Admin Dose Admin Amlodipine Besylate (Norvasc) 5 mg DAILY ORAL 05/02/18 09:00 06/01/18 08:59 05/02/18 09:03 Aspirin (ASA) 81 mg DAILY ORAL 04/22/18 09:00 05/18/18 08:59 05/02/18 08:45 Fluoxetine HCl (PROzac) 20 mg DAILY ORAL 04/22/18 09:00 05/19/18 08:59 05/02/18 08:47 Gabapentin (Neurontin) 300 mg BEDTIME ORAL 04/21/18 21:00 05/18/18 20:59 05/01/18 21:12 Haloperidol Lactate (Haldol) 1 mg Q4HR PRN IM Agitation 04/21/18 17:00 05/19/18 23:14 Heparin Sodium (Porcine) (Heparin 5000 units/ml) 5,000 units EVERY 12 HOURS SUBQ 04/21/18 21:00 05/18/18 08:59 05/02/18 08:51 Hydralazine HCl (Apresoline) 25 mg Q6HR PRN ORAL SBP above 160 04/21/18 18:00 05/21/18 01:59 05/02/18 15:42 Lisinopril (Prinivil) 40 mg DAILY ORAL 04/25/18 09:00 05/25/18 08:59 05/01/18 09:48 Loperamide HCl (Imodium) 2 mg Q4H PRN ORAL Diarrhea 04/21/18 15:15 05/21/18 11:14 04/22/18 09:27 Lorazepam (Ativan) 1 mg Q6H PRN ORAL For Anxiety 04/30/18 14:00 05/07/18 13:59 05/01/18 13:24 Metoprolol Tartrate (Lopressor) 50 mg Q12HR ORAL 04/25/18 09:00 05/25/18 08:59 05/02/18 08:47 Vancomycin HCl (Vancomycin) 250 mg FOUR TIMES A DAY ORAL 05/01/18 14:00 05/08/18 13:59 05/02/18 12:29 Александр Adams MD May 02, 2018 16:35
[2018-05-02] MEDS: LORazepam 1mg tab ORAL PRN (17:28)
[2018-05-02 20:00] VITALS: BP 142/65
--- NOTE | 2018-05-02 23:10 | General Progress Note ---
Assessment/Plan Assessment/Plan Assessment - acute hepatitis A - [facility] LFT 04/26 - cholelithiasis - negative HIDA - OBS - Clavicle contusion - thickened colon on CT Recommendations - follow LFT - po diet OK - contact isolation - OOB Subjective Allergies: Coded Allergies: No Known Allergies (Unverified , 04/18/18) Subjective Feels OK no new symptoms anxious Objective Last 24 Hour Vital Signs Date Time Temp Pulse Resp B/P (MAP) Pulse Ox O2 Delivery O2 Flow Rate FiO2 05/02/18 21:12 69 142/65 05/02/18 21:00 Room Air 05/02/18 20:00 97.9 69 20 142/65 (90) 98 97.9 05/02/18 16:00 98.1 66 20 186/70 (108) 96 98.1 05/02/18 15:42 150/77 05/02/18 12:00 97.6 71 20 150/77 (101) 98 97.6 05/02/18 09:03 73 164/69 05/02/18 09:00 Room Air 05/02/18 08:47 73 164/69 05/02/18 08:00 97.8 73 20 164/69 (100) 97 97.8 05/02/18 05:55 168/62 05/02/18 04:00 98.0 67 20 168/62 (97) 97 98.0 05/02/18 00:00 98.3 60 20 152/60 (90) 96 98.3 Intake and Output 05/01/18 05/02/18 19:00 07:00 Intake Total 400 ml 120 ml Balance 400 ml 120 ml Intake Oral 120 ml Other 400 ml # Voids 3 2 # Bowel Movements 1 Height (Feet): 5 Height (Inches): 0.00 Weight (Pounds): 121 Objective Thin elderly woman NCAT supple CTA RRR soft ND NT no edema Lyle De MD May 02, 2018 23:10
[2018-05-03] VITALS: BP 148/53
[2018-05-03 04:00] VITALS: BP 144/62
[2018-05-03 07:47] LABS: HEMATOCRIT 40.3 % (37.0-47.0); HEMOGLOBIN 13.2 G/DL (12.0-16.0); MEAN CORPUSCULAR VOLUME 84 FL (80-99); PLATELET COUNT 605 K/UL (150-450); WHITE BLOOD COUNT 21.3 K/UL (4.8-10.8)
--- NOTE | 2018-05-03 07:56 | General Progress Note ---
Assessment/Plan Problem List: (1) Leukocytosis ICD Codes: D72.829 - Elevated white blood cell count, unspecified SNOMED: 483032455, 303406049 (2) Pneumonia ICD Codes: J18.9 - Pneumonia, unspecified organism SNOMED: 101894808, 882372266 (3) Contusion of right clavicle ICD Codes: S40.011A - Contusion of right shoulder, initial encounter SNOMED: 28076137 Status: stable Assessment/Plan follow up labs(wbc) check cdiff same rx hold dc due to high wbc case management assisting with dc Subjective ROS Limited/Unobtainable: No Constitutional: Reports: malaise, weakness HEENT: Reports: no symptoms Cardiovascular: Reports: no symptoms Respiratory: Reports: no symptoms Gastrointestinal/Abdominal: Reports: no symptoms Genitourinary: Reports: no symptoms Neurologic/Psychiatric: Reports: anxiety Endocrine: Reports: no symptoms Hematologic/Lymphatic: Reports: no symptoms Allergies: Coded Allergies: No Known Allergies (Unverified , 04/18/18) All Systems: reviewed and negative except above Subjective no events. w/o complaints. no fever or chills. labs pending. ID noted. await cdiff Objective Last 24 Hour Vital Signs Date Time Temp Pulse Resp B/P (MAP) Pulse Ox O2 Delivery O2 Flow Rate FiO2 05/03/18 04:00 97.9 62 19 144/62 (89) 98 97.9 05/03/18 00:00 97.8 57 19 148/53 (84) 97 97.8 05/02/18 21:12 69 142/65 05/02/18 21:00 Room Air 05/02/18 20:00 97.9 69 20 142/65 (90) 98 97.9 05/02/18 16:00 98.1 66 20 186/70 (108) 96 98.1 05/02/18 15:42 150/77 05/02/18 12:00 97.6 71 20 150/77 (101) 98 97.6 05/02/18 09:03 73 164/69 05/02/18 09:00 Room Air 05/02/18 08:47 73 164/69 05/02/18 08:00 97.8 73 20 164/69 (100) 97 97.8 Intake and Output 05/02/18 05/03/18 19:00 07:00 Intake Total 240 ml 120 ml Balance 240 ml 120 ml Intake Oral 240 ml 120 ml # Voids 3 2 Laboratory Tests 05/03/18 06:35: White Blood Count [Pending], Red Blood Count [Pending], Hemoglobin [Pending], Hematocrit [Pending], Mean Corpuscular Volume [Pending], Mean Corpuscular Hemoglobin [Pending], Mean Corpuscular Hemoglobin Concent [Pending], Red Cell Distribution Width [Pending], Platelet Count [Pending], Mean Platelet Volume [ Pending], Neutrophils (%) (Auto) [Pending], Lymphocytes (%) (Auto) [Pending], Monocytes (%) (Auto) [Pending], Eosinophils (%) (Auto) [Pending], Basophils (%) (Auto) [Pending], Sodium Level [Pending], Potassium Level [Pending], Chloride Level [Pending], Carbon Dioxide Level [Pending], Blood Urea Nitrogen [Pending], Creatinine [Pending], Estimat Glomerular Filtration Rate [Pending], Glucose Level [Pending], Calcium Level [Pending], Total Bilirubin [Pending], Aspartate Amino Transf (AST/SGOT) [Pending], Alanine Aminotransferase (ALT/SGPT) [Pending] , Alkaline Phosphatase [Pending], Total Protein [Pending], Albumin [Pending], Globulin [Pending] Height (Feet): 5 Height (Inches): 0.00 Weight (Pounds): 121 Objective General Appearance: WD/WN, confused, agitated EENT: PERRL/EOMI Neck: supple Cardiovascular: normal rate, regular rhythm Respiratory/Chest: chest wall non-tender, lungs clear, normal breath sounds Abdomen: normal bowel sounds, non tender, soft, no organomegaly Edema: no edema noted Arm (L), no edema noted Arm (R), no edema noted Leg (L), no edema noted Leg (R), no edema noted Pedal (L), no edema noted Pedal (R), no edema noted Generalized Andrew Woodard MD May 03, 2018 07:56
[2018-05-03 08:00] VITALS: BP 154/65
[2018-05-03 08:06] LABS: ALANINE AMINOTRANSFERASE 29 U/L (12-78); ALBUMIN 3.2 G/DL (3.4-5.0); ALBUMIN/GLOBULIN RATIO 0.7 (1.0-2.7); ALKALINE PHOSPHATASE 161 U/L (46-116); ANION GAP 12 mmol/L (5-15); ASPARTATE AMINO TRANSFERASE 17 U/L (15-37); BILIRUBIN,TOTAL 0.6 MG/DL (0.2-1.0); BLOOD UREA NITROGEN 22 mg/dL (7-18); CALCIUM 9.3 MG/DL (8.5-10.1); CARBON DIOXIDE 23 MMOL/L (21-32); CHLORIDE 103 MMOL/L (98-107); SODIUM 138 MMOL/L (136-145)
--- NOTE | 2018-05-03 09:55 | Pulmonology Progress Note ---
Assessment/Plan Assessment/Plan IMPRESSION: 1. pulmonary stable 2. persistent leukocytosis 3. Transaminitis. 4. Dementia. 5. Confusion. 6. Advanced age. 7. Contusion to right clavicle. 8. hep A positive PLAN care noted check cdif psych noted dc to snf monitor wbc after dc respiratory care as is orders as is for now impression, plan, and exam edited and reviewed in detail care discussed with RN Subjective Allergies: Coded Allergies: No Known Allergies (Unverified , 04/18/18) Subjective stable no cp or sob wbc noted Objective Last 24 Hour Vital Signs Date Time Temp Pulse Resp B/P (MAP) Pulse Ox O2 Delivery O2 Flow Rate FiO2 05/03/18 08:00 97.4 69 19 154/65 (94) 98 97.4 05/03/18 04:00 97.9 62 19 144/62 (89) 98 97.9 05/03/18 00:00 97.8 57 19 148/53 (84) 97 97.8 05/02/18 21:12 69 142/65 05/02/18 21:00 Room Air 05/02/18 20:00 97.9 69 20 142/65 (90) 98 97.9 05/02/18 16:00 98.1 66 20 186/70 (108) 96 98.1 05/02/18 15:42 150/77 05/02/18 12:00 97.6 71 20 150/77 (101) 98 97.6 Intake and Output 05/02/18 05/03/18 19:00 07:00 Intake Total 240 ml 120 ml Balance 240 ml 120 ml Intake Oral 240 ml 120 ml # Voids 3 2 Objective GENERAL: A well-developed female, comfortable at present, NAD HEENT: Negative. Extraocular movements are grossly intact. NECK: Supple. No jugular venous distention. LUNGS: Moderate breath sounds. no significant rhonchi present, appears stable CARDIAC: Normal S1 and S2. Regular rate and rhythm. Positive S4. No murmurs or rubs. ABDOMEN: Soft, nontender. No distention. EXTREMITIES: No cyanosis or clubbing. No significant edema. NEUROLOGICAL: Overall confused. Baseline dementia appears to be without change. Laboratory Tests 05/03/18 06:35: White Blood Count 21.3H, Red Blood Count 4.80, Hemoglobin 13.2, Hematocrit 40.3 , Mean Corpuscular Volume 84, Mean Corpuscular Hemoglobin 27.5, Mean Corpuscular Hemoglobin Concent 32.7, Red Cell Distribution Width 19.0H, Platelet Count 605H, Mean Platelet Volume 7.9, Neutrophils (%) (Auto) , Lymphocytes (%) (Auto) , Monocytes (%) (Auto) , Eosinophils (%) (Auto) , Basophils (%) (Auto) , Neutrophils % (Manual) [Pending], Lymphocytes % (Manual) [Pending], Platelet Estimate [Pending], Platelet Morphology [Pending], Sodium Level 138, Potassium Level 4.0, Chloride Level 103, Carbon Dioxide Level 23, Anion Gap 12, Blood Urea Nitrogen 22H, Creatinine 1.0, Estimat Glomerular Filtration Rate , Glucose Level 78, Calcium Level 9.3, Total Bilirubin 0.6, Aspartate Amino Transf (AST/SGOT) 17, Alanine Aminotransferase (ALT/SGPT) 29, Alkaline Phosphatase 161H, Total Protein 7.9, Albumin 3.2L, Globulin 4.7, Albumin/Globulin Ratio 0.7L, Hepatitis A Antibody Total [Pending], Hepatitis B Surface Antigen [Pending], Hepatitis B Surface Antibody [Pending], Hepatitis C Antibody [Pending] Current Medications Medications (Trade) Dose Ordered Sig/Franco Route PRN Reason Start Time Stop Time Status Last Admin Dose Admin Amlodipine Besylate (Norvasc) 5 mg DAILY ORAL 05/02/18 09:00 06/01/18 08:59 05/02/18 09:03 Aspirin (ASA) 81 mg DAILY ORAL 04/22/18 09:00 05/18/18 08:59 05/02/18 08:45 Fluoxetine HCl (PROzac) 20 mg DAILY ORAL 04/22/18 09:00 05/19/18 08:59 05/02/18 08:47 Gabapentin (Neurontin) 300 mg BEDTIME ORAL 04/21/18 21:00 05/18/18 20:59 05/02/18 21:10 Haloperidol Lactate (Haldol) 1 mg Q4HR PRN IM Agitation 04/21/18 17:00 05/19/18 23:14 Heparin Sodium (Porcine) (Heparin 5000 units/ml) 5,000 units EVERY 12 HOURS SUBQ 04/21/18 21:00 05/18/18 08:59 05/02/18 21:13 Hydralazine HCl (Apresoline) 25 mg Q6HR PRN ORAL SBP above 160 04/21/18 18:00 05/21/18 01:59 05/02/18 15:42 Lisinopril (Prinivil) 40 mg DAILY ORAL 04/25/18 09:00 05/25/18 08:59 05/01/18 09:48 Loperamide HCl (Imodium) 2 mg Q4H PRN ORAL Diarrhea 04/21/18 15:15 05/21/18 11:14 04/22/18 09:27 Lorazepam (Ativan) 1 mg Q6H PRN ORAL For Anxiety 04/30/18 14:00 05/07/18 13:59 05/02/18 17:28 Metoprolol Tartrate (Lopressor) 50 mg Q12HR ORAL 04/25/18 09:00 05/25/18 08:59 05/02/18 21:12 Vancomycin HCl (Vancomycin) 250 mg FOUR TIMES A DAY ORAL 05/01/18 14:00 05/08/18 13:59 05/02/18 21:11 Honorio Johansen MD May 03, 2018 09:55
[2018-05-03] MEDS: Vancomycin oral 125mg/2.5ml ORAL SCH ×4 (09:58→20:31)
[2018-05-03] MEDS: Lisinopril 20mg tab ORAL SCH (09:59)
[2018-05-03] MEDS: Metoprolol Tartrate 50mg tab ORAL SCH ×2 (09:59→20:31)
[2018-05-03] MEDS: Aspirin Baby 81mg ORAL SCH (09:59)
[2018-05-03] MEDS: Heparin 5000 units/ml inj SUBQ SCH ×2 (10:01→20:32)
[2018-05-03 12:00] VITALS: BP 174/67
[2018-05-03] MEDS: HydrALAZINE 25mg tab ORAL PRN (13:39)
[2018-05-03 16:00] VITALS: BP 148/64
--- NOTE | 2018-05-03 17:41 | General Progress Note ---
Assessment/Plan Assessment/Plan Assessment - acute hepatitis A - Peak LFT 04/26 - cholelithiasis - negative HIDA - OBS - Clavicle contusion - thickened colon on CT - elevated WBC concerning - rising platelet count concerning Recommendations - follow LFT - po diet OK - contact isolation - OOB - ID follow up Subjective Allergies: Coded Allergies: No Known Allergies (Unverified , 04/18/18) Subjective Feels OK no new symptoms more calm today Objective Last 24 Hour Vital Signs Date Time Temp Pulse Resp B/P (MAP) Pulse Ox O2 Delivery O2 Flow Rate FiO2 05/03/18 16:00 98.1 67 20 148/64 (92) 97 98.1 05/03/18 13:39 174/67 05/03/18 12:00 97.8 64 20 174/67 (102) 97 97.8 05/03/18 09:59 69 154/65 05/03/18 09:59 69 154/65 05/03/18 09:59 154/65 05/03/18 09:00 Room Air 05/03/18 08:00 97.4 69 19 154/65 (94) 98 97.4 05/03/18 04:00 97.9 62 19 144/62 (89) 98 97.9 05/03/18 00:00 97.8 57 19 148/53 (84) 97 97.8 05/02/18 21:12 69 142/65 05/02/18 21:00 Room Air 05/02/18 20:00 97.9 69 20 142/65 (90) 98 97.9 Intake and Output 05/02/18 05/03/18 19:00 07:00 Intake Total 240 ml 120 ml Balance 240 ml 120 ml Intake Oral 240 ml 120 ml # Voids 3 2 Laboratory Tests 05/03/18 06:35: White Blood Count 21.3H, Red Blood Count 4.80, Hemoglobin 13.2, Hematocrit 40.3 , Mean Corpuscular Volume 84, Mean Corpuscular Hemoglobin 27.5, Mean Corpuscular Hemoglobin Concent 32.7, Red Cell Distribution Width 19.0H, Platelet Count 605H, Mean Platelet Volume 7.9, Neutrophils (%) (Auto) , Lymphocytes (%) (Auto) , Monocytes (%) (Auto) , Eosinophils (%) (Auto) , Basophils (%) (Auto) , Differential Total Cells Counted 100, Neutrophils % ( Manual) 84H, Lymphocytes % (Manual) 7L, Monocytes % (Manual) 5, Eosinophils % ( Manual) 3, Basophils % (Manual) 1, Band Neutrophils 0, Platelet Estimate IncreasedH, Platelet Morphology Normal, Anisocytosis 1+, Ovalocytes 1+, Sodium Level 138, Potassium Level 4.0, Chloride Level 103, Carbon Dioxide Level 23, Anion Gap 12, Blood Urea Nitrogen 22H, Creatinine 1.0, Estimat Glomerular Filtration Rate , Glucose Level 78, Calcium Level 9.3, Total Bilirubin 0.6, Aspartate Amino Transf (AST/SGOT) 17, Alanine Aminotransferase (ALT/SGPT) 29, Alkaline Phosphatase 161H, Total Protein 7.9, Albumin 3.2L, Globulin 4.7, Albumin/Globulin Ratio 0.7L, Hepatitis A Antibody Total [Pending], Hepatitis B Surface Antigen [Pending], Hepatitis B Surface Antibody [Pending], Hepatitis C Antibody [Pending] Height (Feet): 5 Height (Inches): 0.00 Weight (Pounds): 121 Objective Thin elderly woman NCAT supple CTA RRR soft ND NT no edema Lyle De MD May 03, 2018 17:41
[2018-05-03 20:00] VITALS: BP 175/70
[2018-05-04] VITALS: BP 159/73
[2018-05-04] MEDS: HydrALAZINE 25mg tab ORAL PRN (03:55)
[2018-05-04 04:00] VITALS: BP 201/83
[2018-05-04 08:00] VITALS: BP 168/55
--- NOTE | 2018-05-04 08:16 | Pulmonology Progress Note ---
Assessment/Plan Assessment/Plan IMPRESSION: 1. pulmonary stable 2. persistent leukocytosis 3. Transaminitis. 4. Dementia. 5. Confusion. 6. Advanced age. 7. Contusion to right clavicle. 8. hep A positive PLAN care noted psych noted dc to snf once placement found monitor wbc after dc respiratory care as is orders as is for now no distress impression, plan, and exam edited and reviewed in detail care discussed with RN Subjective ROS Limited/Unobtainable: Yes Allergies: Coded Allergies: No Known Allergies (Unverified , 04/18/18) Subjective stable no cp or sob wbc noted Objective Last 24 Hour Vital Signs Date Time Temp Pulse Resp B/P (MAP) Pulse Ox O2 Delivery O2 Flow Rate FiO2 05/04/18 08:00 98.1 64 20 168/55 (92) 98 98.1 05/04/18 04:00 98.1 64 20 201/83 (122) 98 98.1 05/04/18 03:55 201/83 05/04/18 00:00 97.6 69 20 159/73 (101) 97 97.6 05/03/18 21:00 Room Air 05/03/18 20:31 72 175/70 05/03/18 20:00 97.4 72 20 175/70 (105) 96 97.4 05/03/18 16:00 98.1 67 20 148/64 (92) 97 98.1 05/03/18 13:39 174/67 05/03/18 12:00 97.8 64 20 174/67 (102) 97 97.8 05/03/18 09:59 69 154/65 05/03/18 09:59 69 154/65 05/03/18 09:59 154/65 05/03/18 09:00 Room Air Intake and Output 05/03/18 05/04/18 19:00 07:00 Intake Total 480 ml 150 ml Balance 480 ml 150 ml Intake Oral 480 ml 150 ml # Voids 3 # Bowel Movements 1 Objective GENERAL: A well-developed female, comfortable at present, NAD HEENT: Negative. Extraocular movements are grossly intact. NECK: Supple. No jugular venous distention. LUNGS: Moderate breath sounds. no significant rhonchi present, appears stable CARDIAC: Normal S1 and S2. Regular rate and rhythm. Positive S4. No murmurs or rubs. ABDOMEN: Soft, nontender. No distention. EXTREMITIES: No cyanosis or clubbing. No significant edema. NEUROLOGICAL: Overall confused. Baseline dementia appears to be without change. Current Medications Medications (Trade) Dose Ordered Sig/Franco Route PRN Reason Start Time Stop Time Status Last Admin Dose Admin Amlodipine Besylate (Norvasc) 5 mg DAILY ORAL 05/02/18 09:00 06/01/18 08:59 05/03/18 09:59 Aspirin (ASA) 81 mg DAILY ORAL 04/22/18 09:00 05/18/18 08:59 05/03/18 09:59 Fluoxetine HCl (PROzac) 20 mg DAILY ORAL 04/22/18 09:00 05/19/18 08:59 05/03/18 10:00 Gabapentin (Neurontin) 300 mg BEDTIME ORAL 04/21/18 21:00 05/18/18 20:59 05/03/18 20:30 Haloperidol Lactate (Haldol) 1 mg Q4HR PRN IM Agitation 04/21/18 17:00 05/19/18 23:14 Heparin Sodium (Porcine) (Heparin 5000 units/ml) 5,000 units EVERY 12 HOURS SUBQ 04/21/18 21:00 05/18/18 08:59 05/03/18 20:32 Hydralazine HCl (Apresoline) 25 mg Q6HR PRN ORAL SBP above 160 04/21/18 18:00 05/21/18 01:59 05/04/18 03:55 Lisinopril (Prinivil) 40 mg DAILY ORAL 04/25/18 09:00 05/25/18 08:59 05/03/18 09:59 Loperamide HCl (Imodium) 2 mg Q4H PRN ORAL Diarrhea 04/21/18 15:15 05/21/18 11:14 04/22/18 09:27 Lorazepam (Ativan) 1 mg Q6H PRN ORAL For Anxiety 04/30/18 14:00 05/07/18 13:59 05/02/18 17:28 Metoprolol Tartrate (Lopressor) 50 mg Q12HR ORAL 04/25/18 09:00 05/25/18 08:59 05/03/18 20:31 Vancomycin HCl (Vancomycin) 250 mg FOUR TIMES A DAY ORAL 05/01/18 14:00 05/08/18 13:59 05/03/18 20:31 Honorio Johansen MD May 04, 2018 08:16
[2018-05-04] MEDS: Aspirin Baby 81mg ORAL SCH (08:51)
[2018-05-04] MEDS: Metoprolol Tartrate 50mg tab ORAL SCH ×2 (08:53→21:15)
[2018-05-04] MEDS: Heparin 5000 units/ml inj SUBQ SCH ×2 (09:00→21:16)
[2018-05-04] MEDS: Vancomycin oral 125mg/2.5ml ORAL SCH ×4 (09:05→21:18)
--- NOTE | 2018-05-04 10:53 | General Progress Note ---
Assessment/Plan Problem List: (1) Leukocytosis ICD Codes: D72.829 - Elevated white blood cell count, unspecified SNOMED: 246206952, 018611744 (2) Pneumonia ICD Codes: J18.9 - Pneumonia, unspecified organism SNOMED: 516089911, 959362604 (3) Contusion of right clavicle ICD Codes: S40.011A - Contusion of right shoulder, initial encounter SNOMED: 66354013 Status: stable, not improved Assessment/Plan follow up labs(wbc) check cdiff same rx hold dc due to high wbc case management assisting with dc Subjective ROS Limited/Unobtainable: No Constitutional: Reports: malaise, weakness HEENT: Reports: no symptoms Cardiovascular: Reports: no symptoms Respiratory: Reports: no symptoms Gastrointestinal/Abdominal: Reports: no symptoms Genitourinary: Reports: no symptoms Neurologic/Psychiatric: Reports: no symptoms Endocrine: Reports: no symptoms Hematologic/Lymphatic: Reports: no symptoms Allergies: Coded Allergies: No Known Allergies (Unverified , 04/18/18) All Systems: reviewed and negative except above Subjective no events. w/o complaints. no fever or chills. labs pending. ID noted. await cdiff wc remains elevated. appears nontoxic. ambulatory. smiling. Objective Last 24 Hour Vital Signs Date Time Temp Pulse Resp B/P (MAP) Pulse Ox O2 Delivery O2 Flow Rate FiO2 05/04/18 08:53 64 168/55 05/04/18 08:51 64 168/55 05/04/18 08:00 98.1 64 20 168/55 (92) 98 98.1 05/04/18 04:00 98.1 64 20 201/83 (122) 98 98.1 05/04/18 03:55 201/83 05/04/18 00:00 97.6 69 20 159/73 (101) 97 97.6 05/03/18 21:00 Room Air 05/03/18 20:31 72 175/70 05/03/18 20:00 97.4 72 20 175/70 (105) 96 97.4 05/03/18 16:00 98.1 67 20 148/64 (92) 97 98.1 05/03/18 13:39 174/67 05/03/18 12:00 97.8 64 20 174/67 (102) 97 97.8 Intake and Output 05/03/18 05/04/18 19:00 07:00 Intake Total 480 ml 150 ml Balance 480 ml 150 ml Intake Oral 480 ml 150 ml # Voids 3 # Bowel Movements 1 Height (Feet): 5 Height (Inches): 0.00 Weight (Pounds): 121 Objective General Appearance: WD/WN, confused, agitated EENT: PERRL/EOMI Neck: supple Cardiovascular: normal rate, regular rhythm Respiratory/Chest: chest wall non-tender, lungs clear, normal breath sounds Abdomen: normal bowel sounds, non tender, soft, no organomegaly Edema: no edema noted Arm (L), no edema noted Arm (R), no edema noted Leg (L), no edema noted Leg (R), no edema noted Pedal (L), no edema noted Pedal (R), no edema noted Generalized Andrew Woodard MD May 04, 2018 10:53
[2018-05-04] MEDS ORDERED: Doxazosin 1mg Tab ORAL SCH (11:30)
[2018-05-04 12:00] VITALS: BP 164/75
[2018-05-04] MEDS: Lisinopril 20mg tab ORAL SCH (12:48)
--- NOTE | 2018-05-04 13:13 | Infectious Diseases Prog Note ---
Assessment/Plan Assessment/Plan A; R shoulder cellulitis Hepatitis A Contusion of R shoulder Leukocytosis HPN Cholelithiasis P; Continue PO Vancomycin will f/u C. difficile test Subjective ROS Limited/Unobtainable: Yes Respiratory: Reports: no symptoms Gastrointestinal/Abdominal: Reports: no symptoms Genitourinary: Reports: no symptoms Allergies: Coded Allergies: No Known Allergies (Unverified , 04/18/18) Objective Vital Signs Last 24 Hour Vital Signs Date Time Temp Pulse Resp B/P (MAP) Pulse Ox O2 Delivery O2 Flow Rate FiO2 05/04/18 12:48 164/75 05/04/18 12:00 98.1 60 20 164/75 (104) 96 98.1 05/04/18 09:00 Room Air 05/04/18 08:53 64 168/55 05/04/18 08:51 64 168/55 05/04/18 08:00 98.1 64 20 168/55 (92) 98 98.1 05/04/18 04:00 98.1 64 20 201/83 (122) 98 98.1 05/04/18 03:55 201/83 05/04/18 00:00 97.6 69 20 159/73 (101) 97 97.6 05/03/18 21:00 Room Air 05/03/18 20:31 72 175/70 05/03/18 20:00 97.4 72 20 175/70 (105) 96 97.4 05/03/18 16:00 98.1 67 20 148/64 (92) 97 98.1 05/03/18 13:39 174/67 Height (Feet): 5 Height (Inches): 0.00 Weight (Pounds): 121 HEENT: mucous membranes moist Respiratory/Chest: lungs clear Cardiovascular: normal rate Abdomen: soft, non tender Extremities: no edema Skin: ulcers, other - right shoulder ulcer is healing Current Medications Medications (Trade) Dose Ordered Sig/Franco Route PRN Reason Start Time Stop Time Status Last Admin Dose Admin Amlodipine Besylate (Norvasc) 5 mg Q12H ORAL 05/04/18 21:00 06/03/18 20:59 Aspirin (ASA) 81 mg DAILY ORAL 04/22/18 09:00 05/18/18 08:59 05/04/18 08:51 Doxazosin Mesylate (Cardura) 1 mg BID ORAL 05/04/18 18:00 06/03/18 17:59 Doxazosin Mesylate (Cardura) 1 mg ONCE ORAL 05/04/18 11:30 06/03/18 11:29 05/04/18 12:48 Fluoxetine HCl (PROzac) 20 mg DAILY ORAL 04/22/18 09:00 05/19/18 08:59 05/04/18 08:54 Gabapentin (Neurontin) 300 mg BEDTIME ORAL 04/21/18 21:00 05/18/18 20:59 05/03/18 20:30 Haloperidol Lactate (Haldol) 1 mg Q4HR PRN IM Agitation 04/21/18 17:00 05/19/18 23:14 Heparin Sodium (Porcine) (Heparin 5000 units/ml) 5,000 units EVERY 12 HOURS SUBQ 04/21/18 21:00 05/18/18 08:59 05/04/18 09:00 Hydralazine HCl (Apresoline) 25 mg Q6HR PRN ORAL SBP above 160 04/21/18 18:00 05/21/18 01:59 05/04/18 03:55 Lisinopril (Prinivil) 40 mg DAILY ORAL 04/25/18 09:00 05/25/18 08:59 05/04/18 12:48 Loperamide HCl (Imodium) 2 mg Q4H PRN ORAL Diarrhea 04/21/18 15:15 05/21/18 11:14 04/22/18 09:27 Lorazepam (Ativan) 1 mg Q6H PRN ORAL For Anxiety 04/30/18 14:00 05/07/18 13:59 05/02/18 17:28 Metoprolol Tartrate (Lopressor) 50 mg Q12HR ORAL 04/25/18 09:00 05/25/18 08:59 05/04/18 08:53 Vancomycin HCl (Vancomycin) 250 mg FOUR TIMES A DAY ORAL 05/01/18 14:00 05/08/18 13:59 05/04/18 12:48 Александр Adams MD May 04, 2018 13:13
--- NOTE | 2018-05-04 14:49 | General Progress Note ---
Assessment/Plan Assessment/Plan Assessment - acute hepatitis A - Peak LFT 04/26 - cholelithiasis - negative HIDA - OBS - Clavicle contusion - thickened colon on CT - elevated WBC concerning - rising platelet count concerning Recommendations - Check MRCP - r/o CBD stones - follow LFT - po diet OK - contact isolation - OOB - ID follow up Subjective Allergies: Coded Allergies: No Known Allergies (Unverified , 04/18/18) Subjective Feels OK no new symptoms persistent WBC elevation noted Objective Last 24 Hour Vital Signs Date Time Temp Pulse Resp B/P (MAP) Pulse Ox O2 Delivery O2 Flow Rate FiO2 05/04/18 12:48 164/75 05/04/18 12:00 98.1 60 20 164/75 (104) 96 98.1 05/04/18 09:00 Room Air 05/04/18 08:53 64 168/55 05/04/18 08:51 64 168/55 05/04/18 08:00 98.1 64 20 168/55 (92) 98 98.1 05/04/18 04:00 98.1 64 20 201/83 (122) 98 98.1 05/04/18 03:55 201/83 05/04/18 00:00 97.6 69 20 159/73 (101) 97 97.6 05/03/18 21:00 Room Air 05/03/18 20:31 72 175/70 05/03/18 20:00 97.4 72 20 175/70 (105) 96 97.4 05/03/18 16:00 98.1 67 20 148/64 (92) 97 98.1 Intake and Output 05/03/18 05/04/18 19:00 07:00 Intake Total 480 ml 150 ml Balance 480 ml 150 ml Intake Oral 480 ml 150 ml # Voids 3 # Bowel Movements 1 Height (Feet): 5 Height (Inches): 0.00 Weight (Pounds): 121 Objective Thin elderly woman NCAT supple CTA RRR soft ND NT no edema Lyle De MD May 04, 2018 14:49
[2018-05-04 16:00] VITALS: BP 147/85
[2018-05-04] MEDS: Doxazosin 1mg Tab ORAL SCH (18:00)
[2018-05-04 20:00] VITALS: BP 165/70
--- NOTE | 2018-05-04 23:55 | General Progress Note ---
Assessment/Plan Assessment/Plan Anxiety d/o Cognitive impairment -Ativan 1mg q6hr/prn -Lexapro 10mg qam -Provided ro/st Subjective Date patient seen: May 04, 2018 Neurologic/Psychiatric: Reports: anxiety, depressed Allergies: Coded Allergies: No Known Allergies (Unverified , 04/18/18) Objective Last 24 Hour Vital Signs Date Time Temp Pulse Resp B/P (MAP) Pulse Ox O2 Delivery O2 Flow Rate FiO2 05/04/18 21:15 71 165/70 05/04/18 21:15 71 165/70 05/04/18 21:00 Room Air 05/04/18 20:00 97.0 71 18 165/70 (101) 98 97.0 05/04/18 16:00 98.3 69 20 147/85 (105) 100 98.3 05/04/18 12:48 164/75 05/04/18 12:00 98.1 60 20 164/75 (104) 96 98.1 05/04/18 09:00 Room Air 05/04/18 08:53 64 168/55 05/04/18 08:51 64 168/55 05/04/18 08:00 98.1 64 20 168/55 (92) 98 98.1 05/04/18 04:00 98.1 64 20 201/83 (122) 98 98.1 05/04/18 03:55 201/83 05/04/18 00:00 97.6 69 20 159/73 (101) 97 97.6 Intake and Output 05/03/18 05/04/18 19:00 07:00 Intake Total 480 ml 150 ml Balance 480 ml 150 ml Intake Oral 480 ml 150 ml # Voids 3 # Bowel Movements 1 Height (Feet): 5 Height (Inches): 0.00 Weight (Pounds): 121 Severino Vences MD May 04, 2018 23:55
[2018-05-05] VITALS: BP 132/72
[2018-05-05 04:00] VITALS: BP 111/70
[2018-05-05 08:00] VITALS: BP 131/76
[2018-05-05] MEDS: Lisinopril 20mg tab ORAL SCH (08:18)
[2018-05-05] MEDS: Doxazosin 1mg Tab ORAL SCH ×2 (08:18→18:02)
[2018-05-05] MEDS: Aspirin Baby 81mg ORAL SCH (08:18)
[2018-05-05] MEDS: Metoprolol Tartrate 50mg tab ORAL SCH ×2 (08:19→20:51)
[2018-05-05] MEDS: Heparin 5000 units/ml inj SUBQ SCH ×3 (08:20→20:58)
[2018-05-05] MEDS: Vancomycin oral 125mg/2.5ml ORAL SCH ×2 (08:23→13:20)
--- NOTE | 2018-05-05 08:23 | Pulmonology Progress Note ---
Assessment/Plan Assessment/Plan IMPRESSION: 1. pulmonary stable 2. persistent leukocytosis 3. Transaminitis. 4. Dementia. 5. Confusion. 6. Advanced age. 7. Contusion to right clavicle. 8. hep A positive PLAN care noted psych noted dc to snf once placement found and wbc better monitor wbc after dc; nontoxic at present respiratory care as is orders as is for now no respiratory distress at present impression, plan, and exam edited and reviewed in detail care discussed with RN Subjective Allergies: Coded Allergies: No Known Allergies (Unverified , 04/18/18) Subjective stable no cp or sob wbc noted awaiting MRCP Objective Last 24 Hour Vital Signs Date Time Temp Pulse Resp B/P (MAP) Pulse Ox O2 Delivery O2 Flow Rate FiO2 05/05/18 04:00 97.9 69 22 111/70 (84) 98 97.9 05/05/18 00:00 97.9 67 20 132/72 (92) 98 97.9 05/04/18 21:15 71 165/70 05/04/18 21:15 71 165/70 05/04/18 21:00 Room Air 05/04/18 20:00 97.0 71 18 165/70 (101) 98 97.0 05/04/18 16:00 98.3 69 20 147/85 (105) 100 98.3 05/04/18 12:48 164/75 05/04/18 12:00 98.1 60 20 164/75 (104) 96 98.1 05/04/18 09:00 Room Air 05/04/18 08:53 64 168/55 05/04/18 08:51 64 168/55 Intake and Output 05/04/18 05/05/18 19:00 07:00 Intake Total 240 ml Balance 240 ml Intake Oral 240 ml # Voids 2 3 Objective GENERAL: A well-developed female, comfortable at present, NAD HEENT: Negative. Extraocular movements are grossly intact. NECK: Supple. No jugular venous distention. LUNGS: Moderate breath sounds. no significant rhonchi present, appears stable CARDIAC: Normal S1 and S2. Regular rate and rhythm. Positive S4. No murmurs or rubs. ABDOMEN: Soft, nontender. No distention. EXTREMITIES: No cyanosis or clubbing. No significant edema. NEUROLOGICAL: Overall confused. Baseline dementia appears to be without change. Current Medications Medications (Trade) Dose Ordered Sig/Franco Route PRN Reason Start Time Stop Time Status Last Admin Dose Admin Amlodipine Besylate (Norvasc) 5 mg Q12H ORAL 05/04/18 21:00 06/03/18 20:59 05/04/18 21:15 Aspirin (ASA) 81 mg DAILY ORAL 04/22/18 09:00 05/18/18 08:59 05/04/18 08:51 Doxazosin Mesylate (Cardura) 1 mg BID ORAL 05/04/18 18:00 06/03/18 17:59 Doxazosin Mesylate (Cardura) 1 mg ONCE ORAL 05/04/18 11:30 06/03/18 11:29 05/04/18 12:48 Fluoxetine HCl (PROzac) 20 mg DAILY ORAL 04/22/18 09:00 05/19/18 08:59 05/04/18 08:54 Gabapentin (Neurontin) 300 mg BEDTIME ORAL 04/21/18 21:00 05/18/18 20:59 05/04/18 21:14 Haloperidol Lactate (Haldol) 1 mg Q4HR PRN IM Agitation 04/21/18 17:00 05/19/18 23:14 Heparin Sodium (Porcine) (Heparin 5000 units/ml) 5,000 units EVERY 12 HOURS SUBQ 04/21/18 21:00 05/18/18 08:59 05/04/18 21:16 Hydralazine HCl (Apresoline) 25 mg Q6HR PRN ORAL SBP above 160 04/21/18 18:00 05/21/18 01:59 05/04/18 03:55 Lisinopril (Prinivil) 40 mg DAILY ORAL 04/25/18 09:00 05/25/18 08:59 05/04/18 12:48 Loperamide HCl (Imodium) 2 mg Q4H PRN ORAL Diarrhea 04/21/18 15:15 05/21/18 11:14 04/22/18 09:27 Lorazepam (Ativan) 1 mg Q6H PRN ORAL For Anxiety 04/30/18 14:00 05/07/18 13:59 05/02/18 17:28 Metoprolol Tartrate (Lopressor) 50 mg Q12HR ORAL 04/25/18 09:00 05/25/18 08:59 05/04/18 21:15 Vancomycin HCl (Vancomycin) 250 mg FOUR TIMES A DAY ORAL 05/01/18 14:00 05/08/18 13:59 05/04/18 21:18 Honorio Johansen MD May 05, 2018 08:23
[2018-05-05 12:00] VITALS: BP 153/57
--- NOTE | 2018-05-05 12:51 | General Progress Note ---
Assessment/Plan Problem List: (1) Leukocytosis ICD Codes: D72.829 - Elevated white blood cell count, unspecified SNOMED: 127881504, 468576180 (2) Pneumonia ICD Codes: J18.9 - Pneumonia, unspecified organism SNOMED: 026931980, 969416281 (3) Contusion of right clavicle ICD Codes: S40.011A - Contusion of right shoulder, initial encounter SNOMED: 04139048 Assessment/Plan follow up labs(wbc) mrcp per GI same rx hold dc due to high wbc follow up labs and imaging case management assisting with dc Subjective ROS Limited/Unobtainable: No Constitutional: Reports: malaise, weakness HEENT: Reports: no symptoms Cardiovascular: Reports: no symptoms Respiratory: Reports: no symptoms Gastrointestinal/Abdominal: Reports: no symptoms Genitourinary: Reports: no symptoms Neurologic/Psychiatric: Reports: no symptoms Endocrine: Reports: no symptoms Hematologic/Lymphatic: Reports: no symptoms Allergies: Coded Allergies: No Known Allergies (Unverified , 04/18/18) All Systems: reviewed and negative except above Subjective no events. w/o complaints. no fever or chills. labs pending. ID noted. await cdiff wc remains elevated. appears nontoxic. ambulatory. smiling. Objective Last 24 Hour Vital Signs Date Time Temp Pulse Resp B/P (MAP) Pulse Ox O2 Delivery O2 Flow Rate FiO2 05/05/18 09:00 Room Air 05/05/18 08:22 73 131/76 05/05/18 08:19 73 131/76 05/05/18 08:18 131/76 05/05/18 08:00 97.8 69 18 131/76 (94) 98 97.8 05/05/18 04:00 97.9 69 22 111/70 (84) 98 97.9 05/05/18 00:00 97.9 67 20 132/72 (92) 98 97.9 05/04/18 21:15 71 165/70 05/04/18 21:15 71 165/70 05/04/18 21:00 Room Air 05/04/18 20:00 97.0 71 18 165/70 (101) 98 97.0 05/04/18 16:00 98.3 69 20 147/85 (105) 100 98.3 Intake and Output 05/04/18 05/05/18 19:00 07:00 Intake Total 240 ml Balance 240 ml Intake Oral 240 ml # Voids 2 3 Height (Feet): 5 Height (Inches): 0.00 Weight (Pounds): 121 Objective General Appearance: WD/WN, confused, agitated EENT: PERRL/EOMI Neck: supple Cardiovascular: normal rate, regular rhythm Respiratory/Chest: chest wall non-tender, lungs clear, normal breath sounds Abdomen: normal bowel sounds, non tender, soft, no organomegaly Edema: no edema noted Arm (L), no edema noted Arm (R), no edema noted Leg (L), no edema noted Leg (R), no edema noted Pedal (L), no edema noted Pedal (R), no edema noted Generalized Andrew Woodard MD May 05, 2018 12:51
[2018-05-05 14:00] LABS: BASOPHILS % (AUTO) 2.1 % (0.0-2.0); HEMATOCRIT 37.9 % (37.0-47.0); LYMPHOCYTES % (AUTO) 7.1 % (20.0-45.0); MEAN CORPUSCULAR VOLUME 84 FL (80-99); MONOCYTES % (AUTO) 3.2 % (1.0-10.0); NEUTROPHILS % (AUTO) 83.6 % (45.0-75.0); PLATELET COUNT 487 K/UL (150-450); RED BLOOD COUNT 4.51 M/UL (4.20-5.40); RED CELL DISTRIBUTION WIDTH 18.9 % (11.6-14.8); WHITE BLOOD COUNT 17.5 K/UL (4.8-10.8)
[2018-05-05 16:00] VITALS: BP 153/63
--- NOTE | 2018-05-05 18:52 | General Progress Note ---
Assessment/Plan Status: stable, progressing Assessment/Plan Anxiety d/o Cognitive impairment -Ativan 1mg q6hr/prn -Lexapro 10mg qam -Provided ro/st Subjective Date patient seen: May 05, 2018 Neurologic/Psychiatric: Reports: anxiety, depressed, emotional problems Allergies: Coded Allergies: No Known Allergies (Unverified , 04/18/18) Subjective the pt was calm Objective Last 24 Hour Vital Signs Date Time Temp Pulse Resp B/P (MAP) Pulse Ox O2 Delivery O2 Flow Rate FiO2 05/05/18 16:00 97.6 69 18 153/63 (93) 99 97.6 05/05/18 12:00 97.5 68 20 153/57 (89) 98 97.5 05/05/18 09:00 Room Air 05/05/18 08:22 73 131/76 05/05/18 08:19 73 131/76 05/05/18 08:18 131/76 05/05/18 08:00 97.8 69 18 131/76 (94) 98 97.8 05/05/18 04:00 97.9 69 22 111/70 (84) 98 97.9 05/05/18 00:00 97.9 67 20 132/72 (92) 98 97.9 05/04/18 21:15 71 165/70 05/04/18 21:15 71 165/70 05/04/18 21:00 Room Air 05/04/18 20:00 97.0 71 18 165/70 (101) 98 97.0 Intake and Output 05/04/18 05/05/18 19:00 07:00 Intake Total 240 ml Balance 240 ml Intake Oral 240 ml # Voids 2 3 Laboratory Tests 05/05/18 13:55: White Blood Count 17.5H, Red Blood Count 4.51, Hemoglobin 12.0, Hematocrit 37.9 , Mean Corpuscular Volume 84, Mean Corpuscular Hemoglobin 26.7L, Mean Corpuscular Hemoglobin Concent 31.8L, Red Cell Distribution Width 18.9H, Platelet Count 487H, Mean Platelet Volume 7.8, Neutrophils (%) (Auto) 83.6H, Lymphocytes (%) (Auto) 7.1L, Monocytes (%) (Auto) 3.2, Eosinophils (%) (Auto) 4.0H, Basophils (%) (Auto) 2.1H Height (Feet): 5 Height (Inches): 0.00 Weight (Pounds): 121 General Appearance: no apparent distress, alert Neurologic: oriented x 3, responsive, depressed affect Severino Vences MD May 05, 2018 18:52
--- NOTE | 2018-05-05 19:52 | General Progress Note ---
Assessment/Plan Assessment/Plan Assessment - acute hepatitis A - Peak LFT 04/26 - cholelithiasis - negative HIDA - OBS - Clavicle contusion - thickened colon on CT - presumed underdistention - elevated WBC - rising platelet count Recommendations - Check MRCP ---> refused x 2 - follow LFT - po diet OK - contact isolation - OOB - ID follow up Subjective Allergies: Coded Allergies: No Known Allergies (Unverified , 04/18/18) Subjective Feels OK no new symptoms persistent WBC elevation noted Objective Last 24 Hour Vital Signs Date Time Temp Pulse Resp B/P (MAP) Pulse Ox O2 Delivery O2 Flow Rate FiO2 05/05/18 16:00 97.6 69 18 153/63 (93) 99 97.6 05/05/18 12:00 97.5 68 20 153/57 (89) 98 97.5 05/05/18 09:00 Room Air 05/05/18 08:22 73 131/76 05/05/18 08:19 73 131/76 05/05/18 08:18 131/76 05/05/18 08:00 97.8 69 18 131/76 (94) 98 97.8 05/05/18 04:00 97.9 69 22 111/70 (84) 98 97.9 05/05/18 00:00 97.9 67 20 132/72 (92) 98 97.9 05/04/18 21:15 71 165/70 05/04/18 21:15 71 165/70 05/04/18 21:00 Room Air 05/04/18 20:00 97.0 71 18 165/70 (101) 98 97.0 Intake and Output 05/04/18 05/05/18 19:00 07:00 Intake Total 240 ml Balance 240 ml Intake Oral 240 ml # Voids 2 3 Laboratory Tests 05/05/18 13:55: White Blood Count 17.5H, Red Blood Count 4.51, Hemoglobin 12.0, Hematocrit 37.9 , Mean Corpuscular Volume 84, Mean Corpuscular Hemoglobin 26.7L, Mean Corpuscular Hemoglobin Concent 31.8L, Red Cell Distribution Width 18.9H, Platelet Count 487H, Mean Platelet Volume 7.8, Neutrophils (%) (Auto) 83.6H, Lymphocytes (%) (Auto) 7.1L, Monocytes (%) (Auto) 3.2, Eosinophils (%) (Auto) 4.0H, Basophils (%) (Auto) 2.1H Height (Feet): 5 Height (Inches): 0.00 Weight (Pounds): 121 Objective Thin elderly woman NCAT supple CTA RRR soft ND NT no edema Lyle De MD May 05, 2018 19:52
[2018-05-05 20:00] VITALS: BP 161/56
[2018-05-06] VITALS: BP 166/78
[2018-05-06 04:00] VITALS: BP 140/54
--- NOTE | 2018-05-06 07:44 | General Progress Note ---
Assessment/Plan Problem List: (1) Leukocytosis ICD Codes: D72.829 - Elevated white blood cell count, unspecified SNOMED: 046337014, 539476035 (2) Pneumonia ICD Codes: J18.9 - Pneumonia, unspecified organism SNOMED: 193821934, 295530211 (3) Contusion of right clavicle ICD Codes: S40.011A - Contusion of right shoulder, initial encounter SNOMED: 66556283 Status: stable Assessment/Plan follow up labs(wbc) same rx compliance stressed bp rx heme eval stable for dc. can complete w/u as outpt if placement found Subjective ROS Limited/Unobtainable: No Constitutional: Reports: malaise, weakness HEENT: Reports: no symptoms Cardiovascular: Reports: no symptoms Respiratory: Reports: no symptoms Gastrointestinal/Abdominal: Reports: no symptoms Genitourinary: Reports: no symptoms Neurologic/Psychiatric: Reports: no symptoms Endocrine: Reports: no symptoms Hematologic/Lymphatic: Reports: no symptoms Allergies: Coded Allergies: No Known Allergies (Unverified , 04/18/18) All Systems: reviewed and negative except above Subjective no events. w/o complaints. no fever or chills. labs pending. ID noted. cdiff negative. wbc trending down. refusing mri. Objective Last 24 Hour Vital Signs Date Time Temp Pulse Resp B/P (MAP) Pulse Ox O2 Delivery O2 Flow Rate FiO2 05/06/18 04:00 98.4 72 19 140/54 (82) 98 98.4 05/06/18 00:00 97.6 71 19 166/78 (107) 97 97.6 05/05/18 21:00 Room Air 05/05/18 20:51 65 161/56 05/05/18 20:51 65 161/56 05/05/18 20:00 97.6 65 18 161/56 (91) 97 97.6 05/05/18 16:00 97.6 69 18 153/63 (93) 99 97.6 05/05/18 12:00 97.5 68 20 153/57 (89) 98 97.5 05/05/18 09:00 Room Air 05/05/18 08:22 73 131/76 05/05/18 08:19 73 131/76 05/05/18 08:18 131/76 05/05/18 08:00 97.8 69 18 131/76 (94) 98 97.8 Intake and Output 05/05/18 05/06/18 19:00 07:00 Intake Total 260 ml Balance 260 ml Intake Oral 260 ml # Voids 4 3 # Bowel Movements 1 Laboratory Tests 05/05/18 13:55: White Blood Count 17.5H, Red Blood Count 4.51, Hemoglobin 12.0, Hematocrit 37.9 , Mean Corpuscular Volume 84, Mean Corpuscular Hemoglobin 26.7L, Mean Corpuscular Hemoglobin Concent 31.8L, Red Cell Distribution Width 18.9H, Platelet Count 487H, Mean Platelet Volume 7.8, Neutrophils (%) (Auto) 83.6H, Lymphocytes (%) (Auto) 7.1L, Monocytes (%) (Auto) 3.2, Eosinophils (%) (Auto) 4.0H, Basophils (%) (Auto) 2.1H Height (Feet): 5 Height (Inches): 0.00 Weight (Pounds): 121 Objective General Appearance: WD/WN, confused, agitated EENT: PERRL/EOMI Neck: supple Cardiovascular: normal rate, regular rhythm Respiratory/Chest: chest wall non-tender, lungs clear, normal breath sounds Abdomen: normal bowel sounds, non tender, soft, no organomegaly Edema: no edema noted Arm (L), no edema noted Arm (R), no edema noted Leg (L), no edema noted Leg (R), no edema noted Pedal (L), no edema noted Pedal (R), no edema noted Generalized Andrew Woodard MD May 06, 2018 07:44
[2018-05-06 08:00] VITALS: BP 106/45
[2018-05-06] MEDS: Metoprolol Tartrate 50mg tab ORAL SCH ×2 (08:20→20:18)
[2018-05-06] MEDS: Doxazosin 1mg Tab ORAL SCH ×2 (08:20→17:42)
[2018-05-06] MEDS: Lisinopril 20mg tab ORAL SCH (08:21)
[2018-05-06] MEDS: Aspirin Baby 81mg ORAL SCH (08:21)
[2018-05-06] MEDS: Heparin 5000 units/ml inj SUBQ SCH ×2 (08:26→20:27)
--- NOTE | 2018-05-06 10:20 | Pulmonology Progress Note ---
Assessment/Plan Assessment/Plan IMPRESSION: 1. pulmonary stable 2. persistent leukocytosis 3. Transaminitis. 4. Dementia. 5. Confusion. 6. Advanced age. 7. Contusion to right clavicle. 8. hep A positive PLAN care noted psych noted all orders reviewed heme noted wbc better nontoxic at present no respiratory distress at present impression, plan, and exam edited and reviewed in detail care discussed with RN Subjective Allergies: Coded Allergies: No Known Allergies (Unverified , 04/18/18) Subjective stable no cp or sob wbc noted heme reviewed Objective Last 24 Hour Vital Signs Date Time Temp Pulse Resp B/P (MAP) Pulse Ox O2 Delivery O2 Flow Rate FiO2 05/06/18 08:26 71 106/45 05/06/18 08:21 106/45 05/06/18 08:20 71 106/45 05/06/18 08:00 97.0 71 18 106/45 (65) 97 97.0 05/06/18 04:00 98.4 72 19 140/54 (82) 98 98.4 05/06/18 00:00 97.6 71 19 166/78 (107) 97 97.6 05/05/18 21:00 Room Air 05/05/18 20:51 65 161/56 05/05/18 20:51 65 161/56 05/05/18 20:00 97.6 65 18 161/56 (91) 97 97.6 05/05/18 16:00 97.6 69 18 153/63 (93) 99 97.6 05/05/18 12:00 97.5 68 20 153/57 (89) 98 97.5 Intake and Output 05/05/18 05/06/18 19:00 07:00 Intake Total 260 ml Balance 260 ml Intake Oral 260 ml # Voids 4 3 # Bowel Movements 1 Objective GENERAL: A well-developed female, comfortable at present, NAD HEENT: Negative. Extraocular movements are grossly intact. NECK: Supple. No jugular venous distention. LUNGS: Moderate breath sounds. no significant rhonchi present, appears stable CARDIAC: Normal S1 and S2. Regular rate and rhythm. Positive S4. No murmurs or rubs. ABDOMEN: Soft, nontender. No distention. EXTREMITIES: No cyanosis or clubbing. No significant edema. NEUROLOGICAL: Overall confused. Baseline dementia appears to be without change. Laboratory Tests 05/05/18 13:55: White Blood Count 17.5H, Red Blood Count 4.51, Hemoglobin 12.0, Hematocrit 37.9 , Mean Corpuscular Volume 84, Mean Corpuscular Hemoglobin 26.7L, Mean Corpuscular Hemoglobin Concent 31.8L, Red Cell Distribution Width 18.9H, Platelet Count 487H, Mean Platelet Volume 7.8, Neutrophils (%) (Auto) 83.6H, Lymphocytes (%) (Auto) 7.1L, Monocytes (%) (Auto) 3.2, Eosinophils (%) (Auto) 4.0H, Basophils (%) (Auto) 2.1H Current Medications Medications (Trade) Dose Ordered Sig/Franco Route PRN Reason Start Time Stop Time Status Last Admin Dose Admin Amlodipine Besylate (Norvasc) 5 mg Q12H ORAL 05/04/18 21:00 06/03/18 20:59 05/06/18 08:26 Aspirin (ASA) 81 mg DAILY ORAL 04/22/18 09:00 05/18/18 08:59 05/06/18 08:21 Doxazosin Mesylate (Cardura) 1 mg BID ORAL 05/04/18 18:00 06/03/18 17:59 05/06/18 08:20 Fluoxetine HCl (PROzac) 20 mg DAILY ORAL 04/22/18 09:00 05/19/18 08:59 05/06/18 08:20 Gabapentin (Neurontin) 300 mg BEDTIME ORAL 04/21/18 21:00 05/18/18 20:59 05/05/18 20:51 Haloperidol Lactate (Haldol) 1 mg Q4HR PRN IM Agitation 04/21/18 17:00 05/19/18 23:14 Heparin Sodium (Porcine) (Heparin 5000 units/ml) 5,000 units EVERY 12 HOURS SUBQ 04/21/18 21:00 05/18/18 08:59 05/06/18 08:26 Hydralazine HCl (Apresoline) 25 mg Q6HR PRN ORAL SBP above 160 04/21/18 18:00 05/21/18 01:59 05/04/18 03:55 Lisinopril (Prinivil) 40 mg DAILY ORAL 04/25/18 09:00 05/25/18 08:59 05/05/18 08:18 Loperamide HCl (Imodium) 2 mg Q4H PRN ORAL Diarrhea 04/21/18 15:15 05/21/18 11:14 04/22/18 09:27 Lorazepam (Ativan) 1 mg Q6H PRN ORAL For Anxiety 04/30/18 14:00 05/07/18 13:59 05/02/18 17:28 Metoprolol Tartrate (Lopressor) 50 mg Q12HR ORAL 04/25/18 09:00 05/25/18 08:59 05/06/18 08:20 Honorio Johansen MD May 06, 2018 10:20
--- NOTE | 2018-05-06 10:51 | General Surgery Progress Note ---
General Surgery-Progress Note Subjective Symptoms: improved, tolerating diet Objective Last 24 Hour Vital Signs Date Time Temp Pulse Resp B/P (MAP) Pulse Ox O2 Delivery O2 Flow Rate FiO2 05/06/18 09:00 Room Air 05/06/18 08:26 71 106/45 05/06/18 08:21 106/45 05/06/18 08:20 71 106/45 05/06/18 08:00 97.0 71 18 106/45 (65) 97 97.0 05/06/18 04:00 98.4 72 19 140/54 (82) 98 98.4 05/06/18 00:00 97.6 71 19 166/78 (107) 97 97.6 05/05/18 21:00 Room Air 05/05/18 20:51 65 161/56 05/05/18 20:51 65 161/56 05/05/18 20:00 97.6 65 18 161/56 (91) 97 97.6 05/05/18 16:00 97.6 69 18 153/63 (93) 99 97.6 05/05/18 12:00 97.5 68 20 153/57 (89) 98 97.5 I&O Intake and Output 05/05/18 05/06/18 19:00 07:00 Intake Total 260 ml Balance 260 ml Intake Oral 260 ml # Voids 4 3 # Bowel Movements 1 Wound: clean, dry Drains: none Cardiovascular: RSR Respiratory: clear Abdomen: soft Extremities: no edema Laboratory Tests Test 05/05/18 13:55 White Blood Count 17.5 K/UL (4.8-10.8) H Red Blood Count 4.51 M/UL (4.20-5.40) Hemoglobin 12.0 G/DL (12.0-16.0) Hematocrit 37.9 % (37.0-47.0) Mean Corpuscular Volume 84 FL (80-99) Mean Corpuscular Hemoglobin 26.7 PG (27.0-31.0) L Mean Corpuscular Hemoglobin Concent 31.8 G/DL (32.0-36.0) L Red Cell Distribution Width 18.9 % (11.6-14.8) H Platelet Count 487 K/UL (150-450) H Mean Platelet Volume 7.8 FL (6.5-10.1) Neutrophils (%) (Auto) 83.6 % (45.0-75.0) H Lymphocytes (%) (Auto) 7.1 % (20.0-45.0) L Monocytes (%) (Auto) 3.2 % (1.0-10.0) Eosinophils (%) (Auto) 4.0 % (0.0-3.0) H Basophils (%) (Auto) 2.1 % (0.0-2.0) H Total Protein (PEP) Pending Albumin (PEP) Pending Globulin (PEP) Pending Albumin/Globulin Ratio Pending [id number] Pending Gjmnd-[id number] Pending Beta Globulins Pending Beta Gamma Globulin Pending PEP Abnormal Protein Bands Pending Protein Electrophoresis Interpret Pending Plan Problems: (1) Contusion of right clavicle Assessment & Plan: right clavicle 3cm by 2cm wound slow healing. from report traumatic etiology after fall. no other wounds noted. wound not infected and shallow ulceration without penetration into subcutaneous tissues. no drainage. no odor CXR reviewed and no clavicle fracture noted. exam as above. leukocytosis improving. exam benign. otherwise improving. ultrasound reviewed and okay. leukocytosis. HIDA negative. wound healing nicely. leukocytosis improved -no acute surgical intervention planned. -honey gel and foam dressing BID -abx as per ID -will monitor while in hospital thank you for this consultation. will follow with recs. (2) Leukocytosis Eder Rutherford May 06, 2018 10:51
--- NOTE | 2018-05-06 11:00 | Infectious Diseases Prog Note ---
Assessment/Plan Assessment/Plan antibiotics : none A 1. right neck wound infection s/p rx 2. leucocytosis improving 3. hypertension 4. seizures P 1. observe off antibiotics 2. consider hematology evaluation Subjective Constitutional: Denies: fever, chills Respiratory: Denies: shortness of breath, dry cough Gastrointestinal/Abdominal: Denies: nausea, vomiting, diarrhea Musculoskeletal: Denies: pain Allergies: Coded Allergies: No Known Allergies (Unverified , 04/18/18) Objective Vital Signs Last 24 Hour Vital Signs Date Time Temp Pulse Resp B/P (MAP) Pulse Ox O2 Delivery O2 Flow Rate FiO2 05/06/18 09:00 Room Air 05/06/18 08:26 71 106/45 05/06/18 08:21 106/45 05/06/18 08:20 71 106/45 05/06/18 08:00 97.0 71 18 106/45 (65) 97 97.0 05/06/18 04:00 98.4 72 19 140/54 (82) 98 98.4 05/06/18 00:00 97.6 71 19 166/78 (107) 97 97.6 05/05/18 21:00 Room Air 05/05/18 20:51 65 161/56 05/05/18 20:51 65 161/56 05/05/18 20:00 97.6 65 18 161/56 (91) 97 97.6 05/05/18 16:00 97.6 69 18 153/63 (93) 99 97.6 05/05/18 12:00 97.5 68 20 153/57 (89) 98 97.5 Height (Feet): 5 Height (Inches): 0.00 Weight (Pounds): 121 HEENT: other - neck wound dry on right Respiratory/Chest: lungs clear Cardiovascular: normal rate, regular rhythm, no gallop/murmur Abdomen: soft, non tender Extremities: no edema Laboratory Tests Test 05/05/18 13:55 White Blood Count 17.5 K/UL (4.8-10.8) H Red Blood Count 4.51 M/UL (4.20-5.40) Hemoglobin 12.0 G/DL (12.0-16.0) Hematocrit 37.9 % (37.0-47.0) Mean Corpuscular Volume 84 FL (80-99) Mean Corpuscular Hemoglobin 26.7 PG (27.0-31.0) L Mean Corpuscular Hemoglobin Concent 31.8 G/DL (32.0-36.0) L Red Cell Distribution Width 18.9 % (11.6-14.8) H Platelet Count 487 K/UL (150-450) H Mean Platelet Volume 7.8 FL (6.5-10.1) Neutrophils (%) (Auto) 83.6 % (45.0-75.0) H Lymphocytes (%) (Auto) 7.1 % (20.0-45.0) L Monocytes (%) (Auto) 3.2 % (1.0-10.0) Eosinophils (%) (Auto) 4.0 % (0.0-3.0) H Basophils (%) (Auto) 2.1 % (0.0-2.0) H Total Protein (PEP) Pending Albumin (PEP) Pending Globulin (PEP) Pending Albumin/Globulin Ratio Pending [id number]-9-Vhuiybvvk Pending Iczgx-0-Ihfdlyunb Pending Beta Globulins Pending Beta Gamma Globulin Pending PEP Abnormal Protein Bands Pending Protein Electrophoresis Interpret Pending Current Medications Medications (Trade) Dose Ordered Sig/Franco Route PRN Reason Start Time Stop Time Status Last Admin Dose Admin Amlodipine Besylate (Norvasc) 5 mg Q12H ORAL 05/04/18 21:00 06/03/18 20:59 05/06/18 08:26 Aspirin (ASA) 81 mg DAILY ORAL 04/22/18 09:00 05/18/18 08:59 05/06/18 08:21 Doxazosin Mesylate (Cardura) 1 mg BID ORAL 05/04/18 18:00 06/03/18 17:59 05/06/18 08:20 Fluoxetine HCl (PROzac) 20 mg DAILY ORAL 04/22/18 09:00 05/19/18 08:59 05/06/18 08:20 Gabapentin (Neurontin) 300 mg BEDTIME ORAL 04/21/18 21:00 05/18/18 20:59 05/05/18 20:51 Haloperidol Lactate (Haldol) 1 mg Q4HR PRN IM Agitation 04/21/18 17:00 05/19/18 23:14 Heparin Sodium (Porcine) (Heparin 5000 units/ml) 5,000 units EVERY 12 HOURS SUBQ 04/21/18 21:00 05/18/18 08:59 05/06/18 08:26 Hydralazine HCl (Apresoline) 25 mg Q6HR PRN ORAL SBP above 160 04/21/18 18:00 05/21/18 01:59 05/04/18 03:55 Lisinopril (Prinivil) 40 mg DAILY ORAL 04/25/18 09:00 05/25/18 08:59 05/05/18 08:18 Loperamide HCl (Imodium) 2 mg Q4H PRN ORAL Diarrhea 04/21/18 15:15 05/21/18 11:14 04/22/18 09:27 Lorazepam (Ativan) 1 mg Q6H PRN ORAL For Anxiety 04/30/18 14:00 05/07/18 13:59 05/02/18 17:28 Metoprolol Tartrate (Lopressor) 50 mg Q12HR ORAL 04/25/18 09:00 05/25/18 08:59 05/06/18 08:20 KORY FIGUEROA May 06, 2018 11:00
[2018-05-06 12:00] VITALS: BP 132/53
[2018-05-06 16:00] VITALS: BP 139/62
--- NOTE | 2018-05-06 18:19 | General Progress Note ---
Assessment/Plan Assessment/Plan Assessment - acute hepatitis A - Peak LFT 04/26 - cholelithiasis - negative HIDA - OBS - Clavicle contusion - thickened colon on CT - presumed underdistention - elevated WBC - rising platelet count Recommendations - Check MRCP ---> refused x 2 - follow LFT - po diet OK - contact isolation - OOB - ID follow up Subjective Allergies: Coded Allergies: No Known Allergies (Unverified , 04/18/18) Subjective Feels OK no new symptoms persistent WBC elevation noted Objective Last 24 Hour Vital Signs Date Time Temp Pulse Resp B/P (MAP) Pulse Ox O2 Delivery O2 Flow Rate FiO2 05/06/18 16:00 97.3 67 20 139/62 (87) 97.3 05/06/18 12:00 97.0 60 19 132/53 (79) 97.0 05/06/18 09:00 Room Air 05/06/18 08:26 71 106/45 05/06/18 08:21 106/45 05/06/18 08:20 71 106/45 05/06/18 08:00 97.0 71 18 106/45 (65) 97 97.0 05/06/18 04:00 98.4 72 19 140/54 (82) 98 98.4 05/06/18 00:00 97.6 71 19 166/78 (107) 97 97.6 05/05/18 21:00 Room Air 05/05/18 20:51 65 161/56 05/05/18 20:51 65 161/56 05/05/18 20:00 97.6 65 18 161/56 (91) 97 97.6 Intake and Output 05/05/18 05/06/18 19:00 07:00 Intake Total 260 ml Balance 260 ml Intake Oral 260 ml # Voids 4 3 # Bowel Movements 1 Height (Feet): 5 Height (Inches): 0.00 Weight (Pounds): 121 Objective Thin elderly woman NCAT supple CTA RRR soft ND NT no edema Lyle De MD May 06, 2018 18:19
[2018-05-06 20:00] VITALS: BP 136/68
--- NOTE | 2018-05-06 23:12 | General Progress Note ---
Assessment/Plan Status: stable, progressing Assessment/Plan Anxiety d/o Cognitive impairment -Ativan 1mg q6hr/prn -Lexapro 10mg qam -Provided ro/st Subjective Date patient seen: May 06, 2018 Neurologic/Psychiatric: Reports: anxiety, depressed, emotional problems Allergies: Coded Allergies: No Known Allergies (Unverified , 04/18/18) Objective Last 24 Hour Vital Signs Date Time Temp Pulse Resp B/P (MAP) Pulse Ox O2 Delivery O2 Flow Rate FiO2 05/06/18 21:00 Room Air 05/06/18 20:25 64 136/68 05/06/18 20:18 64 136/68 05/06/18 20:00 97.0 64 20 136/68 (90) 97 97.0 05/06/18 16:00 97.3 67 20 139/62 (87) 97.3 05/06/18 12:00 97.0 60 19 132/53 (79) 97.0 05/06/18 09:00 Room Air 05/06/18 08:26 71 106/45 05/06/18 08:21 106/45 05/06/18 08:20 71 106/45 05/06/18 08:00 97.0 71 18 106/45 (65) 97 97.0 05/06/18 04:00 98.4 72 19 140/54 (82) 98 98.4 05/06/18 00:00 97.6 71 19 166/78 (107) 97 97.6 Intake and Output 05/05/18 05/06/18 19:00 07:00 Intake Total 260 ml Balance 260 ml Intake Oral 260 ml # Voids 4 3 # Bowel Movements 1 Height (Feet): 5 Height (Inches): 0.00 Weight (Pounds): 121 General Appearance: no apparent distress, alert Neurologic: oriented x 3, responsive, depressed affect Severino Vences MD May 06, 2018 23:12
[2018-05-07] VITALS (7 sets, daily range): BP systolic 100–170; BP diastolic 44–90
--- NOTE | 2018-05-07 00:15 | Consultation ---
DATE OF CONSULTATION: 05/06/2018 NOTE: POOR AUDIO HEMATOLOGY/ONCOLOGY CONSULTATION CONSULTING PHYSICIAN: Kehinde Barrientos M.D. REQUESTING PHYSICIAN: Andrew Woodard M.D. REASON FOR CONSULTATION: Evaluation of ongoing leukocytosis. IDENTIFYING DATA: Dear Dr. Woodard, Thank you for the courtesy of this consultation. The patient is a pleasant 87-year-old female with past medical history significant for leukocytosis. Leukocytosis over the course of her stay has been elevated. In addition, reviewed patient's basic peripheral smear. neutrophils noted. Hematology Service was consulted for evaluation and treatment. The patient has been admitted here for several days now. History of advanced age, transaminitis, persistent leukocytosis, history of hepatitis A positivity, stable. PAST MEDICAL HISTORY: Seizure disorder, neuropathy, anxiety, dementia, and history of hip replacement. MEDICATIONS: Reviewed. ALLERGIES: Reviewed. SOCIAL HISTORY: Nonsmoker and nondrinker. No illicit drug use. She lives in a skilled nursing. REVIEW OF SYSTEMS: Quite difficult to obtain given the patient is a poor historian. PHYSICAL EXAMINATION: VITAL SIGNS: Reviewed. GENERAL: No acute distress. PULMONARY: Decreased breath sounds. CARDIOVASCULAR: Regular rate. No S3 or S4. ABDOMEN: Soft, nontender, and nondistended. EXTREMITIES: A 1+ edema. LABORATORY DATA: WBC 17.5, neutrophils peripheral smear reviewed. BUN 22 and creatinine of 1. Urinalysis reviewed. Toxicology negative. Serology negative. hepatitis A is negative. ASSESSMENT AND RECOMMENDATIONS: 1. Leukocytosis. Obtain peripheral smear as well as obtain flow cytometry. Again, we will send for flow cytometry, which is the outpatient report. It will be considered test and to evaluate if any malignant cells are noted. 2. Anemia due to underlying chronic disease. Continue to closely monitor. 3. Thrombocytosis secondary to reactive process. Currently improving. Closely monitor for SPEP and UPEP. 4. Pneumonia. Continue antibiotics as per primary team. 5. Contusion to the right clavicle. 6. Acute hepatitis A with transaminitis. The patient is refusing MRCP. 7. Thickened colon on the CAT scan distention. I appreciate the consultation. Kehinde Carlee Barrientos DR: RODRI JOB#: [id number] CC:
[2018-05-07] MEDS: HydrALAZINE 25mg tab ORAL PRN (06:10)
--- NOTE | 2018-05-07 07:46 | General Progress Note ---
Assessment/Plan Problem List: (1) Leukocytosis ICD Codes: D72.829 - Elevated white blood cell count, unspecified SNOMED: 076654921, 758970730 (2) Pneumonia ICD Codes: J18.9 - Pneumonia, unspecified organism SNOMED: 722151237, 545157833 (3) Contusion of right clavicle ICD Codes: S40.011A - Contusion of right shoulder, initial encounter SNOMED: 76556109 Status: stable, progressing Assessment/Plan follow up labs(wbc) w/o per heme onc same rx compliance stressed bp rx stable for dc. can complete w/u as outpt if placement found Subjective ROS Limited/Unobtainable: No Constitutional: Reports: malaise, weakness HEENT: Reports: no symptoms Cardiovascular: Reports: no symptoms Respiratory: Reports: no symptoms Gastrointestinal/Abdominal: Reports: no symptoms Genitourinary: Reports: no symptoms Neurologic/Psychiatric: Reports: no symptoms Endocrine: Reports: no symptoms Hematologic/Lymphatic: Reports: no symptoms Allergies: Coded Allergies: No Known Allergies (Unverified , 04/18/18) All Systems: reviewed and negative except above Subjective no events. w/o complaints. no fever or chills. labile BP. heme appreciated. Objective Last 24 Hour Vital Signs Date Time Temp Pulse Resp B/P (MAP) Pulse Ox O2 Delivery O2 Flow Rate FiO2 05/07/18 06:10 170/67 05/07/18 04:00 97.3 62 20 170/67 (101) 100 97.3 05/07/18 00:00 97.7 59 20 132/90 (104) 98 97.7 05/06/18 21:00 Room Air 05/06/18 20:25 64 136/68 05/06/18 20:18 64 136/68 05/06/18 20:00 97.0 64 20 136/68 (90) 97 97.0 05/06/18 16:00 97.3 67 20 139/62 (87) 97.3 05/06/18 12:00 97.0 60 19 132/53 (79) 97.0 05/06/18 09:00 Room Air 05/06/18 08:26 71 106/45 05/06/18 08:21 106/45 05/06/18 08:20 71 106/45 05/06/18 08:00 97.0 71 18 106/45 (65) 97 97.0 Intake and Output 05/06/18 05/07/18 19:00 07:00 Intake Total 960 ml 480 ml Balance 960 ml 480 ml Intake Oral 960 ml 480 ml # Voids 3 3 Height (Feet): 5 Height (Inches): 0.00 Weight (Pounds): 116 Objective General Appearance: WD/WN, confused, agitated EENT: PERRL/EOMI Neck: supple Cardiovascular: normal rate, regular rhythm Respiratory/Chest: chest wall non-tender, lungs clear, normal breath sounds Abdomen: normal bowel sounds, non tender, soft, no organomegaly Edema: no edema noted Arm (L), no edema noted Arm (R), no edema noted Leg (L), no edema noted Leg (R), no edema noted Pedal (L), no edema noted Pedal (R), no edema noted Generalized Andrew Woodard MD May 07, 2018 07:46
[2018-05-07] MEDS: Aspirin Baby 81mg ORAL SCH (08:27)
[2018-05-07] MEDS: Metoprolol Tartrate 50mg tab ORAL SCH ×2 (08:30→20:31)
[2018-05-07] MEDS: Lisinopril 20mg tab ORAL SCH (08:31)
[2018-05-07] MEDS: Doxazosin 1mg Tab ORAL SCH ×2 (08:31→17:13)
[2018-05-07] MEDS: Heparin 5000 units/ml inj SUBQ SCH ×2 (08:38→20:32)
--- NOTE | 2018-05-07 09:24 | General Progress Note ---
Assessment/Plan Status: unchanged Assessment/Plan 1. Leukocytosis. Flow final still pending, but initially shows potential myeloproliferative disorder such as ET or CML, final results pending, have discussed with pathologist --> NEGRITA 2 and CML on peripheral flow cytometry is pending --> Peripheral smear, flow cytometry pending. --> Currently not on abx --> WBC improving. 2. Anemia due to underlying chronic disease. --> Continue to closely monitor. --> Anemia w/u has been reviewed, will trend daily. --> Hgb goal >7 3. Thrombocytosis secondary to reactive process. Currently improving. --> Closely monitor for SPEP and UPEP. 4. Pneumonia. Continue antibiotics as per primary team. 5. Contusion to the right clavicle. 6. Acute hepatitis A with transaminitis. --> The patient is refusing MRCP. 7. Thickened colon on the CAT scan. The time the note was entered does not necessarily correspond to the time the patient was seen. Subjective Date patient seen: May 07, 2018 ROS Limited/Unobtainable: Yes Hematologic/Lymphatic: Reports: anemia Allergies: Coded Allergies: No Known Allergies (Unverified , 04/18/18) All Systems: reviewed and negative except above Subjective No acute events. Pt ambulating. No resp distress. WBC improving. Objective Last 24 Hour Vital Signs Date Time Temp Pulse Resp B/P (MAP) Pulse Ox O2 Delivery O2 Flow Rate FiO2 05/07/18 08:35 67 137/47 05/07/18 08:31 137/47 05/07/18 08:30 67 137/47 05/07/18 08:00 97.8 69 18 137/47 (77) 99 97.8 05/07/18 06:10 170/67 05/07/18 04:00 97.3 62 20 170/67 (101) 100 97.3 05/07/18 00:00 97.7 59 20 132/90 (104) 98 97.7 05/06/18 21:00 Room Air 05/06/18 20:25 64 136/68 18 20:18 64 136/68 05/06/18 20:00 97.0 64 20 136/68 (90) 97 97.0 05/06/18 16:00 97.3 67 20 139/62 (87) 97.3 05/06/18 12:00 97.0 60 19 132/53 (79) 97.0 Intake and Output 05/06/18 05/07/18 19:00 07:00 Intake Total 960 ml 480 ml Balance 960 ml 480 ml Intake Oral 960 ml 480 ml # Voids 3 3 Height (Feet): 5 Height (Inches): 0.00 Weight (Pounds): 116 General Appearance: no apparent distress, alert EENT: PERRL/EOMI Neck: normal alignment, supple Cardiovascular: normal peripheral pulses Respiratory/Chest: normal breath sounds, no respiratory distress Abdomen: normal bowel sounds, soft Kehinde Barrientos MD May 07, 2018 09:24
--- NOTE | 2018-05-07 10:31 | General Surgery Progress Note ---
General Surgery-Progress Note Subjective Additional Comments doing well. no acute events. comfortable. wound healing Objective Last 24 Hour Vital Signs Date Time Temp Pulse Resp B/P (MAP) Pulse Ox O2 Delivery O2 Flow Rate FiO2 05/07/18 09:00 Room Air 05/07/18 08:35 67 137/47 05/07/18 08:31 137/47 05/07/18 08:30 67 137/47 05/07/18 08:00 97.8 69 18 137/47 (77) 99 97.8 05/07/18 06:10 170/67 05/07/18 04:00 97.3 62 20 170/67 (101) 100 97.3 05/07/18 00:00 97.7 59 20 132/90 (104) 98 97.7 05/06/18 21:00 Room Air 05/06/18 20:25 64 136/68 05/06/18 20:18 64 136/68 05/06/18 20:00 97.0 64 20 136/68 (90) 97 97.0 05/06/18 16:00 97.3 67 20 139/62 (87) 97.3 05/06/18 12:00 97.0 60 19 132/53 (79) 97.0 I&O Intake and Output 05/06/18 05/07/18 19:00 07:00 Intake Total 960 ml 480 ml Balance 960 ml 480 ml Intake Oral 960 ml 480 ml # Voids 3 3 Wound: clean, dry Drains: none Cardiovascular: RSR Respiratory: clear Abdomen: soft, non-tender, present bowel sounds Extremities: no edema, no tenderness, no cyanosis Plan Problems: (1) Contusion of right clavicle Assessment & Plan: right clavicle 3cm by 2cm wound slow healing. from report traumatic etiology after fall. no other wounds noted. wound not infected and shallow ulceration without penetration into subcutaneous tissues. no drainage. no odor CXR reviewed and no clavicle fracture noted. exam as above. leukocytosis improving. exam benign. otherwise improving. ultrasound reviewed and okay. leukocytosis. HIDA negative. wound healing nicely. -no acute surgical intervention planned. -honey gel and foam dressing BID -abx as per ID -will monitor while in hospital thank you for this consultation. will follow with recs. (2) Leukocytosis Eder Rutherford May 07, 2018 10:31
--- NOTE | 2018-05-07 13:08 | General Progress Note ---
Assessment/Plan Status: stable, progressing Assessment/Plan Anxiety d/o Cognitive impairment -Ativan 1mg q6hr/prn -Lexapro 10mg qam -Provided ro/st Subjective Date patient seen: May 07, 2018 Neurologic/Psychiatric: Reports: anxiety, depressed, emotional problems Allergies: Coded Allergies: No Known Allergies (Unverified , 04/18/18) Objective Last 24 Hour Vital Signs Date Time Temp Pulse Resp B/P (MAP) Pulse Ox O2 Delivery O2 Flow Rate FiO2 05/07/18 09:00 Room Air 05/07/18 08:35 67 137/47 05/07/18 08:31 137/47 05/07/18 08:30 67 137/47 05/07/18 08:00 97.8 69 18 137/47 (77) 99 97.8 05/07/18 06:10 170/67 05/07/18 04:00 97.3 62 20 170/67 (101) 100 97.3 05/07/18 00:00 97.7 59 20 132/90 (104) 98 97.7 05/06/18 21:00 Room Air 05/06/18 20:25 64 136/68 05/06/18 20:18 64 136/68 05/06/18 20:00 97.0 64 20 136/68 (90) 97 97.0 05/06/18 16:00 97.3 67 20 139/62 (87) 97.3 Intake and Output 05/06/18 05/07/18 19:00 07:00 Intake Total 960 ml 480 ml Balance 960 ml 480 ml Intake Oral 960 ml 480 ml # Voids 3 3 Height (Feet): 5 Height (Inches): 0.00 Weight (Pounds): 116 General Appearance: no apparent distress, alert Neurologic: oriented x 3, depressed affect Severino Vences MD May 07, 2018 13:08
--- NOTE | 2018-05-07 13:20 | Infectious Diseases Prog Note ---
Assessment/Plan Assessment/Plan A; R shoulder cellulitis Hepatitis A Contusion of R shoulder Leukocytosis HPN Cholelithiasis P; observe off antibiotic Subjective ROS Limited/Unobtainable: Yes Respiratory: Reports: no symptoms Cardiovascular: Reports: no symptoms Gastrointestinal/Abdominal: Reports: no symptoms Allergies: Coded Allergies: No Known Allergies (Unverified , 04/18/18) Objective Vital Signs Last 24 Hour Vital Signs Date Time Temp Pulse Resp B/P (MAP) Pulse Ox O2 Delivery O2 Flow Rate FiO2 05/07/18 09:00 Room Air 05/07/18 08:35 67 137/47 05/07/18 08:31 137/47 05/07/18 08:30 67 137/47 05/07/18 08:00 97.8 69 18 137/47 (77) 99 97.8 05/07/18 06:10 170/67 05/07/18 04:00 97.3 62 20 170/67 (101) 100 97.3 05/07/18 00:00 97.7 59 20 132/90 (104) 98 97.7 05/06/18 21:00 Room Air 05/06/18 20:25 64 136/68 05/06/18 20:18 64 136/68 05/06/18 20:00 97.0 64 20 136/68 (90) 97 97.0 05/06/18 16:00 97.3 67 20 139/62 (87) 97.3 Height (Feet): 5 Height (Inches): 0.00 Weight (Pounds): 116 General Appearance: no acute distress HEENT: mucous membranes moist Respiratory/Chest: lungs clear Cardiovascular: normal rate Abdomen: soft, non tender Extremities: no edema Skin: ulcers, other - right clavicle improving Neurologic/Psychiatric: alert, responsive Current Medications Medications (Trade) Dose Ordered Sig/Franco Route PRN Reason Start Time Stop Time Status Last Admin Dose Admin Amlodipine Besylate (Norvasc) 5 mg Q12H ORAL 05/04/18 21:00 06/03/18 20:59 05/07/18 08:35 Aspirin (ASA) 81 mg DAILY ORAL 04/22/18 09:00 05/18/18 08:59 05/07/18 08:27 Doxazosin Mesylate (Cardura) 1 mg BID ORAL 05/04/18 18:00 06/03/18 17:59 05/07/18 08:31 Fluoxetine HCl (PROzac) 20 mg DAILY ORAL 04/22/18 09:00 05/19/18 08:59 05/07/18 08:31 Gabapentin (Neurontin) 300 mg BEDTIME ORAL 04/21/18 21:00 05/18/18 20:59 05/06/18 20:17 Haloperidol Lactate (Haldol) 1 mg Q4HR PRN IM Agitation 04/21/18 17:00 05/19/18 23:14 Heparin Sodium (Porcine) (Heparin 5000 units/ml) 5,000 units EVERY 12 HOURS SUBQ 04/21/18 21:00 05/18/18 08:59 05/07/18 08:38 Hydralazine HCl (Apresoline) 25 mg Q6HR PRN ORAL SBP above 160 04/21/18 18:00 05/21/18 01:59 05/07/18 06:10 Lisinopril (Prinivil) 40 mg DAILY ORAL 04/25/18 09:00 05/25/18 08:59 05/07/18 08:31 Loperamide HCl (Imodium) 2 mg Q4H PRN ORAL Diarrhea 04/21/18 15:15 05/21/18 11:14 04/22/18 09:27 Lorazepam (Ativan) 1 mg Q6H PRN ORAL For Anxiety 04/30/18 14:00 05/07/18 13:59 05/02/18 17:28 Metoprolol Tartrate (Lopressor) 50 mg Q12HR ORAL 04/25/18 09:00 05/25/18 08:59 05/07/18 08:30 Александр Adams MD May 07, 2018 13:20
[2018-05-07] MEDS ORDERED: LORazepam 1mg tab ORAL PRN (16:45)
--- NOTE | 2018-05-07 22:30 | General Progress Note ---
Assessment/Plan Assessment/Plan Assessment - acute hepatitis A - Peak LFT 04/26 - cholelithiasis - negative HIDA - OBS - Clavicle contusion - thickened colon on CT - presumed underdistention - elevated WBC - rising platelet count Recommendations - Check MRCP ---> refused x 2 - follow LFT - po diet OK - contact isolation - OOB - ID follow up Subjective Allergies: Coded Allergies: No Known Allergies (Unverified , 04/18/18) Subjective Feels OK no new symptoms eating OK Objective Last 24 Hour Vital Signs Date Time Temp Pulse Resp B/P (MAP) Pulse Ox O2 Delivery O2 Flow Rate FiO2 05/07/18 20:31 65 110/44 05/07/18 20:31 65 110/44 05/07/18 16:00 97.5 65 18 100/58 (72) 99 97.5 05/07/18 12:00 97.6 63 20 122/47 (72) 98 97.6 05/07/18 09:00 Room Air 05/07/18 08:35 67 137/47 05/07/18 08:31 137/47 05/07/18 08:30 67 137/47 05/07/18 08:00 97.8 69 18 137/47 (77) 99 97.8 05/07/18 06:10 170/67 05/07/18 04:00 97.3 62 20 170/67 (101) 100 97.3 05/07/18 00:00 97.7 59 20 132/90 (104) 98 97.7 Intake and Output 05/06/18 05/07/18 19:00 07:00 Intake Total 960 ml 480 ml Balance 960 ml 480 ml Intake Oral 960 ml 480 ml # Voids 3 3 Height (Feet): 5 Height (Inches): 0.00 Weight (Pounds): 116 EENT: pharynx normal Objective Thin elderly woman NCAT supple CTA RRR soft ND NT no edema Lyle De MD May 07, 2018 22:30
--- NOTE | 2018-05-07 23:12 | Pulmonology Progress Note ---
Assessment/Plan Assessment/Plan Assessment/Plan IMPRESSION: 1. pulmonary stable 2. persistent leukocytosis 3. Transaminitis. 4. Dementia. 5. Confusion. 6. Advanced age. 7. Contusion to right clavicle. 8. hep A positive PLAN care noted psych noted all orders reviewed heme noted wbc better nontoxic at present no respiratory distress at present impression, plan, and exam edited and reviewed in detail care discussed with RN Subjective Allergies: Coded Allergies: No Known Allergies (Unverified , 04/18/18) Subjective stable no cp or sob wbc noted heme reviewed Objective Last 24 Hour Vital Signs Date Time Temp Pulse Resp B/P (MAP) Pulse Ox O2 Delivery O2 Flow Rate FiO2 05/06/18 08:26 71 106/45 05/06/18 08:21 106/45 05/06/18 08:20 71 106/45 05/06/18 08:00 97.0 71 18 106/45 (65) 97 97.0 05/06/18 04:00 98.4 72 19 140/54 (82) 98 98.4 05/06/18 00:00 97.6 71 19 166/78 (107) 97 97.6 05/05/18 21:00 Room Air 05/05/18 20:51 65 161/56 05/05/18 20:51 65 161/56 05/05/18 20:00 97.6 65 18 161/56 (91) 97 97.6 05/05/18 16:00 97.6 69 18 153/63 (93) 99 97.6 05/05/18 12:00 97.5 68 20 153/57 (89) 98 97.5 Intake and Output 05/05/18 05/06/18 19:00 07:00 Intake Total 260 ml Balance 260 ml Intake Oral 260 ml # Voids 4 3 # Bowel Movements 1 Objective GENERAL: A well-developed female, comfortable at present, NAD HEENT: Negative. Extraocular movements are grossly intact. NECK: Supple. No jugular venous distention. LUNGS: Moderate breath sounds. no significant rhonchi present, appears stable CARDIAC: Normal S1 and S2. Regular rate and rhythm. Positive S4. No murmurs or rubs. ABDOMEN: Soft, nontender. No distention. EXTREMITIES: No cyanosis or clubbing. No significant edema. NEUROLOGICAL: Overall confused. Baseline dementia appears to be without change. Laboratory Tests 05/05/18 13:55: White Blood Count 17.5H, Red Blood Count 4.51, Hemoglobin 12.0, Hematocrit 37.9 , Mean Corpuscular Volume 84, Mean Corpuscular Hemoglobin 26.7L, Mean Corpuscular Hemoglobin Concent 31.8L, Red Cell Distribution Width 18.9H, Platelet Count 487H, Mean Platelet Volume 7.8, Neutrophils (%) (Auto) 83.6H, Lymphocytes (%) (Auto) 7.1L, Monocytes (%) (Auto) 3.2, Eosinophils (%) (Auto) 4.0H, Basophils (%) (Auto) 2.1H Current Medications Medications (Trade) Dose Ordered Sig/Franco Route PRN Reason Start Time Stop Time Status Last Admin Dose Admin Amlodipine Besylate (Norvasc) 5 mg Q12H ORAL 05/04/18 21:00 06/03/18 20:59 05/06/18 08:26 Aspirin (ASA) 81 mg DAILY ORAL 04/22/18 09:00 05/18/18 08:59 05/06/18 08:21 Doxazosin Mesylate (Cardura) 1 mg BID ORAL 05/04/18 18:00 06/03/18 17:59 05/06/18 08:20 Fluoxetine HCl (PROzac) 20 mg DAILY ORAL 04/22/18 09:00 05/19/18 08:59 05/06/18 08:20 Gabapentin (Neurontin) 300 mg BEDTIME ORAL 04/21/18 21:00 05/18/18 20:59 05/05/18 20:51 Haloperidol Lactate (Haldol) 1 mg Q4HR PRN IM Agitation 04/21/18 17:00 05/19/18 23:14 Heparin Sodium (Porcine) (Heparin 5000 units/ml) 5,000 units EVERY 12 HOURS SUBQ 04/21/18 21:00 05/18/18 08:59 05/06/18 08:26 Hydralazine HCl (Apresoline) 25 mg Q6HR PRN ORAL SBP above 160 04/21/18 18:00 05/21/18 01:59 05/04/18 03:55 Lisinopril (Prinivil) 40 mg DAILY ORAL 04/25/18 09:00 05/25/18 08:59 05/05/18 08:18 Loperamide HCl (Imodium) 2 mg Q4H PRN ORAL Diarrhea 04/21/18 15:15 05/21/18 11:14 04/22/18 09:27 Lorazepam (Ativan) 1 mg Q6H PRN ORAL For Anxiety 04/30/18 14:00 05/07/18 13:59 05/02/18 17:28 Metoprolol Tartrate (Lopressor) 50 mg Q12HR ORAL 04/25/18 09:00 05/25/18 08:59 05/06/18 08:20 Subjective ROS Limited/Unobtainable: No Allergies: Coded Allergies: No Known Allergies (Unverified , 04/18/18) Objective Last 24 Hour Vital Signs Date Time Temp Pulse Resp B/P (MAP) Pulse Ox O2 Delivery O2 Flow Rate FiO2 05/07/18 20:31 65 110/44 05/07/18 20:31 65 110/44 05/07/18 20:00 97.2 68 20 114/54 (74) 98 97.2 05/07/18 16:00 97.5 65 18 100/58 (72) 99 97.5 05/07/18 12:00 97.6 63 20 122/47 (72) 98 97.6 05/07/18 09:00 Room Air 05/07/18 08:35 67 137/47 05/07/18 08:31 137/47 05/07/18 08:30 67 137/47 05/07/18 08:00 97.8 69 18 137/47 (77) 99 97.8 05/07/18 06:10 170/67 05/07/18 04:00 97.3 62 20 170/67 (101) 100 97.3 05/07/18 00:00 97.7 59 20 132/90 (104) 98 97.7 Intake and Output 05/06/18 05/07/18 19:00 07:00 Intake Total 960 ml 480 ml Balance 960 ml 480 ml Intake Oral 960 ml 480 ml # Voids 3 3 Current Medications Medications (Trade) Dose Ordered Sig/Franco Route PRN Reason Start Time Stop Time Status Last Admin Dose Admin Amlodipine Besylate (Norvasc) 5 mg Q12H ORAL 05/04/18 21:00 06/03/18 20:59 05/07/18 08:35 Aspirin (ASA) 81 mg DAILY ORAL 04/22/18 09:00 05/18/18 08:59 05/07/18 08:27 Doxazosin Mesylate (Cardura) 1 mg BID ORAL 05/04/18 18:00 06/03/18 17:59 05/07/18 08:31 Fluoxetine HCl (PROzac) 20 mg DAILY ORAL 04/22/18 09:00 05/19/18 08:59 05/07/18 08:31 Gabapentin (Neurontin) 300 mg BEDTIME ORAL 04/21/18 21:00 05/18/18 20:59 05/07/18 20:34 Haloperidol Lactate (Haldol) 1 mg Q4HR PRN IM Agitation 04/21/18 17:00 05/19/18 23:14 Heparin Sodium (Porcine) (Heparin 5000 units/ml) 5,000 units EVERY 12 HOURS SUBQ 04/21/18 21:00 05/18/18 08:59 05/07/18 08:38 Hydralazine HCl (Apresoline) 25 mg Q6HR PRN ORAL SBP above 160 04/21/18 18:00 05/21/18 01:59 05/07/18 06:10 Lisinopril (Prinivil) 40 mg DAILY ORAL 04/25/18 09:00 05/25/18 08:59 05/07/18 08:31 Loperamide HCl (Imodium) 2 mg Q4H PRN ORAL Diarrhea 04/21/18 15:15 05/21/18 11:14 04/22/18 09:27 Lorazepam (Ativan) 1 mg Q6H PRN ORAL For Anxiety 05/07/18 16:45 05/14/18 16:44 05/07/18 17:11 Metoprolol Tartrate (Lopressor) 50 mg Q12HR ORAL 04/25/18 09:00 05/25/18 08:59 05/07/18 08:30 Enrique Montemayor MD May 07, 2018 23:12
--- NOTE | 2018-05-08 13:28 | Discharge Summary ---
Discharge Summary Hospital Course Date of Admission Apr 18, 2018 at 03:06 Date of Discharge May 07, 2018 at 22:15 Admitting Diagnosis sepsis, pneumonia HPI Sejal Leggett is a 87 year old female who was admitted on Apr 18, 2018 at 03 :06 for Sepsis/Pneumonia Hospital Course Addendum: Patient was discharged on 04/30/18, however, was not accepted by the SNF She had persistent leukocytosis. Abdominal ultrasound showed Cholelithiasis. No sonographic evidence to suggest acute cholecystitis. CT of the abdomen showed contracted gallbladder with cholelithiasis. No renny- cholecystic fluid. No ductal dilatation. She was recommended MRCP by GI, however, refused. HIDA scan done was negative. Striper Machine was consulted. Flow cytometry results still pending, however, preliminary result showed potential myeloproliferative disorder. Patient was cleared for discharge. To continue [facility]ILARY work-up as outpatient. FINAL DIAGNOSES: Pneumonia Persistent leukocytosis Contusion, right clavicle present on admission Acute hepatitis A with transaminitis Cholelithiasis - negative HIDA Anemia due to chronic disease Anxiety DISCHARGE MEDICATIONS: Refer to Medication Reconciliation Sheet. --I was assigned to complete a DC summary on this account, I was not involved with the patient management.--Madeline Phelps NP Discharge Discharge Disposition Patient was discharged to [facility]. Kristine Phelps NP May 08, 2018 13:28
== END 2018-05-07 22:15 | DRG 193 ==
LOC: EDBD 01:31 → EMR 02:00 → 2E 03:06 → EEVIPCON 03:06 → EDBEDREQ 03:56 → 2E 04:44 → 4E 04-21 14:03
DX: J18.9 Pneumonia, unspecified organism (principal); G92 Toxic encephalopathy; B15.9 Hepatitis A without hepatic coma; I50.32 Chronic diastolic (congestive) heart failure; E44.0 Moderate protein-calorie malnutrition; F03.90 Unspecified dementia, unspecified severity, without behavioral disturbance, psychotic disturbance, mood disturbance, and anxiety; D72.829 Elevated white blood cell count, unspecified; K80.20 Calculus of gallbladder without cholecystitis without obstruction; D63.8 Anemia in other chronic diseases classified elsewhere; F41.9 Anxiety disorder, unspecified; S40.011A Contusion of right shoulder, initial encounter; W22.8XXA Striking against or struck by other objects, initial encounter; Y92.810 Car as the place of occurrence of the external cause; G40.909 Epilepsy, unspecified, not intractable, without status epilepticus; G62.9 Polyneuropathy, unspecified; Z96.642 Presence of left artificial hip joint; I11.0 Hypertensive heart disease with heart failure; R74.0 Nonspecific elevation of levels of transaminase and lactic acid dehydrogenase [LDH]; I45.10 Unspecified right bundle-branch block; R00.1 Bradycardia, unspecified; R41.0 Disorientation, unspecified
CPT/HCPCS: 36415; 70490; 71045; 74176; 76700; 78266; 80053; 80202; 80299; 81003; 82550; 82553; 83605; 83735; 83880; 84100; 84165; 84484; 85007; 85025; 86705; 86708; 86709; 86803; 87040; 87070; 87205; 87324; 87340; 87517; 93005; 93306; 94664; 99285; J8499